=== PATIENT | female | born 1940 | race Caucasian/White ===

== ENCOUNTER → 2017-05-12 | Outpatient (CLI) | payer MEDICARE ==
--- NOTE | 2017-05-12 15:47 | MR ---
EXAMINATION TYPE: MR brain and iac wo/w con DATE OF EXAM: 05/12/2017 COMPARISON: CT brain dated 11/02/2013 HISTORY: Hearing loss and tinnitus on the left. Imbalance. TECHNIQUE: Multiplanar, multisequence images of the brain and brainstem is performed without and with IV contras t, utilizing 9 mL intravenous Gadavist . Brain and IAC protocols were performed. FINDINGS: Diffusion weighted images demonstrate no evidence of a recent infarct or other diffusion ab normality. There is no extra-axial fluid collection. Numerous nonenhancing T2/FLAIR hyperintense foc i are scattered throughout the subcortical and periventricular white matter. These most commonly rela te to sequela prior microangiopathy The ventricular system and cisternal spaces are normal in size an d appearance. The brain volume is age appropriate. Midline structures demonstrate normal morphology. The craniocervical junction appears within normal limits. Post contrast images demonstrate no abnormal enhancement. The dural venous sinuses appear pa tent. The visualized sinuses are clear and the globes are intact. No cerebellar pontine angle mass or abnormal enhancement of the 7th or 8th cranial nerves are seen. Posterior disc osteophyte complex at C3-C4 creates mild spinal canal stenosis. The right vertebral ar shaila is noted to be diminutive with a dominant left vertebral artery. Major intracranial flow voids a re maintained. IMPRESSION: 1. No evidence of abnormal enhancement, intracranial mass, or restricted diffusion to indicate acute infarct. 2. No abnormal enhancement of the 7th or 8th cranial nerves and no evidence for acoustic schwannoma. 3. No cerebellopontine angle mass. 4. Moderate burden nonspecific white matter change, likely on the basis of chronic microangiopathy. 5. Mild spinal canal stenosis at C3-C4 from a posterior disc osteophyte complex.
== END | disposition home or self-care (01) ==
LOC: RADMRIMAIN 09:52
PROVIDERS: ATTEND Otolaryngology
DX: H93.12 Tinnitus, left ear (principal); H93.3X2 Disorders of left acoustic nerve; R40.0 Somnolence; I67.89 Other cerebrovascular disease; R29.6 Repeated falls
CPT/HCPCS: 82565; 70553; 36415; A9581

== ENCOUNTER 2017-09-24 23:41 | Inpatient (IN) | payer MEDICARE ==
[2017-09-25] MEDS ORDERED: cloNIDine 0.1 MG/24HR PATCH 1 PATCH PATCH TRANSDERM SCH (02:45)
[2017-09-25] MEDS ORDERED: METOPROLOL TARTRATE 50 MG TAB PO SCH ×2 (02:45→09:00)
[2017-09-25] MEDS ORDERED: LORazepam 0.5 MG TAB PO PRN (06:18)
[2017-09-25] MEDS: amLODIPine 5 MG TAB PO SCH ×2 (07:26→21:03)
[2017-09-25] MEDS ORDERED: NON-FORMULARY DRUG (Omega-3 Fatty Acids/Fish Oil [Fish Oil 1,000 Mg Softgel] 1 CAP) PO SCH (10:00)
[2017-09-25] MEDS: DIPYRIDAMOLE-ASPIRIN 200-25 MG 1 EACH CPMP.12HR PO SCH ×2 (11:44→21:02)
[2017-09-25] MEDS: GABAPENTIN 100 MG CAP PO SCH ×3 (11:44→21:02)
[2017-09-25] MEDS: LISINOPRIL 10 MG TAB PO SCH ×2 (11:45→21:02)
[2017-09-25] MEDS: ENOXAPARIN 40 MG/0.4 ML SYRINGE SQ SCH (11:46)
[2017-09-25] MEDS: LORazepam 0.5 MG TAB PO SCH ×3 (11:47→22:44)
[2017-09-25] MEDS: TAMSULOSIN 0.4 MG CAP.ER.24H PO SCH (11:47)
[2017-09-25] MEDS: PRIMIDONE 50 MG TAB PO SCH ×3 (11:47→21:02)
[2017-09-25] MEDS ORDERED: ONDANSETRON 4 MG/2 ML VIAL IVP PRN (15:18)
[2017-09-25] MEDS ORDERED: NALOXONE 0.4 MG/ML 1 ML VIAL IV PRN (15:18)
[2017-09-25] MEDS ORDERED: MELATONIN 3 MG TABLET PO PRN (15:18)
[2017-09-25] MEDS ORDERED: traMADol 50 MG TAB PO PRN (15:18)
[2017-09-25] MEDS ORDERED: CALCIUM CARBONATE 500 MG CHEWABLE PO PRN (15:18)
--- NOTE | 2017-09-25 15:46 | P.HPIM ---
History of Present Illness H&P Date: 09/25/17 Chief Complaint: weakness History of presenting complaint: This is a pleasant 76-year-old patient of Dr. macias. 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 Patient had multiple TIAs it. Patient yesterday was getting ready to be picked up by quaker friends that started feeling some weakness in the legs decided to go inside the house that had weakness in her arms and she thought her speech is also getting affected subsequently called 911 and patient was taken to [facility]. Patient was then admitted to the medical floor . Patient's blood pressure was recorded rather high they're over 220s. There wasn't available and bell person neurologist. I had the nurse contacted the robotic neurological team, who didn' t want to do any other intervention except for blood pressure control and close monitoring. Because neurologist was not available, I got the patient transferred over to here at [facility]. Patient's blood pressure was still running high and medications were ordered for blood pressure control. I saw this patient earlier today and patient's arm and leg weakness had all resolved. Patient felt his speech is come back to normal. No change in vision. No change in swallowing. Patient did feel tired and she had not slept most of the night. GEN.: Tired EYES: None HEENT: Definite the left ear NECK: None RESPIRATORY: None CARDIOVASCULAR: None GASTROINTESTINAL: None GENITOURINARY: None MUSCULOSKELETAL: Chronic joint pains LYMPHATICS: None HEMATOLOGICAL: None PSYCHIATRY: None NEUROLOGICAL: Does have poor balance because of Mnire's disease Past medical history: Fibromyalgia, hyperlipidemia, osteoarthritis, Mnire's disease primarily left ear, peptic ulcer disease, multiple TIAs. Social history: Lives alone. In an apartment. Does use a walker. Family history: Reviewed, noncontributory presentation VITAL SIGNS: Afebrile, 62, 14, 211/93, 99% 2 L GENERAL: BMI 40.2, well built, sitting up on a chair, comfortable. EYES: Pupils equal. Conjunctiva normal. HEENT: External appearance of nose and ears normal, oral cavity grossly normal decreased hearing in the left ear. NECK: JVD not raised; masses not palpable. HEART: First and second heart sounds are normal; no edema. LUNGS: Respiratory rate normal; clear to auscultation. ABDOMEN: Soft, nontender, liver spleen not palpable, no masses palpable. LYMPHATICS: No lymph nodes palpable in the axilla and neck. PSYCH: Alert and oriented x3; mood and affect normal. NEUROLOGICAL: Cranial nerves grossly intact; no facial asymmetry, power and sensation grossly intact. Investigations: Patient is reported to have a negative computed tomography scan at [facility]. Assessment: -This is a patient with multiple TIAs in the past, presenting with weakness in both the arms and legs some infection of the speech which is completely resolved. 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 Dr. Coelho from neurology was consulted. Home medications were resumed. Blood pressure medications were adjusted. Added Norvasc and beta tierney. Patient is already on on Aggrenox. Check lipid profile. Consult dietitian. Repeat computed tomography scan of the brain. Do a 2-D echo and carotid Doppler Past Medical History Past Medical History: CVA/TIA, Fibromyalgia, GERD/Reflux, Hyperlipidemia, Memory Impairment, Osteoarthritis (OA), Skin Disorder Additional Past Medical History / Comment(s): SEE DR UNGER'S H&P, MENIERE' S LEFT EAR, PEPTIC ULCERS, tia x 14- last 12/2013. History of Any Multi-Drug Resistant Organisms: None Reported Past Surgical History: Back Surgery, Cholecystectomy, Joint Replacement, Orthopedic Surgery, Tonsillectomy Additional Past Surgical History / Comment(s): LOOP RECORDER 2010, ORIF LEFT FOOT, rt foot surgery, JT REPL WINNIE KNEES & WINNIE SHOULDERS, WINNIE CATARACT, gianni and screws in back Past Anesthesia/Blood Transfusion Reactions: No Reported Reaction Past Psychological History: Anxiety, Depression Smoking Status: Never smoker Past Alcohol Use History: None Reported Past Drug Use History: None Reported - Past Family History Father Family Medical History: Cancer Mother Family Medical History: Cancer Medications and Allergies Home Medications Medication Instructions Recorded Confirmed Type Gabapentin [Neurontin] 100 mg PO TID 12/12/13 09/25/17 History LORazepam [Ativan] 0.5 mg PO TID 12/12/13 09/25/17 History Primidone [Mysoline] 50 mg PO Q6H 12/12/13 09/25/17 History QUEtiapine [SEROquel] 50 mg PO HS 12/12/13 09/25/17 History Tamsulosin HCl [Flomax] 0.4 mg PO DAILY 12/12/13 09/25/17 History Cholecalciferol [Vitamin D3] 1,000 unit PO BID 02/21/14 09/25/17 History Alendronate Sodium [Fosamax] 35 mg PO MO 09/25/17 09/25/17 History Ascorbic Acid [Vitamin C] 500 mg PO DAILY 09/25/17 09/25/17 History Aspirin/Dipyridamole [Aggrenox 1 tab PO BID 09/25/17 09/25/17 History 25MG -200MG] Cyanocobalamin (Vitamin B-12) 1,000 mcg PO BID 09/25/17 09/25/17 History [Vitamin B-12] Glucosam/Isidro-Msm1/C/Sivakumar/Bosw 1 tab PO BID 09/25/17 09/25/17 History [Glucosamine-Chondroitin Tablet] Lisinopril [Zestril] 10 mg PO BID 09/25/17 09/25/17 History Meclizine [Antivert] 12.5 mg PO BID 09/25/17 09/25/17 History [place]-3 Fatty Acids/Fish Oil [Fish 1 cap PO BID 09/25/17 09/25/17 History Oil 1,000 mg Softgel] PARoxetine HCL [Paxil Cr] 25 mg PO DAILY 09/25/17 09/25/17 History rOPINIRole HCL [Requip] 1 mg PO HS 09/25/17 09/25/17 History Allergies Allergy/AdvReac Type Severity Reaction Status Date / Time nickel [Nickel] Allergy Rash/Hives Verified 09/25/17 07:51 codeine AdvReac headache Verified 09/25/17 07:51
--- NOTE | 2017-09-25 16:39 | CT ---
EXAMINATION TYPE: CT brain wo con DATE OF EXAM: 09/25/2017 COMPARISON: Prior CT brain 11/02/2013, MR brain 05/12/2017 HISTORY: Bilateral arm weakness that has subsided at time of test. CT DLP: 1026.6 mGycm Automated exposure control for dose reduction was used. Helical acquisition through the brain FINDINGS: Cerebral vascular calcifications are present. There is no hemorrhage or hydrocephalus. Periventricula r white matter shows patchy low attenuation. Calvarium is intact. Paranasal sinuses and mastoid air c ells as visualized are stable. IMPRESSION: NO ACUTE ABNORMALITIES EVIDENT. CONSIDER BRAIN MRI FOR BETTER EVALUATION.
--- NOTE | 2017-09-25 16:42 | US ---
EXAMINATION TYPE: US carotid duplex BILAT DATE OF EXAM: 09/25/2017 COMPARISON: None CLINICAL HISTORY: poss stroke. history of multiple TIA's per patient, HTN EXAM MEASUREMENTS: RIGHT: Peak Systolic Velocity (PSV) cm/sec ----- Right CCA: 75.4 ----- Right ICA: 83.4 ----- Right ECA: 121.8 ICA/CCA ratio: 1.1 RIGHT: End Diastole cm/sec ----- Right CCA: 9.5 ----- Right ICA: 13.1 ----- Right ECA: 0.0 LEFT: Peak Systolic Velocity (PSV) cm/sec ----- Left CCA: 65.1 ----- Left ICA: 91.7 ----- Left ECA: 74.6 ICA/CCA ratio: 1.4 LEFT: End Diastole cm/sec ----- Left CCA: 10.4 ----- Left ICA: 16.9 ----- Left ECA: 0.0 VERTEBRALS (direction of flow): Right Vertebral: Antegrade Left Vertebral: Antegrade Rhythm: Normal Plaque seen in left bulb. No elevated velocities or significant stenosis. Wall thickening. Tortuou s and diving ECA's and ICA's. IMPRESSION: 1. Atheromatous plaquing without significant flow-limiting stenosis. Criteria for Assigning % of Stenosis / Diameter reduction (Estimation based on the indirect measurements of the internal carotid artery velocities (ICA PSV). 1. Normal (no stenosis)=ICA PSV < 125 cm/s: ratio < 2.0: ICA EDV<40 cm/s. 2. Less than 50% stenosis=ICA PSV < 125 cm/s: ratio < 2.0: ICA EDV<40 cm/s. 3. 50 to 69% stenosis=ICA PSV of 125 to 230 cm/s: ration 2.0 ? 4.0: ICA EDV 40-100 cm/s. 4. Greater than 70% stenosis to near occlusion= ICA PSV > 230 cm/s: ratio > 4.0: ICA EDV > 100 cm/s. 5. Near occlusion= ICA PSV velocities may be low or undetectable: variable ratio and ICA EDV. 6. Total occlusion=unable to detect flow.
[2017-09-25 17:42] LABS: HCT 40.8 % (34.0-46.0); HGB 12.9 gm/dL (11.4-16.0); MCH 29.3 pg (25.0-35.0); MCHC 31.7 g/dL (31.0-37.0); MCV 92.4 fL (80.0-100.0); Platelet Count 225 k/uL (150-450); RBC 4.42 m/uL (3.80-5.40); RDW 13.5 % (11.5-15.5); WBC 7.2 k/uL (3.8-10.6)
[2017-09-25 17:53] LABS: ALT 33 U/L (9-52); AST 41 U/L (14-36); Albumin 3.8 g/dL (3.5-5.0); Alkaline Phosphatase 66 U/L (38-126); Anion Gap 8 mmol/L; Blood Urea Nitrogen 19 mg/dL (7-17); Calcium 9.2 mg/dL (8.4-10.2); Carbon Dioxide 28 mmol/L (22-30); Chloride 103 mmol/L (98-107); Glucose 114 mg/dL (74-99); Potassium 4.3 mmol/L (3.5-5.1); Sodium 139 mmol/L (137-145); Total Bilirubin 0.4 mg/dL (0.2-1.3); Total Protein 6.3 g/dL (6.3-8.2)
[2017-09-25] MEDS ORDERED: PARoxetine 20 MG TAB PO SCH (18:15)
--- NOTE | 2017-09-25 20:12 | P.CNNES ---
History of Present Illness Consult date: 09/25/17 History of Present Illness: The patient is a 76-year-old right-handed white female who was in her usual state of health on Monday afternoon around 5 PM she is waiting to go to [employer] and suddenly her legs went numb and her arms went numb and her speech was a slight slur. EMS was called and she was taken to [facility]. Her symptoms resolved by the time she got to the hospital but her blood pressure was extremely high. She was transferred from there to inpatient at [facility]. She states that she continues to feel generally weak but no more numbness and she is not had any speech disturbance. She states her blood pressures never been so elevated in the past. Since Monday her systolic blood pressures have been running in the 200 range. When she was at [facility] her blood pressure was recorded over 220. The robotic neurologic team was contacted and no intervention was suggested. They did want blood pressure controlled and close monitoring. Patient patient is feeling much better today. A CAT scan of the brain today which did not show any acute abnormality. She's had a carotid ultrasound which did not show any stenosis. States she had an echocardiogram 3 weeks ago at [facility]. His been on Aggrenox. She has a history of TIAs. Review of Systems Constitutional: Denies chills, Denies fever Ears, nose, mouth and throat: Reports as per HPI Cardiovascular: Denies chest pain, Denies shortness of breath Respiratory: Denies cough Gastrointestinal: Reports as per HPI Genitourinary: Denies dysuria, Denies hematuria Musculoskeletal: Denies myalgias Integumentary: Denies pruritus, Denies rash Neurological: Denies numbness, Denies weakness Psychiatric: Denies anxiety, Denies depression Past Medical History Past Medical History: CVA/TIA, Fibromyalgia, GERD/Reflux, Hyperlipidemia, Memory Impairment, Osteoarthritis (OA), Skin Disorder Additional Past Medical History / Comment(s): SEE DR UNGER'S H&P, MENIERE' S LEFT EAR, PEPTIC ULCERS, tia x 14- last 12/2013. History of Any Multi-Drug Resistant Organisms: None Reported Past Surgical History: Back Surgery, Cholecystectomy, Joint Replacement, Orthopedic Surgery, Tonsillectomy Additional Past Surgical History / Comment(s): LOOP RECORDER 2010, ORIF LEFT FOOT, rt foot surgery, JT REPL WINNIE KNEES & WINNIE SHOULDERS, WINNIE CATARACT, gianni and screws in back Past Anesthesia/Blood Transfusion Reactions: No Reported Reaction Past Psychological History: Anxiety, Depression Smoking Status: Never smoker Past Alcohol Use History: None Reported Past Drug Use History: None Reported - Past Family History Father Family Medical History: Cancer Mother Family Medical History: Cancer Medications and Allergies Home Medications Medication Instructions Recorded Confirmed Type Gabapentin [Neurontin] 100 mg PO TID 12/12/13 09/25/17 History LORazepam [Ativan] 0.5 mg PO TID 12/12/13 09/25/17 History Primidone [Mysoline] 50 mg PO Q6H 12/12/13 09/25/17 History QUEtiapine [SEROquel] 50 mg PO HS 12/12/13 09/25/17 History Tamsulosin HCl [Flomax] 0.4 mg PO DAILY 12/12/13 09/25/17 History Cholecalciferol [Vitamin D3] 1,000 unit PO BID 02/21/14 09/25/17 History Alendronate Sodium [Fosamax] 35 mg PO MO 09/25/17 09/25/17 History Ascorbic Acid [Vitamin C] 500 mg PO DAILY 09/25/17 09/25/17 History Aspirin/Dipyridamole [Aggrenox 1 tab PO BID 09/25/17 09/25/17 History 25MG -200MG] Cyanocobalamin (Vitamin B-12) 1,000 mcg PO BID 09/25/17 09/25/17 History [Vitamin B-12] Glucosam/Isidro-Msm1/C/Sivakumar/Bosw 1 tab PO BID 09/25/17 09/25/17 History [Glucosamine-Chondroitin Tablet] Lisinopril [Zestril] 10 mg PO BID 09/25/17 09/25/17 History Meclizine [Antivert] 12.5 mg PO BID 09/25/17 09/25/17 History [place]-3 Fatty Acids/Fish Oil [Fish 1 cap PO BID 09/25/17 09/25/17 History Oil 1,000 mg Softgel] PARoxetine HCL [Paxil Cr] 25 mg PO DAILY 09/25/17 09/25/17 History rOPINIRole HCL [Requip] 1 mg PO HS 09/25/17 09/25/17 History Allergies Allergy/AdvReac Type Severity Reaction Status Date / Time nickel [Nickel] Allergy Rash/Hives Verified 09/25/17 07:51 codeine AdvReac headache Verified 09/25/17 07:51 Physical Examination - Vital Signs Vital Signs: Vital Signs Temp Pulse Resp BP BP Pulse Ox 09/25/17 16:00 97.4 F L 44 L 14 143/62 100 09/25/17 12:00 49 L 18 136/65 96 09/25/17 09:17 49 L 191/91 09/25/17 08:00 77 18 221/116 97 09/25/17 07:45 84 261/135 09/25/17 07:15 69 230/107 09/25/17 04:17 59 L 225/100 09/25/17 04:16 58 L 190/84 09/25/17 04:00 59 L 14 09/25/17 03:33 58 L 237/100 97 09/25/17 03:00 62 14 211/93 99 Intake and Output 09/25/17 09/25/17 09/25/17 06:59 14:59 22:59 Intake Total 480 240 Balance 480 240 Intake: Oral 480 240 Other: # Voids 3 3 # Bowel Movements 2 Weight 93.4 kg - Constitutional General appearance: average body habitus - EENT EENT: PERRL - Respiratory Respiratory: lungs clear - Cardiovascular Cardiovascular: regular rate, normal S1, normal S2 - Integumentary Integumentary: normal - Neurologic Cranial nerve examination: PERRL, face symmetric Sensorimotor examination: intact Detailed motor examination: grossly full strength in all extremities Reflexes: 2+: tricep - Psychiatric Psychiatric: mood/affect appropriate Results - Laboratory Findings CBC and BMP: 09/25/17 17:01 09/25/17 17:01 Abnormal Lab Findings: Abnormal Labs 09/25/17 17:01 BUN 19 H Glucose 114 H AST 41 H Assessment and Plan (1) Hypertensive emergency Current Visit: Yes Status: Acute SNOMED Code(s): 549756343523306 (2) History of recurrent TIAs Current Visit: Yes Status: Acute SNOMED Code(s): 327959783 Plan: Patient is a 76-year-old woman with history of sudden onset numbness of the arms and legs and extremely elevated blood pressure. She was transferred from [facility] to [facility] yesterday. Neurology was consulted this morning for possible TIA. The patient has had no further speech disturbance since going to the emergency room at [facility]. She complains of general weakness but no focal weakness or numbness. She normally does walk with a walker. She is on Aggrenox for stroke prevention. Her main issue now is the uncontrolled blood pressure. She's had a CAT scan of the brain which was unremarkable and a carotid ultrasound which did not show any stenosis. She was told that her echocardiogram was abnormal 3 weeks ago at [facility]. Recommend continue management of hypertensive urgency.
[2017-09-25] MEDS: QUEtiapine 50 MG TAB PO SCH (21:02)
[2017-09-25] MEDS: METOPROLOL TARTRATE 25 MG TAB PO SCH (21:03)
[2017-09-26] MEDS: PRIMIDONE 50 MG TAB PO SCH ×4 (04:12→22:33)
[2017-09-26 04:15] LABS: Cholesterol 210 mg/dL (<200); HDL Cholesterol 70 mg/dL (40-60); LDL Cholesterol,Calculated 130 mg/dL (0-99); Triglycerides 48 mg/dL (<150)
[2017-09-26] MEDS: METOPROLOL TARTRATE 25 MG TAB PO SCH (08:47)
[2017-09-26] MEDS: DIPYRIDAMOLE-ASPIRIN 200-25 MG 1 EACH CPMP.12HR PO SCH ×2 (08:53→20:11)
[2017-09-26] MEDS: PARoxetine 20 MG TAB PO SCH (08:53)
[2017-09-26] MEDS: amLODIPine 5 MG TAB PO SCH ×2 (08:53→20:11)
[2017-09-26] MEDS: TAMSULOSIN 0.4 MG CAP.ER.24H PO SCH (08:53)
[2017-09-26] MEDS: GABAPENTIN 100 MG CAP PO SCH ×3 (08:53→22:33)
[2017-09-26] MEDS: LORazepam 0.5 MG TAB PO SCH ×3 (08:53→22:34)
[2017-09-26] MEDS: ENOXAPARIN 40 MG/0.4 ML SYRINGE SQ SCH (08:54)
[2017-09-26] MEDS: ACETAMINOPHEN TAB 325 MG TAB PO PRN (11:04)
--- NOTE | 2017-09-26 11:13 | ECHOF ---
Referral Reason:poss stroke MEASUREMENTS -------- HEIGHT: 152.4 cm WEIGHT: 93.0 kg BP: 191/91 RVIDd: 2.6 cm (< 3.3) IVSd: 1.2 cm (0.6 - 1.1) LVIDd: 4.6 cm (3.9 - 5.3) LVPWd: 1.0 cm (0.6 - 1.1) IVSs: 1.5 cm LVIDs: 2.8 cm LVPWs: 1.4 cm LA Diam: 3.2 cm (2.7 - 3.8) LAESV Index (A-L): 24.43 ml/m Ao Diam: 3.6 cm (2.0 - 3.7) AV Cusp: 2.4 cm (1.5 - 2.6) EPSS: 0.8 cm MV E Martin: 0.86 m/s MV DecT: 304 ms MV A Martin: 0.92 m/s MV E/A Ratio: 0.94 AR PHT: 1431 ms RAP: 5.00 mmHg RVSP: 22.50 mmHg MV EF SLOPE: 59.65 mm/s (70 - 150) MV EXCURSION: 1.14 cm (> 18.000) FINDINGS -------- Sinus rhythm. This was a technically good study. The left ventricular size is normal. There is borderline concentric left ventricular hypertrophy. Overall left ventricular systolic function is normal with, an EF between 55 - 60 %. The right ventricle is normal in size. Normal LA size by volume 22+/-6 ml/m2. The right atrium is normal in size. There is mild aortic valve sclerosis. There is mild aortic regurgitation. The mitral valve leaflets are mildly thickened. Mild mitral annular calcification present. There is trace to mild mitral regurgitation. Mild tricuspid regurgitation present. Right ventricular systolic pressure is normal at < 35 mmHg. Trace/mild (physiologic) pulmonic regurgitation. The aortic root size is normal. Normal inferior vena cava with normal inspiratory collapse consistent with estimated right atrial pre ssure of 5 mmHg. There is no pericardial effusion. CONCLUSIONS -------- 1. Sinus rhythm. 2. This was a technically good study. 3. The left ventricular size is normal. 4. There is borderline concentric left ventricular hypertrophy. 5. Overall left ventricular systolic function is normal with, an EF between 55 - 60 %. 6. The right ventricle is normal in size. 7. Normal LA size by volume 22+/-6 ml/m2. 8. The right atrium is normal in size. 9. There is mild aortic valve sclerosis. 10. There is mild aortic regurgitation. 11. The mitral valve leaflets are mildly thickened. 12. Mild mitral annular calcification present. 13. There is trace to mild mitral regurgitation. 14. Mild tricuspid regurgitation present. 15. Right ventricular systolic pressure is normal at < 35 mmHg. 16. Trace/mild (physiologic) pulmonic regurgitation. 17. The aortic root size is normal. 18. Normal inferior vena cava with normal inspiratory collapse consistent with estimated right atrial pressure of 5 mmHg. 19. There is no pericardial effusion. OSCILLOGRAPH TECHNICIAN: LAUREN Slade
[2017-09-26 11:39] VITALS: BMI 40.3
[2017-09-26] MEDS: LISINOPRIL 10 MG TAB PO SCH ×2 (16:39→20:11)
--- NOTE | 2017-09-26 17:35 | P.PN ---
Progress Note - Text Progress Note Date: 09/26/17 presenting complaint: Weakness interval history: Patient presented bilateral arm and leg weakness felt to be hypertensive encephalopathy which since has resolved. Blood pressure is getting better controlled patient is tolerating a diet. no focal weakness. Because the heart rate was running low on blood pressure well-controlled beta blockers being discontinued Review of systems: Was done for constitutional, cardiovascular, GI, pulmonary. relevant finding as above Current medications reviewed that included: Norvasc 5 mg by mouth twice a day, Zestril 10 mg by mouth twice a day, Lopressor 25 by mouth twice a day that has been discontinued VITAL SIGNS: 96, 45, 10, 132/61, 97% room air GENERAL: sitting up on the bedsider, comfortable. EYES: Pupils equal. Conjunctiva normal. HEENT: External appearance of nose and ears normal, oral cavity grossly normal decreased hearing in the left ear. NECK: JVD not raised; masses not palpable. HEART: First and second heart sounds are normal; no edema. LUNGS: Respiratory rate normal; clear to auscultation. ABDOMEN: Soft, nontender, liver spleen not palpable, no masses palpable. PSYCH: Alert and oriented x3; mood and affect normal. NEUROLOGICAL: Cranial nerves grossly intact; no facial asymmetry, power and sensation grossly intact. Investigations: computed tomography scan brain negative, 2-D echocardiogram unremarkable, carotid Doppler no critical stenosis Assessment: -This is a patient with multiple TIAs in the past, presenting with weakness in both the arms and legs some infection of the speech which is completely resolved. 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 Beta blockers been discontinued. We will keep a close on the blood pressure. She remained stable to be discharged tomorrow
[2017-09-26] MEDS: QUEtiapine 50 MG TAB PO SCH (20:11)
[2017-09-26 21:11] LABS: Glucose,Whole Blood 105 mg/dL (75-99)
[2017-09-27 04:44] VITALS: PULSE 67; RESP 20
[2017-09-27] MEDS: PRIMIDONE 50 MG TAB PO SCH ×3 (06:20→16:08)
[2017-09-27] MEDS: PARoxetine 20 MG TAB PO SCH (08:27)
[2017-09-27] MEDS: amLODIPine 5 MG TAB PO SCH (08:27)
[2017-09-27] MEDS: ENOXAPARIN 40 MG/0.4 ML SYRINGE SQ SCH (08:27)
[2017-09-27] MEDS: DIPYRIDAMOLE-ASPIRIN 200-25 MG 1 EACH CPMP.12HR PO SCH (08:27)
[2017-09-27] MEDS: GABAPENTIN 100 MG CAP PO SCH ×2 (08:27→16:08)
[2017-09-27] MEDS: LISINOPRIL 10 MG TAB PO SCH (08:27)
[2017-09-27] MEDS: LORazepam 0.5 MG TAB PO SCH ×2 (08:27→16:08)
[2017-09-27] MEDS: TAMSULOSIN 0.4 MG CAP.ER.24H PO SCH (08:27)
[2017-09-27] MEDS: ACETAMINOPHEN TAB 325 MG TAB PO PRN (11:26)
[2017-09-27 12:13] VITALS: BP 159/66; TEMP 97.8
[2017-09-27] MEDS ORDERED: LISINOPRIL 10 MG TAB PO STA (13:04)
[2017-09-27] MEDS ORDERED: ATORVASTATIN 80 MG TAB PO SCH (13:30)
--- NOTE | 2017-09-27 22:17 | DS ---
DISCHARGE SUMMARY DATE OF ADMISSION: September 25, 2017. DATE OF DISCHARGE: September 27, 2017. FINAL DIAGNOSES: 1. Hypertensive encephalopathy present on admission. 2. Morbid obesity BMI 40.2. 3. Hyperlipidemia. 4. Primary osteoarthritis. 5. Chronic Meniere's disease in the left ear with near deafness. 6. Peptic ulcer disease. 7. Essential hypertension with urgency, present on admission. 8. Bradycardia from beta tierney, discontinued. HOSPITAL COURSE: This patient was transferred from [facility] feeling weak all over, was found to have blood pressure over 220 systolic. The patient is felt to have hypertensive encephalopathy. The patient's CT scan of the brain, carotid Doppler, 2D echo were all unremarkable. Blood pressure at the time of discharge was better controlled at 159/66. Slight for that medication was done today. EXAM: Lungs are clear. Cardiovascular 1st and 2nd sounds normal. No focal weakness. CONSULTATIONS: Dr. Joey Guerrero of Neurology. DISCHARGE MEDICATIONS: 1. Neurontin 100 mg p.o. t.i.d. 2. Ativan 0.5 p.o. t.i.d. 3. Mysoline 50 mg q.6. 4. Seroquel 50 mg q.h.s. 5. Flomax 0.4 mg p.o. daily. 6. Vitamin D3 1000 units p.o. b.i.d. 7. Fosamax 35 mg p.o. Mondays. 8. Vitamin C 500 mg p.o. daily. 9. Aggrenox 1 tab p.o. b.i.d. 10.Vitamin B12 1000 mcg p.o. b.i.d. 11.Glucosamine chondroitin 1 tab p.o. b.i.d. 12.Fish oil 1000 mg p.o. b.i.d. 13.Paxil CR 25 mg p.o. daily. 14.Requip 1 mg q.h.s. 15.Zestoretic 12/12.5 one tablet p.o. daily. 16.Melatonin 3 mg p.o. q.h.s. p.r.n. 17.Norvasc 5 mg p.o. b.i.d. 18.Zestoretic 20/12.5 one tablet twice a day. Follow up with Dr. Roberts in 1 week, Dr. Yazmin Guerrero in 10 days. The patient has got [facility]. Copy to Dr. Roberts. [email or web address] / IJN: [id number] /
== END 2017-09-27 16:35 | disposition home or self-care (01) | DRG 305 ==
LOC: 6SEL 09-25 02:31
PROVIDERS: ADMIT Hospitalist; ATTEND Hospitalist
DX: I16.0 Hypertensive urgency (principal); I67.4 Hypertensive encephalopathy; R00.1 Bradycardia, unspecified; Z68.41 Body mass index [BMI] 40.0-44.9, adult; E66.01 Morbid (severe) obesity due to excess calories; M19.91 Primary osteoarthritis, unspecified site; E78.5 Hyperlipidemia, unspecified; H81.02 Meniere's disease, left ear; H91.90 Unspecified hearing loss, unspecified ear; K21.9 Gastro-esophageal reflux disease without esophagitis; M79.7 Fibromyalgia; Z96.653 Presence of artificial knee joint, bilateral; Z96.612 Presence of left artificial shoulder joint; Z96.611 Presence of right artificial shoulder joint; F32.9 Major depressive disorder, single episode, unspecified; F41.9 Anxiety disorder, unspecified; Z79.899 Other long term (current) drug therapy; Z79.83 Long term (current) use of bisphosphonates; Z79.82 Long term (current) use of aspirin; Z98.41 Cataract extraction status, right eye; Z86.73 Personal history of transient ischemic attack (TIA), and cerebral infarction without residual deficits; Z98.42 Cataract extraction status, left eye; Z90.49 Acquired absence of other specified parts of digestive tract; Z87.11 Personal history of peptic ulcer disease; Z90.89 Acquired absence of other organs; Z88.6 Allergy status to analgesic agent; Z91.048 Other nonmedicinal substance allergy status
CPT/HCPCS: 70450; 80053; 80061; 85027; 93306; 93880

== ENCOUNTER 2019-03-11 16:51 | Inpatient (IN) | payer MEDICARE ==
--- NOTE | 2019-03-11 17:43 | ED ---
General Adult HPI - General Chief complaint: Neuro Symptoms/Deficit Stated complaint: Stroke Symptoms Time Seen by Provider: 03/11/19 17:02 Source: EMS Mode of arrival: EMS Limitations: no limitations - History of Present Illness Initial comments: Dictation was produced using [employer] dictation software. please excuse any grammatical, word or spelling errors. Chief Complaint: 78-year-old female transferred from [facility] for transient ischemic attack. History of Present Illness: Delores is an 82-year-old female she is past medical history history of stroke and transient ischemic attack. She has multiple other comorbidities including the some edema hypertension liver disease. She allegedly has history of stroke with chronic left-sided weakness. She was seen and evaluated at [facility]. She was brought to their facility by paramedics for symptoms of expressive aphasia. Patient also stated at that time that she was generally weak. She denies any localizing focal neurologic deficit. States her symptoms lasted for approximately 20 minutes then resolved. Patient states she just recently had an EEG. Her neurologist is Dr. Hernandez. She underwent stroke workup at [facility] with no obvious abnormalities. She had normal labs. Chest x-ray and a normal computed tomography scan of the brain. Patient evaluated at bedside. She states that her symptoms are resolved. Sensation feels mildly lightheaded. According to documentation patient was found to have left upper and left lower extremity weakness that resolved while in the emergency department. The ROS documented in this emergency department record has been reviewed and confirmed by me. Those systems with pertinent positive or negative responses have been documented in the HPI. All other systems are other negative and/or noncontributory. PHYSICAL EXAM: General Impression: Alert and oriented x3, not in acute distress HEENT: Normocephalic atraumatic, extra-ocular movements intact, pupils equal and reactive to light bilaterally, mucous membranes moist. Cardiovascular: Heart regular rate and rhythm, S1&S2 audible, no murmurs, rubs or gallops Chest: Lungs clear to auscultation bilaterally, no rhonchi, no wheeze, no rales Abdomen: Bowel sounds present, abdomen soft, non-tender, non-distended, no organomegaly Musculoskeletal: Pulses present and equal in all extremities, no peripheral edema Motor: no focal deficits noted Neurological: CN II-XII grossly intact, no focal motor or sensory deficits noted Skin: Intact with no visualized rashes Psych: Normal affect and mood ED course: 82-year-old female presents via transfer from [facility] for concerns of transient ischemic attack. Patient evaluated at bedside and has no focal neurologic deficits. Vital signs upon arrival are within acceptable limits. Chest documentation was reviewed. No further concerns to warrant further imaging or blood evaluation. Patient be transferred to the floor. Discussed patient case with Dr. Parada who is willing to accept patients care. Altered in consultation. She received aspirin at previous hospital. Patient's well-appearing at this time. She has no current strokelike symptoms. She is eating well and using all extremities without any issues. She is alert and oriented 4 and having full conversations. - Related Data Home Medications Medication Instructions Recorded Confirmed Gabapentin [Neurontin] 100 mg PO TID PRN 12/12/13 03/11/19 LORazepam [Ativan] 0.25 mg PO TID 12/12/13 03/11/19 QUEtiapine [SEROquel] 50 mg PO HS 12/12/13 03/11/19 Tamsulosin HCl [Flomax] 0.4 mg PO DAILY 12/12/13 03/11/19 Alendronate Sodium [Fosamax] 35 mg PO MO 09/25/17 03/11/19 Ascorbic Acid [Vitamin C] 500 mg PO DAILY 09/25/17 03/11/19 Cyanocobalamin (Vitamin B-12) 1,000 mcg PO BID 09/25/17 03/11/19 [Vitamin B-12] PARoxetine HCL [Paxil Cr] 25 mg PO DAILY 09/25/17 03/11/19 rOPINIRole HCL [Requip] 1 mg PO HS 09/25/17 03/11/19 Aspirin EC [Ecotrin Low Dose] 81 mg PO DAILY 03/11/19 03/11/19 Ibuprofen [Motrin] 800 mg PO TID PRN 03/11/19 03/11/19 Latanoprost [Xalatan 0.005%] 1 drop BOTH EYES HS 03/11/19 03/11/19 Lisinopril-Hctz 20-12.5 mg 1 tab PO DAILY 03/11/19 03/11/19 [Zestoretic 20-12.5] Meclizine [Antivert] 12.5 mg PO TID PRN 03/11/19 03/11/19 Turmeric Root Extract [Turmeric] 500 mg PO DAILY 03/11/19 03/11/19 clonazePAM [KlonoPIN] 0.5 mg PO DAILY 03/11/19 03/11/19 Allergies Allergy/AdvReac Type Severity Reaction Status Date / Time nickel [Nickel] Allergy Rash/Hives Verified 03/11/19 17:25 codeine AdvReac headache Verified 03/11/19 17:25 Review of Systems ROS Statement: Those systems with pertinent positive or pertinent negative responses have been documented in the HPI. ROS Other: All systems not noted in ROS Statement are negative. Past Medical History Past Medical History: CVA/TIA, Fibromyalgia, GERD/Reflux, Hyperlipidemia, Memory Impairment, Osteoarthritis (OA), Skin Disorder Additional Past Medical History / Comment(s): SEE DR UNGER'S H&P, MENIERE'S LEFT EAR, PEPTIC ULCERS, tia x 14- last 12/2013. History of Any Multi-Drug Resistant Organisms: None Reported Past Surgical History: Back Surgery, Cholecystectomy, Joint Replacement, Orthopedic Surgery, Tonsillectomy Additional Past Surgical History / Comment(s): LOOP RECORDER 2010, ORIF LEFT FOOT, rt foot surgery, JT REPL WINNIE KNEES & WINNIE SHOULDERS, WINNIE CATARACT, gianni and screws in back Past Anesthesia/Blood Transfusion Reactions: No Reported Reaction Past Psychological History: Anxiety, Depression Smoking Status: Never smoker Past Alcohol Use History: None Reported Past Drug Use History: None Reported - Past Family History Father Family Medical History: Cancer Mother Family Medical History: Cancer General Exam Limitations: no limitations Course Vital Signs 03/11/19 03/11/19 16:55 18:06 Temperature 98.0 F Pulse Rate 76 78 Respiratory 16 16 Rate Blood Pressure 196/94 169/93 O2 Sat by Pulse 99 98 Oximetry Disposition Clinical Impression: TIA (transient ischemic attack) Disposition: ADMITTED IP TO THIS HOSP Condition: Fair Referrals: Elfego Roberts MD [Primary Care Provider] - 1-2 days Decision Time: 18:52
[2019-03-11] MEDS: SODIUM CHLORIDE 0.9% 1,000 ML IV SCH (18:57)
[2019-03-11 21:40] VITALS: BMI 39.0
[2019-03-11] MEDS: LATANOPROST 0.005% OPHTH DROPS 2.5 ML BTL BOTH EYES SCH (21:41)
[2019-03-11] MEDS: ATORVASTATIN 40 MG TAB PO SCH (21:43)
[2019-03-11] MEDS: QUEtiapine 50 MG TAB PO SCH (21:43)
[2019-03-11] MEDS ORDERED: LORazepam 0.5 MG TAB PO SCH (22:00)
--- NOTE | 2019-03-11 23:47 | P.HPIM ---
History of Present Illness H&P Date: 03/11/19 Chief Complaint: slurred speech and left sided weakness 78 year old female with history of breast cancer s/p radiation therapy, and history of multiple TIA and stroke patient presented today due to slurred speech and left sided weakness , that started suddenly, patient was taken to [facility], where she was evaluated at that time symptoms already started to improve, CT of the brain showed no acute process and blood work was unremarkable. she then was transferred to our facility for neurology evaluation, at this time, she reports complete resolution of her symptoms . she denies any associated headache, but does report chronic dizziness and lightheadedness that has been going on for 1 year, she has regular follow up with neurology as OP. she currently reports returning back to her baseline, denies any chest pain or trouble breathing, but she does report exertional dyspnea that is chronic in nature, due to history of emphysema. she does use nebulizer inhalers at home. she currently denies being on any blood thinner. she denies any abd pain, nausea or vomiting, denies any GI bleedin g. denies any head injury Review of Systems Pertinent positives as noted in HPI. All other systems were reviewed and are ne gative Past Medical History Past Medical History: CVA/TIA, Fibromyalgia, GERD/Reflux, Hyperlipidemia, Memory Impairment, Osteoarthritis (OA), Skin Disorder Additional Past Medical History / Comment(s): MENIERE'S LEFT EAR, PEPTIC ULCERS, tia x 14- last 12/2013. History of Any Multi-Drug Resistant Organisms: None Reported Past Surgical History: Back Surgery, Cholecystectomy, Joint Replacement, Orthopedic Surgery, Tonsillectomy Additional Past Surgical History / Comment(s): LOOP RECORDER 2010, ORIF LEFT FOOT, rt foot surgery, JT REPL WINNIE KNEES & WINNIE SHOULDERS, WINNIE CATARACT, gianni and screws in back Past Anesthesia/Blood Transfusion Reactions: No Reported Reaction Past Psychological History: Anxiety, Depression Smoking Status: Never smoker Past Alcohol Use History: None Reported Past Drug Use History: None Reported - Past Family History Father Family Medical History: Cancer Mother Family Medical History: Cancer Medications and Allergies Home Medications Medication Instructions Recorded Confirmed Type Gabapentin [Neurontin] 100 mg PO TID PRN 12/12/13 03/11/19 History LORazepam [Ativan] 0.25 mg PO TID 12/12/13 03/11/19 History QUEtiapine [SEROquel] 50 mg PO HS 12/12/13 03/11/19 History Tamsulosin HCl [Flomax] 0.4 mg PO DAILY 12/12/13 03/11/19 History Alendronate Sodium [Fosamax] 35 mg PO MO 09/25/17 03/11/19 History Ascorbic Acid [Vitamin C] 500 mg PO DAILY 09/25/17 03/11/19 History Cyanocobalamin (Vitamin B-12) 1,000 mcg PO BID 09/25/17 03/11/19 History [Vitamin B-12] PARoxetine HCL [Paxil Cr] 25 mg PO DAILY 09/25/17 03/11/19 History rOPINIRole HCL [Requip] 1 mg PO HS 09/25/17 03/11/19 History Aspirin EC [Ecotrin Low Dose] 81 mg PO DAILY 03/11/19 03/11/19 History Ibuprofen [Motrin] 800 mg PO TID PRN 03/11/19 03/11/19 History Latanoprost [Xalatan 0.005%] 1 drop BOTH EYES HS 03/11/19 03/11/19 History Lisinopril-Hctz 20-12.5 mg 1 tab PO DAILY 03/11/19 03/11/19 History [Zestoretic 20-12.5] Meclizine [Antivert] 12.5 mg PO TID PRN 03/11/19 03/11/19 History Turmeric Root Extract [Turmeric] 500 mg PO DAILY 03/11/19 03/11/19 History clonazePAM [KlonoPIN] 0.5 mg PO DAILY 03/11/19 03/11/19 History Allergies Allergy/AdvReac Type Severity Reaction Status Date / Time nickel [Nickel] Allergy Rash/Hives Verified 03/11/19 17:25 codeine AdvReac headache Verified 03/11/19 17:25 Physical Exam Vitals: Vital Signs Temp Pulse Resp BP Pulse Ox 03/11/19 20:32 72 18 189/94 99 03/11/19 18:06 78 16 169/93 98 03/11/19 16:55 98.0 F 76 16 196/94 99 Intake and Output 03/11/19 03/11/19 03/11/19 06:59 14:59 22:59 Other: Weight 90.718 kg Constitutional: No acute distress, conversant, pleasant Eyes: Anicteric sclerae, moist conjunctiva, no lid-lag Pupils equal round reactive to light ENMT: NC/AT Oropharynx clear, no erythema, or exudates Neck: Supple, FROM, no masses, or JVD No carotid bruits No thyromegaly Lungs: Clear to auscultation, good breath sounds bilaterally no wheezing rhonchi or rales Clear to percussion Normal respiratory effort, no accessory muscle use Cardiovascular: Heart regular in rate and rhythm, No murmurs, gallops, or rubs No peripheral edema Abdominal: Soft Nontender, no guarding, rebound or rigidity Abdomen moving with respiration Normoactive bowel sounds No hepatomegaly, No splenomegaly No palpable mass No abdominal wall hernia noted Skin: Normal temperature, tone, texture, turgor No induration No subcutaneous nodules No rash, lesions No ulcers Extremities: Bilateral hammertoes deformities congenital Decreased range of motion of left arm due to history of surgery No digital cyanosis Pedal pulses intact and symmetrical Radial pulses intact and symmetrical No calf tenderness Psychiatric: Alert and oriented to person, place and time Appropriate affect fair judgment Neuro Muscles Strength 4/5 in all 4 extremities Sensation to light touch grossly present throughout Cranial nerves II-XII grossly intact No focal sensory deficits Lymphatics: no palpable cervical or supraclavicular , or inguinal lymph nodes Assessment and Plan Assessment: 78-year-old female with history of stroke and multiple TIAs history of breast cancer status post radiotherapy. Admitted as inpatient with anticipated length of stay more than 48 hours for TIA to be evaluated by neurology. Patient was transferred from [facility] after doing the initial workup for neurology evaluation. Plan: TIA Patient had initial workup done at [facility] and then was transferred to our facility for neurology evaluation Computed tomography scan of the brain showed no acute process at [facility] Check echocardiogram Check carotid ultrasound Check TSH Check lipid profile check B12 Neurology consult Neuro assessment every hour Aspirin, statin PT/OT Full precautions Permits of hypertension Chronic conditions Emphysema History of breast cancer status post radiotherapy Hypertension Chronic GERD Memory impairment History of multiple strokes and TIAs Continue home meds DVT prophylaxis mechanical due to TIA CODE STATUS: Full code Discussed with: Patient, ER, RN Anticipated discharge: 48-[address]: Pending clinical course A total of 60 minutes was spent on the care of this complex patient more than 50% of the time was spent in counseling and care coordination.
[2019-03-12 06:35] LABS: Albumin 3.6 g/dL (3.5-5.0); Total Bilirubin 0.7 mg/dL (0.2-1.3); Total Protein 6.3 g/dL (6.3-8.2)
[2019-03-12 07:35] LABS: Basophils # (A) 0.1 k/uL (0-0.2); Basophils % (A) 1 %; Eosinophils # (A) 0.3 k/uL (0-0.7); Eosinophils % (A) 6 %; HCT 43.2 % (34.0-46.0); Lymphocytes # (A) 1.5 k/uL (1.0-4.8); Lymphocytes % (A) 30 %; MCH 30.4 pg (25.0-35.0); MCHC 32.5 g/dL (31.0-37.0); MCV 93.6 fL (80.0-100.0); Monocytes # (A) 0.4 k/uL (0-1.0); Monocytes % (A) 8 %; Neutrophils # (A) 2.8 k/uL (1.3-7.7); Neutrophils % (A) 54 %; Platelet Count 191 k/uL (150-450); RBC 4.62 m/uL (3.80-5.40); RDW 15.4 % (11.5-15.5); WBC 5.2 k/uL (3.8-10.6)
[2019-03-12] MEDS: PARoxetine 20 MG TAB PO SCH (09:41)
[2019-03-12] MEDS: LORazepam 0.5 MG TAB PO SCH (09:41)
[2019-03-12] MEDS: TAMSULOSIN 0.4 MG CAP.ER.24H PO SCH (09:41)
[2019-03-12] MEDS: clonazePAM 0.5 MG TAB PO SCH (09:41)
[2019-03-12] MEDS: ASPIRIN 325 MG TAB PO SCH (09:46)
--- NOTE | 2019-03-12 10:04 | US ---
EXAMINATION TYPE: US carotid duplex BILAT DATE OF EXAM: 03/12/2019 COMPARISON: CLINICAL HISTORY: tia. Patient states having a hx of multiple TIA's. EXAM MEASUREMENTS: RIGHT: Peak Systolic Velocity (PSV) cm/sec ----- Right CCA: 48.5 ----- Right ICA: 47.4 ----- Right ECA: 94.3 ICA/CCA ratio: 1.0 RIGHT: End Diastole cm/sec ----- Right CCA: 8.4 ----- Right ICA: 11.1 ----- Right ECA: 0.0 LEFT: Peak Systolic Velocity (PSV) cm/sec ----- Left CCA: 48.8 ----- Left ICA: 124.0 ----- Left ECA: 44.4 ICA/CCA ratio: 2.5 LEFT: End Diastole cm/sec ----- Left CCA: 8.6 ----- Left ICA: 29.4 ----- Left ECA: 0.0 VERTEBRALS (direction of flow): Right Vertebral: Antegrade Left Vertebral: Antegrade Rhythm: Normal Bilateral wall thickening. Plaque seen in left bulb. Left significant stenosis. No elevated veloci ties. Tortuous vessels seen IMPRESSION: 1. 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 2. No hemodynamically significant stenosis seen within the right internal carotid artery. Criteria for Assigning % of Stenosis / Diameter reduction (Estimation based on the indirect measurements of the internal carotid artery velocities (ICA PSV). 1. Normal (no stenosis)=ICA PSV < 125 cm/s: ratio < 2.0: ICA EDV<40 cm/s. 2. Less than 50% stenosis=ICA PSV < 125 cm/s: ratio < 2.0: ICA EDV<40 cm/s. 3. 50 to 69% stenosis=ICA PSV of 125 to 230 cm/s: ration 2.0 ? 4.0: ICA EDV 40-100 cm/s. 4. Greater than 70% stenosis to near occlusion= ICA PSV > 230 cm/s: ratio > 4.0: ICA EDV > 100 cm/s. 5. Near occlusion= ICA PSV velocities may be low or undetectable: variable ratio and ICA EDV. 6. Total occlusion=unable to detect flow.
[2019-03-12] MEDS: IPRATROPIUM-ALBUTEROL 3 ML NEB INHALATION PRN (11:49)
--- NOTE | 2019-03-12 12:18 | ECHOF ---
Referral Reason:tia MEASUREMENTS -------- HEIGHT: 152.4 cm WEIGHT: 93.4 kg BP: 157/63 IVSd: 1.2 cm (0.6 - 1.1) LVIDd: 4.4 cm (3.9 - 5.3) LVPWd: 1.5 cm (0.6 - 1.1) IVSs: 1.6 cm LVIDs: 3.4 cm LVPWs: 1.2 cm LA Diam: 3.4 cm (2.7 - 3.8) RVIDd: 2.5 cm (< 3.3) LAESV Index (A-L): 28.41 ml/m Ao Diam: 2.4 cm (2.0 - 3.7) LA Diam: 3.2 cm (2.7 - 3.8) AV Cusp: 2.2 cm (1.5 - 2.6) EPSS: 1.0 cm MV E Martin: 0.56 m/s MV DecT: 185 ms MV A Martin: 0.84 m/s MV E/A Ratio: 0.67 AR PHT: 581 ms RAP: 5.00 mmHg RVSP: 27.53 mmHg MV EF SLOPE: 76.94 mm/s (70 - 150) MV EXCURSION: 11.80 mm (> 18.000) FINDINGS -------- Sinus rhythm. This was a technically adequate study. The left ventricular size is normal. There is mild concentric left ventricular hypertrophy. Overa ll left ventricular systolic function is normal with, an EF between 55 - 60 %. The right ventricle is normal in size. The left atrial size is normal. The right atrial size is normal. There is mild aortic valve sclerosis. There is mild aortic regurgitation. Mild mitral annular calcification present. Mild mitral regurgitation is present. Mild tricuspid regurgitation present. There is no evidence of pulmonary hypertension. The right v entricular systolic pressure, as measured by Doppler, is 27.53mmHg. Trace/mild (physiologic) pulmonic regurgitation. The aortic root size is normal. There is no pericardial effusion. CONCLUSIONS -------- 1. Sinus rhythm. 2. This was a technically adequate study. 3. The left ventricular size is normal. 4. There is mild concentric left ventricular hypertrophy. 5. Overall left ventricular systolic function is normal with, an EF between 55 - 60 %. 6. The right ventricle is normal in size. 7. The left atrial size is normal. 8. The right atrial size is normal. 9. There is mild aortic valve sclerosis. 10. There is mild aortic regurgitation. 11. Mild mitral annular calcification present. 12. Mild mitral regurgitation is present. 13. Mild tricuspid regurgitation present. 14. There is no evidence of pulmonary hypertension. 15. The right ventricular systolic pressure, as measured by Doppler, is 27.53mmHg. 16. Trace/mild (physiologic) pulmonic regurgitation. 17. The aortic root size is normal. 18. There is no pericardial effusion. [employer]ENT: Araceli Lux RDCS
--- NOTE | 2019-03-12 15:43 | P.CNNES ---
History of Present Illness Consult date: 03/12/19 Reason for Consult: TIA/stroke Chief complaint: Slurred speech and left-sided weakness History of Present Illness: REFERRING PHYSICIAN: Dr. Toni Parada HISTORY OF PRESENT ILLNESS: Thank you for allowing me to evaluate Ms. Shelley Soto. Ms. Soto is a 78-year-old R-handed woman with past medical history of TIA x14, fibromyalgia, GERD, hyperlipidemia, memory impairment, off urethritis, breast cancer status post radiation therapy, Mnire's disease, peptic ulcer disease, anxiety, depression, presenting to [facility] for what patient reports as "another TIA." Patient states that she's had the same TIA-like episode at least 15 times including today, where she has difficulty speaking and weakness. Patient was initially sent to [facility], where her symptoms had resolved and CT Head was reported unremarkable. Patient states that these symptoms started happening about 10 years ago, last episode about 2.5 years ago. These episodes last for about 15 minutes usually and resolve spontaneously. Patient states that she has gotten MRI before, she doesn't recall if she was ever told that she actually had a stroke. She lives alone, and she denies any recent sickness, fever, cough, constipation/diarrhea, headache, nausea, vomiting, numbness or tingling. Denies any recent falls. Denies any recent difficulty with sleeping or stressors. PAST MEDICAL HISTORY: TIA x14, fibromyalgia, GERD, hyperlipidemia, memory impairment, off urethritis, breast cancer status post radiation therapy, Mnire's disease, peptic ulcer disease, anxiety, depression PAST SURGICAL HISTORY: Cholecystectomy, tonsillectomy, joint replacement in bilateral knees and shoulders, bilateral cataract surgery, back surgery with rods and screws, right foot surgery, HOME MEDICATIONS: Cervical, gabapentin, tamsulosin, Ativan, ropinirole, vitamin C, vitamin B12, paroxetine, alendronate, meclizine, clonazepam, aspirin 81 daily, lisinopril- hydrochlorothiazide, ibuprofen when necessary ALLERGIES: New goal, codeine SOCIAL HISTORY: Denies smoking/alcohol abuse/drug abuse history. REVIEW OF SYSTEMS: The 14 systems are reviewed and no additional points are identified compared to the review of systems documented history and physical PHYSICAL EXAMINATION: VITAL SIGNS: Temperature 97.9 pulse rate 65 respiratory rate 18 blood pressure 156/73 O2 saturation 97% on room air GEN.: NAD, pleasant and cooperative HEENT: NCAT, sclera without icterus NECK: Supple, no carotid bruit SKIN AND EXTREMITIES: Warm to touch, no edema NEURO: MENTAL STATUS: Patient alert and oriented to self, place, time. Able to name the current president. Speech fluent, able to name and repeat, following all commands readily. No right and left disorientation, extinction to double simultaneous stimulation, finger agnosia, neglect. CRANIAL NERVES II THROUGH XII: II: Pupils are equal and reactive to light symmetrically. No afferent pupillary defect. Visual becerra are intact. III, IV, : No ptosis. Extraocular movements full. No nystagmus. V: Facial sensation intact from V1-3. VII. No clear facial asymmetry. VIII: Hearing intact to finger rub bilaterally. IX, X: Symmetric palate elevation. XII: Shoulder shrug intact. XII: Tongue midline without fasciculation or atrophy. MOTOR: Normal bulk/tone. No pronator drift or tremor. Strength is 5/5 throughout all 4 extremities. SENSORY: Intact to light touch, temperature, pinprick in all 4 extremities. Romberg is negative. REFLEXES: 2+ throughout. Toes are downgoing. No clonus. Keli's is absent COORDINATION: Finger to nose and heel to valentin intact. No dysmetria. Rapid alternating movements with good speed and accuracy. GAIT: Narrow-based and stable. Able to toe/heel/tandem walk DIAGNOSTIC TESTING: LABORATORY: WBC 5.2 hemoglobin 14.0 platelets 191 sodium 142 potassium 5.0 chloride 110 bicarb 25 BUN 21 creatinine 0.93 glucose 109 AST 38 ALT 21 alk phos 55 total cholesterol 167 LDL 107 HDL 48 triglycerides 62 TSH 2.690 IMAGING: Carotid Doppler study 03/12/2019: Stenosis of 50-60% within the left ICA. No hemodynamically significant stenosis seen within the right ICA. CT brain without contrast 09/25/2017: No abnormalities evident. Brain MRI and IAC w/ and w/o contrast 05/12/2017: No acute infarct. No cerebellopontine angle mass. No abnormal enhancement of CN 7 or 8. Moderate burden nonspecific white matter change. Mild spinal canal stenosis at C3 to C4 from a posterior disc osteophyte complex. ASSESSMENT: Ms. Soto is a 78-year-old woman with past medical history of TIA x14, fibromyalgia, GERD, hyperlipidemia, memory impairment, off urethritis, breast cancer status post radiation therapy, Mnire's disease (L ear with hearing loss), peptic ulcer disease, anxiety, depression, presenting to [facility] for what patient reports as "another TIA." Patient with no focal neuro deficits at this time. Patient reports that she had a study done to look at her arteries through her groin, and at that time, she was told that her artery in the neck was too "windy" and could be the cause of her TIAs. Carotid Doppler also showing 50-60% stenosis of L ICA, which is what the patient could be referring to. Patient recently diagnosed with breast cancer, s/p lumpectomy and radiation therapy. Recommend stroke work-up and management RECOMMENDATIONS: 1. MRI brain w/o conrast 2. CTA Head and Neck w/ and w/o contrast 3. TTE obtained; pending final read 4. Cardiac monitoring 5. Labs: TSH, A1C, lipid panel 6. continue with ASA 81mg qday and atorvastatin 40mg qday 7. Neurology will continue to follow. Past Medical History Past Medical History: CVA/TIA, Fibromyalgia, GERD/Reflux, Hyperlipidemia, Memory Impairment, Osteoarthritis (OA), Skin Disorder Additional Past Medical History / Comment(s): MENIERE'S LEFT EAR, PEPTIC ULCERS, tia x 14- last 12/2013. History of Any Multi-Drug Resistant Organisms: None Reported Past Surgical History: Back Surgery, Cholecystectomy, Joint Replacement, Orthopedic Surgery, Tonsillectomy Additional Past Surgical History / Comment(s): LOOP RECORDER 2010, ORIF LEFT FOOT, rt foot surgery, JT REPL WINNIE KNEES & WINNIE SHOULDERS, WINNIE CATARACT, gianni and screws in back Past Anesthesia/Blood Transfusion Reactions: No Reported Reaction Past Psychological History: Anxiety, Depression Smoking Status: Never smoker Past Alcohol Use History: None Reported Past Drug Use History: None Reported - Past Family History Father Family Medical History: Cancer Mother Family Medical History: Cancer Medications and Allergies Home Medications Medication Instructions Recorded Confirmed Type Gabapentin [Neurontin] 100 mg PO TID PRN 12/12/13 03/11/19 History LORazepam [Ativan] 0.25 mg PO TID 12/12/13 03/11/19 History QUEtiapine [SEROquel] 50 mg PO HS 12/12/13 03/11/19 History Tamsulosin HCl [Flomax] 0.4 mg PO DAILY 12/12/13 03/11/19 History Alendronate Sodium [Fosamax] 35 mg PO MO 09/25/17 03/11/19 History Ascorbic Acid [Vitamin C] 500 mg PO DAILY 09/25/17 03/11/19 History Cyanocobalamin (Vitamin B-12) 1,000 mcg PO BID 09/25/17 03/11/19 History [Vitamin B-12] PARoxetine HCL [Paxil Cr] 25 mg PO DAILY 09/25/17 03/11/19 History rOPINIRole HCL [Requip] 1 mg PO HS 09/25/17 03/11/19 History Aspirin EC [Ecotrin Low Dose] 81 mg PO DAILY 03/11/19 03/11/19 History Ibuprofen [Motrin] 800 mg PO TID PRN 03/11/19 03/11/19 History Latanoprost [Xalatan 0.005%] 1 drop BOTH EYES HS 03/11/19 03/11/19 History Lisinopril-Hctz 20-12.5 mg 1 tab PO DAILY 03/11/19 03/11/19 History [Zestoretic 20-12.5] Meclizine [Antivert] 12.5 mg PO TID PRN 03/11/19 03/11/19 History Turmeric Root Extract [Turmeric] 500 mg PO DAILY 03/11/19 03/11/19 History clonazePAM [KlonoPIN] 0.5 mg PO DAILY 03/11/19 03/11/19 History Allergies Allergy/AdvReac Type Severity Reaction Status Date / Time nickel [Nickel] Allergy Rash/Hives Verified 03/11/19 17:25 codeine AdvReac headache Verified 03/11/19 17:25 Physical Examination - Vital Signs Vital Signs: Vital Signs Temp Pulse Pulse Resp BP BP Pulse Ox 03/12/19 04:15 97.9 F 65 18 156/73 97 03/11/19 23:10 73 16 149/82 96 03/11/19 21:24 98.2 F 71 16 173/84 96 03/11/19 20:32 72 18 189/94 99 03/11/19 18:06 78 16 169/93 98 03/11/19 16:55 98.0 F 76 16 196/94 99 Intake and Output 03/11/19 03/12/19 03/12/19 22:59 06:59 14:59 Intake Total 240 Balance 240 Intake: Oral 240 Other: Voiding Method Toilet # Voids 2 Weight 90.718 kg 93.6 kg Results - Laboratory Findings CBC and BMP: 03/12/19 07:00 03/12/19 05:54 Abnormal Lab Findings: Abnormal Labs 03/12/19 05:54 Chloride 110 H BUN 21 H Glucose 109 H AST 38 H LDL Cholesterol, Calc 107 H
--- NOTE | 2019-03-12 16:25 | P.PN ---
Subjective Progress Note Date: 03/12/19 Patient seen and examined and follow-up, reports resolution of her slurred speech and left upper extremity weakness. Patient scheduled to have carotid Dopplers done in neurology consultation today Objective - Vital Signs Vital signs: Vital Signs Temp 98.0 F 03/12/19 08:00 Pulse 75 03/12/19 12:02 Resp 18 03/12/19 12:00 BP 145/77 03/12/19 12:00 Pulse Ox 97 03/12/19 12:00 Intake & Output 03/11/19 03/12/19 03/12/19 18:59 06:59 18:59 Intake Total 600 Balance 600 Weight 90.718 kg 93.6 kg Intake: Oral 600 Other: Voiding Method Toilet # Voids 2 - Exam Constitutional: No acute distress, conversant, pleasant Eyes: Anicteric sclerae, moist conjunctiva, no lid-lag, PERRLA ENMT: NC/AT,Oropharynx clear, no erythema, exudates Neck:Supple, FROM, no masses, or JVD, No carotid bruits; No thyromegaly Lungs: Clear to auscultation, Clear to percussion, Normal respiratory effort, no accessory muscle use Cardiovascular: Heart regular in rate and rhythm, No murmurs, gallops, or rubs no peripheral edema Abdominal: Soft Nontender, nom distended, no guarding, no rebound or rigidity, Normoactive bowel sounds No hepatomegaly, No splenomegaly, No palpable mass No abdominal wall hernia noted Skin: Normal temperature, tone, texture, turgor, No induration No subcutaneous nodules, No rash, lesions, No ulcers Extremities:No digital cyanosis No clubbing, Pedal pulses intact and symmetrical Radial pulses intact and symmetrical Normal gait and station, No calf tenderness Psychiatric: Alert and oriented to person, place and time, Appropriate affect Intact judgement Neuro: Muscles Strength 5/5 in all 4 extremities, Sensation to light touch grossly present throughout, Cranial nerves II-XII grossly intact. No focal sensory deficits - Labs CBC & Chem 7: 03/12/19 07:00 03/12/19 05:54 Labs: Abnormal Lab Results - Last 24 Hours (Table) 03/12/19 Range/Units 05:54 Chloride 110 H (98-107) mmol/L BUN 21 H (7-17) mg/dL Glucose 109 H (74-99) mg/dL AST 38 H (14-36) U/L LDL Cholesterol, Calc 107 H (0-99) mg/dL Assessment and Plan (1) TIA (transient ischemic attack) Narrative/Plan: * Symptoms of slurred speech and left upper extremity weakness have resolved reports history of several TIAs * Workup pending follow-up carotid Dopplers * echocardiogram showing preserved LVEF 55-60% * Neurology consultation pending * Continue statin therapy and aspirin Current Visit: Yes Status: Acute Code(s): G45.9 - TRANSIENT CEREBRAL ISCHEMIC ATTACK, UNSPECIFIED SNOMED Code(s): 490603023 (2) Hypertensive emergency Narrative/Plan: * Patient's blood pressure much more controlled today * allow for permissive hypertension * Continue to monitor closely Current Visit: No Status: Resolved Code(s): I16.1 - HYPERTENSIVE EMERGENCY SNOMED Code(s): 120682741873829 (3) COPD (chronic obstructive pulmonary disease) Current Visit: Yes Status: Acute Code(s): J44.9 - CHRONIC OBSTRUCTIVE PULMONARY DISEASE, UNSPECIFIED SNOMED Code(s): 94497764 (4) GERD (gastroesophageal reflux disease) Current Visit: Yes Status: Acute Code(s): K21.9 - GASTRO-ESOPHAGEAL REFLUX DISEASE WITHOUT ESOPHAGITIS SNOMED Code(s): 230819975 (5) History of recurrent TIAs Current Visit: No Status: Acute Code(s): Z86.73 - PRSNL HX OF TIA (TIA), AND CEREB INFRC W/O RESID DEFICITS SNOMED Code(s): 013775653 Plan: * Continue workup patient might need an MRI we'll follow-up any further neurology recommendations and follow-up imaging studies
[2019-03-12] MEDS: ATORVASTATIN 40 MG TAB PO SCH (20:22)
[2019-03-12] MEDS: LATANOPROST 0.005% OPHTH DROPS 2.5 ML BTL BOTH EYES SCH (20:22)
[2019-03-12] MEDS: QUEtiapine 50 MG TAB PO SCH (20:22)
[2019-03-12] MEDS: SODIUM CHLORIDE 0.9% 1,000 ML IV SCH (21:10)
--- NOTE | 2019-03-12 23:10 | CT ---
EXAMINATION TYPE: CT angio head neck with contrast and with 3-D reconstruction renderings DATE OF EXAM: 03/12/2019 HISTORY: Weakness COMPARISON: Ultrasound carotid duplex CT DLP: 560.9 mGycm. Automated Exposure Control for Dose Reduction was Utilized. TECHNIQUE: CTA scan of the neck is performed with IV Contrast, patient injected with 65 mL of Isovue 370, axial images are obtained, coronal and sagittal reformatted images are reviewed. Three-D recons tructed images are created on an independent workstation and reviewed. FINDINGS: The right CCA is widely patent. The right ICA is prominently tortuous in its cervical and siphon comp onents. No flow-limiting ANGELICA stenosis. The right ECA and branches are patent. The left CCA is widely patent. The left ICA is prominently tortuous in its cervical and siphon compon ents. No flow-limiting LICA stenosis. The left ECA and branches are patent. The left vertebral artery is dominant in its caliber and is widely patent. The right vertebral artery is diminutive in caliber and terminates in the right PICA. INTRACRANIAL ANTERIOR CIRCULATION: The right M1 segment shows a short segment approximately 40-50% st enosis. The bilateral MCA and JÚNIOR are otherwise unremarkable. INTRACRANIAL POSTERIOR CIRCULATION: Patent and unremarkable. DURAL VENOUS SINUSES AND NECK VENOUS STRUCTURES: Widely patent. OTHER: Coronary calcifications noted; no other incidental chest findings. No incidental neck or intracranial findings IMPRESSION: No significant abnormality, as detailed.
--- NOTE | 2019-03-12 23:15 | MR ---
EXAMINATION TYPE: MR brain wo con DATE OF EXAM: 03/12/2019 COMPARISON: CT angiogram head and neck 03/12/2019, ultrasound carotid duplex 03/12/2019 HISTORY: speech difficulty; L-sided weakness TECHNIQUE: Standard multiplanar, multisequence MRI departmental protocol. Diffusion weighted imaging was performed. FINDINGS: There is no restricted diffusion to suggest acute or subacute infarction. There is no evidence of prior macrovascular infarction. The vascular flow void pattern is unremarkable. No intra-axial mass or mass effect. However, there are scattered bilateral 2 mm to 6 mm nonspecific T 2 hyperintensities in the bilateral gomez radiata and bilateral centrum semiovale. These are entirel y nonspecific, but frequently represent small vessel ischemic change. Extra-axial compartment is unremarkable. Orbits are intact. Calvarium unremarkable, as are the paranasal sinuses and middle ear cavities and m astoid sinus air cells. IMPRESSION: No acute/subacute process.
[2019-03-13 07:22] LABS: Glucose,Whole Blood 102 mg/dL (75-99)
[2019-03-13] MEDS ORDERED: NITROGLYCERIN SL TABS 0.4 MG TAB SUBLINGUAL PRN (07:23)
[2019-03-13 08:41] LABS: Basophils # (A) 0.1 k/uL (0-0.2); Basophils % (A) 1 %; Eosinophils # (A) 0.3 k/uL (0-0.7); Eosinophils % (A) 5 %; HCT 46.4 % (34.0-46.0); Lymphocytes # (A) 1.8 k/uL (1.0-4.8); Lymphocytes % (A) 32 %; MCH 29.9 pg (25.0-35.0); MCHC 32.3 g/dL (31.0-37.0); MCV 92.6 fL (80.0-100.0); Mean Platelet Volume 6.7; Monocytes # (A) 0.4 k/uL (0-1.0); Monocytes % (A) 7 %; Neutrophils % (A) 53 %; Platelet Count 234 k/uL (150-450); RBC 5.01 m/uL (3.80-5.40); RDW 13.3 % (11.5-15.5); WBC 5.7 k/uL (3.8-10.6)
[2019-03-13] MEDS: LORazepam 0.5 MG TAB PO SCH (08:51)
[2019-03-13 08:52] LABS: Albumin 4.1 g/dL (3.5-5.0); Calcium 9.4 mg/dL (8.4-10.2); Potassium 3.9 mmol/L (3.5-5.1); Total Bilirubin 0.8 mg/dL (0.2-1.3); Total Protein 7.1 g/dL (6.3-8.2)
[2019-03-13] MEDS: clonazePAM 0.5 MG TAB PO SCH (09:00)
[2019-03-13] MEDS: PARoxetine 20 MG TAB PO SCH (09:00)
[2019-03-13] MEDS: TAMSULOSIN 0.4 MG CAP.ER.24H PO SCH (09:00)
[2019-03-13] MEDS: ASPIRIN 325 MG TAB PO SCH (09:00)
[2019-03-13] MEDS ORDERED: MECLIZINE 12.5 MG TAB PO PRN (12:35)
[2019-03-13] MEDS ORDERED: GABAPENTIN 100 MG CAP PO PRN (12:35)
--- NOTE | 2019-03-13 13:35 | P.PN ---
Progress Note - Text Progress Note Date: 03/13/19 SUBJECTIVE/INTERVAL EVENTS: No overnight events. The patient feels ready to go home. Denies any headache, nausea, vomiting, vision changes, weakness, numbness, tingling. PHYSICAL EXAMINATION: VITAL SIGNS: Temperature 97.9 pulse rate 74 respiratory 16 blood pressure 156/63 O2 saturation 100% on room air GEN.: NAD, pleasant and cooperative HEENT: NCAT, sclera without icterus NECK: Supple, no carotid bruit SKIN AND EXTREMITIES: Warm to touch, no edema NEURO: MENTAL STATUS: Patient alert and oriented to self, place, time. Able to name the current president. Speech fluent, able to name and repeat, following all commands readily. CRANIAL NERVES II THROUGH XII: II: Pupils are equal and reactive to light symmetrically. No afferent pupillary defect. Visual becerra are intact. III, IV, : No ptosis. Extraocular movements full. No nystagmus. V: Facial sensation intact from V1-3. VII. No clear facial asymmetry. VIII: Hearing intact to finger rub bilaterally. IX, X: Symmetric palate elevation. XII: Shoulder shrug intact. XII: Tongue midline without fasciculation or atrophy. MOTOR: Normal bulk/tone. No pronator drift or tremor. Strength is 5/5 throughout all 4 extremities. SENSORY: Intact to light touch, temperature, pinprick in all 4 extremities. Romberg is negative. REFLEXES: 2+ throughout. Toes are downgoing. No clonus. Keli's is absent COORDINATION: Finger to nose and heel to valentin intact. No dysmetria. Rapid alternating movements with good speed and accuracy. GAIT: Narrow-based and stable. Able to toe/heel/tandem walk DIAGNOSTIC TESTING: LABORATORY: WBC 5.2 hemoglobin 14.0 platelets 191 sodium 142 potassium 5.0 chloride 110 bicarb 25 BUN 21 creatinine 0.93 glucose 109 AST 38 ALT 21 alk phos 55 total cholesterol 167 LDL 107 HDL 48 triglycerides 62 TSH 2.690 IMAGING: MRI brain without contrast 03/13/2019: No acute/subacute process. Bilateral scattered nonspecific T2 hyperintensities in the bilateral gomez radiata and bilateral centrum semiovale. CTA head and neck within without contrast 03/14/2019: Right ICA is patent. Right ICA is tortuous in the cervical component. Left CCA is patent. Left ICA is tortuous in its cervical component. Left vertebral artery is dominant. The right vertebral artery is diminutive in Peter. Right M1 with a short segment approximately 40-50% stenosis. Bilateral MCA and JÚNIOR are otherwise unremarkable. Transthoracic echocardiogram 03/12/2019: Fence rhythm. LV/RV/LA/right knee are all normal in size. Mild concentric left ventricular hypertrophy. Ejection fraction 55-60%. Carotid Doppler study 03/12/2019: Stenosis of 50-60% within the left ICA. No hemodynamically significant stenosis seen within the right ICA. CT brain without contrast 09/25/2017: No abnormalities evident. Brain MRI and IAC w/ and w/o contrast 05/12/2017: No acute infarct. No cerebellopontine angle mass. No abnormal enhancement of CN 7 or 8. Moderate burden nonspecific white matter change. Mild spinal canal stenosis at C3 to C4 from a posterior disc osteophyte complex. ASSESSMENT: Ms. Soto is a 78-year-old woman with past medical history of TIA x14, fibromyalgia, GERD, hyperlipidemia, memory impairment, off urethritis, breast cancer status post radiation therapy, Mnire's disease (L ear with hearing loss), peptic ulcer disease, anxiety, depression, presenting to [facility] for what patient reports as "another TIA." Patient with no focal neuro deficits at this time. Patient reports that she had a study done to look at her arteries through her groin, and at that time, she was told that her artery in the neck was too "windy" and could be the cause of her TIAs. Carotid Doppler also showing 50-60% stenosis of L ICA, which is what the patient could be referring to. Patient recently diagnosed with breast cancer, s/p lumpectomy and radiation therapy. MRI brain without contrast with no acute or subacute process. Again, is difficult to say whether her previous "TIA" episodes were indeed TIA, but this patient would benefit from medical management. RECOMMENDATIONS: 1. Continue with ASA 81mg qday and atorvastatin 40mg qday 2. Neurology will sign off at this time. Please feel free to contact Neurology again if with additional questions or concerns.
[2019-03-13] MEDS: IPRATROPIUM-ALBUTEROL 3 ML NEB INHALATION PRN (14:02)
[2019-03-13] MEDS: GABAPENTIN 100 MG CAP PO SCH ×2 (14:38→19:53)
[2019-03-13] MEDS: LISINOPRIL-HCTZ 20-12.5 MG 1 EACH TAB PO SCH (14:38)
--- NOTE | 2019-03-13 15:00 | P.CRDCN ---
History of Present Illness Consult date: 03/13/19 Chief complaint: Chest pain History of present illness: This is a 78-year-old female patient with a past medical history significant for hypertension, hyperlipidemia, memory impairment, as well as history of recurrent TIA/CVA, was admitted to the hospital this time with another episode of TIA. The patient was in her usual state of health yesterday when she suddenly developed an episode of slurred speech and left-sided weakness. The patient somewhat is poor historian. She stated that she had these episodes multiple times in the past. A computed tomography scan of the brain showed no acute process and the patient subsequently was seen by an urologist. She scheduled to have an MRI of the pain as well as CT of her head and neck. She underwent an echocardiogram which revealed normal LV function with mild valvular abnormalities. We requested to see the patient mainly because of chest discomfort. Earlier this morning, the patient was experiencing discomfort in the mid of the chest, as a sharp discomfort, without any radiation to the arm or neck or shoulders and without any associated symptoms of shortness of breath, dizziness, heart racing, or syncope. The chest discomfort lasted only for few minutes. The patient is not aware of any prior history of coronary artery disease or congestive heart failure or cardiac arrhythmia. In the past, in 2013, she underwent a loop recorder and that was taken out and showed no abnorma lities in terms of arrhythmia. But she is not aware of any coronary artery disease or coronary revascularization. The EKG showed sinus rhythm with diffuse nonspecific ST and T wave abnormalities. The patient does have hypertension and dyslipidemia as risk factors for coronary artery disease. Severe coronary artery disease that currently to be ruled out for the chest discomfort. The patient does not have any cardiac enzymes at this point. I'm going to obtain 3 sets of cardiac enzymes to rule out acute coronary event. If the cardiac enzymes are unremarkable, and the patient continues to be chest pain-free, she might benefit from a stress test probably as an outpatient and not in the set ting of TIA/CVA. Past Medical History Past Medical History: CVA/TIA, Fibromyalgia, GERD/Reflux, Hyperlipidemia, Memory Impairment, Osteoarthritis (OA), Skin Disorder Additional Past Medical History / Comment(s): MENIERE'S LEFT EAR, PEPTIC ULCERS, tia x 14- last 12/2013. History of Any Multi-Drug Resistant Organisms: None Reported Past Surgical History: Back Surgery, Cholecystectomy, Joint Replacement, Orthopedic Surgery, Tonsillectomy Additional Past Surgical History / Comment(s): LOOP RECORDER 2011, ORIF LEFT FOOT, rt foot surgery, JT REPL WINNIE KNEES & WINNIE SHOULDERS, WINNIE CATARACT, gianni and screws in back Past Anesthesia/Blood Transfusion Reactions: No Reported Reaction Past Psychological History: Anxiety, Depression Smoking Status: Never smoker Past Alcohol Use History: None Reported Past Drug Use History: None Reported - Past Family History Father Family Medical History: Cancer Mother Family Medical History: Cancer Medications and Allergies Home Medications Medication Instructions Recorded Confirmed Type Gabapentin [Neurontin] 100 mg PO TID PRN 12/12/13 03/11/19 History QUEtiapine [SEROquel] 50 mg PO HS 12/12/13 03/11/19 History Tamsulosin HCl [Flomax] 0.4 mg PO DAILY 12/12/13 03/11/19 History Alendronate Sodium [Fosamax] 35 mg PO MO 09/25/17 03/13/19 History Ascorbic Acid [Vitamin C] 500 mg PO DAILY 09/25/17 03/11/19 History Cyanocobalamin (Vitamin B-12) 1,000 mcg PO BID 09/25/17 03/11/19 History [Vitamin B-12] PARoxetine HCL [Paxil Cr] 25 mg PO DAILY 09/25/17 03/11/19 History rOPINIRole HCL [Requip] 1 mg PO HS 09/25/17 03/11/19 History Aspirin EC [Ecotrin Low Dose] 81 mg PO DAILY 03/11/19 03/11/19 History Ibuprofen [Motrin] 800 mg PO TID PRN 03/11/19 03/11/19 History Latanoprost [Xalatan 0.005%] 1 drop BOTH EYES HS 03/11/19 03/11/19 History Lisinopril-Hctz 20-12.5 mg 1 tab PO DAILY 03/11/19 03/11/19 History [Zestoretic 20-12.5] Meclizine [Antivert] 12.5 mg PO TID PRN 03/11/19 03/11/19 History Turmeric Root Extract [Turmeric] 500 mg PO DAILY 03/11/19 03/11/19 History clonazePAM [KlonoPIN] 0.5 mg PO DAILY 03/11/19 03/11/19 History busPIRone HCL 15 mg PO BID 03/13/19 03/13/19 History Allergies Allergy/AdvReac Type Severity Reaction Status Date / Time nickel [Nickel] Allergy Rash/Hives Verified 03/11/19 17:25 codeine AdvReac headache Verified 03/11/19 17:25 Physical Exam Vitals: Vital Signs Temp Pulse Pulse Resp BP Pulse Ox 03/13/19 14:12 76 03/13/19 14:02 72 03/13/19 11:35 97.6 F 66 16 158/79 98 03/13/19 08:39 97.9 F 74 16 156/63 100 03/13/19 05:15 97.9 F 62 16 166/86 95 03/12/19 23:42 77 16 149/67 96 03/12/19 19:56 98.2 F 62 16 147/72 100 03/12/19 16:00 72 18 153/76 95 Intake and Output 03/12/19 03/13/19 03/13/19 22:59 06:59 14:59 Intake Total 720 Balance 720 Intake: Oral 720 Other: Voiding Method Toilet Toilet # Voids 2 1 Weight 94.8 kg - Constitutional General appearance: no acute distress - Respiratory Respiratory: bilateral: CTA - Cardiovascular Rhythm: regular Heart sounds: normal: S1, S2 Results 03/13/19 08:04 03/13/19 08:04 Cardiac Enzymes 03/13/19 03/13/19 Range/Units 08:04 08:04 AST 37 H (14-36) U/L Troponin I <0.012 (0.000-0.034) ng/mL CBC 03/13/19 Range/Units 08:04 WBC 5.7 (3.8-10.6) k/uL RBC 5.01 (3.80-5.40) m/uL Hgb 15.0 (11.4-16.0) gm/dL Hct 46.4 H (34.0-46.0) % Plt Count 234 (150-450) k/uL Comprehensive Metabolic Panel 03/13/19 Range/Units 08:04 Sodium 142 (137-145) mmol/L Potassium 3.9 (3.5-5.1) mmol/L Chloride 104 (98-107) mmol/L Carbon Dioxide 28 (22-30) mmol/L BUN 21 H (7-17) mg/dL Creatinine 0.89 (0.52-1.04) mg/dL Glucose 116 H (74-99) mg/dL Calcium 9.4 (8.4-10.2) mg/dL AST 37 H (14-36) U/L ALT 26 (9-52) U/L Alkaline Phosphatase 77 (38-126) U/L Total Protein 7.1 (6.3-8.2) g/dL Albumin 4.1 (3.5-5.0) g/dL Current Medications Generic Name Dose Route Start Last Admin Trade Name Freq PRN Reason Stop Dose Admin Albuterol/Ipratropium 3 ml 03/11/19 23:23 03/13/19 14:02 Duoneb 0.5 Mg-3 Mg/3 Ml Soln INHALATION 3 ml RT-QID PRN Administration Shortness Of Breath Or Wheezing Ascorbic Acid 500 mg 03/14/19 09:00 Vitamin C PO DAILY JOCELIN Aspirin 325 mg 03/12/19 12:00 03/13/19 09:00 Aspirin PO 325 mg DAILY JOCELIN Administration Atorvastatin Calcium 40 mg 03/11/19 21:00 03/12/19 20:22 Lipitor PO 40 mg HS JOCELIN Administration Buspirone HCl 15 mg 03/13/19 21:00 Buspar PO BID JOCELIN Clonazepam 0.5 mg 03/12/19 09:00 03/13/19 09:00 Klonopin PO 0.5 mg DAILY JOCELIN Administration Cyanocobalamin 1,000 mcg 03/13/19 21:00 Vitamin B-12 PO BID JOCELIN Gabapentin 100 mg 03/13/19 16:00 03/13/19 14:38 Neurontin PO 100 mg TID JOCELIN Administration Lisinopril/HCTZ 1 each 03/13/19 12:45 03/13/19 14:38 Zestoretic 20-12.5 PO 1 each DAILY JOCELIN Administration Latanoprost 1 drops 03/11/19 21:00 03/12/19 20:22 Xalatan 0.005% BOTH EYES 1 drops HS JOCELIN Administration Meclizine HCl 12.5 mg 03/13/19 12:35 Antivert PO TID PRN DIZZINESS Nitroglycerin 0.4 mg 03/13/19 07:23 Nitrostat SUBLINGUAL Q5M PRN Chest Pain Paroxetine HCl 20 mg 03/12/19 09:00 03/13/19 09:00 Paxil PO 20 mg DAILY JOCELIN Administration Quetiapine Fumarate 50 mg 03/11/19 21:00 03/12/19 20:22 Seroquel PO 50 mg HS JOCELIN Administration Ropinirole HCl 1 mg 03/12/19 21:00 03/12/19 20:22 Requip PO 1 mg HS JOCELIN Administration Tamsulosin HCl 0.4 mg 03/12/19 09:00 03/13/19 09:00 Flomax PO 0.4 mg DAILY JOCELIN Administration Intake and Output 03/12/19 03/13/19 03/13/19 22:59 06:59 14:59 Intake Total 720 Balance 720 Intake: Oral 720 Other: Voiding Method Toilet Toilet # Voids 2 1 Weight 94.8 kg 03/13/19 08:04 03/13/19 08:04 Assessment and Plan Assessment: Assessment #1 TIA/CVA #2 when episode of atypical chest discomfort #3 hypertension #4 dyslipidemia #5 mammary impairment The plan #1 rule out acute coronary event. We'll obtain serial cardiac enzymes. The EKG was reviewed #2 the echocardiogram revealed normal LV function with mild valvular abnormalities #3 the patient might benefit from transesophageal echocardiogram to rule out any cardiac source of embolization. We'll address that with her neurologist #4 follow-up with the patient. Thank you for allowing us participate in her care and we will continue following up with the patient
--- NOTE | 2019-03-13 16:09 | CT ---
EXAMINATION TYPE: CT chest angio for PE DATE OF EXAM: 03/13/2019 COMPARISON: NONE HISTORY: Difficulty breathing, elevated d-dimer. CT DLP: 426.3 mGycm. Automated Exposure Control for Dose Reduction was Utilized. CONTRAST: CTA scan of the thorax is performed with IV Contrast, patient injected with 70 mL of Isovue 370, pulm onary embolism protocol. MIP Images are created on CT scanner and reviewed. FINDINGS: LUNGS: There is right hemidiaphragm elevation. Strand-like bibasilar subsegmental atelectasis is seen . No suspicious pulmonary masses identified. There is no pleural effusion or pneumothorax seen. Th e tracheobronchial tree is patent. MEDIASTINUM: There is satisfactory enhancement of the main pulmonary artery and its segmental however there is suboptimal evaluation of the lower lobe subsegmental branches. Multiple tiny filling defect s are seen with suspected very small subsegmental bilateral lower lobe pulmonary emboli. No secondary evidence of right heart strain with no abnormal right ventricular to left ventricular ratio. No enla rgement of the main pulmonary artery (2.4 cm) and no reflux into the inferior vena cava. There are mild coronary artery calcifications. There are no greater than 1 cm hilar or mediastinal l ymph nodes. The chambers of the heart are mildly enlarged without pericardial effusion. OTHER: Postsurgical changes seen of the gastroesophageal junction with recurrent hiatal hernia. Surgi fabian changes seen of the thoracolumbar junction. Multilevel degenerative change is mild to moderate of the thoracic spine and severe the last lumbar spine with multilevel malalignment in the visualized l umbar spine. This discrete spray artifact and partially limits evaluation of the upper abdomen. Angio graphic phase of contrast also partially limits evaluation of the upper abdomen. Cholecystectomy clip s are noted. Splenule is seen. IMPRESSION: 1. Although there is no central pulmonary embolism multiple tiny filling defects are seen in the subs egmental pulmonary arteries to the bilateral lower lungs. There is suboptimal contrast bolus in the l ower lobes and therefore these are equivocal for pulmonary emboli. Very small incompletely occlusive emboli are suspected. Correlate with d-dimer level and symptoms. Repeat short-term examination could be performed for further clarification. 2. Right hemidiaphragm elevation of unknown chronicity. 3. Minimal bibasilar subsegmental dependent atelectasis. 4. Extensive degenerative changes are partially visualized on the lumbar spine with postsurgical pacheco ge of the thoracolumbar junction. 5. Postsurgical changes of the gastroesophageal junction with recurrent hiatal hernia.
--- NOTE | 2019-03-13 17:06 | P.PN ---
Subjective Progress Note Date: 03/13/19 The patient is seen and examined in follow-up today, apparently her blood pressures have been elevated systolically 140s to 160s. Apparently woke up this morning feeling short of breath and complaining of chest pain, patient was order nitroglycerin however pain resolved prior to receiving it with initial troponin at 0.012, and EKG showing sinus bradycardia with nonspecific T-wave abnormalities. D-dimer was elevated at 1.38 Objective - Vital Signs Vital signs: Vital Signs Temp 97.6 F 03/13/19 11:35 Pulse 76 03/13/19 14:12 Resp 16 03/13/19 11:35 BP 158/79 03/13/19 11:35 Pulse Ox 98 03/13/19 11:35 Intake & Output 03/12/19 03/13/19 03/13/19 18:59 06:59 18:59 Intake Total 600 720 Balance 600 720 Weight 94.8 kg Intake: Oral 600 720 Other: Voiding Method Toilet Toilet # Voids 2 1 - Exam Constitutional: No acute distress, conversant, pleasant Eyes: Anicteric sclerae, moist conjunctiva, no lid-lag, PERRLA ENMT: NC/AT,Oropharynx clear, no erythema, exudates Neck:Supple, FROM, no masses, or JVD, No carotid bruits; No thyromegaly Lungs: Clear to auscultation, Clear to percussion, Normal respiratory effort, no accessory muscle use Cardiovascular: Heart regular in rate and rhythm, No murmurs, gallops, or rubs no peripheral edema Abdominal: Soft Nontender, nom distended, no guarding, no rebound or rigidity, Normoactive bowel sounds No hepatomegaly, No splenomegaly, No palpable mass No abdominal wall hernia noted Skin: Normal temperature, tone, texture, turgor, No induration No subcutaneous nodules, No rash, lesions, No ulcers Extremities:No digital cyanosis No clubbing, Pedal pulses intact and symmetrical Radial pulses intact and symmetrical Normal gait and station, No calf tenderness Psychiatric: Alert and oriented to person, place and time, Appropriate affect Intact judgement Neuro: Muscles Strength 5/5 in all 4 extremities, Sensation to light touch grossly present throughout, Cranial nerves II-XII grossly intact. No focal sensory deficits - Labs CBC & Chem 7: 03/13/19 08:04 03/13/19 08:04 Labs: Abnormal Lab Results - Last 24 Hours (Table) 03/13/19 03/13/19 03/13/19 Range/Units 07:20 08:04 08:04 Hct 46.4 H (34.0-46.0) % D-Dimer 1.38 H (<0.60) mg/L FEU BUN (7-17) mg/dL Glucose (74-99) mg/dL POC Glucose (mg/dL) 102 H (75-99) mg/dL AST (14-36) U/L 03/13/19 Range/Units 08:04 Hct (34.0-46.0) % D-Dimer (<0.60) mg/L FEU BUN 21 H (7-17) mg/dL Glucose 116 H (74-99) mg/dL POC Glucose (mg/dL) (75-99) mg/dL AST 37 H (14-36) U/L Assessment and Plan (1) TIA (transient ischemic attack) Narrative/Plan: * Symptoms of slurred speech and left upper extremity weakness have resolved r eports history of several TIAs * CTA of the neck shows no significant abnormality * Carotid Doppler indicating stenosis 50-60% of that L ICA with no significant stenosis on the right * echocardiogram showing preserved LVEF 55-60% * Appreciate neurology recommendations * Continue statin therapy and aspirin Current Visit: Yes Status: Acute Code(s): G45.9 - TRANSIENT CEREBRAL ISCHEMIC ATTACK, UNSPECIFIED SNOMED Code(s): 297676863 (2) Hypertensive emergency Narrative/Plan: * Patient's blood pressure much more elevated today will reinitiate Home regimen with the Lisinopril/HCTZ * allow for permissive hypertension * Continue to monitor closely Current Visit: No Status: Resolved Code(s): I16.1 - HYPERTENSIVE EMERGENCY SNOMED Code(s): 226437207515397 (3) COPD (chronic obstructive pulmonary disease) Narrative/Plan: * Stable disease without any acute COPD exacerbation Current Visit: Yes Status: Acute Code(s): J44.9 - CHRONIC OBSTRUCTIVE PULMONARY DISEASE, UNSPECIFIED SNOMED Code(s): 02290020 (4) History of recurrent TIAs Narrative/Plan: * MRI indicating no acute or subacute process Current Visit: No Status: Acute Code(s): Z86.73 - PRSNL HX OF TIA (TIA), AND CEREB INFRC W/O RESID DEFICITS SNOMED Code(s): 011982282 (5) Elevated d-dimer Narrative/Plan: * We'll order CT of the chest to rule out PE Current Visit: Yes Status: Acute Code(s): R79.89 - OTHER SPECIFIED ABNORMAL FINDINGS OF BLOOD CHEMISTRY SNOMED Code(s): 970325997 (6) Chest pain Narrative/Plan: * EKG negative for suggestion of acute ischemia did show sinus mechanism and nonspecific T-wave abnormalities * Troponins are negative 1, d-dimer also elevated we'll order a CTA of the chest to rule out PE * Continue antiplatelet therapy * Echocardiogram showing preserved LV EF of 55-60% * We'll consult cardiology for further recommendations Current Visit: Yes Status: Acute Code(s): R07.9 - CHEST PAIN, UNSPECIFIED SNOMED Code(s): 70906306 (7) GERD (gastroesophageal reflux disease) Current Visit: Yes Status: Acute Code(s): K21.9 - GASTRO-ESOPHAGEAL REFLUX DISEASE WITHOUT ESOPHAGITIS SNOMED Code(s): 903438164 Plan: Disposition * Follow-up recommendations by cardiology and neurology * Anticipated discharge tomorrow follow-up CTA results
[2019-03-13] MEDS: busPIRone HCl 5 MG TAB PO SCH (17:51)
[2019-03-13] MEDS ORDERED: ENOXAPARIN 100 MG/ML SYRINGE SQ ONE (18:00)
[2019-03-13] MEDS: ATORVASTATIN 40 MG TAB PO SCH (19:52)
[2019-03-13] MEDS: CYANOCOBALAMIN 500 MCG TAB PO SCH (19:53)
[2019-03-13] MEDS: LATANOPROST 0.005% OPHTH DROPS 2.5 ML BTL BOTH EYES SCH (19:53)
[2019-03-13] MEDS: QUEtiapine 50 MG TAB PO SCH (19:53)
[2019-03-13] MEDS ORDERED: APIXABAN 5 MG TAB PO SCH (21:00)
[2019-03-14] MEDS: APIXABAN 5 MG TAB PO SCH ×2 (06:16→17:31)
[2019-03-14] MEDS: busPIRone HCl 5 MG TAB PO SCH ×2 (08:35→20:20)
[2019-03-14] MEDS: GABAPENTIN 100 MG CAP PO SCH ×3 (08:35→20:20)
[2019-03-14] MEDS: clonazePAM 0.5 MG TAB PO SCH (08:35)
[2019-03-14] MEDS: ASPIRIN 325 MG TAB PO SCH (08:35)
[2019-03-14] MEDS: TAMSULOSIN 0.4 MG CAP.ER.24H PO SCH (08:35)
[2019-03-14] MEDS: PARoxetine 20 MG TAB PO SCH (08:35)
[2019-03-14] MEDS: CYANOCOBALAMIN 500 MCG TAB PO SCH ×2 (08:36→20:21)
[2019-03-14] MEDS: LISINOPRIL-HCTZ 20-12.5 MG 1 EACH TAB PO SCH (08:37)
[2019-03-14] MEDS: ASCORBIC ACID 500 MG TAB PO SCH (08:37)
--- NOTE | 2019-03-14 12:20 | P.PN ---
Subjective Progress Note Date: 03/14/19 Principal diagnosis: TIA This is a 78-year-old female patient with a past medical history significant for hypertension, hyperlipidemia, memory impairment, as well as history of recurrent TIA/CVA, was admitted to the hospital this time with another episode of TIA. The patient was in her usual state of health yesterday when she suddenly developed an episode of slurred speech and left-sided weakness. The patient somewhat is poor historian. She stated that she had these episodes multiple times in the past. A computed tomography scan of the brain showed no acute process and the patient subsequently was seen by an urologist. She scheduled to have an MRI of the pain as well as CT of her head and neck. She underwent an echocardiogram which revealed normal LV function with mild valvular abnormalities. We requested to see the patient mainly because of chest discomfort. Earlier this morning, the patient was experiencing discomfort in the mid of the chest, as a sharp discomfort, without any radiation to the arm or neck or shoulders and without any associated symptoms of shortness of breath, dizziness, heart racing, or syncope. The chest discomfort lasted only for few minutes. The patient is not aware of any prior history of coronary artery disease or congestive heart failure or cardiac arrhythmia. In the past, in 2013, she underwent a loop recorder and that was taken out and showed no abnormalities in terms of arrhythmia. But she is not aware of any coronary artery disease or coronary revascularization. The EKG showed sinus rhythm with diffuse nonspecific ST and T wave abnormalities. The patient does have hypertension and dyslipidemia as risk factors for coronary artery disease. Severe coronary artery disease that currently to be ruled out for the chest discomfort. The patient does not have any cardiac enzymes at this point. I'm going to obtain 3 sets of cardiac enzymes to rule out acute coronary event. If the cardiac enzymes are unremarkable, and the patient continues to be chest pain-free, she might benefit from a stress test probably as an outpatient and not in the setting of TIA/CVA. On follow-up with the patient today, March 142018, she describes shortness of breath with exertion which seems to be worse for the last several weeks. I am concerned about severe underlying coronary artery disease and I am going to obtain a stress test to rule out severe CAD. Objective - Vital Signs Vital signs: Vital Signs Temp 98.1 F 03/14/19 08:00 Pulse 66 03/14/19 08:00 Resp 14 08/15/19 08:00 BP 139/64 03/14/19 08:00 Pulse Ox 98 03/14/19 08:00 Intake & Output 03/13/19 03/14/19 03/14/19 18:59 06:59 18:59 Intake Total 720 1470 250 Balance 720 1470 250 Weight 94.3 kg Intake: IV 30 10 Invasive Line 1 30 10 Oral 720 1440 240 Other: Voiding Method Toilet Toilet # Voids 1 2 - Constitutional General appearance: Present: no acute distress - Respiratory Respiratory: bilateral: CTA - Cardiovascular Rhythm: regular Heart sounds: normal: S1, S2 - Labs CBC & Chem 7: 03/13/19 08:04 03/13/19 08:04 Assessment and Plan Assessment: Assessment #1 TIA/CVA #2 when episode of atypical chest discomfort #3 hypertension #4 dyslipidemia #5 mammary impairment The plan #1 acute coronary syndrome was ruled out #2 the echocardiogram revealed normal LV function with mild valvular abnormalities #3 we'll obtain a stress test #4 follow-up with the patient Thank you for allowing us participate in her care and we will continue following up with the patient
--- NOTE | 2019-03-14 12:39 | P.PN ---
Subjective Progress Note Date: 03/14/19 Principal diagnosis: Patient is complaining from shortness of breath, she states that any movement makes it worse. She also has some chest discomfort that has been going on for "a while". She denied having cough or phlegm production. No fevers or chills. She states the shortness of breath has been ongoing for the past week. Never had this in the past. Objective - Vital Signs Vital signs: Vital Signs Temp 98.1 F 03/14/19 08:00 Pulse 66 03/14/19 08:00 Resp 14 03/14/19 08:00 BP 139/64 03/14/19 08:00 Pulse Ox 98 03/14/19 08:00 Intake & Output 03/13/19 03/14/19 03/14/19 18:59 06:59 18:59 Intake Total 720 1470 250 Balance 720 1470 250 Weight 94.3 kg Intake: IV 30 10 Invasive Line 1 30 10 Oral 720 1440 240 Other: Voiding Method Toilet Toilet # Voids 1 2 - Exam Constitutional: No acute distress, conversant, pleasant Eyes: Anicteric sclerae, moist conjunctiva, no lid-lag, PERRLA ENMT: NC/AT,Oropharynx clear, no erythema, exudates Neck:Supple, FROM, no masses, or JVD, No carotid bruits; No thyromegaly Lungs: Clear to auscultation, Clear to percussion, Normal respiratory effort, no accessory muscle use Cardiovascular: Heart regular in rate and rhythm, No murmurs, gallops, or rubs no peripheral edema Abdominal: Soft Nontender, nom distended, no guarding, no rebound or rigidity, Normoactive bowel sounds No hepatomegaly, No splenomegaly, No palpable mass No abdominal wall hernia noted Skin: Normal temperature, tone, texture, turgor, No induration No subcutaneous nodules, No rash, lesions, No ulcers Extremities:No digital cyanosis No clubbing, Pedal pulses intact and symmetrical Radial pulses intact and symmetrical Normal gait and station, No calf tenderness Psychiatric: Alert and oriented to person, place and time, Appropriate affect Intact judgement Neuro: Muscles Strength 5/5 in all 4 extremities, Sensation to light touch grossly present throughout, Cranial nerves II-XII grossly intact. No focal sensory deficits - Labs CBC & Chem 7: 03/13/19 08:04 03/13/19 08:04 Assessment and Plan Plan: (1) TIA (transient ischemic attack) * Symptoms of slurred speech and left upper extremity weakness have resolved reports history of several TIAs * CTA of the neck, MRI brain showing no significant abnormality * echocardiogram showing preserved LVEF 55-60% * D/W neuro doubt TIA * Continue statin therapy and aspirin (2) Chest pain and sob: D/W cardio Trops trended--negative Needs stress test per cardio CTA chest results reviewed, questionable PEs peripherally, started on apixiban. Radiologist recommending following up with chest CT in the future to confirm as the CTA done was of a poor quality. (3) Acute COPD (chronic obstructive pulmonary disease) exacerbation Start steroids, continue nebs (4) GERD, HTN * All stable, resume meds
--- NOTE | 2019-03-14 14:06 | US ---
EXAMINATION TYPE: US venous doppler duplex LE DATE OF EXAM: 03/14/2019 1:18 PM COMPARISON: NONE CLINICAL HISTORY: TIA. swelling SIDE PERFORMED: Bilateral TECHNIQUE: The lower extremity deep venous system is examined utilizing real time linear array sonog darrion with graded compression, doppler sonography and color-flow sonography. VESSELS IMAGED: External Iliac Vein (EIV) Common Femoral Vein Deep Femoral Vein Greater Saphenous Vein * Femoral Vein Popliteal Vein Small Saphenous Vein * Proximal Calf Veins-not visualized (* superficial vessels) Patient morbidly obese with large legs, technically difficult study. Right Leg: Negative for DVT Left Leg: Negative for DVT Grayscale, color doppler, spectral doppler imaging performed of the deep veins of the lower extremiti es. There is normal flow, compressibility, vascular waveforms. IMPRESSION: No sonographic evidence of deep venous thrombosis within either of the visualized bilate ral lower extremities.
[2019-03-14] MEDS: methylPREDNISolone SOD SUCCI 40 MG/ML 1 ML VIAL IV SCH ×2 (14:09→20:21)
--- NOTE | 2019-03-14 15:49 | P.CNPUL ---
History of Present Illness Consult date: 03/14/19 Chief complaint: Pulmonary embolism History of present illness: This is a 78-year-old female patient with seems to have been involved in a episode of TIA. 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 In all these instances she has had complete recovery. During this current episode, she apparently lost speech and developed a left-sided weakness and by the time she arrived to the hospital she has been fully recovered. Computed tomography scan of the head and neck was within normal limits. The brain MRI showed no acute or subacute process at was within normal limits. The CT angiogram of the brain showed a short segment of the intracranial anterior circulation at the level of the right M1 segment showing 40-50% stenosis. The bilateral MCA and ASA were essentially unremarkable. In addition the CCA and the ICAs bilaterally negative. The patient further was given a CT angiogram based on a elevated d-dimer and a CT angiogram showed right hemidiaphragmatic elevation of unknown chronicity. Some bibasilar subsegmental atelectatic changes in addition to extensive degenerative changes involving the lumbar spine and postsurgical changes in the level of the thoracolumbar junction . In addition, there was a very small incomplete occlusive embolus suspected in the lower lobes. As such this was causing a positive study with tiny filling defects in the subsegmental pulmonary artery branches in the lower lung becerra bilaterally. The patient is currently on room air oxygen. She denies having any chest pain pleurisy or hemoptysis. She has already been placed on anticoagulation with Eliquis and pulmonary, station was requested. She has no previous history of any DVT or pulmonary embolism. She has history of COPD. She has history of hypertension and acid reflux. As mentioned she has also history of recurrent TIAs without any documented CVA and the CAT scan of the bra in and MRI of the brain were all negative.. Note that her cardiac rhythm is also sinus. Review of Systems Constitutional: Denies chills, Denies fever Eyes: bilateral blurred vision, bilateral decreased vision, denies bulging eye Ears: deny: decreased hearing, ear discharge, earache, tinnitus Ears, nose, mouth and throat: Denies headache, Denies sore throat Breasts: absent: as per HPI, change in shape, gynecomastia, masses, nipple discharge, pain, skin changes, swelling Cardiovascular: Denies chest pain, Denies shortness of breath Respiratory: Reports dyspnea Gastrointestinal: Denies abdominal pain, Denies diarrhea, Denies nausea, Denies vomiting Genitourinary: Denies dysuria, Denies hematuria Menstruation: Reports as per HPI Musculoskeletal: Reports as per HPI Musculoskeletal: absent: ankle pain, ankle stiffness, ankle swelling Integumentary: Denies pruritus, Denies rash Neurological: Reports change in speech, Reports loss of vision, Reports weakness Psychiatric: Denies anxiety, Denies depression Endocrine: Reports as per HPI Hematologic/Lymphatic: Reports as per HPI Allergic/Immunologic: Reports as per HPI Past Medical History Past Medical History: CVA/TIA, Fibromyalgia, GERD/Reflux, Hyperlipidemia, Memory Impairment, Osteoarthritis (OA), Skin Disorder Additional Past Medical History / Comment(s): MENIERE'S LEFT EAR, PEPTIC ULCERS, tia x 14- last 12/2013. History of Any Multi-Drug Resistant Organisms: None Reported Past Surgical History: Back Surgery, Cholecystectomy, Joint Replacement, Ortho pedic Surgery, Tonsillectomy Additional Past Surgical History / Comment(s): LOOP RECORDER 2010, ORIF LEFT FOOT, rt foot surgery, JT REPL WINNIE KNEES & WINNIE SHOULDERS, WINNIE CATARACT, gianni and screws in back Past Anesthesia/Blood Transfusion Reactions: No Reported Reaction Past Psychological History: Anxiety, Depression Smoking Status: Never smoker Past Alcohol Use History: None Reported Past Drug Use History: None Reported - Past Family History Father Family Medical History: Cancer Mother Family Medical History: Cancer Medications and Allergies Home Medications Medication Instructions Recorded Confirmed Type Gabapentin [Neurontin] 100 mg PO TID PRN 12/12/13 03/11/19 History QUEtiapine [SEROquel] 50 mg PO HS 12/12/13 03/11/19 History Tamsulosin HCl [Flomax] 0.4 mg PO DAILY 12/12/13 03/11/19 History Alendronate Sodium [Fosamax] 35 mg PO MO 09/25/17 03/13/19 History Ascorbic Acid [Vitamin C] 500 mg PO DAILY 09/25/17 03/11/19 History Cyanocobalamin (Vitamin B-12) 1,000 mcg PO BID 09/25/17 03/11/19 History [Vitamin B-12] PARoxetine HCL [Paxil Cr] 25 mg PO DAILY 09/25/17 03/11/19 History rOPINIRole HCL [Requip] 1 mg PO HS 09/25/17 03/11/19 History Aspirin EC [Ecotrin Low Dose] 81 mg PO DAILY 03/11/19 03/11/19 History Ibuprofen [Motrin] 800 mg PO TID PRN 03/11/19 03/11/19 History Latanoprost [Xalatan 0.005%] 1 drop BOTH EYES HS 03/11/19 03/11/19 History Lisinopril-Hctz 20-12.5 mg 1 tab PO DAILY 03/11/19 03/11/19 History [Zestoretic 20-12.5] Meclizine [Antivert] 12.5 mg PO TID PRN 03/11/19 03/11/19 History Turmeric Root Extract [Turmeric] 500 mg PO DAILY 03/11/19 03/11/19 History clonazePAM [KlonoPIN] 0.5 mg PO DAILY 03/11/19 03/11/19 History busPIRone HCL 15 mg PO BID 03/13/19 03/13/19 History Allergies Allergy/AdvReac Type Severity Reaction Status Date / Time nickel [Nickel] Allergy Rash/Hives Verified 03/11/19 17:25 codeine AdvReac headache Verified 03/11/19 17:25 Physical Exam Vitals: Vital Signs Temp Pulse Resp BP Pulse Ox 03/14/19 12:00 97.5 F L 63 19 148/74 98 03/14/19 08:00 98.1 F 66 14 139/64 98 03/14/19 04:00 97.1 F L 68 15 126/56 98 03/14/19 00:00 97.5 F L 67 18 143/85 97 03/13/19 20:00 98.1 F 64 15 131/70 98 03/13/19 17:32 98.2 F 68 18 161/67 97 Intake and Output 03/14/19 03/14/19 03/14/19 06:59 14:59 22:59 Intake Total 980 740 Balance 980 740 Intake: IV 20 20 Invasive Line 1 20 20 Oral 960 720 Other: Voiding Method Toilet # Voids 2 Weight 94.3 kg The patient appeared well nourished and normally developed. Vital signs as documented. Head exam is unremarkable. No scleral icterus or corneal arcus noted. Neck is without jugular venous distension, thyromegaly, or carotid bruits. Carotid upstrokes are brisk bilaterally. Lungs are clear to auscultation and percussion. There is diminished breath on the right lung base compared to left. Cardiac exam reveals the PMI to be normally sized and situated. Rhythm is regular. First and second heart sounds normal. No murmurs, rubs or gallops. Abdominal exam reveals normal bowel sounds, no masses, no organomegaly and no aortic enlargement. Extremities are nonedematous and both femoral and pedal pulses are normal.Examination of the skin revealed no evidence of significant rashes, suspicious appearing nevi or other concerning lesions. Neurologically the patient is awake and alert and there is no focal neurological deficit at this point in time Results - Laboratory Findings CBC and BMP: 03/13/19 08:04 03/13/19 08:04 PT/INR, D-dimer D-Dimer 1.38 mg/L FEU (<0.60) H 03/13/19 08:04 Abnormal lab findings: Abnormal Labs 03/12/19 03/13/19 03/13/19 05:54 07:20 08:04 Hct 46.4 H D-Dimer Chloride 110 H BUN 21 H Glucose 109 H POC Glucose (mg/dL) 102 H AST 38 H LDL Cholesterol, Calc 107 H 03/13/19 03/13/19 08:04 08:04 Hct D-Dimer 1.38 H Chloride BUN 21 H Glucose 116 H POC Glucose (mg/dL) AST 37 H LDL Cholesterol, Calc Assessment and Plan Plan: 1 questionable subsegmental pulmonary emboli involving the lower lobes causing incomplete occlusion of the pulmonary arteries based on a CT angiogram of the chest. D-dimer is mildly elevated. Doppler of the lower extremities are in progress. In the setting of multiple TIAs, and if this is true, paradoxic embolism needs to be considered. 2 questionable recurrent TIAs, rule out paradoxic embolism. The patient has no focal neurological deficits. CT angiogram of the brain was negative. MRI of the brain was negative. The patient is currently on anticoagulation. JUVE should follow 3 chronic anxiety/depression/insomnia. 4 hyperlipidemia 5 osteoarthritis 6 Mnire's disease 7 peptic ulcer disease 8 fibromyalgia Plan I'm not absolutely convinced that this is a embolic phenomena. The patient needs a neurology evaluation regarding this recurrent event of TIA. I'm not sure these were true events. Recommend hypercoagulable workup on outpatient basis. Recommend 6 months of anticoagulation with Eliquis on outpatient basis.I am going to recommend a Doppler of lower extremities to rule out DVT. JUVE may also be needed to complete the workup regarding this recurrent alleged TIAs
[2019-03-14] MEDS: QUEtiapine 50 MG TAB PO SCH (20:20)
[2019-03-14] MEDS: ATORVASTATIN 40 MG TAB PO SCH (20:20)
[2019-03-14 20:42] LABS: Glucose,Whole Blood 167 mg/dL (75-99)
[2019-03-14] MEDS: LATANOPROST 0.005% OPHTH DROPS 2.5 ML BTL BOTH EYES SCH (20:51)
[2019-03-15] MEDS: APIXABAN 5 MG TAB PO SCH ×2 (05:53→17:10)
[2019-03-15 06:19] LABS: Glucose,Whole Blood 149 mg/dL (75-99)
[2019-03-15] MEDS: INSULIN ASPART (NovoLOG) 100 UNIT/ML VIAL SQ SCH ×4 (06:29→20:57)
[2019-03-15] MEDS: TAMSULOSIN 0.4 MG CAP.ER.24H PO SCH (08:32)
[2019-03-15] MEDS: GABAPENTIN 100 MG CAP PO SCH ×3 (08:32→20:30)
[2019-03-15] MEDS: methylPREDNISolone SOD SUCCI 40 MG/ML 1 ML VIAL IV SCH ×2 (08:32→20:30)
[2019-03-15] MEDS: busPIRone HCl 5 MG TAB PO SCH ×2 (08:32→20:30)
[2019-03-15] MEDS: LISINOPRIL-HCTZ 20-12.5 MG 1 EACH TAB PO SCH (08:32)
[2019-03-15] MEDS: CYANOCOBALAMIN 500 MCG TAB PO SCH ×2 (08:32→20:30)
[2019-03-15] MEDS: ASCORBIC ACID 500 MG TAB PO SCH (08:32)
[2019-03-15] MEDS: ASPIRIN 325 MG TAB PO SCH (08:32)
[2019-03-15] MEDS: PARoxetine 20 MG TAB PO SCH (08:32)
[2019-03-15] MEDS: clonazePAM 0.5 MG TAB PO SCH (08:32)
--- NOTE | 2019-03-15 10:43 | P.PN ---
Subjective Progress Note Date: 03/15/19 Principal diagnosis: TIA This is a 78-year-old female patient with a past medical history significant for hypertension, hyperlipidemia, memory impairment, as well as history of recurrent TIA/CVA, was admitted to the hospital this time with another episode of TIA. The patient was in her usual state of health yesterday when she suddenly developed an episode of slurred speech and left-sided weakness. The patient somewhat is poor historian. She stated that she had these episodes multiple times in the past. A computed tomography scan of the brain showed no acute process and the patient subsequently was seen by an urologist. She scheduled to have an MRI of the pain as well as CT of her head and neck. She underwent an echocardiogram which revealed normal LV function with mild valvular abnormalities. We requested to see the patient mainly because of chest discomfort. Earlier this morning, the patient was experiencing discomfort in the mid of the chest, as a sharp discomfort, without any radiation to the arm or neck or shoulders and without any associated symptoms of shortness of breath, dizziness, heart racing, or syncope. The chest discomfort lasted only for few minutes. The patient is not aware of any prior history of coronary artery disease or congestive heart failure or cardiac arrhythmia. In the past, in 2013, she underwent a loop recorder and that was taken out and showed no abnormalities in terms of arrhythmia. But she is not aware of any coronary artery disease or coronary revascularization. The EKG showed sinus rhythm with diffuse nonspecific ST and T wave abnormalities. The patient does have hypertension and dyslipidemia as risk factors for coronary artery disease. Severe coronary artery disease that currently to be ruled out for the chest discomfort. The patient does not have any cardiac enzymes at this point. I'm going to obtain 3 sets of cardiac enzymes to rule out acute coronary event. If the cardiac enzymes are unremarkable, and the patient continues to be chest pain-free, she might benefit from a stress test probably as an outpatient and not in the setting of TIA/CVA. On follow-up with the patient today, March 152018, she continues to have shortness of breath. She was diagnosed with possible PE. Also there is a concern about paradoxical embolization. JUVE was recommended. Objective - Vital Signs Vital signs: Vital Signs Temp 97.8 F 03/15/19 08:00 Pulse 77 03/15/19 08:00 Resp 20 03/15/19 08:00 BP 175/83 03/15/19 08:00 Pulse Ox 97 03/15/19 08:00 Intake & Output 03/14/19 03/15/19 03/15/19 18:59 06:59 18:59 Intake Total 1230 990 250 Balance 1230 990 250 Weight 94.1 kg Intake: IV 30 30 10 Invasive Line 1 30 30 10 Oral 1200 960 240 Other: Voiding Method Toilet # Voids 3 - Respiratory Respiratory: bilateral: CTA - Cardiovascular Rhythm: regular Heart sounds: normal: S1, S2 - Labs CBC & Chem 7: 03/13/19 08:04 03/13/19 08:04 Labs: Abnormal Lab Results - Last 24 Hours (Table) 03/14/19 03/15/19 Range/Units 20:41 06:18 POC Glucose (mg/dL) 167 H 149 H (75-99) mg/dL Assessment and Plan Assessment: Assessment #1 TIA/CVA #2 possible PE #3 hypertension #4 dyslipidemia #5 mammary impairment The plan #1 JUVE this afternoon #2 continue the current medical regimen #3 follow-up with the patient
[2019-03-15 12:05] LABS: Glucose,Whole Blood 146 mg/dL (75-99)
[2019-03-15] MEDS ORDERED: IV FLUID CONTINUATION 550 ML IV ONE (13:25)
[2019-03-15] MEDS: BENZOCAINE SPRAY 1 CAN MUCOUS MEM ONE ×2 (13:26→13:48)
[2019-03-15] MEDS ORDERED: MIDAZOLAM PF (FBP) 2 MG/2 ML VIAL IVP ONE (13:48)
[2019-03-15] MEDS ORDERED: fentaNYL (PF) 50 MCG/ML 2 ML AMP IV ONE (13:48)
[2019-03-15] MEDS: MIDAZOLAM PF (FBP) 2 MG/2 ML VIAL IVP ONE ×2 (13:50→13:52)
--- NOTE | 2019-03-15 15:00 | P.PN ---
Subjective Progress Note Date: 03/15/19 Principal diagnosis: Transient ischemic attack This is a 78-year-old female patient with seems to have been involved in a episode of TIA. 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 In all these instances she has had complete recovery. During this current episode, she apparently lost speech and developed a left-sided weakness and by the time she arrived to the hospital she has been fully recovered. Computed tomography scan of the head and neck was within normal limits. The brain MRI showed no acute or subacute process at was within normal limits. The CT angiogram of the brain showed a short segment of the intracranial anterior circulation at the level of the right M1 segment showing 40-50% stenosis. The bilateral MCA and ASA were essentially unremarkable. In addition the CCA and the ICAs bilaterally negative. The patient further was given a CT angiogram based on a elevated d-dimer and a CT angiogram showed right hemidiaphragmatic elevation of unknown chronicity. Some bibasilar subsegmental atelectatic changes in addition to extensive degenerative changes involving the lumbar spine and postsurgical changes in the level of the thoracolumbar junction. In addition, there was a very small incomplete occlusive embolus suspected in the lower lobes. As such this was causing a positive study with tiny filling defects in the subsegmental pulmonary artery branches in the lower lung becerra bilaterally. The patient is currently on room air oxygen. She denies having any chest pain pleurisy or hemoptysis. She has already been placed on anticoagulation with Eliquis and pulmonary, station was requested. She has no previous history of any DVT or pulmonary embolism. She has history of COPD. She has history of hypertension and acid reflux. As mentioned she has also history of recurrent TIAs without any documented CVA and the CAT scan of the brain and MRI of the brain were all negative.. Note that her cardiac rhythm is also sinus. Patient is seen today on the 2018 in follow-up on the selective care unit. She remains awake and alert in no acute distress. No new neurologic deficits cu rrently. Venous Doppler of the lower extremities were negative for DVT. She's been somewhat hypertensive. Maintaining O2 saturations in the high 90s on 3 L. She did undergo transesophageal echocardiogram today. Results are pending. Objective - Vital Signs Vital signs: Vital Signs Temp 97.8 F 03/15/19 08:00 Pulse 77 03/15/19 13:58 Resp 19 03/15/19 12:00 BP 209/98 03/15/19 13:58 Pulse Ox 93 L 03/15/19 13:58 Intake & Output 03/14/19 03/15/19 03/15/19 18:59 06:59 18:59 Intake Total 1230 990 345 Balance 1230 990 345 Weight 94.1 kg Intake: IV 30 30 105 Invasive Line 1 30 30 20 Oral 1200 960 240 Other: Voiding Method Toilet # Voids 3 2 - Exam GENERAL EXAM: Alert, active, comfortable in no apparent distress. HEAD: Normocephalic. EYES: Normal reaction of pupils, equal size. NOSE: Clear with pink turbinates. THROAT: No erythema or exudates. NECK: No masses, no JVD. CHEST: No chest wall deformity. LUNGS: Equal air entry with no crackles, wheeze, rhonchi or dullness. CVS: S1 and S2 normal with no audible murmur, regular rhythm. ABDOMEN: No hepatosplenomegaly, normal bowel sounds, no guarding or rigidity. SPINE: No scoliosis or deformity SKIN: No rashes CENTRAL NERVOUS SYSTEM: No focal deficits, tone is normal in all 4 extremities. EXTREMITIES: There is no peripheral edema. No clubbing, no cyanosis. Peripheral pulses are intact. - Labs CBC & Chem 7: 03/13/19 08:04 03/13/19 08:04 Labs: Abnormal Lab Results - Last 24 Hours (Table) 03/14/19 03/15/19 03/15/19 Range/Units 20:41 06:18 11:45 POC Glucose (mg/dL) 167 H 149 H 146 H (75-99) mg/dL Assessment and Plan Assessment: Impression: 1 questionable subsegmental pulmonary emboli involving the lower lobes causing incomplete occlusion of the pulmonary arteries based on a CT angiogram of the chest. D-dimer is mildly elevated. Doppler of the lower extremities are negative for DVT. In the setting of multiple TIAs, and if this is true, paradoxic embolism needs to be considered. JUVE pending. 2 questionable recurrent TIAs, rule out paradoxic embolism. The patient has no focal neurological deficits. CT angiogram of the brain was negative. MRI of the brain was negative. The patient is currently on anticoagulation. JUVE pending 3 chronic anxiety/depression/insomnia. 4 hyperlipidemia 5 osteoarthritis 6 Mnire's disease 7 peptic ulcer disease 8 fibromyalgia Plan: The patient was seen and evaluated by Dr. Joel. No convincing evidence of embolic phenomenon. Dopplers of lower extremities negative. 98% O2 saturation on room air. JUVE results pending. We will see the patient on an as-needed basis. I, the cosigning physician, performed a history & physical examination of the patient. Lungs sounds are clear. Maintaining good O2 saturations in the 90s on room air. I discussed the assessment and plan of care with my nurse practitioner, Lesli Martinez. I attest to the above note as dictated by her.
--- NOTE | 2019-03-15 16:44 | P.PN ---
Subjective Progress Note Date: 03/15/19 Principal diagnosis: TIA SOB resolved. Patient was walking through the [place] without issues. No cp. Objective - Vital Signs Vital signs: Vital Signs Temp 98.0 F 03/15/19 16:00 Pulse 73 03/15/19 16:00 Resp 19 03/15/19 16:00 BP 131/68 03/15/19 16:00 Pulse Ox 99 03/15/19 16:00 Intake & Output 03/14/19 03/15/19 03/15/19 18:59 06:59 18:59 Intake Total 1230 990 345 Balance 1230 990 345 Weight 94.1 kg Intake: IV 30 30 105 Invasive Line 1 30 30 20 Oral 1200 960 240 Other: Voiding Method Toilet # Voids 3 2 - Exam Constitutional: No acute distress, conversant, pleasant Eyes: Anicteric sclerae, moist conjunctiva, no lid-lag, PERRLA ENMT: NC/AT,Oropharynx clear, no erythema, exudates Neck:Supple, FROM, no masses, or JVD, No carotid bruits; No thyromegaly Lungs: Clear to auscultation, Clear to percussion, Normal respiratory effort, no accessory muscle use Cardiovascular: Heart regular in rate and rhythm, No murmurs, gallops, or rubs no peripheral edema Abdominal: Soft Nontender, nom distended, no guarding, no rebound or rigidity, Normoactive bowel sounds No hepatomegaly, No splenomegaly, No palpable mass No abdominal wall hernia noted Skin: Normal temperature, tone, texture, turgor, No induration No subcutaneous nodules, No rash, lesions, No ulcers Extremities:No digital cyanosis No clubbing, Pedal pulses intact and symmetrical Radial pulses intact and symmetrical Normal gait and station, No calf tenderness Psychiatric: Alert and oriented to person, place and time, Appropriate affect I ntact judgement Neuro: Muscles Strength 5/5 in all 4 extremities, Sensation to light touch grossly present throughout, Cranial nerves II-XII grossly intact. No focal sensory deficits - Labs CBC & Chem 7: 03/13/19 08:04 03/13/19 08:04 Labs: Abnormal Lab Results - Last 24 Hours (Table) 03/14/19 03/15/19 03/15/19 Range/Units 20:41 06:18 11:45 POC Glucose (mg/dL) 167 H 149 H 146 H (75-99) mg/dL Assessment and Plan Plan: (1) TIA (transient ischemic attack) * Symptoms of slurred speech and left upper extremity weakness have resolved * CTA of the neck, MRI brain showing no significant abnormality * echocardiogram showing preserved LVEF 55-60% * Going for JUVE today. R/O paradoxical emboli * Continue statin therapy and aspirin (2) Chest pain and sob: D/W cardio Trops trended--negative CTA chest results reviewed, questionable PEs peripherally, started on apixiban. Leg dopplers negative. Radiologist recommending following up with chest CT in the future to confirm as the CTA done was of a poor quality. (3) Acute COPD (chronic obstructive pulmonary disease) exacerbation Start steroids, continue nebs (4) GERD, HTN * All stable, resume meds
[2019-03-15 16:52] LABS: Glucose,Whole Blood 153 mg/dL (75-99)
[2019-03-15] MEDS: ATORVASTATIN 40 MG TAB PO SCH (20:30)
[2019-03-15] MEDS: QUEtiapine 50 MG TAB PO SCH (20:30)
[2019-03-15] MEDS: LATANOPROST 0.005% OPHTH DROPS 2.5 ML BTL BOTH EYES SCH (20:31)
[2019-03-15 20:43] LABS: Glucose,Whole Blood 125 mg/dL (75-99)
[2019-03-16] MEDS: APIXABAN 5 MG TAB PO SCH (06:21)
[2019-03-16 06:36] LABS: Glucose,Whole Blood 138 mg/dL (75-99)
[2019-03-16] MEDS: INSULIN ASPART (NovoLOG) 100 UNIT/ML VIAL SQ SCH ×2 (06:37→11:58)
[2019-03-16] MEDS: ASCORBIC ACID 500 MG TAB PO SCH (08:41)
[2019-03-16] MEDS: clonazePAM 0.5 MG TAB PO SCH (08:41)
[2019-03-16] MEDS: TAMSULOSIN 0.4 MG CAP.ER.24H PO SCH (08:41)
[2019-03-16] MEDS: busPIRone HCl 5 MG TAB PO SCH (08:42)
[2019-03-16] MEDS: ASPIRIN 325 MG TAB PO SCH (08:42)
[2019-03-16] MEDS: GABAPENTIN 100 MG CAP PO SCH (08:42)
[2019-03-16] MEDS: methylPREDNISolone SOD SUCCI 40 MG/ML 1 ML VIAL IV SCH (08:42)
[2019-03-16] MEDS: PARoxetine 20 MG TAB PO SCH (08:42)
[2019-03-16] MEDS: LISINOPRIL-HCTZ 20-12.5 MG 1 EACH TAB PO SCH (08:42)
[2019-03-16] MEDS: CYANOCOBALAMIN 500 MCG TAB PO SCH (08:42)
[2019-03-16 09:42] VITALS: BP 151/70; PULSE 74; RESP 18; TEMP 98.7
--- NOTE | 2019-03-16 11:03 | P.DS ---
Providers Date of admission: 03/13/19 15:12 Expected date of discharge: 03/16/19 Attending physician: Toni Parada MD Consults: 03/11/19 18:50 Consult Physician Routine Consulting Provider: Jamaica Johnson Consult Reason/Comments: evaluate for tia Do you want consulting provider notified?: Yes 03/13/19 08:35 Consult Physician Routine Consulting Provider: Monster Giang Consult Reason/Comments: chest pressure Do you want consulting provider notified?: Yes 03/13/19 17:01 Consult Physician Routine Consulting Provider: Faustino Joel Consult Reason/Comments: possible PE Do you want consulting provider notified?: Yes Primary care physician: Elfego [facility] Course: 78 year old female with history of breast cancer s/p radiation therapy, and history of multiple TIA and stroke presented to the hospital due to slurred speech and left sided weakness , that started suddenly. CT of the brain showed no acute process and blood work was unremarkable. At the time of arrival patient reported complete resolution of her symptoms. She denied any associated headache, but does report chronic dizziness and lightheadedness that has been going on for 1 year. No chest pain or trouble breathing, but she does report exertional dyspnea that is chronic in nature, due to history of emphysema. she does use nebulizer inhalers at home. No abd pain, nausea or vomiting. Patient was admitted to observation, she was placed on telemetry, seen by neurology who recommended MRI brain w/o conrast which showed no acute stroke, CTA Head and Neck w/ and w/o contrast which came back negative for any major blockages. Lipid panel was significant for minimally elevated LDL at 107, she was subsequently started on statin. During the hospitalization she started complaining from increasing shortness of breath, nursing reported some wheezing. Because of that she was started on steroids and DuoNeb. She has CT angiogram of the chest that shows questionable peripheral PEs, subsequently she was started on eliquis. She was seen by pulmonary service who recommended doing Doppler ultrasound of the legs and that came back negative for DVTs. Dr. Joel recommended continuing anticoagulation therapy for 6 months. Due to the pulmonary emboli and history of TIA paradoxical pulmonary emboli was suspected and due to the patient had transesophageal echocardiogram which came back okay with no septal defects. Heart function was reportedly normal according to the design eng. Today patient will be discharged home, she will have a walking O2 evaluation b efore discharge. Upon discharge she was prescribed a steroid taper, albuterol. She will also start taking statin as well as eliquis. Patient has history of restless leg syndrome and that felt better when she was placed on oxygen last night. I encouraged the patient to discuss with her primary care physician the need for sleep study referral. She was instructed to follow-up with her primary care physician. Time for d/c 35 min Patient Condition at Discharge: Fair Plan - Discharge Summary Discharge Rx Participant: No New Discharge Prescriptions: New Apixaban [Eliquis] 5 mg PO BID@0600,1800 30 Days #60 tab Atorvastatin [Lipitor] 40 mg PO HS 60 Days #60 tab methylPREDNISolone Dose Pack [Medrol Dose Pack] 4 mg PO DIRECTED #21 package Albuterol Sulfate [Proair Hfa] 1 - 2 puff INHALATION Q6HR PRN #1 inhaler PRN Reason: Shortness Of Breath Continue QUEtiapine [SEROquel] 50 mg PO HS Gabapentin [Neurontin] 100 mg PO TID PRN PRN Reason: Pain Tamsulosin HCl [Flomax] 0.4 mg PO DAILY rOPINIRole HCL [Requip] 1 mg PO HS Ascorbic Acid [Vitamin C] 500 mg PO DAILY Cyanocobalamin (Vitamin B-12) [Vitamin B-12] 1,000 mcg PO BID PARoxetine HCL [Paxil Cr] 25 mg PO DAILY Alendronate Sodium [Fosamax] 35 mg PO MO Meclizine [Antivert] 12.5 mg PO TID PRN PRN Reason: DIZZINESS Latanoprost [Xalatan 0.005%] 1 drop BOTH EYES HS clonazePAM [KlonoPIN] 0.5 mg PO DAILY Turmeric Root Extract [Turmeric] 500 mg PO DAILY Aspirin EC [Ecotrin Low Dose] 81 mg PO DAILY Lisinopril-Hctz 20-12.5 mg [Zestoretic 20-12.5] 1 tab PO DAILY Ibuprofen [Motrin] 800 mg PO TID PRN PRN Reason: Pain busPIRone HCL 15 mg PO BID Discharge Medication List Gabapentin [Neurontin] 100 mg PO TID PRN 12/12/13 [History] QUEtiapine [SEROquel] 50 mg PO HS 12/12/13 [History] Tamsulosin HCl [Flomax] 0.4 mg PO DAILY 12/12/13 [History] Alendronate Sodium [Fosamax] 35 mg PO MO 09/25/17 [History] Ascorbic Acid [Vitamin C] 500 mg PO DAILY 09/25/17 [History] Cyanocobalamin (Vitamin B-12) [Vitamin B-12] 1,000 mcg PO BID 09/25/17 [History] PARoxetine HCL [Paxil Cr] 25 mg PO DAILY 09/25/17 [History] rOPINIRole HCL [Requip] 1 mg PO HS 09/25/17 [History] Aspirin EC [Ecotrin Low Dose] 81 mg PO DAILY 03/11/19 [History] Ibuprofen [Motrin] 800 mg PO TID PRN 03/11/19 [History] Latanoprost [Xalatan 0.005%] 1 drop BOTH EYES HS 03/11/19 [History] Lisinopril-Hctz 20-12.5 mg [Zestoretic 20-12.5] 1 tab PO DAILY 03/11/19 [H istory] Meclizine [Antivert] 12.5 mg PO TID PRN 03/11/19 [History] Turmeric Root Extract [Turmeric] 500 mg PO DAILY 03/11/19 [History] clonazePAM [KlonoPIN] 0.5 mg PO DAILY 03/11/19 [History] busPIRone HCL 15 mg PO BID 03/13/19 [History] Apixaban [Eliquis] 5 mg PO BID@0600,1800 30 Days #60 tab 03/15/19 [Rx] Albuterol Sulfate [Proair Hfa] 1 - 2 puff INHALATION Q6HR PRN #1 inhaler 03/16/19 [Rx] Atorvastatin [Lipitor] 40 mg PO HS 60 Days #60 tab 03/16/19 [Rx] methylPREDNISolone Dose Pack [Medrol Dose Pack] 4 mg PO DIRECTED #21 package 03/16/19 [Rx] Follow up Appointment(s)/Referral(s): Ash Costa MD [STAFF PHYSICIAN] - 2 Weeks (Spoke to administrative assistant receptionist. Office will call with appointment time) Elfego Roberts MD [Primary Care Provider] - 1-2 days Patient Instructions/Handouts: Transient Ischemic Attack (DC), Chest Pain (DC) Activity/Diet/Wound Care/Special Instructions: Eliquis is covered by insurance - copay $8.50 - filled at [facility]
[2019-03-16 11:57] LABS: Glucose,Whole Blood 111 mg/dL (75-99)
--- NOTE | 2019-03-16 12:18 | P.PN ---
Subjective Progress Note Date: 03/16/19 This is a 78-year-old female patient with seems to have been involved in a episode of TIA. 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 In all these instances she has had complete recovery. During this current episode, she apparently lost speech and developed a left-sided weakness and by the time she arrived to the hospital she has been fully recovered. Computed tomography scan of the head and neck was within normal limits. The brain MRI showed no acute or subacute process at was within normal limits. The CT angiogram of the brain showed a short segment of the intracranial anterior circulation at the level of the right M1 segment showing 4 0-50% stenosis. The bilateral MCA and ASA were essentially unremarkable. In addition the CCA and the ICAs bilaterally negative. The patient further was given a CT angiogram based on a elevated d-dimer and a CT angiogram showed right hemidiaphragmatic elevation of unknown chronicity. Some bibasilar subsegmental atelectatic changes in addition to extensive degenerative changes involving the lumbar spine and postsurgical changes in the level of the thoracolumbar junction. In addition, there was a very small incomplete occlusive embolus suspected in the lower lobes. As such this was causing a positive study with tiny filling defects in the subsegmental pulmonary artery branches in the lower lung becerra bilaterally. The patient is currently on room air oxygen. She denies having any chest pain pleurisy or hemoptysis. She has already been placed on anticoagulation with Eliquis and pulmonary, station was requested. She has no previous history of any DVT or pulmonary embolism. She has history of COPD. She has history of hypertension and acid reflux. As mentioned she has also history of recurrent TIAs without any documented CVA and the CAT scan of the brain and MRI of the brain were all negative.. Note that her cardiac rhythm is also sinus. Patient is seen today on the 2018 in follow-up on the selective care unit. She remains awake and alert in no acute distress. No new neurologic deficits currently. Venous Doppler of the lower extremities were negative for DVT. She's been somewhat hypertensive. Maintaining O2 saturations in the high 90s on 3 L. She did undergo transesophageal echocardiogram today. Results are pending. On 03/16/2019, patient is doing well. No specific complaints. Emanating in the hallway. was done and there is no evidence of any significant abnormalities such as intracardiac shunt and a Doppler of the lower extremities was also negative. For now the patient will be sent home on anticoagulation. She'll be followed up on outpatient basis. No chest pain. All of her neurologic deficits have recovered. Objective - Vital Signs Vital signs: Vital Signs Temp 98.7 F 03/16/19 08:00 Pulse 74 03/16/19 08:00 Resp 18 03/16/19 08:00 BP 151/70 03/16/19 08:00 Pulse Ox 100 03/16/19 08:00 Intake & Output 03/15/19 03/16/19 03/16/19 18:59 06:59 18:59 Intake Total 715 290 480 Balance 715 290 480 Weight 93.5 kg Intake: IV 115 10 Invasive Line 1 30 10 Oral 600 280 480 Other: Voiding Method Toilet # Voids 2 1 - Exam GENERAL EXAM: Alert, active, comfortable in no apparent distress. HEAD: Normocephalic. EYES: Normal reaction of pupils, equal size. NOSE: Clear with pink turbinates. THROAT: No erythema or exudates. NECK: No masses, no JVD. CHEST: No chest wall deformity. LUNGS: Equal air entry with no crackles, wheeze, rhonchi or dullness. CVS: S1 and S2 normal with no audible murmur, regular rhythm. ABDOMEN: No hepatosplenomegaly, normal bowel sounds, no guarding or rigidity. SPINE: No scoliosis or deformity SKIN: No rashes CENTRAL NERVOUS SYSTEM: No focal deficits, tone is normal in all 4 extremities. EXTREMITIES: There is no peripheral edema. No clubbing, no cyanosis. Peripheral pulses are intact. - Labs CBC & Chem 7: 03/13/19 08:04 03/13/19 08:04 Labs: Abnormal Lab Results - Last 24 Hours (Table) 03/15/19 03/15/19 03/16/19 Range/Units 16:48 20:41 06:35 POC Glucose (mg/dL) 153 H 125 H 138 H (75-99) mg/dL 03/16/19 Range/Units 11:54 POC Glucose (mg/dL) 111 H (75-99) mg/dL Assessment and Plan Plan: 1 questionable subsegmental pulmonary emboli involving the lower lobes causing incomplete occlusion of the pulmonary arteries based on a CT angiogram of the chest. D-dimer is mildly elevated. Doppler of the lower extremities are in progress. In the setting of multiple TIAs, and if this is true, paradoxic embolism needs to be considered. Nevertheless, the Doppler of the lower extremity is negative and the JUVE was also negative for any intracardiac shunts. [address] angiogram of the brain was negative. MRI of the brain was negative. The patient is currently on anticoagulation. JUVE was negative and a Doppler of the lower extremities was also negative. 3 chronic anxiety/depression/insomnia. 4 hyperlipidemia 5 osteoarthritis 6 Mnire's disease 7 peptic ulcer disease 8 fibromyalgia Plan I'm not absolutely convinced that this is a embolic phenomena. The patient needs a neurology evaluation regarding this recurrent event of TIA. I'm not sure these were true events. Recommend hypercoagulable workup on outpatient basis. Recommend 6 months of anticoagulation with Eliquis on outpatient basis.JUVE was negative. Doppler of lower extremity was negative. Discharge the patient home and on Eliquis and Medrol Dosepak.
--- NOTE | 2019-03-16 16:25 | P.PN ---
Subjective This is Yuly Hernández PA-C dictating a progress note on this patient The patient was interviewed and examined by me as well as by Dr. Mckeon Case discussed with Dr. Mckeon and he agrees with the plan of care IMPRESSION / ASSESSMENT: Recurrent TIA/CVA Possible PE, CT showed multiple tiny filling defects Atypical chest discomfort, troponins negative 3 Hypertension Dyslipidemia PLAN: Consider hypercoagulable workup Patient is stable for discharge from a cardiac standpoint with outpatient follow-up for CAD workup Continue aspirin and statins HPI/interval history She is a 78-year-old female with a past medical history of hypertension, dyslipidemia, recurrent TIAs/CVAs who presented with slurred speech and left- sided weakness was diagnosed with a TIA. She was also complaining of mild chest discomfort so cardiology was consult to. Her EKG showed sinus rhythm with nonspecific ST and T-wave abnormalities. Her echo showed preserved EF 55-60%. Her d-dimer was elevated. Chest CT showed no central PE but multiple tiny filling defects concerning for possible PE. She underwent JUVE which was negative for septal defects. Patient seen and examined resting comfortably in bed. States she is fatigued and still little bit short of breath. Denies chest pain. EXAMINATION Temperature 98.7F, pulse 74, respirations 18, blood pressure 151/70, oxygen saturation 100% on 2 L nasal cannula Patient seen and examined resting comfortably in bed, appears in no Acute distress Lungs clear to auscultation bilaterally Heart is regular, normal S1-S2, no murmurs appreciated No lower extremity edema noted REVIEW OF LABS, ECG Troponin negative 3 WBC 5.7, hemoglobin 15.0, potassium 3.9, BUN 21, creatinine 0.89 Lipid panel revealed total cholesterol 167, triglycerides 62, LDL 107, HDL 48 Transthoracic echocardiogram showed EF 55-60%, no significant valvular abnormalities Objective - Vital Signs Vital signs: Vital Signs Temp 98.7 F 03/16/19 08:00 Pulse 74 03/16/19 08:00 Resp 18 03/16/19 08:00 BP 151/70 03/16/19 08:00 Pulse Ox 100 03/16/19 08:00 Intake & Output 03/15/19 03/16/19 03/16/19 18:59 06:59 18:59 Intake Total 715 290 840 Balance 715 290 840 Weight 93.5 kg Intake: IV 115 10 Invasive Line 1 30 10 Oral 600 280 840 Other: Voiding Method Toilet # Voids 2 1 - Labs CBC & Chem 7: 03/13/19 08:04 03/13/19 08:04 Labs: Abnormal Lab Results - Last 24 Hours (Table) 03/15/19 03/15/19 03/16/19 Range/Units 16:48 20:41 06:35 POC Glucose (mg/dL) 153 H 125 H 138 H (75-99) mg/dL 03/16/19 Range/Units 11:54 POC Glucose (mg/dL) 111 H (75-99) mg/dL
--- NOTE | 2019-03-18 13:45 | ECHOT ---
TRANSESOPHAGEAL ECHOCARDIOGRAM INDICATION: Rule out cardiac source of embolization. PROCEDURE PERFORMED: Transesophageal echocardiogram. COMPLICATION: None. LEVEL OF SEDATION: Moderate with sedation length of 10 minutes. PROCEDURE DESCRIPTION: After obtaining an informed consent, explaining the procedure, benefits, risks, complications and alternatives, the patient was brought to the transesophageal echocardiogram suite. A pulse oximetry and heart rate monitors were attached to the patient prior to the procedure. The patient's throat was sprayed using lidocaine locally. Following that, the patient was turned into left lateral position. A bite guard was placed and the patient was then sedated with the above doses of Versed and fentanyl in divided doses. Following that, the transesophageal echocardiogram probe was advanced through the bite guard into the mid esophagus where 2-D echocardiogram images as well as color Doppler images of various cardiac structures were obtained. We evaluated the interatrial septum using 2-D echocardiogram, color Doppler, and contrast study. The procedure was completed. There were no complications. FINDINGS: The left ventricular dimension and systolic function appeared to be within normal limits. The ejection fraction appeared to be in the range of 50% to 55%. The right ventricle appeared to be of normal size and function. The left atrium appeared to be within normal limits for dimension. The aortic valve is trileaflet valve without stenosis with moderate insufficiency. The mitral valve seems to be normal with moderate MR. Normal tricuspid valve and pulmonic valve. The interatrial septum appeared to be intact without any evidence of shunt. CONCLUSION: 1. No evidence of cardiac source of embolization. 2. Intact interatrial septum without any evidence of shunt. 3. Normal left atrial appendage without any thrombus. 4. Normal left ventricular dimension and systolic function. 5. Normal cardiac chamber sizes. 6. Moderate mitral insufficiency. 7. Moderate aortic regurgitation. 8. No evidence of pericardial effusion. MMODL / IJN: [id number] /
== END 2019-03-16 13:16 | disposition home or self-care (01) | DRG 176 ==
LOC: EC 16:51 → 3SCARD 18:49 → OBSVTOIN 03-13 15:12
PROVIDERS: ADMIT Family Medicine; ATTEND Family Medicine
PROC: B246ZZ4 Ultrasonography of Right and Left Heart, Transesophageal (ICD-10-PCS; principal; 2019-03-15 13:25)
DX: I26.99 Other pulmonary embolism without acute cor pulmonale (principal); I16.1 Hypertensive emergency; G45.9 Transient cerebral ischemic attack, unspecified; I65.22 Occlusion and stenosis of left carotid artery; J43.9 Emphysema, unspecified; I10 Essential (primary) hypertension; E78.5 Hyperlipidemia, unspecified; M79.7 Fibromyalgia; G31.84 Mild cognitive impairment of uncertain or unknown etiology; K21.9 Gastro-esophageal reflux disease without esophagitis; F32.9 Major depressive disorder, single episode, unspecified; G25.81 Restless legs syndrome; H91.92 Unspecified hearing loss, left ear; K76.9 Liver disease, unspecified; M47.816 Spondylosis without myelopathy or radiculopathy, lumbar region; G47.00 Insomnia, unspecified; F41.9 Anxiety disorder, unspecified; M19.90 Unspecified osteoarthritis, unspecified site; Z79.83 Long term (current) use of bisphosphonates; Z79.82 Long term (current) use of aspirin; Z79.899 Other long term (current) drug therapy; Z87.11 Personal history of peptic ulcer disease; Z86.73 Personal history of transient ischemic attack (TIA), and cerebral infarction without residual deficits; Z86.69 Personal history of other diseases of the nervous system and sense organs; Z90.49 Acquired absence of other specified parts of digestive tract; Z96.653 Presence of artificial knee joint, bilateral; Z98.890 Other specified postprocedural states; Z85.3 Personal history of malignant neoplasm of breast; Z92.3 Personal history of irradiation; Z98.42 Cataract extraction status, left eye; Z98.41 Cataract extraction status, right eye; Z88.5 Allergy status to narcotic agent; Z91.048 Other nonmedicinal substance allergy status; Z80.9 Family history of malignant neoplasm, unspecified
CPT/HCPCS: 70496; 70498; 70551; 71275; 80053; 80061; 84443; 84484; 85025; 85379; 93306; 93312; 93320; 93325; 93880; 93970; 94640; 99284

== ENCOUNTER 2019-05-31 11:02 | Emergency (ER) | payer MEDICARE ==
[2019-05-31 11:10] VITALS: TEMP 98.3
[2019-05-31] MEDS ORDERED: SODIUM CHLORIDE 0.9% 500 ML 500 ML IV STA (11:44)
[2019-05-31 12:03] LABS: Basophils # (A) 0.1 k/uL (0-0.2); Basophils % (A) 1 %; Eosinophils # (A) 0.2 k/uL (0-0.7); Eosinophils % (A) 4 %; HCT 39.4 % (34.0-46.0); HGB 13.3 gm/dL (11.4-16.0); Lymphocytes # (A) 1.5 k/uL (1.0-4.8); Lymphocytes % (A) 31 %; MCH 30.2 pg (25.0-35.0); MCHC 33.8 g/dL (31.0-37.0); MCV 89.3 fL (80.0-100.0); Mean Platelet Volume 6.4; Monocytes # (A) 0.3 k/uL (0-1.0); Monocytes % (A) 7 %; Neutrophils # (A) 2.8 k/uL (1.3-7.7); Neutrophils % (A) 55 %; Platelet Count 214 k/uL (150-450); RBC 4.41 m/uL (3.80-5.40)
[2019-05-31 12:10] LABS: Prothrombin Time 10.5 sec (9.0-12.0)
[2019-05-31 12:17] LABS: Albumin 3.6 g/dL (3.5-5.0); Calcium 9.7 mg/dL (8.4-10.2); Potassium 4.3 mmol/L (3.5-5.1); Total Bilirubin 0.5 mg/dL (0.2-1.3); Total Protein 6.2 g/dL (6.3-8.2)
--- NOTE | 2019-05-31 12:17 | CT ---
EXAMINATION TYPE: CT brain wo con DATE OF EXAM: 05/31/2019 COMPARISON: 09/25/2017 and 03/12/2019 HISTORY: Left sided weakness CT DLP: 1036.4 mGycm Automated exposure control for dose reduction was used. TECHNIQUE: CT scan of the head is performed without contrast. FINDINGS: Focal hyperdensity is seen in the distal aspect of the horizontal M1 segment of the right m iddle cerebral artery on axial image 19. There is no acute intracranial hemorrhage or midline shift i dentified. There is diffuse ventricular and sulcal prominence consistent with diffuse age-related cer ebral atrophy. There is low-attenuation in the periventricular white matter consistent with chronic small vessel ischemic change. The globes are intact and the visualized sinuses are clear. Atherosc lerosis of the intracranial vasculature. Thinning of the right mastoid bone is unchanged from the meenakshi or 2018. Incidentally noted hyperostosis frontalis internus. IMPRESSION: 1. Slightly hyperdense distal right horizontal M1 segment of the right middle cerebral artery that ma y represent thrombosis. CTA or MRA could further assess this finding. 2. No acute intracranial hemorrhage or midline shift. 3. Diffuse age-related cerebral atrophy and chronic small vessel ischemic change noted.
--- NOTE | 2019-05-31 12:19 | XR ---
EXAMINATION TYPE: XR chest 2V DATE OF EXAM: 05/31/2019 COMPARISON: 02/14/2014 HISTORY: Weakness TECHNIQUE: Frontal and lateral views of the chest are obtained. FINDINGS: Chronic right hemidiaphragm elevation is noted. Cardiac loop recorder has been removed in the interim. There is no focal air space opacity, pleural effusion, or pneumothorax seen. The cardia c silhouette size is within normal limits. The osseous structures are intact. Postsurgical changes seen of the thoracolumbar junction. Postsurgical changes of the shoulders are also seen. Hiatal herni a is redemonstrated. Surgical clips are seen near the gastroesophageal junction. IMPRESSION: Chronic findings with no acute cardiopulmonary process.
--- NOTE | 2019-05-31 12:22 | ED ---
Weakness HPI - General Chief complaint: Weakness Stated complaint: L Side Weakness Time Seen by Provider: 05/31/19 11:26 Source: patient, EMS Mode of arrival: EMS Limitations: no limitations - History of Present Illness Initial comments: Patient is a 78-year-old female presenting to the emergency Department with complaints of weakness 2 days. Patient states she has a history of TIAs. 2 days ago patient stated she had a hard time walking secondary to muscle weakness. Patient states then for the last 2 days she has slept more than usual and presents today for left-sided arm and hand weakness. Patient states with her previous TIAs she has had trouble with speech however that has not happened this time. Patient denies any recent fever, chills, chest pain, shortness of breath. Patient is describing some left breast pain for the last week. Patient has history of left breast cancer with radiation with lumpectomy. Patient has no other complaints at this time. Upon arrival to ER, vital signs are stable. - Related Data Home Medications Medication Instructions Recorded Confirmed Gabapentin [Neurontin] 100 mg PO TID PRN 12/12/13 03/11/19 QUEtiapine [SEROquel] 50 mg PO HS 12/12/13 03/11/19 Tamsulosin HCl [Flomax] 0.4 mg PO DAILY 12/12/13 03/11/19 Alendronate Sodium [Fosamax] 35 mg PO MO 09/25/17 03/13/19 Ascorbic Acid [Vitamin C] 500 mg PO DAILY 09/25/17 03/11/19 Cyanocobalamin (Vitamin B-12) 1,000 mcg PO BID 09/25/17 03/11/19 [Vitamin B-12] PARoxetine HCL [Paxil Cr] 25 mg PO DAILY 09/25/17 03/11/19 rOPINIRole HCL [Requip] 1 mg PO HS 09/25/17 03/11/19 Aspirin EC [Ecotrin Low Dose] 81 mg PO DAILY 03/11/19 03/11/19 Ibuprofen [Motrin] 800 mg PO TID PRN 03/11/19 03/11/19 Latanoprost [Xalatan 0.005%] 1 drop BOTH EYES HS 03/11/19 03/11/19 Lisinopril-Hctz 20-12.5 mg 1 tab PO DAILY 03/11/19 03/11/19 [Zestoretic 20-12.5] Meclizine [Antivert] 12.5 mg PO TID PRN 03/11/19 03/11/19 Turmeric Root Extract [Turmeric] 500 mg PO DAILY 03/11/19 03/11/19 clonazePAM [KlonoPIN] 0.5 mg PO DAILY 03/11/19 03/11/19 busPIRone HCL 15 mg PO BID 03/13/19 03/13/19 Previous Rx's Medication Instructions Recorded Apixaban [Eliquis] 5 mg PO BID@0600,1800 30 Days #60 03/15/19 tab Albuterol Sulfate [Proair Hfa] 1 - 2 puff INHALATION Q6HR PRN #1 03/16/19 inhaler Atorvastatin [Lipitor] 40 mg PO HS 60 Days #60 tab 03/16/19 methylPREDNISolone Dose Pack 4 mg PO DIRECTED #21 package 03/16/19 [Medrol Dose Pack] Allergies Allergy/AdvReac Type Severity Reaction Status Date / Time nickel [Nickel] Allergy Rash/Hives Verified 05/31/19 11:10 codeine AdvReac headache Verified 05/31/19 11:10 Review of Systems ROS Statement: Those systems with pertinent positive or pertinent negative responses have been documented in the HPI. ROS Other: All systems not noted in ROS Statement are negative. Past Medical History Past Medical History: CVA/TIA, Fibromyalgia, GERD/Reflux, Hyperlipidemia, Memory Impairment, Osteoarthritis (OA), Skin Disorder Additional Past Medical History / Comment(s): MENIERE'S LEFT EAR, PEPTIC ULCERS, tia x 14- last 12/2013. History of Any Multi-Drug Resistant Organisms: None Reported Past Surgical History: Back Surgery, Cholecystectomy, Joint Replacement, Orthopedic Surgery, Tonsillectomy Additional Past Surgical History / Comment(s): LOOP RECORDER 2010, ORIF LEFT FOOT, rt foot surgery, JT REPL WINNIE KNEES & WINNIE SHOULDERS, WINNIE CATARACT, gianni and screws in back Past Anesthesia/Blood Transfusion Reactions: No Reported Reaction Past Psychological History: Anxiety, Depression Smoking Status: Never smoker Past Alcohol Use History: None Reported Past Drug Use History: None Reported - Past Family History Father Family Medical History: Cancer Mother Family Medical History: Cancer General Exam - General Exam Comments Initial Comments: GENERAL: Well-appearing, well-nourished and in no acute distress. HEAD: Atraumatic, normocephalic. EYES: Pupils equal round and reactive to light, extraocular movements intact, sclera anicteric, conjunctiva are normal. ENT: Nares patent, oropharynx clear without exudates. Moist mucous membranes. NECK: Normal range of motion, supple without lymphadenopathy or JVD. LUNGS: Breath sounds clear to auscultation bilaterally and equal. No wheezes rales or rhonchi. HEART: Regular rate and rhythm without murmurs, rubs or gallops. ABDOMEN: Soft, nontender, normoactive bowel sounds. No guarding, no rebound. No masses appreciated. : Deferred EXTREMITIES: Normal range of motion, no pitting or edema. No clubbing or cyanosis. PSYCH: Normal mood, normal affect. SKIN: Warm, Dry, normal turgor, no rashes or lesions noted. Limitations: no limitations Neurological exam: Present: alert, oriented X3, CN II-XII intact Expanded Patient oriented to: Present: person, place, time Speech: Present: fluid speech Cranial nerves: EOM's Intact: Normal, Tongue Deviation: Normal, Facial Sens ation: Normal Cerebellar function: Finger to Nose: Normal, Heel to Thomas: Normal, Romberg: Normal Upper motor neuron: Pronator Drift: Normal Sensory exam: Upper Extremity Light Touch: Normal, Lower Extremity Light Touch: Normal Motor strength exam: RUE: 5, LUE: 5 (Mild decreased left doors prefitter strength compared to right, possibly chronic in nature.), RLE: 5, LLE: 5 Eye Response: (4) open spontaneously Motor Response: (6) obeys commands Verbal Response: (5) oriented Beto Total: 15 Course Vital Signs 05/31/19 05/31/19 05/31/19 11:08 12:19 14:42 Temperature 98.3 F 98.3 F Pulse Rate 64 60 62 Respiratory 20 20 20 Rate Blood Pressure 169/88 158/75 145/76 O2 Sat by Pulse 96 98 97 Oximetry 05/31/19 15:30 Temperature Pulse Rate 65 Respiratory 18 Rate Blood Pressure 157/63 O2 Sat by Pulse 97 Oximetry EKG Findings - EKG Comments: EKG Findings:: Ventricular rate 61, WI interval 164, QTC 414. Normal sinus rhythm. Nonspecific ST and T-wave abnormalities. No acute changes from previous EKG. Medical Decision Making - Medical Decision Making Patient is a 78-year-old female presenting with left-sided weakness 2 days. Patient has history of TIAs. Vital signs are normal upon arrival. On exam, patient has no focal neurological deficits. Patient has slightly decreased left doors prefitter strength compared to right that could be possibly chronic in nature. No other acute findings. Lab work is unremarkable, troponin is normal. UA is normal. Chest x-ray shows chronic findings with no acute process. CT of the brain shows a slightly hyperdense segment in the right middle cerebral artery that may represent a thrombosis. No other acute findings. Head CTA was obtained and shows a normal huslia of Ortiz. No suspicious arterial abnormality. Case was discussed with Dr. Lino. I spoke with on-call neurology, Dr. Johnson. Dr. Johnson has seen the patient on a previous visit in February of this year. Those consult notes were reviewed as well as today's exam and findings. Dr. Johnson is okay with patient being discharged home as patient does have a follow-up with Dr. Hernandez on June 10. Strict return parameters were discussed with the patient and she verbalized understanding. Patient's vital signs remained stable and exam is unchanged from previous. No focal neurological deficits. Patient will have follow-up with Dr. Hernandez as discussed. Patient is in agreement with this plan of care. Patient is stable for discharge at this time. - Lab Data Result diagrams: 05/31/19 11:50 05/31/19 11:50 Lab Results 05/31/19 05/31/19 05/31/19 Range/Units 11:50 11:50 11:50 WBC 5.0 (3.8-10.6) k/uL RBC 4.41 (3.80-5.40) m/uL Hgb 13.3 (11.4-16.0) gm/dL Hct 39.4 (34.0-46.0) % MCV 89.3 (80.0-100.0) fL MCH 30.2 (25.0-35.0) pg MCHC 33.8 (31.0-37.0) g/dL RDW 13.0 (11.5-15.5) % Plt Count 214 (150-450) k/uL Neutrophils % 55 % Lymphocytes % 31 % Monocytes % 7 % Eosinophils % 4 % Basophils % 1 % Neutrophils # 2.8 (1.3-7.7) k/uL Lymphocytes # 1.5 (1.0-4.8) k/uL Monocytes # 0.3 (0-1.0) k/uL Eosinophils # 0.2 (0-0.7) k/uL Basophils # 0.1 (0-0.2) k/uL PT 10.5 (9.0-12.0) sec INR 1.0 (<1.2) APTT 24.0 (22.0-30.0) sec Sodium 137 (137-145) mmol/L Potassium 4.3 (3.5-5.1) mmol/L Chloride 105 (98-107) mmol/L Carbon Dioxide 24 (22-30) mmol/L Anion Gap 8 mmol/L BUN 19 H (7-17) mg/dL Creatinine 0.90 (0.52-1.04) mg/dL Est GFR (CKD-EPI)AfAm 71 (>60 ml/min/1.73 sqM) Est GFR (CKD-EPI)NonAf 61 (>60 ml/min/1.73 sqM) Glucose 120 H (74-99) mg/dL Calcium 9.7 (8.4-10.2) mg/dL Total Bilirubin 0.5 (0.2-1.3) mg/dL AST 38 H (14-36) U/L ALT 31 (9-52) U/L Alkaline Phosphatase 78 (38-126) U/L Troponin I (0.000-0.034) ng/mL Total Protein 6.2 L (6.3-8.2) g/dL Albumin 3.6 (3.5-5.0) g/dL Urine Color Urine Appearance (Clear) Urine pH (5.0-8.0) Ur Specific [place]oy[place] (1.001-1.035) Urine Protein (Negative) Urine Glucose (UA) (Negative) Urine Ketones (Negative) Urine Blood (Negative) Urine Nitrite (Negative) Urine Bilirubin (Negative) Urine Urobilinogen (<2.0) mg/dL Ur Leukocyte Esterase (Negative) Urine RBC (0-5) /hpf Urine WBC (0-5) /hpf Ur Squamous Epith Cells (0-4) /hpf 05/31/19 05/31/19 Range/Units 11:50 13:15 WBC (3.8-10.6) k/uL RBC (3.80-5.40) m/uL Hgb (11.4-16.0) gm/dL Hct (34.0-46.0) % MCV (80.0-100.0) fL MCH (25.0-35.0) pg MCHC (31.0-37.0) g/dL RDW (11.5-15.5) % Plt Count (150-450) k/uL Neutrophils % % Lymphocytes % % Monocytes % % Eosinophils % % Basophils % % Neutrophils # (1.3-7.7) k/uL Lymphocytes # (1.0-4.8) k/uL Monocytes # (0-1.0) k/uL Eosinophils # (0-0.7) k/uL Basophils # (0-0.2) k/uL PT (9.0-12.0) sec INR (<1.2) APTT (22.0-30.0) sec Sodium (137-145) mmol/L Potassium (3.5-5.1) mmol/L Chloride (98-107) mmol/L Carbon Dioxide (22-30) mmol/L Anion Gap mmol/L BUN (7-17) mg/dL Creatinine (0.52-1.04) mg/dL Est GFR (CKD-EPI)AfAm (>60 ml/min/1.73 sqM) Est GFR (CKD-EPI)NonAf (>60 ml/min/1.73 sqM) Glucose (74-99) mg/dL Calcium (8.4-10.2) mg/dL Total Bilirubin (0.2-1.3) mg/dL AST (14-36) U/L ALT (9-52) U/L Alkaline Phosphatase (38-126) U/L Troponin I <0.012 (0.000-0.034) ng/mL Total Protein (6.3-8.2) g/dL Albumin (3.5-5.0) g/dL Urine Color Yellow Urine Appearance Clear (Clear) Urine pH 7.5 (5.0-8.0) Ur Specific [place] 1.014 (1.001-1.035) Urine Protein Negative (Negative) Urine Glucose (UA) Negative (Negative) Urine Ketones Negative (Negative) Urine Blood Negative (Negative) Urine Nitrite Negative (Negative) Urine Bilirubin Negative (Negative) Urine Urobilinogen <2.0 (<2.0) mg/dL Ur Leukocyte Esterase Small H (Negative) Urine RBC 3 (0-5) /hpf Urine WBC 3 (0-5) /hpf Ur Squamous Epith Cells 2 (0-4) /hpf Disposition Clinical Impression: History of recurrent TIAs, Weakness Disposition: HOME SELF-CARE Condition: Stable Instructions (If sedation given, give patient instructions): Weakness (ED) Additional Instructions: Please return to the Emergency Department if symptoms worsen or any other concerns. Follow-up with Dr. Hernandez as discussed. Is patient prescribed a controlled substance at d/c from ED?: No Referrals: Elfego Roberts MD [Primary Care Provider] - 1-2 days Romie Hernandez DO [STAFF PHYSICIAN] - 1-2 days
[2019-05-31 13:45] LABS: Appearance,Urine Clear (Clear); Bilirubin,Urine Negative (Negative); Blood,Urine Negative (Negative); Color,Urine Yellow; Glucose,Urine (UA) Negative (Negative); Ketones,Urine Negative (Negative); Leukocyte Esterase,Urine Small (Negative); Nitrite,Urine Negative (Negative); PH, Urine 7.5 (5.0-8.0); Protein,Urine Negative (Negative); RBC,Urine 3 /hpf (0-5); Specific Gravity,Urine 1.014 (1.001-1.035); Squamous Epithelial Cell,Urine 2 /hpf (0-4); Urobilinogen,Urine <2.0 mg/dL (<2.0); WBC,Urine 3 /hpf (0-5)
--- NOTE | 2019-05-31 14:33 | CT ---
EXAMINATION TYPE: CT angio head DATE OF EXAM: 05/31/2019 HISTORY: Left sided weakness COMPARISON: CT brain same date CT DLP: 673.4 mGycm. Automated Exposure Control for Dose Reduction was Utilized. TECHNIQUE: CTA scan of the igiugig of Ortiz is performed with IV Contrast, patient injected with 100 mL of Isovue 370, axial images are obtained, coronal and sagittal reformatted images are reviewed. T hree-D reconstructed images are created on an independent workstation and reviewed. Source images ar e reviewed. FINDINGS: Cervical of Ortiz: Right vertebral artery likely terminates in the posterior-inferior cerebellar art luciana. Left vertebral artery and basilar artery appear normal. Internal carotid arteries bifurcate norm ally into A1 and M1 segments. The 2 segments appear normal. Anterior communicating artery is patent. No posterior communicating arteries are identified. Posterior cerebral arteries appear normal. No elda ling defect within the right middle cerebral artery branches is evident. Other: Three-D reconstructed images are reviewed on the computer performed separately by the ramos yancey on a separate computer and presented for interpretation. No suspicious aneurysm is evident. No r ight middle cerebral artery filling defect is evident IMPRESSION: 1. Normal igiugig of Ortiz. No suspicious arterial abnormality
[2019-05-31 15:31] VITALS: BP 157/63; PULSE 65; RESP 18
== END 2019-05-31 15:31 | disposition home or self-care (01) ==
LOC: EC 11:02
DX: R53.1 Weakness (principal); E78.5 Hyperlipidemia, unspecified; K21.9 Gastro-esophageal reflux disease without esophagitis; M79.7 Fibromyalgia; F41.9 Anxiety disorder, unspecified; F32.9 Major depressive disorder, single episode, unspecified; Z79.899 Other long term (current) drug therapy; Z79.82 Long term (current) use of aspirin; Z88.5 Allergy status to narcotic agent; Z88.8 Allergy status to other drugs, medicaments and biological substances; Z86.73 Personal history of transient ischemic attack (TIA), and cerebral infarction without residual deficits; Z85.3 Personal history of malignant neoplasm of breast; Z92.3 Personal history of irradiation
CPT/HCPCS: 36415; 93005; 80053; 84484; 85025; 85610; 85730; 81001; 71046; 70496; 70450; 99285; 96360; Q9967

== ENCOUNTER 2019-06-27 13:42 | Observation (INO) | payer MEDICARE ==
[2019-06-27 14:02] LABS: Glucose,Whole Blood 124 mg/dL (75-99)
[2019-06-27 14:14] LABS: Basophils % (A) 0 %; Eosinophils # (A) 0.2 k/uL (0-0.7); Eosinophils % (A) 2 %; HCT 42.8 % (34.0-46.0); HGB 14.5 gm/dL (11.4-16.0); Lymphocytes # (A) 1.9 k/uL (1.0-4.8); Lymphocytes % (A) 24 %; MCH 30.6 pg (25.0-35.0); Mean Platelet Volume 6.6; Monocytes # (A) 0.4 k/uL (0-1.0); Monocytes % (A) 5 %; Neutrophils # (A) 5.2 k/uL (1.3-7.7); Neutrophils % (A) 67 %; Platelet Count 230 k/uL (150-450); RBC 4.76 m/uL (3.80-5.40); WBC 7.7 k/uL (3.8-10.6)
[2019-06-27 14:20] LABS: Albumin 4.3 g/dL (3.5-5.0); Potassium 4.1 mmol/L (3.5-5.1); Prothrombin Time 10.4 sec (9.0-12.0); Total Bilirubin 0.9 mg/dL (0.2-1.3)
--- NOTE | 2019-06-27 14:21 | ED ---
Neuro HPI - General Chief Complaint: Neuro Symptoms/Deficit Stated Complaint: SOB Time Seen by Provider: 06/27/19 14:08 Source: patient, family, RN/MD, RN notes reviewed, old records reviewed Limitations: no limitations - History of Present Illness Is the patient presenting with stroke symptoms?: Yes Initial Comments: This is a 78-year-old female history of TIAs Mnire's disease left ear who states he had the onset last evening of left-sided facial pain. She also had the onset at approximately 1325 this afternoon of some expressive aphasia left facial droop left upper and lower extremity weakness. She does states she still has somewhat of a headache. He states is a get better last night and then recurred this morning. No recent fevers chills nausea vomiting sweats no trauma she denies any blurry vision at this time. She currently is not on any blood thinners she states. No other modifying factors at this time - Related Data Home Medications: Home Medications Medication Instructions Recorded Confirmed Gabapentin [Neurontin] 100 mg PO TID PRN 12/12/13 03/11/19 QUEtiapine [SEROquel] 50 mg PO HS 12/12/13 03/11/19 Tamsulosin HCl [Flomax] 0.4 mg PO DAILY 12/12/13 03/11/19 Alendronate Sodium [Fosamax] 35 mg PO MO 09/25/17 03/13/19 Ascorbic Acid [Vitamin C] 500 mg PO DAILY 09/25/17 03/11/19 Cyanocobalamin (Vitamin B-12) 1,000 mcg PO BID 09/25/17 03/11/19 [Vitamin B-12] PARoxetine HCL [Paxil Cr] 25 mg PO DAILY 09/25/17 03/11/19 rOPINIRole HCL [Requip] 1 mg PO HS 09/25/17 03/11/19 Aspirin EC [Ecotrin Low Dose] 81 mg PO DAILY 03/11/19 03/11/19 Ibuprofen [Motrin] 800 mg PO TID PRN 03/11/19 03/11/19 Latanoprost [Xalatan 0.005%] 1 drop BOTH EYES HS 03/11/19 03/11/19 Lisinopril-Hctz 20-12.5 mg 1 tab PO DAILY 03/11/19 03/11/19 [Zestoretic 20-12.5] Meclizine [Antivert] 12.5 mg PO TID PRN 03/11/19 03/11/19 Turmeric Root Extract [Turmeric] 500 mg PO DAILY 03/11/19 03/11/19 clonazePAM [KlonoPIN] 0.5 mg PO DAILY 03/11/19 03/11/19 busPIRone HCL 15 mg PO BID 03/13/19 03/13/19 Previous Rx's Medication Instructions Recorded Apixaban [Eliquis] 5 mg PO BID@0600,1800 30 Days #60 03/15/19 tab Albuterol Sulfate [Proair Hfa] 1 - 2 puff INHALATION Q6HR PRN #1 03/16/19 inhaler Atorvastatin [Lipitor] 40 mg PO HS 60 Days #60 tab 03/16/19 methylPREDNISolone Dose Pack 4 mg PO DIRECTED #21 package 03/16/19 [Medrol Dose Pack] Allergies/Adverse Reactions: Allergies Allergy/AdvReac Type Severity Reaction Status Date / Time nickel [Nickel] Allergy Rash/Hives Verified 06/27/19 13:53 codeine AdvReac headache Verified 06/27/19 13:53 Review of Systems ROS Statement: Those systems with pertinent positive or pertinent negative responses have been documented in the HPI. ROS Other: All systems not noted in ROS Statement are negative. General Exam - General Exam Comments Initial Comments: This a well-developed well-nourished awake alert oriented 3 female she does demonstrate Limitations: no limitations General appearance: alert, in no apparent distress, anxious Head exam: Present: atraumatic, normocephalic, normal inspection Eye exam: Present: normal appearance, PERRL, EOMI. Absent: scleral icterus, conjunctival injection, periorbital swelling ENT exam: Present: other (Left facial asymmetry with flattening of the left nasolabial fold. Additionally patient does complain some tenderness to pal pation over the left side of her face and left lateral neck musculature. No spinous process tenderness) Neck exam: Present: normal inspection, full ROM, other (No stridor JVD or bruits). Absent: tenderness, meningismus, lymphadenopathy Respiratory exam: Present: normal lung sounds bilaterally. Absent: respiratory distress, wheezes, rales, rhonchi, stridor Cardiovascular Exam: Present: regular rate, normal rhythm, normal heart sounds. Absent: systolic murmur, diastolic murmur, rubs, gallop, clicks GI/Abdominal exam: Present: soft, normal bowel sounds. Absent: distended, tenderness, guarding, rebound, rigid, bruit, pulsatile mass Rectal exam: Present: deferred Extremities exam: Present: normal inspection, normal capillary refill. Absent: full ROM Back exam: Present: normal inspection Neurological exam: Present: alert, oriented X3, motor sensory deficit. Absent: CN II-XII intact Psychiatric exam: Present: normal affect, normal mood Skin exam: Present: warm, dry, intact, normal color. Absent: rash Stroke MDM - Lab Data Result diagrams: 06/27/19 13:58 06/27/19 13:58 Lab Results 06/27/19 06/27/19 06/27/19 Range/Units 13:58 13:58 13:58 WBC 7.7 (3.8-10.6) k/uL RBC 4.76 (3.80-5.40) m/uL Hgb 14.5 (11.4-16.0) gm/dL Hct 42.8 (34.0-46.0) % MCV 90.0 (80.0-100.0) fL MCH 30.6 (25.0-35.0) pg MCHC 34.0 (31.0-37.0) g/dL RDW 13.0 (11.5-15.5) % Plt Count 230 (150-450) k/uL Neutrophils % 67 % Lymphocytes % 24 % Monocytes % 5 % Eosinophils % 2 % Basophils % 0 % Neutrophils # 5.2 (1.3-7.7) k/uL Lymphocytes # 1.9 (1.0-4.8) k/uL Monocytes # 0.4 (0-1.0) k/uL Eosinophils # 0.2 (0-0.7) k/uL Basophils # 0.0 (0-0.2) k/uL PT 10.4 (9.0-12.0) sec INR 1.0 (<1.2) APTT 24.0 (22.0-30.0) sec Sodium 138 (137-145) mmol/L Potassium 4.1 (3.5-5.1) mmol/L Chloride 105 (98-107) mmol/L Carbon Dioxide 20 L (22-30) mmol/L Anion Gap 13 mmol/L BUN 22 H (7-17) mg/dL Creatinine 1.13 H (0.52-1.04) mg/dL Est GFR (CKD-EPI)AfAm 54 (>60 ml/min/1.73 sqM) Est GFR (CKD-EPI)NonAf 46 (>60 ml/min/1.73 sqM) Glucose 120 H (74-99) mg/dL POC Glucose (mg/dL) (75-99) mg/dL POC Glu Prosthetic Dentist ID Calcium 10.0 (8.4-10.2) mg/dL Total Bilirubin 0.9 (0.2-1.3) mg/dL AST 38 H (14-36) U/L ALT 30 (9-52) U/L Alkaline Phosphatase 102 (38-126) U/L Troponin I (0.000-0.034) ng/mL Total Protein 7.0 (6.3-8.2) g/dL Albumin 4.3 (3.5-5.0) g/dL 06/27/19 06/27/19 Range/Units 13:58 14:00 WBC (3.8-10.6) k/uL RBC (3.80-5.40) m/uL Hgb (11.4-16.0) gm/dL Hct (34.0-46.0) % MCV (80.0-100.0) fL MCH (25.0-35.0) pg MCHC (31.0-37.0) g/dL RDW (11.5-15.5) % Plt Count (150-450) k/uL Neutrophils % % Lymphocytes % % Monocytes % % Eosinophils % % Basophils % % Neutrophils # (1.3-7.7) k/uL Lymphocytes # (1.0-4.8) k/uL Monocytes # (0-1.0) k/uL Eosinophils # (0-0.7) k/uL Basophils # (0-0.2) k/uL PT (9.0-12.0) sec INR (<1.2) APTT (22.0-30.0) sec Sodium (137-145) mmol/L Potassium (3.5-5.1) mmol/L Chloride (98-107) mmol/L Carbon Dioxide (22-30) mmol/L Anion Gap mmol/L BUN (7-17) mg/dL Creatinine (0.52-1.04) mg/dL Est GFR (CKD-EPI)AfAm (>60 ml/min/1.73 sqM) Est GFR (CKD-EPI)NonAf (>60 ml/min/1.73 sqM) Glucose (74-99) mg/dL POC Glucose (mg/dL) 124 H (75-99) mg/dL POC Glu Prosthetic Dentist Laura Alexis Calcium (8.4-10.2) mg/dL Total Bilirubin (0.2-1.3) mg/dL AST (14-36) U/L ALT (9-52) U/L Alkaline Phosphatase (38-126) U/L Troponin I <0.012 (0.000-0.034) ng/mL Total Protein (6.3-8.2) g/dL Albumin (3.5-5.0) g/dL - EKG Data -: EKG Interpreted by Me EKG shows normal: sinus rhythm (Normal sinus rhythm with sinus arrhythmia the rate was 65 OR interval 162 QRS 94 QT/QTC 392/[address]-T wave changes) Past Medical History Past Medical History: CVA/TIA, Fibromyalgia, GERD/Reflux, Hyperlipidemia, Memory Impairment, Osteoarthritis (OA), Skin Disorder Additional Past Medical History / Comment(s): MENIERE'S LEFT EAR, PEPTIC ULCERS, tia x 14- last 12/2013. History of Any Multi-Drug Resistant Organisms: None Reported Past Surgical History: Back Surgery, Cholecystectomy, Joint Replacement, Orthopedic Surgery, Tonsillectomy Additional Past Surgical History / Comment(s): LOOP RECORDER 2010, ORIF LEFT FOOT, rt foot surgery, JT REPL WINNIE KNEES & WINNIE SHOULDERS, WINNIE CATARACT, gianni and screws in back Past Anesthesia/Blood Transfusion Reactions: No Reported Reaction Past Psychological History: Anxiety, Depression Smoking Status: Never smoker Past Alcohol Use History: None Reported Past Drug Use History: None Reported - Past Family History Father Family Medical History: Cancer Mother Family Medical History: Cancer Course Vital Signs 06/27/19 06/27/19 06/27/19 13:53 14:02 14:15 Temperature 97.8 F Pulse Rate 88 68 69 Respiratory 18 18 20 Rate Blood Pressure 143/87 141/93 153/96 O2 Sat by Pulse 99 98 99 Oximetry 06/27/19 06/27/19 14:30 15:00 Temperature 97.9 F 98.0 F Pulse Rate 67 70 Respiratory 20 20 Rate Blood Pressure 143/70 153/87 O2 Sat by Pulse 99 99 Oximetry - Reevaluation(s) Reevaluation #1: 06/27/19 15:15 Reevaluation patient reveals improvement in her speech and movement. Reevaluation #2: 06/27/19 15:15 CT with and without was reviewed and did discuss case with Dr. Sandy. No intervention is indicated at this time. Patient will be admitted for inpatient evaluation and neurology evaluation. Critical Care Time Critical Care Time: Yes Critical Care Time: 39 minutes of critical care time which includes initial history physical labs x- rays multiple reevaluation the patient response to initial IV therapy and for neurological changes. Discussed with patient family regarding findings discussion with Dr. Sandy discussed with Dr. Rangel admitting orders and documentation of the above Disposition Clinical Impression: Transient cerebral ischemia Disposition: ADMITTED IP TO THIS HOSP Condition: Fair Referrals: Elfego Roberts MD [Primary Care Provider] - 1-2 days
--- NOTE | 2019-06-27 14:35 | CT ---
EXAMINATION TYPE: CT brain wo con for TPA DATE OF EXAM: 06/27/2019 HISTORY: Neuro deficit, acute, stroke suspected CT DLP: unavailable mGycm. Automated Exposure Control for Dose Reduction was Utilized. TECHNIQUE: CT scan of the head is performed without contrast. COMPARISON: CT head 27 days ago. FINDINGS: There is no acute intracranial hemorrhage or midline shift identified. There is diffuse v entricular and sulcal prominence consistent with diffuse age-related cerebral atrophy. There is low- attenuation in the periventricular white matter consistent with chronic small vessel ischemic change. The globes are intact and the visualized sinuses are clear. IMPRESSION: No acute intracranial hemorrhage or midline shift. There is mild diffuse age-related ce rebral atrophy and to moderate chronic small vessel ischemic change redemonstrated. No significant c hange from prior.
--- NOTE | 2019-06-27 15:11 | CT ---
EXAMINATION TYPE: CT angio head neck DATE OF EXAM: 06/27/2019 HISTORY: Neuro deficit, acute, stroke suspected COMPARISON: CTA [place] [address] DLP: 556.7 mGycm. Automated Exposure Control for Dose Reduction was Utilized. TECHNIQUE: CTA scan of the head and neck are performed with IV Contrast, patient injected with 60 mL of Isovue 370, axial images are obtained, coronal and sagittal reformatted images are reviewed. Thre e-D reconstructed images are created on an independent workstation and reviewed. FINDINGS: Carotid/Vascular Structures: There is three-vessel origin from aortic arch. Right common carotid dayo ry shows normal origin from right brachiocephalic artery with tortuous course proximal segment. Minim al plaque at right carotid bulb. No significant stenosis in right common or internal carotid artery. Tortuous course proximal to mid segment right internal carotid artery is present. Patent right sample body builder al carotid artery without significant plaque or stenosis. There is more moderate peripheral calcified plaque left carotid bulb extending into the internal knight tid artery without significant stenosis. Remainder of common and internal carotid artery show no sign ificant plaque or stenosis. Tortuous course proximal left common carotid and proximal left internal c arotid artery are present. Patent external carotid artery without significant plaque or stenosis. There is dominant left vertebral artery. Distal right vertebral artery is occluded or stenotic. There is no significant focal stenosis or aneurysmal change in the posterior circulation. Hypoplastic bila teral posterior to indicating arteries are seen. There is patent small caliber anterior communicating artery. There is no significant focal stenosis or aneurysmal change in the anterior circulation. No significant change from prior. Other: No additional significant abnormality. Bilateral shoulder arthroplasty noted on plumbing installer image. IMPRESSION: 1. No significant stenosis in common or internal carotid arteries bilaterally. 2. No significant stenosis or aneurysmal change at the level of upper [place]. No significant pacheco ge from recent CTA head study.
--- NOTE | 2019-06-27 15:18 | XR ---
EXAMINATION TYPE: XR chest 2V DATE OF EXAM: 06/27/2019 COMPARISON: Chest x-ray May 31, 2019. HISTORY: Left-sided facial droop and numbness. Altered mental status and weakness. TECHNIQUE: Frontal and lateral views of the chest are obtained. FINDINGS: There is persistent elevated and eventrated anterior aspect right hemidiaphragm. There is n o focal air space opacity, pleural effusion, or pneumothorax seen. The cardiac silhouette size remai ns enlarged. Metallic hardware bilateral shoulder level is redemonstrated. Surgical change upper lumb ar spine again seen. Surgical clips gastroesophageal junction are noted with suspected persistent mod erate size hiatal hernia. IMPRESSION: Chronic changes and cardiomegaly without new acute pulmonary process.
--- NOTE | 2019-06-27 15:23 | ED ---
Medical Decision Making - Medical Decision Making Medical decision-making. Patient did present with complaints of left facial droop and aphasia as well as left upper lower extremity weakness. Her initial NIH score was 5. This has improved markedly. Patient is not a TPA candidate nor interventional candidate at this time. - Lab Data Result diagrams: 06/27/19 13:58 06/27/19 13:58 Lab Results 06/27/19 06/27/19 06/27/19 Range/Units 13:58 13:58 13:58 WBC 7.7 (3.8-10.6) k/uL RBC 4.76 (3.80-5.40) m/uL Hgb 14.5 (11.4-16.0) gm/dL Hct 42.8 (34.0-46.0) % MCV 90.0 (80.0-100.0) fL MCH 30.6 (25.0-35.0) pg MCHC 34.0 (31.0-37.0) g/dL RDW 13.0 (11.5-15.5) % Plt Count 230 (150-450) k/uL Neutrophils % 67 % Lymphocytes % 24 % Monocytes % 5 % Eosinophils % 2 % Basophils % 0 % Neutrophils # 5.2 (1.3-7.7) k/uL Lymphocytes # 1.9 (1.0-4.8) k/uL Monocytes # 0.4 (0-1.0) k/uL Eosinophils # 0.2 (0-0.7) k/uL Basophils # 0.0 (0-0.2) k/uL PT 10.4 (9.0-12.0) sec INR 1.0 (<1.2) APTT 24.0 (22.0-30.0) sec Sodium 138 (137-145) mmol/L Potassium 4.1 (3.5-5.1) mmol/L Chloride 105 (98-107) mmol/L Carbon Dioxide 20 L (22-30) mmol/L Anion Gap 13 mmol/L BUN 22 H (7-17) mg/dL Creatinine 1.13 H (0.52-1.04) mg/dL Est GFR (CKD-EPI)AfAm 54 (>60 ml/min/1.73 sqM) Est GFR (CKD-EPI)NonAf 46 (>60 ml/min/1.73 sqM) Glucose 120 H (74-99) mg/dL POC Glucose (mg/dL) (75-99) mg/dL POC Glu Hurricane Tracker ID Calcium 10.0 (8.4-10.2) mg/dL Total Bilirubin 0.9 (0.2-1.3) mg/dL AST 38 H (14-36) U/L ALT 30 (9-52) U/L Alkaline Phosphatase 102 (38-126) U/L Troponin I (0.000-0.034) ng/mL Total Protein 7.0 (6.3-8.2) g/dL Albumin 4.3 (3.5-5.0) g/dL 06/27/19 06/27/19 Range/Units 13:58 14:00 WBC (3.8-10.6) k/uL RBC (3.80-5.40) m/uL Hgb (11.4-16.0) gm/dL Hct (34.0-46.0) % MCV (80.0-100.0) fL MCH (25.0-35.0) pg MCHC (31.0-37.0) g/dL RDW (11.5-15.5) % Plt Count (150-450) k/uL Neutrophils % % Lymphocytes % % Monocytes % % Eosinophils % % Basophils % % Neutrophils # (1.3-7.7) k/uL Lymphocytes # (1.0-4.8) k/uL Monocytes # (0-1.0) k/uL Eosinophils # (0-0.7) k/uL Basophils # (0-0.2) k/uL PT (9.0-12.0) sec INR (<1.2) APTT (22.0-30.0) sec Sodium (137-145) mmol/L Potassium (3.5-5.1) mmol/L Chloride (98-107) mmol/L Carbon Dioxide (22-30) mmol/L Anion Gap mmol/L BUN (7-17) mg/dL Creatinine (0.52-1.04) mg/dL Est GFR (CKD-EPI)AfAm (>60 ml/min/1.73 sqM) Est GFR (CKD-EPI)NonAf (>60 ml/min/1.73 sqM) Glucose (74-99) mg/dL POC Glucose (mg/dL) 124 H (75-99) mg/dL POC Glu Hurricane Tracker ID Laura Vazquez Calcium (8.4-10.2) mg/dL Total Bilirubin (0.2-1.3) mg/dL AST (14-36) U/L ALT (9-52) U/L Alkaline Phosphatase (38-126) U/L Troponin I <0.012 (0.000-0.034) ng/mL Total Protein (6.3-8.2) g/dL Albumin (3.5-5.0) g/dL Disposition Clinical Impression: Transient cerebral ischemia Disposition: ADMITTED IP TO THIS HOSP Condition: Fair Referrals: Elfego Roberts MD [Primary Care Provider] - 1-2 days
[2019-06-27] MEDS: LATANOPROST 0.005% OPHTH DROPS 2.5 ML BTL BOTH EYES SCH (21:41)
[2019-06-27] MEDS: ATORVASTATIN 20 MG TAB PO SCH (21:41)
[2019-06-27] MEDS: MECLIZINE 12.5 MG TAB PO SCH (21:41)
[2019-06-27] MEDS: GABAPENTIN 100 MG CAP PO SCH (21:41)
[2019-06-27] MEDS: QUEtiapine 50 MG TAB PO SCH (21:41)
[2019-06-27] MEDS: busPIRone HCl 10 MG TAB PO SCH (21:41)
[2019-06-27] MEDS: SODIUM CHLORIDE 0.9% 1,000 ML IV SCH (21:42)
[2019-06-28 04:48] LABS: Cholesterol 143 mg/dL (<200); HDL Cholesterol 58 mg/dL (40-60); LDL Cholesterol,Calculated 68 mg/dL (0-99); Triglycerides 86 mg/dL (<150)
[2019-06-28] MEDS: SODIUM CHLORIDE 0.9% 1,000 ML IV SCH ×2 (05:07→11:22)
[2019-06-28] MEDS: LISINOPRIL-HCTZ 20-12.5 MG 1 EACH TAB PO SCH (09:29)
[2019-06-28] MEDS: ASPIRIN 325 MG TAB PO SCH (09:29)
[2019-06-28] MEDS: PRIMIDONE 50 MG TAB PO SCH (09:29)
[2019-06-28] MEDS: CHOLECALCIFEROL 1,000 UNIT TAB PO SCH (09:29)
[2019-06-28] MEDS: busPIRone HCl 10 MG TAB PO SCH ×2 (09:29→22:00)
[2019-06-28] MEDS: TAMSULOSIN 0.4 MG CAP.ER.24H PO SCH (09:29)
[2019-06-28] MEDS: PARoxetine 20 MG TAB PO SCH (09:29)
[2019-06-28] MEDS: MECLIZINE 12.5 MG TAB PO SCH ×3 (09:30→22:01)
[2019-06-28] MEDS ORDERED: ALPRAZolam 0.5 MG TAB PO STA (14:14)
--- NOTE | 2019-06-28 14:23 | P.CNNES ---
History of Present Illness Consult date: 06/28/19 Reason for Consult: TIA Chief complaint: L-sided facial pain and L-sided weakness History of Present Illness: HISTORY OF PRESENT ILLNESS: Thank you for allowing me to evaluate Ms. Shelley Soto. Ms. Soto is a 78-year-old woman with past medical history of TIA x14, fibromyalgia, GERD, hyperlipidemia, memory impairment, osteoarthritis, Mnire's left ear, anxiety, depression, presenting to [facility] for left-sided facial pain. Patient states that symptoms started the day before presentation, but when she woke up the day after, patient's symptoms were slightly worse. she had some expressive aphasia along with left facial droop, left upper and lower extremity weakness. Patient's daughter is at bedside. Patient states that she started having L-sided facial pain not headache 2 nights ago, but didn't think much of it. She continued to have this pain and last night during dinner, she noticed weakness of her LUE and LLE, which are symptoms she has had previously with her multiple TIAs. Patient states that she doesn't have the facial pain anymore, but it does bother her, and she still feels that her LUE and LLE are weak. Denies any recent sickness, fever, nausea, vomiting, hx of migraine, photophobia, phonophobia, double/blurry vision. PAST MEDICAL HISTORY: TIA x14, fibromyalgia, GERD, hyperlipidemia, memory impairment, osteoarthritis, Mnire's left ear, anxiety, depression PAST SURGICAL HISTORY: Cholecystectomy, tonsillectomy, loop recorder placement in 2010, ORIF left foot, rectal surgery, bilateral knee and shoulder joint replacement, bilateral cataracts, back surgery HOME MEDICATIONS: Gabapentin, Seroquel, tamsulosin, alendronate, vitamin C, vitamin B12, paroxetine, Requip, aspirin, lisinopril-HCTZ, meclizine, turmeric, clonazepam, buspirone ALLERGIES: Laura, codeine SOCIAL HISTORY: Never smoker FAMILY HISTORY: Mother and father had cancer REVIEW OF SYSTEMS: The 14 systems are reviewed and no additional points are identified compared to the review of systems documented history and physical PHYSICAL EXAMINATION: VITAL SIGNS: T 98.6 HR 68 RR 14 BP 132/77 O2 sat 95% on RA GEN.: NAD, pleasant and cooperative HEENT: NCAT, sclera without icterus NECK: Supple SKIN AND EXTREMITIES: Warm to touch, no edema. Severe hammertoes bilaterally NEURO: MENTAL STATUS: Patient alert and oriented to self, place, time. Able to name the current president. Speech fluent, able to name and repeat, following all commands readily. No right and left disorientation, neglect. CRANIAL NERVES II THROUGH XII: II: Pupils are equal and reactive to light symmetrically. Visual becerra are intact. III, IV, : No ptosis. Extraocular movements full. No nystagmus. V: L side of face feels "off." Patient states it splits exactly in the middle of her face. Endorses difference in vibration in L forehead vs. R forehead. VII. No clear facial asymmetry. VIII: Decreased hearing in L ear (with hx of Meniere's disease) IX, X: Symmetric palate elevation. XI: Shoulder shrug intact. XII: Tongue midline without fasciculation or atrophy. MOTOR: Normal bulk/tone. No pronator drift or tremor. Strength is 4+/5 throughout all 4 extremities except L hand rug sample beveler SENSORY: Increased sensitivity in L face, arm and leg. Decreased sensation to vibration in L knee, ankle and toes. Proprioception of b/l hands intact. Unable to check proprioception in her LE due to hammertoes REFLEXES: 2+ throughout. Toes are downgoing. No clonus. 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 No dysmetria. GAIT: Needs walker, with which patient's gait is stable. At one point, she stopped and quickly took a seat at her bed because she felt she was going to [facility]. DIAGNOSTIC TESTING: LABORATORY: WBC 7.7 Hgb 14.5 Plt 230 Na 138 K 4.1 Cl 105 CO2 20 BUN 22 Cr 1.13 Glucose 124 AST 38. ALT 30 AlkPhos 102 trop <0.012 Total cholesterol 143 LDL 68 HDL 58 TG 86 IMAGING: MRI brain w/o contrast 03/12/19: No acute/subactue process CT Head w/o contrast 06/27/19: No acute intracranial hemorrhage or midline shift. There is mild diffuse age- related cerebral atrophy and moderate chronic small vessel ischemic change redemonstrated. No signifcant change from prior. CTA Head and Neck w/ and w/o contrast 06/27/19 No significant stenosis and common or internal carotid arteries bilaterally. No significant stenosis or aneurysm change at the levels bolus. No significant change from recent CTA head study Transthoracic echocardiogram 03/12/2019: Sinus rhythm. LV/RV/LA/right knee are all normal in size. Mild concentric left ventricular hypertrophy. Ejection fraction 55-60%. Carotid Doppler study 03/12/2019: Stenosis of 50-60% within the left ICA. No hemodynamically significant stenosis seen within the right ICA. ASSESSMENT: Ms. Soto is a 78-year-old woman with past medical history of TIA x14, fibromyalgia, GERD, hyperlipidemia, memory impairment, breast cancer status post radiation therapy, Mnire's disease (L ear with hearing loss), peptic ulcer disease, anxiety, depression, presenting to [facility] for what patient reports as "another TIA." Patient with no focal neuro deficits at this time. Patient reports that she had a study done to look at her arteries through her groin, and at that time, she was told that her artery in the neck was too "windy" and could be the cause of her TIAs. During her previous admission in 02/2019, Carotid Doppler also showing 50-60% stenosis of L ICA. Patient recently diagnosed with breast cancer, s/p lumpectomy and radiation therapy. MRI brain without contrast with no acute or subacute process. Again, is difficult to say whether her previous "TIA" episodes were indeed TIA, but this patient would benefit from medical management. Also, pt with focal weinberg's sign in R hand along with decreased vibration sense in her L foot and neck discomfort. Unusual for a cervical spinal cord lesion to cause one sided UE and opposite sided LE symptom, but patient reporting neck discomfort. Patient also with hammertoes with sensation deficits, possible CMT diagnosis. RECOMMENDATIONS: 1. MRI c-spine w/o contrast 2. Continue with ASA 81mg qday and atorvastatin 40mg qday 3. Labs: Vitamin B1, B6, B12, A1C 4. Patient will need follow-up with outpatient neurologist within 2-3 weeks of discharge. Recommend getting EMG/NCS of her lower extremities 5. After MRI c-spine, if no significant finding, patient is stable for discharge from neurological perspective 6. Neurology is not available over the weekend in-house. However, feel free to Perfect[employer] message me over the weekend if you have any questions or concerns Past Medical History Past Medical History: CVA/TIA, Fibromyalgia, GERD/Reflux, Hyperlipidemia, Memory Impairment, Osteoarthritis (OA), Skin Disorder Additional Past Medical History / Comment(s): MENIERE'S LEFT EAR, PEPTIC ULCERS, tia x 14- last 05/2019. History of Any Multi-Drug Resistant Organisms: None Reported Past Surgical History: Back Surgery, Cholecystectomy, Joint Replacement, Orthopedic Surgery Additional Past Surgical History / Comment(s): LOOP RECORDER 2010, ORIF LEFT FOOT, rt foot surgery, JT REPL WINNIE KNEES & WINNIE SHOULDERS, WINNIE CATARACT, gianni and screws in back Past Anesthesia/Blood Transfusion Reactions: No Reported Reaction Past Psychological History: Anxiety, Depression Smoking Status: Never smoker Past Alcohol Use History: None Reported Past Drug Use History: None Reported - Past Family History Father Family Medical History: Cancer Mother Family Medical History: Cancer Medications and Allergies Home Medications Medication Instructions Recorded Confirmed Type Gabapentin [Neurontin] 200 mg PO HS@2100 12/12/13 06/27/19 History QUEtiapine [SEROquel] 50 mg PO HS@2200 12/12/13 06/27/19 History Tamsulosin HCl [Flomax] 0.4 mg PO DAILY 12/12/13 06/27/19 History Alendronate Sodium [Fosamax] 35 mg PO MO 09/25/17 06/27/19 History PARoxetine HCL [Paxil Cr] 25 mg PO DAILY 09/25/17 06/27/19 History rOPINIRole HCL [Requip] 1 mg PO TID 09/25/17 06/27/19 History Latanoprost [Xalatan 0.005%] 1 drop BOTH EYES HS@2200 03/11/19 06/27/19 History Lisinopril-Hctz 20-12.5 mg 1 tab PO DAILY 03/11/19 06/27/19 History [Zestoretic 20-12.5] Meclizine [Antivert] 12.5 mg PO TID 03/11/19 06/27/19 History Turmeric Root Extract [Turmeric] 500 mg PO DAILY 03/11/19 06/27/19 History busPIRone HCL 15 mg PO BID@0900,2200 03/13/19 06/27/19 History Atorvastatin [Lipitor] 20 mg PO HS@0 06/27/19 06/27/19 History Cholecalciferol [Vitamin D3 (25 1,000 unit PO DAILY 06/27/19 06/27/19 History Mcg = 1000 Iu)] Multivitamins, Thera [Multivitamin 1 tab PO DAILY 06/27/19 06/27/19 History (formulary)] Primidone [Mysoline] 50 mg PO DAILY 06/27/19 06/27/19 History Vitamin B Complex 1 cap PO DAILY 06/27/19 06/27/19 History Allergies Allergy/AdvReac Type Severity Reaction Status Date / Time nickel [Nickel] Allergy Rash/Hives Verified 06/27/19 15:49 codeine AdvReac headache Verified 06/27/19 15:49 Physical Examination - Vital Signs Vital Signs: Vital Signs Temp Pulse Pulse Resp BP BP Pulse Ox 06/28/19 09:29 98.6 F 68 14 132/77 95 06/28/19 08:00 68 14 06/28/19 04:00 98.6 F 74 15 96/51 96 06/28/19 00:00 97.5 F L 66 15 130/72 97 06/27/19 20:00 98.5 F 58 L 16 163/72 98 06/27/19 18:19 78 18 133/79 96 06/27/19 17:53 97 06/27/19 17:22 68 18 131/76 98 06/27/19 15:59 98.5 F 68 16 140/68 98 06/27/19 15:00 98.0 F 70 20 153/87 99 06/27/19 14:30 97.9 F 67 20 143/70 99 06/27/19 14:15 69 20 153/96 99 06/27/19 14:02 68 18 141/93 98 06/27/19 13:53 97.8 F 88 18 143/87 99 Intake and Output 06/27/19 06/28/19 06/28/19 22:59 06:59 14:59 Intake Total 490 980 250 Balance 490 980 250 Intake: IV 10 Invasive Line 1 10 Intake, IV Titration 10 20 Amount Sodium Chloride 0.9% 1, 10 20 000 ml @ 100 mls/hr IV . Q10H [facility] Rx#:[id number] Oral 480 960 240 Other: Voiding Method Toilet Toilet Toilet # Voids 1 Weight 92.986 kg 94.4 kg Results - Laboratory Findings CBC and BMP: 06/27/19 13:58 06/27/19 13:58 Abnormal Lab Findings: Abnormal Labs 06/27/19 06/27/19 13:58 14:00 Carbon Dioxide 20 L BUN 22 H Creatinine 1.13 H Glucose 120 H POC Glucose (mg/dL) 124 H AST 38 H
--- NOTE | 2019-06-28 15:46 | MR ---
EXAMINATION TYPE: MR cervical spine wo con DATE OF EXAM: 06/28/2019 COMPARISON: Prior cervical MRI 12/12/2006 HISTORY: Neck pain TECHNIQUE: Multiplanar, multisequence images of the cervical spine were acquired. C2-C3: No evidence for degenerative disc disease. No disc bulge/herniation or protrusion. No Canal stenosis. Foramina are patent bilaterally. C3-C4: There is uncovertebral joint hypertrophy causing bilateral foraminal encroachment, mild anteri or mass effect on the thecal sac and the paracentral locations which is progressed in the interval. N o significant spinal stenosis. There is mild posterior broad-based disc bulge causing minimal anterio r mass effect on the thecal sac. C4-C5: Significant left-sided foraminal encroachment is present due to uncovertebral joint hypertroph y. No significant central stenosis or evident disc herniation. C5-C6: Bilateral foraminal encroachment is present due to uncovertebral joint hypertrophy and facet a rthropathy. Posterior extension endplate disc complex results in anterior mass effect on the thecal s ac. No significant central stenosis. C6-C7: Posterior extension of endplate disc complex causes mild anterior mass effect on the thecal sa c. Uncovertebral joint hypertrophy and facet arthropathy changes are present causing bilateral forami nal encroachment. C7-T1: No evidence for degenerative disc disease. No disc bulge/herniation or protrusion. No Canal stenosis. Foramina are patent bilaterally. There are facet arthropathy changes. Cervical segments are intact. There is normal alignment. Cervical spinal cord is of normal signal. Craniovertebral junction relationships are within normal limits. There is ankylosis of the posterior aspect of C4-5 that is developed in the interval, anterolisthesis grade 1 C3-4, C4-5, retrolisthesis grade 1 C5-6 is noted as on prior. Cervical vertebral bodies show preserved height. There is loss of disc height and signal at intervertebral levels especially C3-4, C4-5, C5-6 and C6-7. Anterior aspec t of C7 shows increased signal shows high signal on T2, intermediate signal on T1 similar to prior ex am. Some inflammatory change noted in the inferior portion of the left maxillary sinus. There is a pa rtially empty sella. Motion is present on the exam. IMPRESSION: Degenerative disc disease, multilevel foraminal encroachment. Mild sinus disease.
--- NOTE | 2019-06-28 19:35 | P.HPIM ---
History of Present Illness H&P Date: 06/28/19 Chief Complaint: Left-sided weakness History of presenting complaint: This is a pleasant 78-year-old patient of Dr. macias. 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 Patient had multiple TIAs it. Patient was admitted to the hospital in February 2019 with left-sided weakness. That occasion MRI of the brain was unremarkable, 2-D echo showed EF of 55-60% no other abnormality, CT angiogram neck was again unremarkable, carotid Doppler showed a 50-69% left internal carotid stenosis, questionable PE, with negative Doppler of lower extremity, and a decision was made to treat with anticoagulation for 6 months. Patient was seen by neurology. Patient now presents with the very sharp knifelike pain in the left part of the 4 head (of the face neck last 4-3 minutes on Monday that is 2 days ago. Sy mptoms didn't resolve. Yesterday she was at a friend's place and suddenly she noticed that she felt off balance, speech per affected left arm and leg became weak. Patient was admitted for the same. Patient had a computed tomography scan of the brain and CT angiogram of the brain, that showed no specific findings. No acute findings. Earlier today patient still has some numbness of the left side of the face and some weakness on the left side. At the baseline patient does use a walker. No change in vision, no change in swallowing. Review of systems: GEN.: Tired EYES: None HEENT: Decreased hearing the left ear NECK: None RESPIRATORY: None CARDIOVASCULAR: None GASTROINTESTINAL: None GENITOURINARY: None MUSCULOSKELETAL: Chronic joint pains LYMPHATICS: None HEMATOLOGICAL: None PSYCHIATRY: None NEUROLOGICAL: As above Past medical history: Fibromyalgia, hyperlipidemia, osteoarthritis, Mnire's disease primarily left ear, peptic ulcer disease, multiple TIAs., Possible PE, GERD, left internal carotid artery 50-69% stenosis, restless 6 syndrome Social history: Lives alone. In an apartment. Does use a walker. Family history: Reviewed, noncontributory presentation VITAL SIGNS: 97.8, 88, 18, 143/87, 99% room air GENERAL: BMI 40.6, sitting out of bed, comfortable EYES: Pupils equal. Conjunctiva normal. HEENT: External appearance of nose and ears normal, oral cavity grossly normal decreased hearing in the left ear. NECK: JVD not raised; masses not palpable. HEART: First and second heart sounds are normal; no edema. LUNGS: Respiratory rate normal; clear to auscultation. ABDOMEN: Soft, nontender, liver spleen not palpable, no masses palpable. LYMPHATICS: No lymph nodes palpable in the axilla and neck. PSYCH: Alert and oriented x3; mood and affect normal. NEUROLOGICAL: Patient has decreased sensation in the left side of the face, power on the left arm and left leg is 4 /5. Sensation grossly preserved. Investigations: In February 2019 which have a MRI of the brain, 2-D echocardiogram, CT angiogram the neck-unremarkable Computed tomography scan of the brain, CT angiogram to brain-nothing acute Assessment: -This is a patient with multiple TIAs in the past, presents with an episode of severe pain in the left part of the face head positive for to 3 minutes, with complete resolution. The following day patient developed a bit of dizziness became off balance with weakness on the left side and some numbness of the left part of the face. Still persisting. Possibility of stroke in the right middle cerebral artery area or involvement of the cervical spine.. 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 PTOT was consulted. Neurologist Dr. Johnson was consulted. Cervical spine MRI was ordered. Lovenox for DVT prophylaxis. Home medications reviewed. Care was discussed with the patient. Questions were answered. Past Medical History Past Medical History: CVA/TIA, Fibromyalgia, GERD/Reflux, Hyperlipidemia, Memory Impairment, Osteoarthritis (OA), Skin Disorder Additional Past Medical History / Comment(s): MENIERE'S LEFT EAR, PEPTIC ULCERS, tia x 14- last 05/2019. History of Any Multi-Drug Resistant Organisms: None Reported Past Surgical History: Back Surgery, Cholecystectomy, Joint Replacement, Orthopedic Surgery Additional Past Surgical History / Comment(s): LOOP RECORDER 2010, ORIF LEFT FOOT, rt foot surgery, JT REPL WINNIE KNEES & WINNIE SHOULDERS, WINNIE CATARACT, gianni and screws in back Past Anesthesia/Blood Transfusion Reactions: No Reported Reaction Past Psychological History: Anxiety, Depression Smoking Status: Never smoker Past Alcohol Use History: None Reported Past Drug Use History: None Reported - Past Family History Father Family Medical History: Cancer Mother Family Medical History: Cancer Medications and Allergies Home Medications Medication Instructions Recorded Confirmed Type Gabapentin [Neurontin] 200 mg PO HS@2100 12/12/13 06/27/19 History QUEtiapine [SEROquel] 50 mg PO HS@2200 12/12/13 06/27/19 History Tamsulosin HCl [Flomax] 0.4 mg PO DAILY 12/12/13 06/27/19 History Alendronate Sodium [Fosamax] 35 mg PO MO 09/25/17 06/27/19 History PARoxetine HCL [Paxil Cr] 25 mg PO DAILY 09/25/17 06/27/19 History rOPINIRole HCL [Requip] 1 mg PO TID 09/25/17 06/27/19 History Latanoprost [Xalatan 0.005%] 1 drop BOTH EYES HS@2200 03/11/19 06/27/19 History Lisinopril-Hctz 20-12.5 mg 1 tab PO DAILY 03/11/19 06/27/19 History [Zestoretic 20-12.5] Meclizine [Antivert] 12.5 mg PO TID 03/11/19 06/27/19 History Turmeric Root Extract [Turmeric] 500 mg PO DAILY 03/11/19 06/27/19 History busPIRone HCL 15 mg PO BID@0900,2200 03/13/19 06/27/19 History Atorvastatin [Lipitor] 20 mg PO HS@2200 06/27/19 06/27/19 History Cholecalciferol [Vitamin D3 (25 1,000 unit PO DAILY 06/27/19 06/27/19 History Mcg = 1000 Iu)] Multivitamins, Thera [Multivitamin 1 tab PO DAILY 06/27/19 06/27/19 History (formulary)] Primidone [Mysoline] 50 mg PO DAILY 06/27/19 06/27/19 History Vitamin B Complex 1 cap PO DAILY 06/27/19 06/27/19 History Allergies Allergy/AdvReac Type Severity Reaction Status Date / Time nickel [Nickel] Allergy Rash/Hives Verified 06/27/19 15:49 codeine AdvReac headache Verified 06/27/19 15:49 Physical Exam Vitals: Vital Signs Temp Pulse Pulse Resp BP BP Pulse Ox 06/28/19 09:29 98.6 F 68 14 132/77 95 06/28/19 08:00 68 14 06/28/19 04:00 98.6 F 74 15 96/51 96 06/28/19 00:00 97.5 F L 66 15 130/72 97 06/27/19 20:00 98.5 F 58 L 16 163/72 98 06/27/19 18:19 78 18 133/79 96 06/27/19 17:53 97 06/27/19 17:22 68 18 131/76 98 06/27/19 15:59 98.5 F 68 16 140/68 98 06/27/19 15:00 98.0 F 70 20 153/87 99 06/27/19 14:30 97.9 F 67 20 143/70 99 06/27/19 14:15 69 20 153/96 99 06/27/19 14:02 68 18 141/93 98 06/27/19 13:53 97.8 F 88 18 143/87 99 Intake and Output 06/27/19 06/28/19 06/28/19 22:59 06:59 14:59 Intake Total 490 980 250 Balance 490 980 250 Intake: IV 10 Invasive Line 1 10 Intake, IV Titration 10 20 Amount Sodium Chloride 0.9% 1, 10 20 000 ml @ 100 mls/hr IV . Q10H [facility] Rx#:[id number] Oral 480 960 240 Other: Voiding Method Toilet Toilet Toilet # Voids 1 Weight 92.986 kg 94.4 kg Results CBC & Chem 7: 06/27/19 13:58 06/27/19 13:58 Labs: Abnormal Lab Results - Last 24 Hours (Table) 06/27/19 06/27/19 Range/Units 13:58 14:00 Carbon Dioxide 20 L (22-30) mmol/L BUN 22 H (7-17) mg/dL Creatinine 1.13 H (0.52-1.04) mg/dL Glucose 120 H (74-99) mg/dL POC Glucose (mg/dL) 124 H (75-99) mg/dL AST 38 H (14-36) U/L Thrombosis Risk Factor Assmnt - Choose All That Apply Any of the Below Risk Factors Present?: Yes Each Factor Represents 1 point: Obesity (BMI >25) Other Risk Factors: Yes Each Risk Factor Represents 3 Points: Age 75 years or older Thrombosis Risk Factor Assessment Total Risk Factor Score: 4 Thrombosis Risk Factor Assessment Level: Moderate Risk
[2019-06-28] MEDS: LATANOPROST 0.005% OPHTH DROPS 2.5 ML BTL BOTH EYES SCH (22:00)
[2019-06-28] MEDS: QUEtiapine 50 MG TAB PO SCH (22:01)
[2019-06-28] MEDS: ENOXAPARIN 40 MG/0.4 ML SYRINGE SQ SCH (22:01)
[2019-06-28] MEDS: ATORVASTATIN 20 MG TAB PO SCH (22:01)
[2019-06-28] MEDS: GABAPENTIN 100 MG CAP PO SCH (22:01)
[2019-06-29 00:04] LABS: Hemoglobin A1C 5.5 % (4.0-6.0)
[2019-06-29] MEDS: ASPIRIN 325 MG TAB PO SCH (09:27)
[2019-06-29] MEDS: ENOXAPARIN 40 MG/0.4 ML SYRINGE SQ SCH (09:27)
[2019-06-29] MEDS: busPIRone HCl 10 MG TAB PO SCH (09:27)
[2019-06-29] MEDS: PRIMIDONE 50 MG TAB PO SCH (09:28)
[2019-06-29] MEDS: MECLIZINE 12.5 MG TAB PO SCH ×2 (09:28→14:19)
[2019-06-29] MEDS: TAMSULOSIN 0.4 MG CAP.ER.24H PO SCH (09:28)
[2019-06-29] MEDS: LISINOPRIL-HCTZ 20-12.5 MG 1 EACH TAB PO SCH (09:28)
[2019-06-29] MEDS: PARoxetine 20 MG TAB PO SCH (09:28)
[2019-06-29] MEDS: CHOLECALCIFEROL 1,000 UNIT TAB PO SCH (09:28)
[2019-06-29 13:49] VITALS: RESP 18
[2019-06-29 13:50] VITALS: BP 136/62; PULSE 80; TEMP 97.7
--- NOTE | 2019-06-29 21:45 | P.DS ---
Providers Date of admission: 06/27/19 15:23 Expected date of discharge: 06/29/19 Attending physician: Real Rangel Consults: 06/27/19 15:24 Consult Physician Routine Consulting Provider: [place] Johnson Consult Reason/Comments: TIA Do you want consulting provider notified?: Yes Primary care physician: Elfego Roberts Hospital Course: Chief Complaint: Left-sided weakness Hospital course: This is a pleasant 78-year-old patient of Dr. roberts. 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 Patient had multiple TIAs it. Patient was admitted to the hospital in February 2019 with left-sided weakness. That occasion MRI of the brain was unremarkable, 2-D echo showed EF of 55-60% no other abnormality, CT angiogram neck was again unremarkable, carotid Doppler showed a 50-69% left internal carotid stenosis, questionable PE, with negative Doppler of lower extremity, and a decision was made to treat with anticoagulation for 6 months. Patient was seen by neurology. Patient now presents with the very sharp knifelike pain in the left part of the 4 head (of the face neck last 4-3 minutes on Monday that is 2 days ago. Symptoms didn't resolve. Yesterday she was at a friend's place and suddenly she noticed that she felt off balance, speech per affected left arm and leg became weak. Patient was admitted for the same. Patient had a computed tomography scan of the brain and CT angiogram of the brain, that showed no specific findings. No acute findings. At the baseline patient does use a walker. No change in vision, no change in swallowing. cervical spine MRI came back to be negative. Patient's symptoms had resolved. Could've been a TIA. Consultation: Dr. Johnson from neurology VITAL SIGNS: 97.7, 80, 18, 136/62, 99% room air GENERAL: sitting up, comfortable EYES: Pupils equal. Conjunctiva normal. HEENT: External appearance of nose and ears normal, oral cavity grossly normal decreased hearing in the left ear. NECK: JVD not raised; masses not palpable. HEART: First and second heart sounds are normal; no edema. LUNGS: Respiratory rate normal; clear to auscultation. ABDOMEN: Soft, nontender, liver spleen not palpable, no masses palpable. LYMPHATICS: No lymph nodes palpable in the axilla and neck. PSYCH: Alert and oriented x3; mood and affect normal. NEUROLOGICAL: back to her baselined. Investigations: In February 2019 which have a MRI of the brain, 2-D echocardiogram, CT angiogram the neck-unremarkable Computed tomography scan of the brain, CT angiogram to brain-nothing acute cervical spine MRI-acute Assessment: -possible TIA. 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 -Peptic ulcer disease -Essential hypertension -Pulmonary embolism in February of this year suggested anticoagulation for 6 months disposition: Home Patient Condition at Discharge: Stable Plan - Discharge Summary Discharge Rx Participant: No New Discharge Prescriptions: New Aspirin 81 mg PO DAILY #30 chewable Continue QUEtiapine [SEROquel] 50 mg PO HS@2200 Gabapentin [Neurontin] 200 mg PO HS@2100 Tamsulosin HCl [Flomax] 0.4 mg PO DAILY rOPINIRole HCL [Requip] 1 mg PO TID PARoxetine HCL [Paxil Cr] 25 mg PO DAILY Alendronate Sodium [Fosamax] 35 mg PO MO Meclizine [Antivert] 12.5 mg PO TID Latanoprost [Xalatan 0.005%] 1 drop BOTH EYES HS@2200 Lisinopril-Hctz 20-12.5 mg [Zestoretic 20-12.5] 1 tab PO DAILY busPIRone HCL 15 mg PO BID@0900,2200 Multivitamins, Thera [Multivitamin (formulary)] 1 tab PO DAILY Cholecalciferol [Vitamin D3 (25 Mcg = 1000 Iu)] 1,000 unit PO DAILY Vitamin B Complex 1 cap PO DAILY Primidone [Mysoline] 50 mg PO DAILY Atorvastatin [Lipitor] 20 mg PO HS@2200 No Action Turmeric Root Extract [Turmeric] 500 mg PO DAILY Discharge Medication List Gabapentin [Neurontin] 200 mg PO HS@2100 12/12/13 [History] QUEtiapine [SEROquel] 50 mg PO HS@2200 12/12/13 [History] Tamsulosin HCl [Flomax] 0.4 mg PO DAILY 12/12/13 [History] Alendronate Sodium [Fosamax] 35 mg PO MO 09/25/17 [History] PARoxetine HCL [Paxil Cr] 25 mg PO DAILY 09/25/17 [History] rOPINIRole HCL [Requip] 1 mg PO TID 09/25/17 [History] Latanoprost [Xalatan 0.005%] 1 drop BOTH EYES HS@2200 03/11/19 [History] Lisinopril-Hctz 20-12.5 mg [Zestoretic 20-12.5] 1 tab PO DAILY 03/11/19 [History] Meclizine [Antivert] 12.5 mg PO TID 03/11/19 [History] Turmeric Root Extract [Turmeric] 500 mg PO DAILY 03/11/19 [History] busPIRone HCL 15 mg PO BID@0900,2200 03/13/19 [History] Atorvastatin [Lipitor] 20 mg PO HS@2200 06/27/19 [History] Cholecalciferol [Vitamin D3 (25 Mcg = 1000 Iu)] 1,000 unit PO DAILY 06/27/19 [History] Multivitamins, Thera [Multivitamin (formulary)] 1 tab PO DAILY 06/27/19 [History] Primidone [Mysoline] 50 mg PO DAILY 06/27/19 [History] Vitamin B Complex 1 cap PO DAILY 06/27/19 [History] Aspirin 81 mg PO DAILY #30 chewable 06/29/19 [Rx] Follow up Appointment(s)/Referral(s): [facility], [NON-STAFF] - (Call to set up home appointment for tomorrow) Elfego Roberts MD [Primary Care Provider] - 1 Week (please call to make appointment ) Romie Hernandez DO [STAFF PHYSICIAN] - 1 Week (Please call Monday morning to make follow up appointment) Patient Instructions/Handouts: Transient Ischemic Attack (DC) Discharge Disposition: HOME SELF-CARE
[2019-07-01] MEDS ORDERED: ALENDRONATE SODIUM 35 MG PO SCH (09:00)
== END 2019-06-29 14:25 | disposition home or self-care (01) ==
LOC: EC 13:42 → 3SCARD 15:23
PROVIDERS: ADMIT Hospitalist; ATTEND Hospitalist
DX: R53.1 Weakness (principal); R51 Headache; R47.01 Aphasia; R29.810 Facial weakness; E66.01 Morbid (severe) obesity due to excess calories; E78.5 Hyperlipidemia, unspecified; M19.90 Unspecified osteoarthritis, unspecified site; H81.02 Meniere's disease, left ear; H91.92 Unspecified hearing loss, left ear; K27.9 Peptic ulcer, site unspecified, unspecified as acute or chronic, without hemorrhage or perforation; I10 Essential (primary) hypertension; Z86.711 Personal history of pulmonary embolism; M79.7 Fibromyalgia; K21.9 Gastro-esophageal reflux disease without esophagitis; R41.3 Other amnesia; F41.9 Anxiety disorder, unspecified; F32.9 Major depressive disorder, single episode, unspecified; G25.81 Restless legs syndrome; M20.42 Other hammer toe(s) (acquired), left foot; M20.41 Other hammer toe(s) (acquired), right foot; Z68.41 Body mass index [BMI] 40.0-44.9, adult; Z86.73 Personal history of transient ischemic attack (TIA), and cerebral infarction without residual deficits; Z79.899 Other long term (current) drug therapy; Z79.82 Long term (current) use of aspirin; Z79.1 Long term (current) use of non-steroidal anti-inflammatories (NSAID); Z91.09 Other allergy status, other than to drugs and biological substances; Z88.5 Allergy status to narcotic agent; Z87.2 Personal history of diseases of the skin and subcutaneous tissue; Z98.890 Other specified postprocedural states; Z90.49 Acquired absence of other specified parts of digestive tract; Z96.653 Presence of artificial knee joint, bilateral; Z96.612 Presence of left artificial shoulder joint; Z96.611 Presence of right artificial shoulder joint; Z90.89 Acquired absence of other organs; Z87.81 Personal history of (healed) traumatic fracture; Z98.42 Cataract extraction status, left eye; Z98.41 Cataract extraction status, right eye; Z80.9 Family history of malignant neoplasm, unspecified
CPT/HCPCS: 36415; 93005; 97162; 97166; 92610; 92523; 84207; 84425; 80061; 80053; 82607; 84446; 84484; 85025; 85610; 85730; 83036; 71046; 70496; 70450; 70498; 72141; G0378 ×3; J1650 ×2; Q9967

== ENCOUNTER 2019-10-10 19:16 | Observation (INO) | payer MEDICARE ==
[2019-10-10 19:22] LABS: Glucose,Whole Blood 105 mg/dL (75-99)
--- NOTE | 2019-10-10 19:32 | ED ---
Neuro HPI - General Chief Complaint: Neuro Symptoms/Deficit Stated Complaint: TIA Time Seen by Provider: 10/10/19 19:20 Source: patient, EMS Mode of arrival: EMS Limitations: language barrier, physical limitation - History of Present Illness Is the patient presenting with stroke symptoms?: Yes Initial Comments: The patient is a 78-year-old female with past medical history of Mnire's, left ear deafness and multiple TIAs who presents to the emergency room with reported headache and strokelike symptoms. Patient states that she last felt well at 8:00 this morning. She reports that she feels as if she is unbalanced and can't stand up straight to ambulate. Also reports to a severe headache. Reports that her speech is delayed. The patient does have a history of multiple TIAs. No residual deficits. States her symptoms are similar to when she had her last TIA. She is currently on Elquis for DVT. Has been taking her medications as directed. No missed doses. She denies any head trauma. No weakness in her upper or lower extremity. Denies chest pain or shortness of breath. No fevers or chills. Does report to a cyst that was removed from her left axilla. It was done by Dr. carballo 10 days ago. She followed up with her primary care doctor yesterday placed her on antibiotics as he was concerned it's infected. There are no alleviating, precipitating or modifying factors - Related Data Home Medications: Home Medications Medication Instructions Recorded Confirmed Gabapentin [Neurontin] 200 mg PO HS 12/12/13 10/11/19 QUEtiapine [SEROquel] 50 mg PO HS 12/12/13 10/11/19 Tamsulosin HCl [Flomax] 0.4 mg PO DAILY 12/12/13 10/11/19 PARoxetine HCL [Paxil Cr] 25 mg PO DAILY 09/25/17 10/11/19 rOPINIRole HCL [Requip] 1 mg PO TID 09/25/17 10/11/19 Latanoprost [Xalatan 0.005%] 1 drop BOTH EYES HS 03/11/19 10/11/19 Lisinopril-Hctz 20-12.5 mg 1 tab PO DAILY 03/11/19 10/11/19 [Zestoretic 20-12.5] Meclizine [Antivert] 12.5 mg PO TID 03/11/19 10/11/19 Turmeric Root Extract [Turmeric] 500 mg PO BID 03/11/19 10/11/19 busPIRone HCL 15 mg PO BID@1000,1800 03/13/19 10/11/19 Cholecalciferol [Vitamin D3 (25 1,000 unit PO DAILY 06/27/19 10/11/19 Mcg = 1000 Iu)] Multivitamins, Thera [Multivitamin 1 tab PO DAILY 06/27/19 10/11/19 (formulary)] Albuterol Sulfate [Proair Hfa] 1 - 2 puff INHALATION RT-QID PRN 10/11/19 10/11/19 Apixaban [Eliquis] 5 mg PO BID@0600,1800 10/11/19 10/11/19 Aspirin EC [Ecotrin Low Dose] 81 mg PO DAILY 10/11/19 10/11/19 Sulfamethox-Tmp 800-160Mg [Bactrim 1 tab PO BID 10/11/19 10/11/19 DS 800-160 mg] Previous Rx's Medication Instructions Recorded Atorvastatin Calcium [Lipitor] 40 mg PO HS #30 tablet 10/11/19 Allergies/Adverse Reactions: Allergies Allergy/AdvReac Type Severity Reaction Status Date / Time nickel [Nickel] Allergy Rash/Hives Verified 10/11/19 08:30 codeine AdvReac headache Verified 10/11/19 08:30 Review of Systems ROS Statement: Those systems with pertinent positive or pertinent negative responses have been documented in the HPI. ROS Other: All systems not noted in ROS Statement are negative. General Exam Limitations: language barrier, physical limitation General appearance: alert, in no apparent distress Head exam: Present: atraumatic, normocephalic, normal inspection Eye exam: Present: normal appearance, PERRL, EOMI. Absent: scleral icterus, conjunctival injection, periorbital swelling ENT exam: Present: normal exam, mucous membranes moist Neck exam: Present: normal inspection. Absent: tenderness, meningismus, lymphadenopathy Respiratory exam: Present: normal lung sounds bilaterally. Absent: respiratory distress, wheezes, rales, rhonchi, stridor Cardiovascular Exam: Present: regular rate, normal rhythm, normal heart sounds. Absent: systolic murmur, diastolic murmur, rubs, gallop, clicks GI/Abdominal exam: Present: soft, normal bowel sounds. Absent: distended, tenderness, guarding, rebound, rigid Extremities exam: Present: normal inspection, full ROM, normal capillary refill. Absent: tenderness, pedal edema, joint swelling, calf tenderness Back exam: Present: normal inspection Neurological exam: Present: alert, oriented X3, CN II-XII intact, other (mild dysarthria) Psychiatric exam: Present: normal affect, normal mood Skin exam: Present: warm, dry, intact, normal color. Absent: rash Stroke MDM - Lab Data Result diagrams: 10/11/19 06:45 10/11/19 06:45 Lab Results 10/10/19 10/10/19 10/10/19 Range/Units 19:20 19:20 19:20 WBC 6.4 (3.8-10.6) k/uL RBC 4.60 (3.80-5.40) m/uL Hgb 13.7 (11.4-16.0) gm/dL Hct 40.3 (34.0-46.0) % MCV 87.6 (80.0-100.0) fL MCH 29.8 (25.0-35.0) pg MCHC 34.0 (31.0-37.0) g/dL RDW 13.0 (11.5-15.5) % Plt Count 233 (150-450) k/uL Neutrophils % 54 % Lymphocytes % 34 % Monocytes % 7 % Eosinophils % 4 % Basophils % 0 % Neutrophils # 3.4 (1.3-7.7) k/uL Lymphocytes # 2.2 (1.0-4.8) k/uL Monocytes # 0.5 (0-1.0) k/uL Eosinophils # 0.2 (0-0.7) k/uL Basophils # 0.0 (0-0.2) k/uL PT 10.1 (9.0-12.0) sec INR 1.0 (<1.2) APTT 23.7 (22.0-30.0) sec Sodium 138 (137-145) mmol/L Potassium 4.4 (3.5-5.1) mmol/L Chloride 106 (98-107) mmol/L Carbon Dioxide 25 (22-30) mmol/L Anion Gap 7 mmol/L BUN 23 H (7-17) mg/dL Creatinine 1.01 (0.52-1.04) mg/dL Est GFR (CKD-EPI)AfAm 61 (>60 ml/min/1.73 sqM) Est GFR (CKD-EPI)NonAf 53 (>60 ml/min/1.73 sqM) Glucose 84 (74-99) mg/dL POC Glucose (mg/dL) (75-99) mg/dL POC Glu Washing Machine Loader ID Calcium 9.4 (8.4-10.2) mg/dL Total Bilirubin 0.3 (0.2-1.3) mg/dL AST 39 H (14-36) U/L ALT 19 (4-34) U/L Alkaline Phosphatase 112 (38-126) U/L Troponin I (0.000-0.034) ng/mL C-Reactive Protein <5.0 (<10.0) mg/L Total Protein 6.8 (6.3-8.2) g/dL Albumin 4.0 (3.5-5.0) g/dL Urine Color Urine Appearance (Clear) Urine pH (5.0-8.0) Ur Specific Counselor (1.001-1.035) Urine Protein (Negative) Urine Glucose (UA) (Negative) Urine Ketones (Negative) Urine Blood (Negative) Urine Nitrite (Negative) Urine Bilirubin (Negative) Urine Urobilinogen (<2.0) mg/dL Ur Leukocyte Esterase (Negative) 10/10/19 10/10/19 10/10/19 Range/Units 19:20 19:22 21:42 WBC (3.8-10.6) k/uL RBC (3.80-5.40) m/uL Hgb (11.4-16.0) gm/dL Hct (34.0-46.0) % MCV (80.0-100.0) fL MCH (25.0-35.0) pg MCHC (31.0-37.0) g/dL RDW (11.5-15.5) % Plt Count (150-450) k/uL Neutrophils % % Lymphocytes % % Monocytes % % Eosinophils % % Basophils % % Neutrophils # (1.3-7.7) k/uL Lymphocytes # (1.0-4.8) k/uL Monocytes # (0-1.0) k/uL Eosinophils # (0-0.7) k/uL Basophils # (0-0.2) k/uL PT (9.0-12.0) sec INR (<1.2) APTT (22.0-30.0) sec Sodium (137-145) mmol/L Potassium (3.5-5.1) mmol/L Chloride (98-107) mmol/L Carbon Dioxide (22-30) mmol/L Anion Gap mmol/L BUN (7-17) mg/dL Creatinine (0.52-1.04) mg/dL Est GFR (CKD-EPI)AfAm (>60 ml/min/1.73 sqM) Est GFR (CKD-EPI)NonAf (>60 ml/min/1.73 sqM) Glucose (74-99) mg/dL POC Glucose (mg/dL) 105 H (75-99) mg/dL POC Glu Washing Machine Loader Emil Ring Calcium (8.4-10.2) mg/dL Total Bilirubin (0.2-1.3) mg/dL AST (14-36) U/L ALT (4-34) U/L Alkaline Phosphatase (38-126) U/L Troponin I <0.012 (0.000-0.034) ng/mL C-Reactive Protein (<10.0) mg/L Total Protein (6.3-8.2) g/dL Albumin (3.5-5.0) g/dL Urine Color Light Yellow Urine Appearance Clear (Clear) Urine pH 6.5 (5.0-8.0) Ur Specific Counselor 1.025 (1.001-1.035) Urine Protein Negative (Negative) Urine Glucose (UA) Negative (Negative) Urine Ketones Negative (Negative) Urine Blood Negative (Negative) Urine Nitrite Negative (Negative) Urine Bilirubin Negative (Negative) Urine Urobilinogen <2.0 (<2.0) mg/dL Ur Leukocyte Esterase Negative (Negative) - Medical Decision Making Upon arrival the patient was promptly placed into trauma bay 4. Thorough history and physical exam was performed. NIH stroke scale was obtained on the patient and the patient of score of 1 because of her dysarthria. She is on Ahlquist. Symptom onset was at 8 AM. As the patient is outside of the treatment window the patient is not a TPA candidate. I did activate a code stroke. The patient was sent over for a CT of her brain as well as a CT angiography of her head and neck. Laboratory studies were conducted. CBC and corrugations studies are normal. CMP demonstrates a glucose of 105. Troponin is negative. Urinalysis is clear. CT of the patient's brain demonstrates no acute process CT angiography demonstrates no occlusion. Chest x-ray demons trates no definite radiographic process I did discuss the case with Dr. Herring at 7:45 PM and once again at 805. He does not see a large vessel occlusion. The patient is not a TPA candidate she is outside the treatment window. He did recommend treatment with aspirin and statins. The patient was given 355 mg of aspirin 40 mg of atorvastatin. I did discuss the diagnosis and treatment plan. The patient did agree to hospitalization. I called and discussed the case with Dr. Rangel who accepted admission for the patient. I will place neurology on consult. Repeat NIH stroke scale continues to be 0. Patient is currently awaiting a bed on the floor EKG demonstrates a normal sinus rhythm with a ventricular rate of 66. FL interval 160. QRS 80. QTC of 431. No acute ST segment elevations or depressions concerning for ischemic changes 10/10/19 19:32 Past Medical History Past Medical History: CVA/TIA, Fibromyalgia, GERD/Reflux, Hyperlipidemia, Memory Impairment, Osteoarthritis (OA), Skin Disorder Additional Past Medical History / Comment(s): MENIERE'S LEFT EAR, PEPTIC ULCERS, tia x 14- last 05/2019. History of Any Multi-Drug Resistant Organisms: None Reported Past Surgical History: Back Surgery, Cholecystectomy, Joint Replacement, Orthopedic Surgery Additional Past Surgical History / Comment(s): LOOP RECORDER 2010, ORIF LEFT FOOT, rt foot surgery, JT REPL WINNIE KNEES & WINNIE SHOULDERS, WINNIE CATARACT, gianni and screws in back Past Anesthesia/Blood Transfusion Reactions: No Reported Reaction Past Psychological History: Anxiety, Depression Smoking Status: Never smoker Past Alcohol Use History: None Reported Past Drug Use History: None Reported - Past Family History Father Family Medical History: Cancer Mother Family Medical History: Cancer Course Vital Signs 10/10/19 10/10/19 10/10/19 19:17 19:21 19:30 Temperature 98.5 F Pulse Rate 69 67 67 Pulse Rate [ Software Engineering Analyst ] Respiratory 18 18 18 Rate Blood Pressure 178/71 181/91 Blood Pressure [Right Arm] O2 Sat by Pulse 97 97 98 Oximetry 10/10/19 10/10/19 10/10/19 19:45 20:02 23:00 Temperature 98.5 F Pulse Rate 68 65 73 Pulse Rate [ Software Engineering Analyst ] Respiratory 18 18 18 Rate Blood Pressure 179/77 182/86 143/66 Blood Pressure [Right Arm] O2 Sat by Pulse 97 97 97 Oximetry 10/11/19 10/11/19 10/11/19 03:00 06:00 08:00 Temperature 98.3 F 98.3 F 97.9 F Pulse Rate 63 80 Pulse Rate [ 61 Software Engineering Analyst ] Respiratory 16 16 18 Rate Blood Pressure 124/51 143/84 Blood Pressure 136/66 [Right Arm] O2 Sat by Pulse 96 98 96 Oximetry 10/11/19 10/11/19 10/11/19 11:13 15:51 17:21 Temperature 98.2 F 98.5 F Pulse Rate Pulse Rate [ 64 87 80 Software Engineering Analyst ] Respiratory 18 18 18 Rate Blood Pressure Blood Pressure 156/83 167/89 164/73 [Right Arm] O2 Sat by Pulse 97 99 98 Oximetry Critical Care Time Critical Care Time: Yes Critical Care Time: 33 minutes Disposition Clinical Impression: Dysarthria, Ataxia, History of recurrent TIAs Disposition: ADMITTED IP TO THIS [facility] Condition: Stable Is patient prescribed a controlled substance at d/c from ED?: No Decision to Admit Reason: Admit from EC Decision Date: 10/10/19 Decision Time: 21:43
[2019-10-10 19:57] LABS: Partial Thromboplastin Time 23.7 sec (22.0-30.0); Prothrombin Time 10.1 sec (9.0-12.0)
[2019-10-10 20:03] LABS: Basophils % (A) 0 %; Eosinophils # (A) 0.2 k/uL (0-0.7); Eosinophils % (A) 4 %; HCT 40.3 % (34.0-46.0); HGB 13.7 gm/dL (11.4-16.0); Lymphocytes # (A) 2.2 k/uL (1.0-4.8); Lymphocytes % (A) 34 %; MCH 29.8 pg (25.0-35.0); MCV 87.6 fL (80.0-100.0); Mean Platelet Volume 7.4; Monocytes # (A) 0.5 k/uL (0-1.0); Monocytes % (A) 7 %; Neutrophils # (A) 3.4 k/uL (1.3-7.7); Neutrophils % (A) 54 %; Platelet Count 233 k/uL (150-450); WBC 6.4 k/uL (3.8-10.6)
[2019-10-10] MEDS ORDERED: ASPIRIN 325 MG TAB PO STA (20:06)
[2019-10-10] MEDS ORDERED: ATORVASTATIN 40 MG TAB PO STA (20:07)
[2019-10-10 20:09] LABS: ALT 19 U/L (4-34); AST 39 U/L (14-36); African American GFR (CKD) 61 (>60 ml/min/1.73 sqM); Alkaline Phosphatase 112 U/L (38-126); Anion Gap 7 mmol/L; Blood Urea Nitrogen 23 mg/dL (7-17); Calcium 9.4 mg/dL (8.4-10.2); Carbon Dioxide 25 mmol/L (22-30); Chloride 106 mmol/L (98-107); Glucose 84 mg/dL (74-99); Non-African American GFR(CKD) 53 (>60 ml/min/1.73 sqM); Potassium 4.4 mmol/L (3.5-5.1); Sodium 138 mmol/L (137-145); Total Bilirubin 0.3 mg/dL (0.2-1.3); Total Protein 6.8 g/dL (6.3-8.2)
--- NOTE | 2019-10-10 20:09 | CT ---
EXAMINATION: CT brain wo con DATE AND TIME: 10/10/2019 7:47 PM CLINICAL INDICATION: PHH; Neuro deficit, acute, stroke suspected TECHNIQUE: Standard departmental protocol DLP 1101.8 mGy-cm COMPARISON: CT 06/27/2019 FINDINGS: The calvarium is intact. There is no intracranial hemorrhage. There is no intracranial mass or mass effect. No definite new intra-axial or extra-axial attenuation defect. The paranasal sinuses, middle ear cavities, and mastoid sinus air cells are clear. The orbits are unremarkable. IMPRESSION: NO ACUTE PROCESS.
[2019-10-10 20:13] LABS: C Reactive Protein <5.0 mg/L (<10.0)
--- NOTE | 2019-10-10 20:45 | CT ---
EXAMINATION TYPE: CT angio head neck DATE OF EXAM: 10/10/2019 HISTORY: dysphagia COMPARISON: 06/27/2019 CT DLP: 585.5 mGycm. Automated Exposure Control for Dose Reduction was Utilized. TECHNIQUE: CTA scan of the neck is performed with IV Contrast, patient injected with 65 mL of Isovue 370, axial images are obtained, coronal and sagittal reformatted images are reviewed. Three-D recons tructed images are created on an independent workstation and reviewed. NECK CTA FINDINGS: CAROTID ARTERIAL SYSTEMS: The right CCA and ICA and ECA are tortuous but are without hemodynamically significant stenosis or fi lling defect or dissection. The left CCA and ICA and ECA are tortuous but are without hemodynamically significant stenosis or elda ling defect or dissection. VERTEBRAL ARTERIAL SYSTEMS: The right and left vertebral arteries are widely patent throughout their cervical course. Other: No incidental findings. HEAD CTA FINDINGS: The anterior and posterior arterial circulation are negative for hemodynamically significant stenosis or filling defect or aneurysm. Other: The contrast enhancement pattern is normal. No incidental findings. IMPRESSION: No significant abnormality is seen.
--- NOTE | 2019-10-10 21:22 | XR ---
EXAMINATION: XR chest 2V DATE AND TIME: 10/10/2019 8:34 PM CLINICAL INDICATION: PHH; altered mental status TECHNIQUE: Departmental protocol COMPARISON: 06/27/2019 FINDINGS: The lungs are clear and well-expanded is seen. Right hemidiaphragm elevated, same as the prior study. The pleural spaces are negative. The cardiac silhouette is mildly enlarged, and remainder of the mediastinal silhouette is unremarkabl e. The skeletal structures and soft tissues are negative for acute findings. IMPRESSION: No definite acute radiographic process.
[2019-10-10] MEDS ORDERED: NALOXONE 0.4 MG/ML 1 ML VIAL IV PRN (21:43)
[2019-10-10 21:57] LABS: Appearance,Urine Clear (Clear); Bilirubin,Urine Negative (Negative); Blood,Urine Negative (Negative); Color,Urine Light Yellow; Glucose,Urine (UA) Negative (Negative); Ketones,Urine Negative (Negative); Leukocyte Esterase,Urine Negative (Negative); Nitrite,Urine Negative (Negative); PH, Urine 6.5 (5.0-8.0); Protein,Urine Negative (Negative); Specific Gravity,Urine 1.025 (1.001-1.035); Urobilinogen,Urine <2.0 mg/dL (<2.0)
[2019-10-10] MEDS ORDERED: LATANOPROST 0.005% OPHTH DROPS 2.5 ML BTL BOTH EYES SCH (22:00)
[2019-10-10] MEDS ORDERED: QUEtiapine 25 MG TAB PO SCH (22:00)
[2019-10-11] MEDS: ATORVASTATIN 20 MG TAB PO SCH ×2 (01:17→07:18)
[2019-10-11] MEDS: busPIRone HCl 5 MG TAB PO SCH ×2 (01:18→08:48)
[2019-10-11 06:57] LABS: Basophils % (A) 1 %; Eosinophils # (A) 0.2 k/uL (0-0.7); Eosinophils % (A) 5 %; HCT 38.6 % (34.0-46.0); HGB 12.7 gm/dL (11.4-16.0); Lymphocytes # (A) 1.4 k/uL (1.0-4.8); Lymphocytes % (A) 30 %; MCH 29.6 pg (25.0-35.0); MCV 89.7 fL (80.0-100.0); Mean Platelet Volume 7.7; Monocytes # (A) 0.4 k/uL (0-1.0); Monocytes % (A) 8 %; Neutrophils # (A) 2.6 k/uL (1.3-7.7); Neutrophils % (A) 54 %; Platelet Count 211 k/uL (150-450); RBC 4.31 m/uL (3.80-5.40); RDW 13.3 % (11.5-15.5); WBC 4.8 k/uL (3.8-10.6)
[2019-10-11 07:08] LABS: Calcium 8.9 mg/dL (8.4-10.2)
[2019-10-11 08:35] VITALS: RESP 18
[2019-10-11] MEDS ORDERED: ASPIRIN 81 MG PO SCH ×2 (09:00→10:30)
[2019-10-11] MEDS ORDERED: LISINOPRIL-HCTZ 20-12.5 MG 1 EACH TAB PO SCH (09:00)
[2019-10-11] MEDS ORDERED: PARoxetine 20 MG TAB PO SCH (10:30)
[2019-10-11] MEDS ORDERED: TAMSULOSIN 0.4 MG CAP.ER.24H PO SCH (10:30)
[2019-10-11] MEDS ORDERED: SULFAMETHOX-TMP 800-160MG 1 EACH TAB PO SCH (10:30)
[2019-10-11] MEDS: APIXABAN 5 MG TAB PO SCH ×2 (11:29→16:59)
--- NOTE | 2019-10-11 16:40 | P.HPIM ---
History of Present Illness H&P Date: 10/11/19 Chief Complaint: Dizziness Chief Complaint: Left-sided weakness History of presenting complaint: This is a pleasant 78-year-old patient of Dr. macias. 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 Patient had multiple TIAs it. Patient was admitted to the hospital in February 2019 with left-sided weakness. That occasion MRI of the brain was unremarkable, 2-D echo showed EF of 55-60% no other abnormality, CT angiogram neck was again unremarkable, carotid Doppler showed a 50-69% left internal carotid stenosis, questionable PE, with negative Doppler of lower extremity, and a decision was made to treat with anticoagulation for 6 months. Patient was seen by neurology. Patient again was here in May 2019. Neuro symptoms.-Computed tomography scan of the brain, CT angiogram brain was negative. Also the cervical spine MRI that came back to be negative. Patient does follow with neurologist Dr. Hernandez. Now presents with being dizzy and off balance. No change in vision had some headache. Speech became slurred. Left-sided became weak. Symptoms and therefore about an hour and the after another half hour completely resolved. Patient went back to her baseline. 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 In an apartment. Does use a walker. Family history: Reviewed, noncontributory presentation VITAL SIGNS: 98.5, 67, 18, blood pressure 117/71, 97%-room air GENERAL: BMI 41, laying in bed, comfortable EYES: Pupils equal. Conjunctiva normal. HEENT: External appearance of nose and ears normal, oral cavity grossly normal decreased hearing in the left ear. NECK: JVD not raised; masses not palpable. HEART: First and second heart sounds are normal; no edema. LUNGS: Respiratory rate normal; clear to auscultation. ABDOMEN: Soft, nontender, liver spleen not palpable, no masses palpable. LYMPHATICS: No lymph nodes palpable in the axilla and neck. PSYCH: Alert and oriented x3; mood and affect normal. NEUROLOGICAL: Cranial nerves grossly intact. Power and sensation grossly intact.. Investigations: Admitted consequent 4 hemoglobin 13.7 potassium 4.4 creatinine 1.01 EKG tracing personally reviewed by me-normal sinus rhythm Chest x-ray film personally reviewed by me-some elevation of right diaphragm Computed tomography scan of the brain, and CT angiogram of the head and neck both negative Previous testing In February 2019 which have a MRI of the brain, 2-D echocardiogram, CT angiogram the neck-unremarkable In May 2019-Computed tomography scan of the brain, CT angiogram to brain- nothing acute. MRI cervical spine-negative Assessment: -This is a patient with multiple TIAs in the past, some headache slurred speech and left-sided weakness that completely resolved within 2 hours. Patient's computed tomography scan of the brain and CT angiogram head and neck both negative. 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 Neurology was consulted. Patient is testing scan being negative. We'll discuss with neurology. Patient oriented eliquis and aspirin. And Lipitor. Past Medical History Past Medical History: Cancer, CVA/TIA, Fibromyalgia, GERD/Reflux, Hyperlipidemia, Hypertension, Memory Impairment, Osteoarthritis (OA), Skin Disorder Additional Past Medical History / Comment(s): MENIERE'S LEFT EAR, PEPTIC ULCERS, tia x 14- last 05/2019 History of Any Multi-Drug Resistant Organisms: None Reported Past Surgical History: Back Surgery, Cholecystectomy, Joint Replacement, Orthopedic Surgery Additional Past Surgical History / Comment(s): LOOP RECORDER 2010, ORIF LEFT FOOT, rt foot surgery, JT REPL WINNIE KNEES & WINNIE SHOULDERS, WINNIE CATARACT, gianni and screws in back, lumpectomy LEFT breast 2018. Past Anesthesia/Blood Transfusion Reactions: No Reported Reaction Past Psychological History: Anxiety, Depression Smoking Status: Never smoker Past Alcohol Use History: None Reported Past Drug Use History: None Reported - Past Family History Father Family Medical History: Cancer Mother Family Medical History: Cancer Medications and Allergies Home Medications Medication Instructions Recorded Confirmed Type Gabapentin [Neurontin] 200 mg PO HS 12/12/13 10/11/19 History QUEtiapine [SEROquel] 50 mg PO HS 12/12/13 10/11/19 History Tamsulosin HCl [Flomax] 0.4 mg PO DAILY 12/12/13 10/11/19 History PARoxetine HCL [Paxil Cr] 25 mg PO DAILY 09/25/17 10/11/19 History rOPINIRole HCL [Requip] 1 mg PO TID 09/25/17 10/11/19 History Latanoprost [Xalatan 0.005%] 1 drop BOTH EYES HS 03/11/19 10/11/19 History Lisinopril-Hctz 20-12.5 mg 1 tab PO DAILY 03/11/19 10/11/19 History [Zestoretic 20-12.5] Meclizine [Antivert] 12.5 mg PO TID 03/11/19 10/11/19 History Turmeric Root Extract [Turmeric] 500 mg PO BID 03/11/19 10/11/19 History busPIRone HCL 15 mg PO BID@1000,1800 03/13/19 10/11/19 History Atorvastatin [Lipitor] 20 mg PO HS@2200 06/27/19 10/11/19 History Cholecalciferol [Vitamin D3 (25 1,000 unit PO DAILY 06/27/19 10/11/19 History Mcg = 1000 Iu)] Multivitamins, Thera [Multivitamin 1 tab PO DAILY 06/27/19 10/11/19 History (formulary)] Albuterol Sulfate [Proair Hfa] 1 - 2 puff INHALATION RT-QID PRN 10/11/19 10/11/19 History Apixaban [Eliquis] 5 mg PO BID@0600,1800 10/11/19 10/11/19 History Aspirin EC [Ecotrin Low Dose] 81 mg PO DAILY 10/11/19 10/11/19 History Sulfamethox-Tmp 800-160Mg [Bactrim 1 tab PO BID 10/11/19 10/11/19 History DS 800-160 mg] Allergies Allergy/AdvReac Type Severity Reaction Status Date / Time nickel [Nickel] Allergy Rash/Hives Verified 10/11/19 08:30 codeine AdvReac headache Verified 10/11/19 08:30 Physical Exam Vitals: Vital Signs Temp Pulse Pulse Resp BP BP Pulse Ox 10/11/19 08:00 97.9 F 61 18 136/66 96 10/11/19 06:00 98.3 F 80 16 143/84 98 10/11/19 03:00 98.3 F 63 16 124/51 96 10/10/19 23:00 73 18 143/66 97 10/10/19 20:02 65 18 182/86 97 10/10/19 19:45 98.5 F 68 18 179/77 97 10/10/19 19:30 67 18 181/91 98 10/10/19 19:21 98.5 F 67 18 178/71 97 10/10/19 19:17 69 18 97 Intake and Output 10/10/19 10/11/19 10/11/19 22:59 06:59 14:59 Intake Total 600 Balance 600 Intake: Oral 600 Other: # Voids 1 # Bowel Movements 1 Weight 95.254 kg 95.254 kg Results CBC & Chem 7: 10/11/19 06:45 10/11/19 06:45 Labs: Abnormal Lab Results - Last 24 Hours (Table) 10/10/19 10/10/19 10/11/19 Range/Units 19:20 19:22 06:45 Chloride 109 H (98-107) mmol/L BUN 23 H 23 H (7-17) mg/dL Creatinine 1.12 H (0.52-1.04) mg/dL Glucose 102 H (74-99) mg/dL POC Glucose (mg/dL) 105 H (75-99) mg/dL AST 39 H (14-36) U/L Thrombosis Risk Factor Assmnt - Choose All That Apply Any of the Below Risk Factors Present?: Yes Each Factor Represents 1 point: Obesity (BMI >25) Other Risk Factors: Yes Each Risk Factor Represents 3 Points: Age 75 years or older Other congenital or acquired thrombophilia - If yes, enter type in comment: No Thrombosis Risk Factor Assessment Total Risk Factor Score: 4 Thrombosis Risk Factor Assessment Level: Moderate Risk
--- NOTE | 2019-10-11 16:45 | P.DS ---
Providers Date of admission: 10/10/19 21:44 Expected date of discharge: 10/11/19 Attending physician: Real Rangel Consults: 10/10/19 21:45 Consult Physician Urgent Consulting Provider: Jennifer White Consult Reason/Comments: acute dysarthria, hx tia Do you want consulting provider notified?: Yes Primary care physician: Elfego Roberts [facility] Course: Chief Complaint: Left-sided weakness History of presenting complaint: This is a pleasant 78-year-old patient of Dr. roberts. 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 Patient had multiple TIAs it. Patient was admitted to the hospital in February 2019 with left-sided weakness. That occasion MRI of the brain was unremarkable, 2-D echo showed EF of 55-60% no other abnormality, CT angiogram neck was again unremarkable, carotid Doppler showed a 50-69% left internal carotid stenosis, questionable PE, with negative Doppler of lower extremity, and a decision was made to treat with anticoagulation for 6 months. Patient was seen by neurology. Patient again was here in May 2019. Neuro symptoms.-Computed tomography scan of the brain, CT angiogram brain was negative. Also the cervical spine MRI that came back to be negative. Patient does follow with neurologist Dr. Hernandez. Now presents with being dizzy and off balance. No change in vision had some headache. Speech became slurred. Left-sided became weak. Symptoms and therefore about an hour and the after another half hour completely resolved. Patient went back to her baseline. Dose of Lipitor was increased. Patient is already on aspirin and eliquis. We'll follow with Consultation: Dr. Stephon Espana from neurology VITAL SIGNS: 98.2, 64, 18, blood pressure 156/83, 97% on room air GENERAL: BMI 41, laying in bed, comfortable EYES: Pupils equal. Conjunctiva normal. HEENT: External appearance of nose and ears normal, oral cavity grossly normal decreased hearing in the left ear. NECK: JVD not raised; masses not palpable. HEART: First and second heart sounds are normal; no edema. LUNGS: Respiratory rate normal; clear to auscultation. ABDOMEN: Soft, nontender, liver spleen not palpable, no masses palpable. LYMPHATICS: No lymph nodes palpable in the axilla and neck. PSYCH: Alert and oriented x3; mood and affect normal. NEUROLOGICAL: Cranial nerves grossly intact. Power and sensation grossly intact.. Investigations: White count 4.8 hemoglobin 13.7 potassium 4.4 creatinine 1.01 EKG tracing personally reviewed by me-normal sinus rhythm Chest x-ray film personally reviewed by me-some elevation of right diaphragm Computed tomography scan of the brain, and CT angiogram of the head and neck both negative Previous testing In February 2019 which have a MRI of the brain, 2-D echocardiogram, CT angiogram the neck-unremarkable In May 2019-Computed tomography scan of the brain, CT angiogram to brain- nothing acute. MRI cervical spine-negative Assessment: -This is a patient with multiple TIAs in the past, some headache slurred speech and left-sided weakness that completely resolved within 2 hours. Patient's computed tomography scan of the brain and CT angiogram head and neck both negative. 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 -Peptic ulcer disease -Essential hypertension -Pulmonary embolism in February 2019 suggested anticoagulation for 6 months Disposition: Home Patient Condition at Discharge: Stable Plan - Discharge Summary Discharge Rx Participant: Yes New Discharge Prescriptions: New Atorvastatin Calcium [Lipitor] 40 mg PO HS #30 tablet Continue QUEtiapine [SEROquel] 50 mg PO HS Gabapentin [Neurontin] 200 mg PO HS Tamsulosin HCl [Flomax] 0.4 mg PO DAILY rOPINIRole HCL [Requip] 1 mg PO TID PARoxetine HCL [Paxil Cr] 25 mg PO DAILY Meclizine [Antivert] 12.5 mg PO TID Latanoprost [Xalatan 0.005%] 1 drop BOTH EYES HS Turmeric Root Extract [Turmeric] 500 mg PO BID Lisinopril-Hctz 20-12.5 mg [Zestoretic 20-12.5] 1 tab PO DAILY busPIRone HCL 15 mg PO BID@1000,1800 Multivitamins, Thera [Multivitamin (formulary)] 1 tab PO DAILY Cholecalciferol [Vitamin D3 (25 Mcg = 1000 Iu)] 1,000 unit PO DAILY Albuterol Sulfate [Proair Hfa] 1 - 2 puff INHALATION RT-QID PRN PRN Reason: Shortness Of Breath Aspirin EC [Ecotrin Low Dose] 81 mg PO DAILY Apixaban [Eliquis] 5 mg PO BID@0600,1800 Sulfamethox-Tmp 800-160Mg [Bactrim DS 800-160 mg] 1 tab PO BID Discontinued Atorvastatin [Lipitor] 20 mg PO HS@2200 Discharge Medication List Gabapentin [Neurontin] 200 mg PO HS 12/12/13 [History] QUEtiapine [SEROquel] 50 mg PO HS 12/12/13 [History] Tamsulosin HCl [Flomax] 0.4 mg PO DAILY 12/12/13 [History] PARoxetine HCL [Paxil Cr] 25 mg PO DAILY 09/25/17 [History] rOPINIRole HCL [Requip] 1 mg PO TID 09/25/17 [History] Latanoprost [Xalatan 0.005%] 1 drop BOTH EYES HS 03/11/19 [History] Lisinopril-Hctz 20-12.5 mg [Zestoretic 20-12.5] 1 tab PO DAILY 03/11/19 [History] Meclizine [Antivert] 12.5 mg PO TID 03/11/19 [History] Turmeric Root Extract [Turmeric] 500 mg PO BID 03/11/19 [History] busPIRone HCL 15 mg PO BID@1000,1800 03/13/19 [History] Cholecalciferol [Vitamin D3 (25 Mcg = 1000 Iu)] 1,000 unit PO DAILY 06/27/19 [History] Multivitamins, Thera [Multivitamin (formulary)] 1 tab PO DAILY 06/27/19 [History] Albuterol Sulfate [Proair Hfa] 1 - 2 puff INHALATION RT-QID PRN 10/11/19 [History] Apixaban [Eliquis] 5 mg PO BID@0600,1800 10/11/19 [History] Aspirin EC [Ecotrin Low Dose] 81 mg PO DAILY 10/11/19 [History] Atorvastatin Calcium [Lipitor] 40 mg PO HS #30 tablet 10/11/19 [Rx] Sulfamethox-Tmp 800-160Mg [Bactrim DS 800-160 mg] 1 tab PO BID 10/11/19 [History] Follow up Appointment(s)/Referral(s): Elfego Roberts MD [Primary Care Provider] - 1-2 days Romie Hernandez DO [STAFF PHYSICIAN] - 1 Week
[2019-10-11 17:22] VITALS: BP 164/73; PULSE 80; TEMP 98.5
--- NOTE | 2019-10-11 17:38 | P.CNNES ---
History of Present Illness Consult date: 10/11/19 Requesting physician: Helene Rodriguez Reason for Consult: Acute dysarthria History of Present Illness: Patient is a 78-year-old female, who states that she has history of multiple TIAs in the past, came to the hospital because of "another TIA". Patient states that she had an episode of no balance, slurred speech and headache, that lasted for half an hour. She felt it was a TIA. Patient also had a cyst removed from left axilla, which had become infected and was draining. Therefore she came to the ER as well. Patient underwent CTA of head and neck, which revealed no acute process. The left and right vertebral arteries are widely patent. Both CCA and ICA are tortuous, but no significant stenosis or dissection. CT of the head was normal. On my review, there is presence of cerumen involving the left external auditory canal. EKG shows normal sinus rhythm and chest x-ray is normal. 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 Cervical vertebral bodies show preserved height. Patient had an MRI of brain on 03/12/2019 for similar symptoms, which was negative for any acute stroke. Patient's hemoglobin A1c 5.5 on 06/28/2019. Cholesterol 143, LDL 68, HDL 58 and triglycerides 86. Vitamin B12 is normal 780, B6 is 24 and B1 84 all normal. TSH normal. Patient follows up with Dr. Hernandez, for her multiple TIAs, who started her on Eliquis 5 mg twice a day, about a month ago. Patient states that she is compliant with medication, does not miss any dose. She also has history of Mnire's disease, and is deaf from the left ear. She takes meclizine for it. On review of records, patient has been seen by neurologist at least 3 different times for similar "TIA like symptoms". Review of Systems As above in detail. Patient has left shoulder pain from recent cyst removal. Denies headache problems with the vision process or thought dysphagia. Denies shortness of breath wheezing or cough. Past Medical History Past Medical History: Cancer, CVA/TIA, Fibromyalgia, GERD/Reflux, Hyperlipidemia, Hypertension, Memory Impairment, Osteoarthritis (OA), Skin Disorder Additional Past Medical History / Comment(s): MENIERE'S LEFT EAR, PEPTIC ULCERS, tia x 14- last 05/2019 History of Any Multi-Drug Resistant Organisms: None Reported Past Surgical History: Back Surgery, Cholecystectomy, Joint Replacement, Orthopedic Surgery Additional Past Surgical History / Comment(s): LOOP RECORDER 2010, ORIF LEFT FOOT, rt foot surgery, JT REPL WINNIE KNEES & WINNIE SHOULDERS, WINNIE CATARACT, gianni and screws in back, lumpectomy LEFT breast 2018. Past Anesthesia/Blood Transfusion Reactions: No Reported Reaction Past Psychological History: Anxiety, Depression Smoking Status: Never smoker Past Alcohol Use History: None Reported Past Drug Use History: None Reported - Past Family History Father Family Medical History: Cancer Mother Family Medical History: Cancer Medications and Allergies Home Medications Medication Instructions Recorded Confirmed Type Gabapentin [Neurontin] 200 mg PO HS 12/12/13 10/11/19 History QUEtiapine [SEROquel] 50 mg PO HS 12/12/13 10/11/19 History Tamsulosin HCl [Flomax] 0.4 mg PO DAILY 12/12/13 10/11/19 History PARoxetine HCL [Paxil Cr] 25 mg PO DAILY 09/25/17 10/11/19 History rOPINIRole HCL [Requip] 1 mg PO TID 09/25/17 10/11/19 History Latanoprost [Xalatan 0.005%] 1 drop BOTH EYES HS 03/11/19 10/11/19 History Lisinopril-Hctz 20-12.5 mg 1 tab PO DAILY 03/11/19 10/11/19 History [Zestoretic 20-12.5] Meclizine [Antivert] 12.5 mg PO TID 03/11/19 10/11/19 History Turmeric Root Extract [Turmeric] 500 mg PO BID 03/11/19 10/11/19 History busPIRone HCL 15 mg PO BID@1000,1800 03/13/19 10/11/19 History Cholecalciferol [Vitamin D3 (25 1,000 unit PO DAILY 06/27/19 10/11/19 History Mcg = 1000 Iu)] Multivitamins, Thera [Multivitamin 1 tab PO DAILY 06/27/19 10/11/19 History (formulary)] Albuterol Sulfate [Proair Hfa] 1 - 2 puff INHALATION RT-QID PRN 10/11/19 10/11/19 History Apixaban [Eliquis] 5 mg PO BID@0600,1800 10/11/19 10/11/19 History Aspirin EC [Ecotrin Low Dose] 81 mg PO DAILY 10/11/19 10/11/19 History Atorvastatin Calcium [Lipitor] 40 mg PO HS #30 tablet 10/11/19 Rx Sulfamethox-Tmp 800-160Mg [Bactrim 1 tab PO BID 10/11/19 10/11/19 History DS 800-160 mg] Allergies Allergy/AdvReac Type Severity Reaction Status Date / Time nickel [Nickel] Allergy Rash/Hives Verified 10/11/19 08:30 codeine AdvReac headache Verified 10/11/19 08:30 Physical Examination - Vital Signs Vital Signs: Vital Signs Temp Pulse Pulse Resp BP BP Pulse Ox 10/11/19 15:51 87 18 167/89 99 10/11/19 11:13 98.2 F 64 18 156/83 97 10/11/19 08:00 97.9 F 61 18 136/66 96 10/11/19 06:00 98.3 F 80 16 143/84 98 10/11/19 03:00 98.3 F 63 16 124/51 96 10/10/19 23:00 73 18 143/66 97 10/10/19 20:02 65 18 182/86 97 10/10/19 19:45 98.5 F 68 18 179/77 97 10/10/19 19:30 67 18 181/91 98 10/10/19 19:21 98.5 F 67 18 178/71 97 10/10/19 19:17 69 18 97 Intake and Output 10/11/19 10/11/19 10/11/19 06:59 14:59 22:59 Intake Total 600 Balance 600 Intake: Oral 600 Other: # Voids 1 # Bowel Movements 1 Weight 95.254 kg Patient's mental status, speech and language functions are normal. Cranial nerves are normal. Pupils are round and reacting, visual becerra are full, face is symmetric, tongue protrudes the midline. Palatal elevation sensation normal. Patient is deaf in the left ear. Patient also has large amount of wax impacted in the left ear. On muscle strength testing there is no drift. The strength appears normal in the arms and legs. Left deltoid not checked because of pain. Reflexes are symmetric and plantars downgoing. No ataxia for finger- to-nose. Tone and bulk of muscles normal. Gait deferred. No bruit or murmur S1 and S2 audible. Results - Laboratory Findings CBC and BMP: 10/11/19 06:45 10/11/19 06:45 Abnormal Lab Findings: Abnormal Labs 10/10/19 10/10/19 10/11/19 19:20 19:22 06:45 Chloride 109 H BUN 23 H 23 H Creatinine 1.12 H Glucose 102 H POC Glucose (mg/dL) 105 H AST 39 H Assessment and Plan Assessment: * 78-year-old female with history of multiple "TIAs" in the past, came with "another TIA". Her examination is nonfocal. Uncertain if her symptoms were present actual TIA. CTA of head and neck showed no large vessel occlusion or stenosis. Plan: * Patient's examination is nonfocal. Her symptoms have resolved. No other neurological workup indicated. * Patient suggested to follow up with her neurologist Dr. Hernandez, in one to 2 weeks. * Patient be continued on Eliquis 5 mg twice a day for stroke prevention. * Neurologically clear for discharge.
[2019-10-11] MEDS ORDERED: GABAPENTIN 100 MG CAP PO SCH (21:00)
== END 2019-10-11 17:48 | disposition home or self-care (01) ==
LOC: EC 19:16 → 3SCARD 21:44
PROVIDERS: ADMIT Hospitalist; ATTEND Hospitalist
DX: R51 Headache (principal); R47.81 Slurred speech; R53.1 Weakness; R47.1 Dysarthria and anarthria; R27.0 Ataxia, unspecified; H81.02 Meniere's disease, left ear; Z86.73 Personal history of transient ischemic attack (TIA), and cerebral infarction without residual deficits; E66.01 Morbid (severe) obesity due to excess calories; Z68.41 Body mass index [BMI] 40.0-44.9, adult; H91.92 Unspecified hearing loss, left ear; I10 Essential (primary) hypertension; M79.7 Fibromyalgia; R29.701 NIHSS score 1; E78.5 Hyperlipidemia, unspecified; K21.9 Gastro-esophageal reflux disease without esophagitis; M19.90 Unspecified osteoarthritis, unspecified site; G25.81 Restless legs syndrome; F41.9 Anxiety disorder, unspecified; F32.9 Major depressive disorder, single episode, unspecified; I65.22 Occlusion and stenosis of left carotid artery; Z98.42 Cataract extraction status, left eye; Z98.41 Cataract extraction status, right eye; Z87.11 Personal history of peptic ulcer disease; Z80.9 Family history of malignant neoplasm, unspecified; Z96.653 Presence of artificial knee joint, bilateral; Z96.612 Presence of left artificial shoulder joint; Z96.611 Presence of right artificial shoulder joint; Z90.49 Acquired absence of other specified parts of digestive tract; Z88.5 Allergy status to narcotic agent; Z79.01 Long term (current) use of anticoagulants; Z79.82 Long term (current) use of aspirin; Z79.899 Other long term (current) drug therapy
CPT/HCPCS: 99285; 36415; 93005; 80053; 80048; 84484; 85025 ×2; 85610; 85730; 86140; 81003; 71046; 70496; 70450; 70498; G0378 ×2; Q9967

== ENCOUNTER 2019-10-20 19:40 | Observation (INO) | payer MEDICARE ==
[2019-10-20 19:53] LABS: Glucose,Whole Blood 122 mg/dL (75-99)
[2019-10-20] MEDS ORDERED: SODIUM CHLORIDE 0.9% 500 ML 500 ML IV STA (19:59)
--- NOTE | 2019-10-20 20:10 | ED ---
General Adult HPI - General Chief complaint: Fall Stated complaint: Fall, syncope Time Seen by Provider: 10/20/19 19:52 Source: patient, EMS Mode of arrival: EMS Limitations: no limitations - History of Present Illness Initial comments: Patient presents the ED by ambulance for evaluation status post syncopal episode. Patient states that she has felt generally weak and "not well" for the past 2 days or so. Patient states that she was getting some fish of of her fridge while in her kitchen this evening when she had a syncopal episode. Patient denies having any preceding symptoms. Patient states that she hit her life alert button when she regained consciousness on the floor of her kitchen. Patient states that she thinks that she landed on her 'bottom" and hit her head, as she has been having pain to her "tailbone" and a headache since falling. Patient was placed in a c-collar by EMS. Patient is also complaining of having mild left ankle pain. Patient denies fever or chills, cough or cold symptoms, dysuria or urinary symptoms, focal numbness/weakness/neuro deficit, visual changes, speech difficulty, neck pain, upper back pain, upper extremity pain, hip pain, chest pain, dyspnea, palpitations, abdominal pain, nausea/vomiting/diarrhea, bloody or melanotic stool, or any other symptoms or complaints. Patient denies any recent change in her medications. - Related Data Home Medications Medication Instructions Recorded Confirmed Gabapentin [Neurontin] 200 mg PO HS 12/12/13 10/11/19 QUEtiapine [SEROquel] 50 mg PO HS 12/12/13 10/11/19 Tamsulosin HCl [Flomax] 0.4 mg PO DAILY 12/12/13 10/11/19 PARoxetine HCL [Paxil Cr] 25 mg PO DAILY 09/25/17 10/11/19 rOPINIRole HCL [Requip] 1 mg PO TID 09/25/17 10/11/19 Latanoprost [Xalatan 0.005%] 1 drop BOTH EYES HS 03/11/19 10/11/19 Lisinopril-Hctz 20-12.5 mg 1 tab PO DAILY 03/11/19 10/11/19 [Zestoretic 20-12.5] Meclizine [Antivert] 12.5 mg PO TID 03/11/19 10/11/19 Turmeric Root Extract [Turmeric] 500 mg PO BID 03/11/19 10/11/19 busPIRone HCL 15 mg PO BID@1000,1800 03/13/19 10/11/19 Cholecalciferol [Vitamin D3 (25 1,000 unit PO DAILY 06/27/19 10/11/19 Mcg = 1000 Iu)] Multivitamins, Thera [Multivitamin 1 tab PO DAILY 06/27/19 10/11/19 (formulary)] Albuterol Sulfate [Proair Hfa] 1 - 2 puff INHALATION RT-QID PRN 10/11/19 10/11/19 Apixaban [Eliquis] 5 mg PO BID@0600,1800 10/11/19 10/11/19 Aspirin EC [Ecotrin Low Dose] 81 mg PO DAILY 10/11/19 10/11/19 Sulfamethox-Tmp 800-160Mg [Bactrim 1 tab PO BID 10/11/19 10/11/19 DS 800-160 mg] Previous Rx's Medication Instructions Recorded Atorvastatin Calcium [Lipitor] 40 mg PO HS #30 tablet 10/11/19 Allergies Allergy/AdvReac Type Severity Reaction Status Date / Time nickel [Nickel] Allergy Rash/Hives Verified 10/11/19 08:30 codeine AdvReac headache Verified 10/11/19 08:30 Review of Systems ROS Statement: Those systems with pertinent positive or pertinent negative responses have been documented in the HPI. ROS Other: All systems not noted in ROS Statement are negative. Past Medical History Past Medical History: CVA/TIA, Fibromyalgia, GERD/Reflux, Hyperlipidemia, Memory Impairment, Osteoarthritis (OA), Skin Disorder, Syncope Additional Past Medical History / Comment(s): MENIERE'S LEFT EAR, PEPTIC ULCERS, tia x 14- last 05/2019. History of Any Multi-Drug Resistant Organisms: None Reported Past Surgical History: Back Surgery, Cholecystectomy, Joint Replacement, Orthopedic Surgery Additional Past Surgical History / Comment(s): LOOP RECORDER 2010, ORIF LEFT FOOT, rt foot surgery, JT REPL WINNIE KNEES & WINNIE SHOULDERS, WINNIE CATARACT, gianni and screws in back Past Anesthesia/Blood Transfusion Reactions: No Reported Reaction Past Psychological History: Anxiety, Depression Smoking Status: Never smoker Past Alcohol Use History: None Reported Past Drug Use History: None Reported - Past Family History Father Family Medical History: Cancer Mother Family Medical History: Cancer General Exam Limitations: no limitations General appearance: alert, in no apparent distress Head exam: Present: atraumatic, normocephalic Eye exam: Present: normal appearance, PERRL, EOMI ENT exam: Present: mucous membranes moist, TM's normal bilaterally Neck exam: Present: other (C-collar is in place; no step-off deformity is appreciated). Absent: tenderness Respiratory exam: Present: normal lung sounds bilaterally. Absent: respiratory distress, wheezes, rales, rhonchi, chest wall tenderness Cardiovascular Exam: Present: regular rate, normal rhythm, normal heart sounds, other (Normal radial pulses bilaterally) GI/Abdominal exam: Present: soft. Absent: distended, tenderness, guarding Extremities exam: Present: normal inspection, other (Mild diffuse left ankle tenderness; patient has full range of motion at left ankle; pelvis is stable and nontender; patient has full range of motion at bilateral hips). Absent: pedal edema, joint swelling, calf tenderness Back exam: Present: normal inspection. Absent: tenderness Neurological exam: Present: alert, oriented X3, CN II-XII intact. Absent: motor sensory deficit Psychiatric exam: Present: normal affect, normal mood Skin exam: Present: warm, dry, intact, normal color Course Vital Signs 10/20/19 19:48 Temperature 98.2 F Pulse Rate 69 Respiratory 18 Rate Blood Pressure 121/54 O2 Sat by Pulse 99 Oximetry - Reevaluation(s) Reevaluation #1: 10/20/19 22:31 Case, H&P, test results and ED management were discussed with Dr. Rangel (hospitalist). He accepts hospital admission. He has no further recommendations at this time. 10/20/19 22:44 Patient denies development of any new pain or symptoms while in the ED. Patient is aware of her test results, and she agrees with hospital admission at this time. She remains alert and breathing comfortably. EKG Findings - EKG Comments: EKG Findings:: Normal sinus rhythm, ventricular rate of 64 bpm, no ectopy, normal MD and QRS intervals, normal QT interval, leftward axis, no ST or T-wave abnormality Medical Decision Making - Medical Decision Making Given the patient's syncope, renal insufficiency and hyperkalemia, will admit the patient to the hospital for further evaluation and management. Dr. Rangel has accepted hospital admission. Patient has been hydrated with IV fluids in the ED, and she has been treated with medications to help lower her potassium level. Patient has no significant traumatic injury. Patient agrees with this plan. - Lab Data Result diagrams: 10/20/19 19:54 10/20/19 19:54 Lab Results 10/20/19 10/20/19 10/20/19 Range/Units 19:52 19:54 19:54 WBC 6.0 (3.8-10.6) k/uL RBC 4.70 (3.80-5.40) m/uL Hgb 13.9 (11.4-16.0) gm/dL Hct 41.8 (34.0-46.0) % MCV 89.0 (80.0-100.0) fL MCH 29.5 (25.0-35.0) pg MCHC 33.1 (31.0-37.0) g/dL RDW 13.2 (11.5-15.5) % Plt Count 224 (150-450) k/uL Neutrophils % 54 % Lymphocytes % 36 % Monocytes % 5 % Eosinophils % 2 % Basophils % 1 % Neutrophils # 3.3 (1.3-7.7) k/uL Lymphocytes # 2.2 (1.0-4.8) k/uL Monocytes # 0.3 (0-1.0) k/uL Eosinophils # 0.1 (0-0.7) k/uL Basophils # 0.0 (0-0.2) k/uL PT 10.4 (9.0-12.0) sec INR 1.0 (<1.2) APTT 25.7 (22.0-30.0) sec Sodium (137-145) mmol/L Potassium (3.5-5.1) mmol/L Chloride (98-107) mmol/L Carbon Dioxide (22-30) mmol/L Anion Gap mmol/L BUN (7-17) mg/dL Creatinine (0.52-1.04) mg/dL Est GFR (CKD-EPI)AfAm (>60 ml/min/1.73 sqM) Est GFR (CKD-EPI)NonAf (>60 ml/min/1.73 sqM) Glucose (74-99) mg/dL POC Glucose (mg/dL) 122 H (75-99) mg/dL POC Glu Proofreader ID Deja Peña Plasma Lactic Acid Kenrick (0.7-2.0) mmol/L Calcium (8.4-10.2) mg/dL Magnesium (1.6-2.3) mg/dL Total Bilirubin (0.2-1.3) mg/dL AST (14-36) U/L ALT (4-34) U/L Alkaline Phosphatase (38-126) U/L Creatine Kinase (30-135) U/L Troponin I (0.000-0.034) ng/mL Total Protein (6.3-8.2) g/dL Albumin (3.5-5.0) g/dL 10/20/19 10/20/19 10/20/19 Range/Units 19:54 19:54 19:54 WBC (3.8-10.6) k/uL RBC (3.80-5.40) m/uL Hgb (11.4-16.0) gm/dL Hct (34.0-46.0) % MCV (80.0-100.0) fL MCH (25.0-35.0) pg MCHC (31.0-37.0) g/dL RDW (11.5-15.5) % Plt Count (150-450) k/uL Neutrophils % % Lymphocytes % % Monocytes % % Eosinophils % % Basophils % % Neutrophils # (1.3-7.7) k/uL Lymphocytes # (1.0-4.8) k/uL Monocytes # (0-1.0) k/uL Eosinophils # (0-0.7) k/uL Basophils # (0-0.2) k/uL PT (9.0-12.0) sec INR (<1.2) APTT (22.0-30.0) sec Sodium 130 L (137-145) mmol/L Potassium 5.8 H (3.5-5.1) mmol/L Chloride 98 (98-107) mmol/L Carbon Dioxide 23 (22-30) mmol/L Anion Gap 9 mmol/L BUN 55 H (7-17) mg/dL Creatinine 1.74 H (0.52-1.04) mg/dL Est GFR (CKD-EPI)AfAm 32 (>60 ml/min/1.73 sqM) Est GFR (CKD-EPI)NonAf 27 (>60 ml/min/1.73 sqM) Glucose 118 H (74-99) mg/dL POC Glucose (mg/dL) (75-99) mg/dL POC Glu Proofreader ID Plasma Lactic Acid Kenrick 1.6 (0.7-2.0) mmol/L Calcium 9.3 (8.4-10.2) mg/dL Magnesium 2.2 (1.6-2.3) mg/dL Total Bilirubin 0.5 (0.2-1.3) mg/dL AST 44 H (14-36) U/L ALT 24 (4-34) U/L Alkaline Phosphatase 85 (38-126) U/L Creatine Kinase (30-135) U/L Troponin I <0.012 (0.000-0.034) ng/mL Total Protein 7.0 (6.3-8.2) g/dL Albumin 4.2 (3.5-5.0) g/dL 10/20/19 Range/Units 19:54 WBC (3.8-10.6) k/uL RBC (3.80-5.40) m/uL Hgb (11.4-16.0) gm/dL Hct (34.0-46.0) % MCV (80.0-100.0) fL MCH (25.0-35.0) pg MCHC (31.0-37.0) g/dL RDW (11.5-15.5) % Plt Count (150-450) k/uL Neutrophils % % Lymphocytes % % Monocytes % % Eosinophils % % Basophils % % Neutrophils # (1.3-7.7) k/uL Lymphocytes # (1.0-4.8) k/uL Monocytes # (0-1.0) k/uL Eosinophils # (0-0.7) k/uL Basophils # (0-0.2) k/uL PT (9.0-12.0) sec INR (<1.2) APTT (22.0-30.0) sec Sodium (137-145) mmol/L Potassium (3.5-5.1) mmol/L Chloride (98-107) mmol/L Carbon Dioxide (22-30) mmol/L Anion Gap mmol/L BUN (7-17) mg/dL Creatinine (0.52-1.04) mg/dL Est GFR (CKD-EPI)AfAm (>60 ml/min/1.73 sqM) Est GFR (CKD-EPI)NonAf (>60 ml/min/1.73 sqM) Glucose (74-99) mg/dL POC Glucose (mg/dL) (75-99) mg/dL POC Glu Proofreader ID Plasma Lactic Acid Kenrick (0.7-2.0) mmol/L Calcium (8.4-10.2) mg/dL Magnesium (1.6-2.3) mg/dL Total Bilirubin (0.2-1.3) mg/dL AST (14-36) U/L ALT (4-34) U/L Alkaline Phosphatase (38-126) U/L Creatine Kinase 205 H (30-135) U/L Troponin I (0.000-0.034) ng/mL Total Protein (6.3-8.2) g/dL Albumin (3.5-5.0) g/dL - Radiology Data Radiology results: report reviewed (Noncontrast CT head and cervical spine are negative), image reviewed (Chest, sacrum/coccyx and left ankle x-rays are all negative) Disposition Clinical Impression: Syncope, Fall, Renal insufficiency, Hyperkalemia Disposition: ADMITTED IP TO THIS [facility] Condition: Stable Is patient prescribed a controlled substance at d/c from ED?: No Time of Disposition: 22:32
[2019-10-20 20:33] LABS: Basophils % (A) 1 %; Eosinophils # (A) 0.1 k/uL (0-0.7); Eosinophils % (A) 2 %; HCT 41.8 % (34.0-46.0); HGB 13.9 gm/dL (11.4-16.0); Lymphocytes # (A) 2.2 k/uL (1.0-4.8); Lymphocytes % (A) 36 %; MCH 29.5 pg (25.0-35.0); MCHC 33.1 g/dL (31.0-37.0); Mean Platelet Volume 7.1; Monocytes # (A) 0.3 k/uL (0-1.0); Monocytes % (A) 5 %; Neutrophils # (A) 3.3 k/uL (1.3-7.7); Neutrophils % (A) 54 %; Platelet Count 224 k/uL (150-450); RDW 13.2 % (11.5-15.5)
[2019-10-20 20:43] LABS: Albumin 4.2 g/dL (3.5-5.0); Calcium 9.3 mg/dL (8.4-10.2); Magnesium 2.2 mg/dL (1.6-2.3); Total Bilirubin 0.5 mg/dL (0.2-1.3)
[2019-10-20 20:50] LABS: Potassium 5.8 mmol/L (3.5-5.1)
[2019-10-20 21:00] LABS: Partial Thromboplastin Time 25.7 sec (22.0-30.0); Prothrombin Time 10.4 sec (9.0-12.0)
--- NOTE | 2019-10-20 21:05 | CT ---
EXAMINATION TYPE: CT brain rob wo con DATE OF EXAM: 10/20/2019 COMPARISON: 10/10/2019 CT scan of the brain HISTORY: Fall, syncope. CT DLP: 1557.8 mGycm Automated exposure control for dose reduction was used. Exam performed with no contrast. There is mild cerebral atrophy. There is no mass effect nor midline shift. There is no sign of intrac ranial hemorrhage. The calvarium is intact. Cervical vertebra have normal alignment. There is degenerative disc space From C3 to C7 with mild spurring of the endplates. There is mild cervical hypertrophic facet arthropa thy. Posterior elements are intact. There is no evidence for fracture. Skull base is intact. IMPRESSION: Cerebral atrophy. No acute intracranial abnormality. No change. Multilevel spondylotic changes in the cervical spine. No fracture seen.
[2019-10-20] MEDS ORDERED: HYDROmorphone 0.5 MG/0.5 ML SYRINGE IVP STA (21:07)
[2019-10-20] MEDS ORDERED: SODIUM CHLORIDE 0.9% 500 ML 500 ML IV ONE (21:15)
--- NOTE | 2019-10-20 22:11 | XR ---
EXAMINATION TYPE: XR chest 2V DATE OF EXAM: 10/20/2019 COMPARISON: 10/10/2019 HISTORY: Syncope TECHNIQUE: FINDINGS: There is no heart failure nor confluent pneumonic infiltrate. There is hiatal hernia. There is bilateral shoulder prosthesis. There are chest leads. There are no hilar masses. IMPRESSION: No active cardiopulmonary disease. No change.
--- NOTE | 2019-10-20 22:12 | XR ---
EXAMINATION TYPE: XR sacrum coccyx DATE OF EXAM: 10/20/2019 COMPARISON: NONE HISTORY: Pain. Fall. TECHNIQUE: 3 views FINDINGS: Segments have normal alignment. Sacroiliac joints appear intact. I see no fracture. There i s posterior fusion surgery in the lower lumbar spine at levels L4 and L5 and S1. IMPRESSION: No fracture seen.
--- NOTE | 2019-10-20 22:13 | XR ---
EXAMINATION TYPE: XR ankle complete LT DATE OF EXAM: 10/20/2019 COMPARISON: NONE HISTORY: Ankle pain TECHNIQUE: 3 views FINDINGS: Ankle mortise is anatomic. I see no fracture nor dislocation. Joint spaces are normal. Ther e is previous fusion surgery at the first tarsometatarsal joint. IMPRESSION: No acute abnormality of the left ankle. No fracture seen.
[2019-10-20] MEDS ORDERED: SODIUM BICARB 8.4% 50 ML SYR (1 MEQ/ML) IV STA (22:26)
[2019-10-20] MEDS ORDERED: INSULIN REGULAR 100 UNIT/ML VIAL IV ONE (22:26)
[2019-10-20] MEDS ORDERED: DEXTROSE 50% SYRINGE 50 ML IVP STA (22:27)
[2019-10-20] MEDS ORDERED: HYDROmorphone 0.5 MG/0.5 ML SYRINGE IVP PRN (22:32)
[2019-10-20] MEDS ORDERED: NALOXONE 0.4 MG/ML 1 ML VIAL IV PRN (22:32)
[2019-10-21 00:53] LABS: Appearance,Urine Cloudy (Clear); Bilirubin,Urine Negative (Negative); Blood,Urine Negative (Negative); Color,Urine Yellow; Glucose,Urine (UA) Negative (Negative); Hyaline Casts,Urine 3 /lpf (0-2); Ketones,Urine Negative (Negative); Leukocyte Esterase,Urine Negative (Negative); Nitrite,Urine Negative (Negative); PH, Urine 5.5 (5.0-8.0); Protein,Urine Negative (Negative); Specific Gravity,Urine 1.018 (1.001-1.035); Squamous Epithelial Cell,Urine 3 /hpf (0-4); Uric Acid Crystals,Urine Occasional /hpf; Urobilinogen,Urine <2.0 mg/dL (<2.0); WBC,Urine 1 /hpf (0-5)
[2019-10-21] MEDS: SODIUM CHLORIDE 0.9% 1,000 ML IV SCH ×3 (00:58→23:34)
[2019-10-21] MEDS ORDERED: APIXABAN 5 MG TAB PO SCH ×2 (06:00→09:00)
[2019-10-21 08:58] LABS: Basophils % (A) 0 %; Eosinophils # (A) 0.1 k/uL (0-0.7); Eosinophils % (A) 2 %; HCT 38.8 % (34.0-46.0); HGB 12.7 gm/dL (11.4-16.0); Lymphocytes # (A) 1.2 k/uL (1.0-4.8); Lymphocytes % (A) 18 %; MCH 29.5 pg (25.0-35.0); MCHC 32.7 g/dL (31.0-37.0); Mean Platelet Volume 7.1; Monocytes # (A) 0.3 k/uL (0-1.0); Monocytes % (A) 4 %; Neutrophils # (A) 4.9 k/uL (1.3-7.7); Neutrophils % (A) 75 %; Platelet Count 247 k/uL (150-450); RBC 4.32 m/uL (3.80-5.40); RDW 13.3 % (11.5-15.5); WBC 6.6 k/uL (3.8-10.6)
[2019-10-21] MEDS ORDERED: LISINOPRIL-HCTZ 20-12.5 MG 1 EACH TAB PO SCH (09:00)
[2019-10-21 09:05] LABS: Albumin 3.7 g/dL (3.5-5.0); Calcium 8.9 mg/dL (8.4-10.2); Potassium 5.8 mmol/L (3.5-5.1); Total Bilirubin 0.3 mg/dL (0.2-1.3); Total Protein 6.4 g/dL (6.3-8.2)
[2019-10-21] MEDS ORDERED: ALBUTEROL NEBULIZED 2.5 MG/3 ML INHALATION PRN (09:30)
[2019-10-21] MEDS ORDERED: SODIUM POLYSTYRENE SULFONATE 15 GM/60 ML BOTTLE PO STA (10:10)
[2019-10-21] MEDS: busPIRone HCl 5 MG TAB PO SCH ×2 (10:22→17:08)
[2019-10-21] MEDS: TAMSULOSIN 0.4 MG CAP.ER.24H PO SCH (10:23)
[2019-10-21] MEDS: ACETAMINOPHEN TAB 325 MG TAB PO PRN (10:23)
[2019-10-21] MEDS: GABAPENTIN 100 MG CAP PO SCH ×3 (10:23→20:57)
[2019-10-21] MEDS: ASPIRIN 81 MG PO SCH (10:23)
[2019-10-21] MEDS: PARoxetine 20 MG TAB PO SCH (10:23)
[2019-10-21] MEDS: MECLIZINE 12.5 MG TAB PO SCH ×2 (17:09→20:57)
[2019-10-21] MEDS: APIXABAN 2.5 MG TABLET PO SCH (20:56)
[2019-10-21] MEDS ORDERED: QUEtiapine 50 MG TAB PO SCH (21:00)
[2019-10-21] MEDS ORDERED: ATORVASTATIN 40 MG TAB PO SCH (21:00)
[2019-10-21] MEDS ORDERED: GABAPENTIN 100 MG CAP PO SCH (21:00)
[2019-10-21] MEDS ORDERED: LATANOPROST 0.005% OPHTH DROPS 2.5 ML BTL BOTH EYES SCH (21:00)
--- NOTE | 2019-10-21 21:30 | P.HPIM ---
History of Present Illness H&P Date: 10/21/19 Chief Complaint: Near-syncope Chief Complaint: Left-sided weakness History of presenting complaint: This is a pleasant 78-year-old patient of Dr. macias. 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 Patient had multiple TIAs it. Patient was admitted to the hospital in February 2019 with left-sided weakness. That occasion MRI of the brain was unremarkable, 2-D echo showed EF of 55-60% no other abnormality, CT angiogram neck was again unremarkable, carotid Doppler showed a 50-69% left internal carotid stenosis, questionable PE, with negative Doppler of lower extremity, and a decision was made to treat with anticoagulation for 6 months. Patient was seen by neurology. Patient again was here in May 2019. Neuro symptoms.-Computed tomography scan of the brain, CT angiogram brain was negative. Also the cervical spine MRI that came back to be negative. Patient does follow with neurologist Dr. Hernandez. Patient presented this time when she had gone to the fridge to take out food and then should fallen backwards. She has been feeling recently dizzy tired decreased appetite. Patient is found to be in acute renal failure with the bun of 55 creatinine 1.74. Blood work was normal on October 09. Review of systems: GEN.: Tired, decreased appetite EYES: None HEENT: Decreased hearing the left ear NECK: None RESPIRATORY: None CARDIOVASCULAR: None GASTROINTESTINAL: None GENITOURINARY: None MUSCULOSKELETAL: Chronic joint pains LYMPHATICS: None HEMATOLOGICAL: None PSYCHIATRY: None NEUROLOGICAL: As above, nonfocal Past medical history: Fibromyalgia, hyperlipidemia, osteoarthritis, Mnire's disease primarily left ear, peptic ulcer disease, multiple TIAs., Possible PE, GERD, left internal carotid artery 50-69% stenosis, restless leg syndrome Social history: Lives alone. In an apartment. Does use a walker. Family history: Reviewed, noncontributory presentation VITAL SIGNS: 98.2, 69, 18, 121/54, 99% on 2 L GENERAL: BMI 41, laying in bed, awake EYES: Pupils equal. Conjunctiva normal. HEENT: External appearance of nose and ears normal, oral cavity grossly normal decreased hearing in the left ear. NECK: JVD not raised; masses not palpable. HEART: First and second heart sounds are normal; no edema. LUNGS: Respiratory rate normal; clear to auscultation. ABDOMEN: Soft, nontender, liver spleen not palpable, no masses palpable. LYMPHATICS: No lymph nodes palpable in the axilla and neck. PSYCH: Alert and oriented x3; mood and affect normal. NEUROLOGICAL: Cranial nerves grossly intact. Power and sensation grossly intact.. INVESTIGATIONS, reviewed in the clinical context: White count 6 hemoglobin 13.9 platelets 224 potassium 5.8 bun 55 creatinine 1.74 EKG tracing personally reviewed by me- Chest x-ray films personally reviewed by me-elevated right diaphragm some cardiomegaly Sacrum and coccyx x-ray, had cervical spine computed tomography scan ankle [id number] for any fracture Previous testing Bun 23 creatinine 1.01 on October 09 Assessment: -Acute kidney injury, prerenal from decreased oral intake and patient be on Ze storetic -Hypokalemia from acute kidney injury and being on EDWIN inhibitor -Syncope from above -History of multiple TIAs -Morbid obesity BMI 40. 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 Zestoretic was discontinued. Repeat labs in the morning. Care was discussed with the patient. Questions were answered. Patient feeling better with IV fluids.. Past Medical History Past Medical History: CVA/TIA, Fibromyalgia, GERD/Reflux, Hyperlipidemia, Memory Impairment, Osteoarthritis (OA), Skin Disorder, Syncope Additional Past Medical History / Comment(s): MENIERE'S LEFT EAR, PEPTIC ULCERS, tia x 14- last 05/2019. History of Any Multi-Drug Resistant Organisms: None Reported Past Surgical History: Back Surgery, Cholecystectomy, Joint Replacement, Orthopedic Surgery Additional Past Surgical History / Comment(s): LOOP RECORDER 2010, ORIF LEFT FOOT, rt foot surgery, JT REPL WINNIE KNEES & WINNIE SHOULDERS, WINNIE CATARACT, gianni and screws in back Past Anesthesia/Blood Transfusion Reactions: No Reported Reaction Past Psychological History: Anxiety, Depression Smoking Status: Never smoker Past Alcohol Use History: None Reported Past Drug Use History: None Reported - Past Family History Father Family Medical History: Cancer Mother Family Medical History: Cancer Medications and Allergies Home Medications Medication Instructions Recorded Confirmed Type Gabapentin [Neurontin] 100 mg PO TID 12/12/13 10/21/19 History QUEtiapine [SEROquel] 50 mg PO HS 12/12/13 10/21/19 History Tamsulosin HCl [Flomax] 0.4 mg PO DAILY 12/12/13 10/21/19 History PARoxetine HCL [Paxil Cr] 25 mg PO DAILY 09/25/17 10/21/19 History rOPINIRole HCL [Requip] 1 mg PO TID 09/25/17 10/21/19 History Latanoprost [Xalatan 0.005%] 1 drop BOTH EYES HS 03/11/19 10/21/19 History Lisinopril-Hctz 20-12.5 mg 2 tab PO DAILY 03/11/19 10/21/19 History [Zestoretic 20-12.5] Meclizine [Antivert] 12.5 mg PO TID 03/11/19 10/21/19 History Turmeric Root Extract [Turmeric] 500 mg PO BID 03/11/19 10/21/19 History busPIRone HCL 15 mg PO BID@1000,1800 03/13/19 10/21/19 History Cholecalciferol [Vitamin D3 (25 1,000 unit PO DAILY 06/27/19 10/21/19 History Mcg = 1000 Iu)] Multivitamins, Thera [Multivitamin 1 tab PO DAILY 06/27/19 10/21/19 History (formulary)] Albuterol Sulfate [Proair Hfa] 1 - 2 puff INHALATION RT-QID PRN 10/11/19 10/21/19 History Apixaban [Eliquis] 5 mg PO BID@0600,1800 10/11/19 10/21/19 History Aspirin EC [Ecotrin Low Dose] 81 mg PO DAILY 10/11/19 10/21/19 History Atorvastatin Calcium [Lipitor] 40 mg PO HS #30 tablet 10/11/19 10/21/19 Rx Allergies Allergy/AdvReac Type Severity Reaction Status Date / Time nickel [Nickel] Allergy Rash/Hives Verified 10/21/19 08:30 codeine AdvReac headache Verified 10/21/19 08:30 Physical Exam Vitals: Vital Signs Temp Pulse Pulse Pulse Pulse Resp BP 10/21/19 08:35 98.4 F 88 73 18 10/21/19 08:00 18 10/21/19 03:03 62 16 10/21/19 00:00 98.1 F 81 16 10/20/19 23:20 59 L 14 116/45 10/20/19 23:10 58 L 14 116/45 10/20/19 23:00 64 15 118/61 10/20/19 22:50 58 L 16 118/61 10/20/19 22:40 61 12 121/54 10/20/19 22:30 60 14 121/54 10/20/19 22:20 59 L 14 121/54 10/20/19 22:10 58 L 12 121/54 10/20/19 22:00 56 L 14 121/54 10/20/19 21:50 121/54 10/20/19 21:40 55 L 14 121/54 10/20/19 21:30 56 L 14 121/54 10/20/19 21:20 57 L 15 121/54 10/20/19 21:10 56 L 19 121/54 10/20/19 21:00 55 L 19 121/54 10/20/19 20:50 59 L 21 121/54 10/20/19 20:40 121/54 10/20/19 20:30 59 L 19 121/54 10/20/19 20:20 61 12 121/54 10/20/19 20:10 59 L 16 121/54 10/20/19 20:00 58 L 19 121/54 10/20/19 19:50 121/54 10/20/19 19:48 98.2 F 69 18 121/54 10/20/19 19:43 BP BP BP Pulse Ox 10/21/19 08:35 157/66 125/58 99 10/21/19 08:00 10/21/19 03:03 126/60 96 10/21/19 00:00 130/58 97 10/20/19 23:20 100 10/20/19 23:10 99 10/20/19 23:00 97 10/20/19 22:50 100 10/20/19 22:40 100 10/20/19 22:30 100 10/20/19 22:20 100 10/20/19 22:10 100 10/20/19 22:00 100 10/20/19 21:50 10/20/19 21:40 100 03/22/20 21:30 100 10/20/19 21:20 100 10/20/19 21:10 99 10/20/19 21:00 100 10/20/19 20:50 100 10/20/19 20:40 10/20/19 20:30 100 10/20/19 20:20 100 10/20/19 20:10 100 10/20/19 20:00 100 10/20/19 19:50 10/20/19 19:48 99 10/20/19 19:43 99 Intake and Output 10/20/19 10/21/19 10/21/19 22:59 06:59 14:59 Intake Total 180 Output Total 800 Balance -800 180 Intake: Oral 180 Output: Urine 800 Other: Voiding Method Bedside Commode Bedside Commode # Voids 1 # Bowel Movements 1 Weight 98.94 kg 95.3 kg Results CBC & Chem 7: 10/21/19 08:12 10/21/19 15:41 Labs: Abnormal Lab Results - Last 24 Hours (Table) 10/20/19 10/20/19 10/20/19 Range/Units 19:52 19:54 19:54 Sodium 130 L (137-145) mmol/L Potassium 5.8 H (3.5-5.1) mmol/L BUN 55 H (7-17) mg/dL Creatinine 1.74 H (0.52-1.04) mg/dL Glucose 118 H (74-99) mg/dL POC Glucose (mg/dL) 122 H (75-99) mg/dL AST 44 H (14-36) U/L Creatine Kinase 205 H (30-135) U/L Urine Appearance (Clear) Uric Acid Crystals (None) /hpf Hyaline Casts (0-2) /lpf 10/21/19 10/21/19 Range/Units 00:20 08:12 Sodium 133 L (137-145) mmol/L Potassium 5.8 H (3.5-5.1) mmol/L BUN 45 H (7-17) mg/dL Creatinine 1.50 H (0.52-1.04) mg/dL Glucose 137 H (74-99) mg/dL POC Glucose (mg/dL) (75-99) mg/dL AST 37 H (14-36) U/L Creatine Kinase (30-135) U/L Urine Appearance Cloudy H (Clear) Uric Acid Crystals Occasional H (None) /hpf Hyaline Casts 3 H (0-2) /lpf Thrombosis Risk Factor Assmnt - Choose All That Apply Any of the Below Risk Factors Present?: Yes Each Factor Represents 1 point: Obesity (BMI >25), Swollen legs (current) Other Risk Factors: Yes Each Risk Factor Represents 3 Points: Age 75 years or older Other congenital or acquired thrombophilia - If yes, enter type in comment: No Thrombosis Risk Factor Assessment Total Risk Factor Score: 5 Thrombosis Risk Factor Assessment Level: High Risk
[2019-10-22] MEDS: SODIUM CHLORIDE 0.9% 1,000 ML IV SCH (02:26)
[2019-10-22 06:03] LABS: Calcium 8.7 mg/dL (8.4-10.2); Potassium 4.3 mmol/L (3.5-5.1)
[2019-10-22] MEDS ORDERED: MULTIVITAMINS, THERA 1 EACH TAB PO SCH (09:00)
[2019-10-22] MEDS ORDERED: CHOLECALCIFEROL 1,000 UNIT TAB PO SCH (09:00)
[2019-10-22] MEDS: busPIRone HCl 5 MG TAB PO SCH (10:02)
[2019-10-22] MEDS: GABAPENTIN 100 MG CAP PO SCH (10:02)
[2019-10-22] MEDS: PARoxetine 20 MG TAB PO SCH (10:03)
[2019-10-22] MEDS: ASPIRIN 81 MG PO SCH (10:03)
[2019-10-22] MEDS: TAMSULOSIN 0.4 MG CAP.ER.24H PO SCH (10:03)
[2019-10-22] MEDS: APIXABAN 2.5 MG TABLET PO SCH (10:03)
[2019-10-22] MEDS: MECLIZINE 12.5 MG TAB PO SCH (10:09)
[2019-10-22] MEDS: ACETAMINOPHEN TAB 325 MG TAB PO PRN (11:46)
[2019-10-22 12:59] VITALS: RESP 20
[2019-10-22 13:01] VITALS: BP 129/62; PULSE 61; TEMP 98.4
--- NOTE | 2019-10-22 20:12 | P.DS ---
Providers Date of admission: 10/20/19 22:32 Expected date of discharge: 10/22/19 Attending physician: Real Rangel Primary care physician: Elfego Roberts [facility] Course: Chief Complaint: Passed out History of presenting complaint: This is a pleasant 78-year-old patient of Dr. roberts. 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 Patient had multiple TIAs it. Patient was admitted to the hospital in February 2019 with left-sided weakness. That occasion MRI of the brain was unremarkable, 2-D echo showed EF of 55-60% no other abnormality, CT angiogram neck was again unremarkable, carotid Doppler showed a 50-69% left internal carotid stenosis, questionable PE, with negative Doppler of lower extremity, and a decision was made to treat with anticoagulation for 6 months. Patient was seen by neurology. Patient again was here in May 2019. Neuro symptoms.-Computed tomography scan of the brain, CT angiogram brain was negative. Also the cervical spine MRI that came back to be negative. Patient does follow with neurologist Dr. Hernandez. Patient presented this time when she had gone to the fridge to take out food and then should fallen backwards. She has been feeling recently dizzy tired decreased appetite. Patient is found to be in acute renal failure with the bun of 55 creatinine 1.74. Blood work was normal on October 09. Admitted with syncope from acute kidney injury. Given IV fluids. BUN/creatinine on admission was 45/1.50. Upon discharge down to 34/1.03. EDWIN inhibitor was discontinued. Today-patient feeling back to baseline. Care was discussed with the patient. Some tenderness at the back where she had fallen. No fracture. VITAL SIGNS: 98.4, 61, 20, 129/62, 97% on room air GENERAL: Sitting up, comfortable EYES: Pupils equal. Conjunctiva normal. HEENT: External appearance of nose and ears normal, oral cavity grossly normal decreased hearing in the left ear. NECK: JVD not raised; masses not palpable. HEART: First and second heart sounds are normal; no edema. LUNGS: Respiratory rate normal; clear to auscultation. ABDOMEN: Soft, nontender, liver spleen not palpable, no masses palpable. PSYCH: Alert and oriented x3; mood and affect normal. INVESTIGATIONS, reviewed in the clinical context: Potassium 4.3 creatinine 1.03 Previous testing White count 6 hemoglobin 13.9 platelets 224 potassium 5.8 bun 55 creatinine 1.74 EKG tracing personally reviewed by me- Chest x-ray films personally reviewed by me-elevated right diaphragm some cardiomegaly Sacrum and coccyx x-ray, had cervical spine computed tomography scan ankle [id number] for any fracture Previous testing Bun 23 creatinine 1.01 on October 09 Assessment: -Acute kidney injury, prerenal from decreased oral intake and patient be on Zestoretic, POA -Hyperkalemia from acute kidney injury and being on EDWIN inhibitor, POA -Syncope from above -History of multiple TIAs -Morbid obesity BMI 40. 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 -Peptic ulcer disease -Essential hypertension -Pulmonary embolism in February 2019 on eliquis Disposition: Home Patient Condition at Discharge: Stable Plan - Discharge Summary Discharge Rx Participant: No New Discharge Prescriptions: Continue QUEtiapine [SEROquel] 50 mg PO HS Gabapentin [Neurontin] 100 mg PO TID Tamsulosin HCl [Flomax] 0.4 mg PO DAILY rOPINIRole HCL [Requip] 1 mg PO TID PARoxetine HCL [Paxil Cr] 25 mg PO DAILY Meclizine [Antivert] 12.5 mg PO TID Latanoprost [Xalatan 0.005%] 1 drop BOTH EYES HS busPIRone HCL 15 mg PO BID@1000,1800 Multivitamins, Thera [Multivitamin (formulary)] 1 tab PO DAILY Cholecalciferol [Vitamin D3 (25 Mcg = 1000 Iu)] 1,000 unit PO DAILY Albuterol Sulfate [Proair Hfa] 1 - 2 puff INHALATION RT-QID PRN PRN Reason: Shortness Of Breath Aspirin EC [Ecotrin Low Dose] 81 mg PO DAILY Apixaban [Eliquis] 5 mg PO BID@0600,1800 Atorvastatin Calcium [Lipitor] 40 mg PO HS #30 tablet Discontinued Lisinopril-Hctz 20-12.5 mg [Zestoretic 20-12.5] 2 tab PO DAILY No Action Turmeric Root Extract [Turmeric] 500 mg PO BID Discharge Medication List Gabapentin [Neurontin] 100 mg PO TID 12/12/13 [History] QUEtiapine [SEROquel] 50 mg PO HS 12/12/13 [History] Tamsulosin HCl [Flomax] 0.4 mg PO DAILY 12/12/13 [History] PARoxetine HCL [Paxil Cr] 25 mg PO DAILY 09/25/17 [History] rOPINIRole HCL [Requip] 1 mg PO TID 09/25/17 [History] Latanoprost [Xalatan 0.005%] 1 drop BOTH EYES HS 03/11/19 [History] Meclizine [Antivert] 12.5 mg PO TID 03/11/19 [History] Turmeric Root Extract [Turmeric] 500 mg PO BID 03/11/19 [History] busPIRone HCL 15 mg PO BID@1000,1800 03/13/19 [History] Cholecalciferol [Vitamin D3 (25 Mcg = 1000 Iu)] 1,000 unit PO DAILY 06/27/19 [History] Multivitamins, Thera [Multivitamin (formulary)] 1 tab PO DAILY 06/27/19 [History] Albuterol Sulfate [Proair Hfa] 1 - 2 puff INHALATION RT-QID PRN 10/11/19 [History] Apixaban [Eliquis] 5 mg PO BID@0600,1800 10/11/19 [History] Aspirin EC [Ecotrin Low Dose] 81 mg PO DAILY 10/11/19 [History] Atorvastatin Calcium [Lipitor] 40 mg PO HS #30 tablet 10/11/19 [Rx] Follow up Appointment(s)/Referral(s): Elfego Roberts MD [Primary Care Provider] - 10/24/19 10:45 am Patient Instructions/Handouts: Syncope (DC), Fall Prevention for Older Adults (DC) Discharge Disposition: HOME SELF-CARE
== END 2019-10-22 14:20 | disposition home or self-care (01) ==
LOC: EC 19:40 → 3SCARD 22:32
PROVIDERS: ADMIT Hospitalist; ATTEND Hospitalist
DX: N17.9 Acute kidney failure, unspecified (principal); E87.5 Hyperkalemia; M79.7 Fibromyalgia; K21.9 Gastro-esophageal reflux disease without esophagitis; E78.5 Hyperlipidemia, unspecified; R41.3 Other amnesia; F41.9 Anxiety disorder, unspecified; F32.9 Major depressive disorder, single episode, unspecified; G25.81 Restless legs syndrome; H81.03 Meniere's disease, bilateral; E87.6 Hypokalemia; M19.91 Primary osteoarthritis, unspecified site; I10 Essential (primary) hypertension; M25.572 Pain in left ankle and joints of left foot; R51 Headache; M54.9 Dorsalgia, unspecified; I65.22 Occlusion and stenosis of left carotid artery; E66.01 Morbid (severe) obesity due to excess calories; Z68.41 Body mass index [BMI] 40.0-44.9, adult; Z79.899 Other long term (current) drug therapy; Z79.01 Long term (current) use of anticoagulants; Z79.82 Long term (current) use of aspirin; Z79.2 Long term (current) use of antibiotics; Z88.5 Allergy status to narcotic agent; Z91.048 Other nonmedicinal substance allergy status; Z90.49 Acquired absence of other specified parts of digestive tract; W19.XXXA Unspecified fall, initial encounter; Y93.G9 Activity, other involving cooking and grilling; Y92.000 Kitchen of unspecified non-institutional (private) residence as the place of occurrence of the external cause; Z86.73 Personal history of transient ischemic attack (TIA), and cerebral infarction without residual deficits; Z87.11 Personal history of peptic ulcer disease; Z86.711 Personal history of pulmonary embolism; Z80.9 Family history of malignant neoplasm, unspecified
CPT/HCPCS: 96361 ×3; 96374; 99285; 36415; 93005; 80053 ×2; 80048; 82550; 83605; 83735; 84132; 84484 ×2; 85025 ×2; 85610; 85730; 81001; 72220; 73610; 71046; 72125; 70450; G0378 ×3; J1170

== ENCOUNTER 2020-06-23 22:42 | Inpatient (IN) | payer MEDICARE ==
--- NOTE | 2020-06-23 23:43 | ED ---
General Adult HPI - General Stated complaint: NIKA Time Seen by Provider: 06/23/20 23:01 Source: patient, EMS, RN notes reviewed, old records reviewed - History of Present Illness Initial comments: 79-year-old female presents for evaluation of generalized weakness, fatigue, and dyspnea. Patient states she felt like she was coming down with the flu, her symptoms began approximately 3 days prior. She's had no cough. No vomiting. No measured fever. She states she just had some increased dyspnea. Denies central chest pain. Denies unilateral leg swelling. She is uncertain if she's been exposed to anyone with coronavirus. No abdominal pain, no diarrhea. - Related Data Home Medications Medication Instructions Recorded Confirmed Gabapentin [Neurontin] 100 mg PO TID 12/12/13 10/21/19 QUEtiapine [SEROquel] 50 mg PO HS 12/12/13 10/21/19 Tamsulosin HCl [Flomax] 0.4 mg PO DAILY 12/12/13 10/21/19 PARoxetine HCL [Paxil Cr] 25 mg PO DAILY 09/25/17 10/21/19 rOPINIRole HCL [Requip] 1 mg PO TID 09/25/17 10/21/19 Latanoprost [Xalatan 0.005%] 1 drop BOTH EYES HS 03/11/19 10/21/19 Meclizine [Antivert] 12.5 mg PO TID 03/11/19 10/21/19 Turmeric Root Extract [Turmeric] 500 mg PO BID 03/11/19 10/21/19 busPIRone HCL 15 mg PO BID@1000,1800 03/13/19 10/21/19 Cholecalciferol [Vitamin D3 (25 1,000 unit PO DAILY 06/27/19 10/21/19 Mcg = 1000 Iu)] Multivitamins, Thera [Multivitamin 1 tab PO DAILY 06/27/19 10/21/19 (formulary)] Albuterol Sulfate [Proair Hfa] 1 - 2 puff INHALATION RT-QID PRN 10/11/19 10/21/19 Apixaban [Eliquis] 5 mg PO BID@0600,1800 10/11/19 10/21/19 Aspirin EC [Ecotrin Low Dose] 81 mg PO DAILY 03/13/20 03/23/20 Previous Rx's Medication Instructions Recorded Atorvastatin Calcium [Lipitor] 40 mg PO HS #30 tablet 10/11/19 Allergies Allergy/AdvReac Type Severity Reaction Status Date / Time nickel [Nickel] Allergy Rash/Hives Verified 06/23/20 23:46 codeine AdvReac headache Verified 06/23/20 23:46 Review of Systems ROS Statement: Those systems with pertinent positive or pertinent negative responses have been documented in the HPI. ROS Other: All systems not noted in ROS Statement are negative. Past Medical History Past Medical History: CVA/TIA, Fibromyalgia, GERD/Reflux, Hyperlipidemia, Memory Impairment, Osteoarthritis (OA), Skin Disorder, Syncope Additional Past Medical History / Comment(s): MENIERE'S LEFT EAR, PEPTIC ULCE RS, tia x 14- last 05/2019. History of Any Multi-Drug Resistant Organisms: None Reported Past Surgical History: Back Surgery, Cholecystectomy, Joint Replacement, Orthopedic Surgery Additional Past Surgical History / Comment(s): LOOP RECORDER 2010, ORIF LEFT FOOT, rt foot surgery, JT REPL WINNIE KNEES & WINNIE SHOULDERS, WINNIE CATARACT, gianni and screws in back Past Anesthesia/Blood Transfusion Reactions: No Reported Reaction Past Psychological History: Anxiety, Depression Past Alcohol Use History: None Reported Past Drug Use History: None Reported - Past Family History Father Family Medical History: Cancer Mother Family Medical History: Cancer General Exam General appearance: alert, in no apparent distress Head exam: Present: atraumatic, normocephalic Eye exam: Present: normal appearance ENT exam: Present: normal exam Neck exam: Present: normal inspection. Absent: tenderness, meningismus Respiratory exam: Present: rhonchi, decreased breath sounds. Absent: respiratory distress Cardiovascular Exam: Present: regular rate, normal rhythm GI/Abdominal exam: Present: soft. Absent: distended, tenderness, guarding Extremities exam: Present: normal inspection, normal capillary refill. Absent: pedal edema Neurological exam: Present: alert, oriented X3 Psychiatric exam: Present: normal affect, normal mood Skin exam: Present: warm, dry, intact. Absent: cyanosis, diaphoretic Course Vital Signs 06/23/20 06/23/20 06/23/20 22:50 23:10 23:45 Temperature 98.3 F 98.5 F Pulse Rate 63 58 L 58 L Respiratory 16 16 16 Rate Blood Pressure 232/110 223/104 205/101 O2 Sat by Pulse 96 100 Oximetry 06/24/20 06/24/20 06/24/20 00:16 01:34 02:25 Temperature Pulse Rate 58 L 53 L 77 Respiratory 16 30 H Rate Blood Pressure 174/87 163/99 198/97 O2 Sat by Pulse 100 100 Oximetry EKG Findings - EKG Comments: EKG Findings:: EKG: Sinus bradycardia, left atrial enlargement, incomplete right bundle, rate of 56, IL interval 156, QRS duration 94, QTC 414, T-wave inversion in lead V3 Medical Decision Making - Medical Decision Making 79-year-old female with lightheadedness, dyspnea, and fever. Patient's presentation is concerning for coronavirus. Workup was initiated, she has a normal CBC, she has an elevated d-dimer, elevated LDH, normal CRP. Patient has hypoxia and exertional dyspnea. Chest x-rays negative for focal pneumonia. CT angiography is negative for pulmonary embolism or acute findings. Because of the patient's requirement for supplemental oxygen she has been admitted with concern for coronavirus. Case is discussed with Dr. Lynn will accept. - Lab Data Result diagrams: 06/23/20 23:53 06/23/20 23:53 Lab Results 06/23/20 06/23/20 06/23/20 Range/Units 23:53 23:53 23:53 WBC 6.2 (3.8-10.6) k/uL RBC 4.79 (3.80-5.40) m/uL Hgb 14.6 (11.4-16.0) gm/dL Hct 43.2 (34.0-46.0) % MCV 90.1 (80.0-100.0) fL MCH 30.6 (25.0-35.0) pg MCHC 33.9 (31.0-37.0) g/dL RDW 13.6 (11.5-15.5) % Plt Count 240 (150-450) k/uL MPV 7.1 Neutrophils % 51 % Lymphocytes % 36 % Monocytes % 7 % Eosinophils % 3 % Basophils % 1 % Neutrophils # 3.1 (1.3-7.7) k/uL Lymphocytes # 2.2 (1.0-4.8) k/uL Monocytes # 0.5 (0-1.0) k/uL Eosinophils # 0.2 (0-0.7) k/uL Basophils # 0.1 (0-0.2) k/uL PT 10.5 (9.0-12.0) sec INR 1.0 (<1.2) APTT 27.9 (22.0-30.0) sec D-Dimer 0.67 H (<0.60) mg/L FEU Sodium 136 L (137-145) mmol/L Potassium 4.4 (3.5-5.1) mmol/L Chloride 104 (98-107) mmol/L Carbon Dioxide 27 (22-30) mmol/L Anion Gap 5 mmol/L BUN 25 H (7-17) mg/dL Creatinine 1.01 (0.52-1.04) mg/dL Est GFR (CKD-EPI)AfAm 61 (>60 ml/min/1.73 sqM) Est GFR (CKD-EPI)NonAf 53 (>60 ml/min/1.73 sqM) Glucose 96 (74-99) mg/dL Plasma Lactic Acid Kenrick (0.7-2.0) mmol/L Calcium 9.7 (8.4-10.2) mg/dL Magnesium 2.0 (1.6-2.3) mg/dL Total Bilirubin 0.5 (0.2-1.3) mg/dL AST 38 H (14-36) U/L ALT 20 (4-34) U/L Alkaline Phosphatase 123 (38-126) U/L Lactate Dehydrogenase 635 H (313-618) U/L Troponin I (0.000-0.034) ng/mL C-Reactive Protein <5.0 (<10.0) mg/L NT-Pro-B Natriuret Pep pg/mL Total Protein 6.9 (6.3-8.2) g/dL Albumin 4.0 (3.5-5.0) g/dL Coronavirus (PCR) (Not Detectd) Influenza Type A RNA (Not Detectd) Influenza Type B (PCR) (Not Detectd) 06/23/20 06/23/20 06/23/20 Range/Units 23:53 23:53 23:53 WBC (3.8-10.6) k/uL RBC (3.80-5.40) m/uL Hgb (11.4-16.0) gm/dL Hct (34.0-46.0) % MCV (80.0-100.0) fL MCH (25.0-35.0) pg MCHC (31.0-37.0) g/dL RDW (11.5-15.5) % Plt Count (150-450) k/uL MPV Neutrophils % % Lymphocytes % % Monocytes % % Eosinophils % % Basophils % % Neutrophils # (1.3-7.7) k/uL Lymphocytes # (1.0-4.8) k/uL Monocytes # (0-1.0) k/uL Eosinophils # (0-0.7) k/uL Basophils # (0-0.2) k/uL PT (9.0-12.0) sec INR (<1.2) APTT (22.0-30.0) sec D-Dimer (<0.60) mg/L FEU Sodium (137-145) mmol/L Potassium (3.5-5.1) mmol/L Chloride (98-107) mmol/L Carbon Dioxide (22-30) mmol/L Anion Gap mmol/L BUN (7-17) mg/dL Creatinine (0.52-1.04) mg/dL Est GFR (CKD-EPI)AfAm (>60 ml/min/1.73 sqM) Est GFR (CKD-EPI)NonAf (>60 ml/min/1.73 sqM) Glucose (74-99) mg/dL Plasma Lactic Acid Kenrick 0.8 (0.7-2.0) mmol/L Calcium (8.4-10.2) mg/dL Magnesium (1.6-2.3) mg/dL Total Bilirubin (0.2-1.3) mg/dL AST (14-36) U/L ALT (4-34) U/L Alkaline Phosphatase (38-126) U/L Lactate Dehydrogenase (313-618) U/L Troponin I (0.000-0.034) ng/mL C-Reactive Protein (<10.0) mg/L NT-Pro-B Natriuret Pep 139 pg/mL Total Protein (6.3-8.2) g/dL Albumin (3.5-5.0) g/dL Coronavirus (PCR) (Not Detectd) Influenza Type A RNA Not Detected (Not Detectd) Influenza Type B (PCR) Not Detected (Not Detectd) 06/23/20 06/23/20 Range/Units 23:53 23:53 WBC (3.8-10.6) k/uL RBC (3.80-5.40) m/uL Hgb (11.4-16.0) gm/dL Hct (34.0-46.0) % MCV (80.0-100.0) fL MCH (25.0-35.0) pg MCHC (31.0-37.0) g/dL RDW (11.5-15.5) % Plt Count (150-450) k/uL MPV Neutrophils % % Lymphocytes % % Monocytes % % Eosinophils % % Basophils % % Neutrophils # (1.3-7.7) k/uL Lymphocytes # (1.0-4.8) k/uL Monocytes # (0-1.0) k/uL Eosinophils # (0-0.7) k/uL Basophils # (0-0.2) k/uL PT (9.0-12.0) sec INR (<1.2) APTT (22.0-30.0) sec D-Dimer (<0.60) mg/L FEU Sodium (137-145) mmol/L Potassium (3.5-5.1) mmol/L Chloride (98-107) mmol/L Carbon Dioxide (22-30) mmol/L Anion Gap mmol/L BUN (7-17) mg/dL Creatinine (0.52-1.04) mg/dL Est GFR (CKD-EPI)AfAm (>60 ml/min/1.73 sqM) Est GFR (CKD-EPI)NonAf (>60 ml/min/1.73 sqM) Glucose (74-99) mg/dL Plasma Lactic Acid Kenrick (0.7-2.0) mmol/L Calcium (8.4-10.2) mg/dL Magnesium (1.6-2.3) mg/dL Total Bilirubin (0.2-1.3) mg/dL AST (14-36) U/L ALT (4-34) U/L Alkaline Phosphatase (38-126) U/L Lactate Dehydrogenase (313-618) U/L Troponin I <0.012 (0.000-0.034) ng/mL C-Reactive Protein (<10.0) mg/L NT-Pro-B Natriuret Pep pg/mL Total Protein (6.3-8.2) g/dL Albumin (3.5-5.0) g/dL Coronavirus (PCR) Not Detected (Not Detectd) Influenza Type A RNA (Not Detectd) Influenza Type B (PCR) (Not Detectd) Disposition Clinical Impression: COPD (chronic obstructive pulmonary disease), Hypoxia Disposition: ADMITTED IP TO THIS [facility] Condition: Stable Is patient prescribed a controlled substance at d/c from ED?: No Referrals: Elfego Roberts MD [Primary Care Provider] - 1-2 days Decision to Admit Reason: Admit from EC Decision Date: 06/24/20 Decision Time: 02:56
--- NOTE | 2020-06-24 00:12 | XR ---
EXAMINATION TYPE: XR chest 1V portable DATE OF EXAM: 06/24/2020 COMPARISON: 10/10/2019 HISTORY: Headache TECHNIQUE: Single view FINDINGS: There is no heart failure nor confluent pneumonic infiltrate. There is small linear density right lung base related to overlying tubing artifact. There are chest leads. There is bilateral shou lder prosthesis. Heart size is normal. IMPRESSION: No active cardiopulmonary disease. No change.
[2020-06-24 00:13] LABS: Basophils # (A) 0.1 k/uL (0-0.2); Basophils % (A) 1 %; Eosinophils # (A) 0.2 k/uL (0-0.7); Eosinophils % (A) 3 %; HCT 43.2 % (34.0-46.0); HGB 14.6 gm/dL (11.4-16.0); Lymphocytes # (A) 2.2 k/uL (1.0-4.8); Lymphocytes % (A) 36 %; MCH 30.6 pg (25.0-35.0); MCHC 33.9 g/dL (31.0-37.0); MCV 90.1 fL (80.0-100.0); Mean Platelet Volume 7.1; Monocytes # (A) 0.5 k/uL (0-1.0); Monocytes % (A) 7 %; Neutrophils # (A) 3.1 k/uL (1.3-7.7); Neutrophils % (A) 51 %; Platelet Count 240 k/uL (150-450); RBC 4.79 m/uL (3.80-5.40); RDW 13.6 % (11.5-15.5); WBC 6.2 k/uL (3.8-10.6)
[2020-06-24 00:32] LABS: Partial Thromboplastin Time 27.9 sec (22.0-30.0); Prothrombin Time 10.5 sec (9.0-12.0)
[2020-06-24 00:45] LABS: ALT 20 U/L (4-34); AST 38 U/L (14-36); African American GFR (CKD) 61 (>60 ml/min/1.73 sqM); Alkaline Phosphatase 123 U/L (38-126); Anion Gap 5 mmol/L; Blood Urea Nitrogen 25 mg/dL (7-17); C Reactive Protein <5.0 mg/L (<10.0); Calcium 9.7 mg/dL (8.4-10.2); Carbon Dioxide 27 mmol/L (22-30); Chloride 104 mmol/L (98-107); Glucose 96 mg/dL (74-99); LDH 635 U/L (313-618); Non-African American GFR(CKD) 53 (>60 ml/min/1.73 sqM); Potassium 4.4 mmol/L (3.5-5.1); Sodium 136 mmol/L (137-145); Total Bilirubin 0.5 mg/dL (0.2-1.3); Total Protein 6.9 g/dL (6.3-8.2)
[2020-06-24 01:16] LABS: D-Dimer 0.67 mg/L FEU (<0.60)
[2020-06-24] MEDS ORDERED: SODIUM CHLORIDE 0.9% 500 ML 500 ML IV ONE (02:24)
--- NOTE | 2020-06-24 02:37 | CT ---
EXAM: CT Angiography Chest With Intravenous Contrast CLINICAL HISTORY: cough, dypsnea, elevated d-dimer. poss CoVid. ITS.REASON CT Reason: PE? TECHNIQUE: Axial computed tomographic angiography images of the chest with intravenous contrast. CTDI is 24.07 mGy and DLP is 532.40 mGy-cm. This CT exam was performed using one or more of the following dose reduction techniques: automated exposure control, adjustment of the mA and/or kV according to patient size, and/or use of iterative reconstruction technique. MIP reconstructed images were created and reviewed. COMPARISON: No relevant prior studies available. FINDINGS: Limitations: Evaluation limited by artifact from shoulder prostheses and spinal hardware. Pulmonary arteries: No evidence of PE. Aorta: No aortic aneurysm or dissection. Atherosclerotic disease. Lungs: Mild patchy atelectasis or infiltrate. Pleural space: No significant effusion. No pneumothorax. Heart: No significant pericardial effusion. Mediastinum: Small-moderate hiatal hernia. Bones/joints: See above. Soft tissues: Unremarkable as visualized. Lymph nodes: Unremarkable. Other findings: Postsurgical changes at the epigastrium. IMPRESSION: 1. No evidence of PE. 2. Additional findings, as above.
[2020-06-24] MEDS ORDERED: dexAMETHasone 2 MG TAB PO STA (02:46)
[2020-06-24] MEDS ORDERED: NALOXONE 0.4 MG/ML 1 ML VIAL IV PRN (02:52)
[2020-06-24] MEDS: SODIUM CHLORIDE 0.9% 1,000 ML IV SCH ×2 (04:41→15:09)
--- NOTE | 2020-06-24 05:06 | P.HPIM ---
History of Present Illness H&P Date: 06/24/20 Patient is an 79-year-old female with a PMH of hypertension, hyperlipidemia, and history of CVA who presented to the emergency room with complaints of exertional dyspnea and feeling overall ill. The patient reports that over the past 3-4 days, she has felt as though she had no energy to carry on her daily ADLs. She denied additional complaints. Denied chest pain, nausea, vomiting or diaphoresis. Denied abdominal pain, diarrhea, recent travel, or sick contacts. Denied lower extremity swelling or lower extremity pain. Denied orthopnea or PND. In the emergency room a chest CT revealed no evidence of pulmonary embolism with a chest x-ray that was unremarkable. EKG reveals sinus bradycardia at 56 bpm with an incomplete right bundle zia block along with T-wave inversions in leads V2 and V3, and T-wave flattening in leads V4 and V5. Laboratory evaluation revealed a sodium 136, d-dimer 0.67, BUN 25, creatinine 1.01, gomez virus and influenza negative, with LVH 635, and AST 38. Review of Systems Pertinent positives and negatives as discussed in HPI, a complete review of systems was performed and all other systems are negative. Past Medical History Past Medical History: CVA/TIA, Fibromyalgia, GERD/Reflux, Hyperlipidemia, Memory Impairment, Osteoarthritis (OA), Skin Disorder, Syncope Additional Past Medical History / Comment(s): MENIERE'S LEFT EAR, PEPTIC ULCERS, tia x 14- last 05/2019. History of Any Multi-Drug Resistant Organisms: None Reported Past Surgical History: Back Surgery, Cholecystectomy, Joint Replacement, Orthopedic Surgery Additional Past Surgical History / Comment(s): LOOP RECORDER 2010, ORIF LEFT FOOT, rt foot surgery, JT REPL WINNIE KNEES & WINNIE SHOULDERS, WINNIE CATARACT, gianni and screws in back Past Anesthesia/Blood Transfusion Reactions: No Reported Reaction Past Psychological History: Anxiety, Depression Smoking Status: Never smoker Past Alcohol Use History: None Reported Past Drug Use History: None Reported - Past Family History Father Family Medical History: Cancer Mother Family Medical History: Cancer Medications and Allergies Home Medications Medication Instructions Recorded Confirmed Type Gabapentin [Neurontin] 100 mg PO TID 12/12/13 10/21/19 History QUEtiapine [SEROquel] 50 mg PO HS 12/12/13 10/21/19 History Tamsulosin HCl [Flomax] 0.4 mg PO DAILY 12/12/13 10/21/19 History PARoxetine HCL [Paxil Cr] 25 mg PO DAILY 09/25/17 10/21/19 History rOPINIRole HCL [Requip] 1 mg PO TID 09/25/17 10/21/19 History Latanoprost [Xalatan 0.005%] 1 drop BOTH EYES HS 03/11/19 10/21/19 History Meclizine [Antivert] 12.5 mg PO TID 03/11/19 10/21/19 History Turmeric Root Extract [Turmeric] 500 mg PO BID 03/11/19 10/21/19 History busPIRone HCL 15 mg PO BID@1000,1800 03/13/19 10/21/19 History Cholecalciferol [Vitamin D3 (25 1,000 unit PO DAILY 06/27/19 10/21/19 History Mcg = 1000 Iu)] Multivitamins, Thera [Multivitamin 1 tab PO DAILY 06/27/19 10/21/19 History (formulary)] Albuterol Sulfate [Proair Hfa] 1 - 2 puff INHALATION RT-QID PRN 10/11/19 10/21/19 History Apixaban [Eliquis] 5 mg PO BID@0600,1800 10/11/19 10/21/19 History Aspirin EC [Ecotrin Low Dose] 81 mg PO DAILY 10/11/19 10/21/19 History Atorvastatin Calcium [Lipitor] 40 mg PO HS #30 tablet 10/11/19 10/21/19 Rx Allergies Allergy/AdvReac Type Severity Reaction Status Date / Time nickel [Nickel] Allergy Rash/Hives Verified 06/23/20 23:46 codeine AdvReac headache Verified 06/23/20 23:46 Physical Exam Vitals: Vital Signs Temp Pulse Pulse Resp BP BP Pulse Ox 06/24/20 04:22 98 F 50 L 17 186/75 100 06/24/20 03:50 98.4 F 51 L 16 164/87 100 06/24/20 03:32 51 L 16 164/91 100 06/24/20 02:40 178/79 06/24/20 02:25 77 30 H 198/97 100 06/24/20 01:34 53 L 163/99 06/24/20 00:16 58 L 16 174/87 100 06/23/20 23:45 98.5 F 58 L 16 205/101 100 06/23/20 23:10 58 L 16 223/104 06/23/20 22:50 98.3 F 63 16 232/110 96 Intake and Output 06/23/20 06/23/20 06/24/20 14:59 22:59 06:59 Other: Weight 90.718 kg 90.718 kg General: non toxic, no distress, appears at stated age, normal weight Derm: no unusual rashes/lesions no unusual ecchymoses, warm, dry Head: atraumatic, normocephalic, symmetric Eyes: EOMI, no lid lag, anicteric sclera, pupils equal round reactive to light ENT: Nose and ears atraumatic, no thrush, no pharyngeal erythema Neck: No thyromegaly, no cervical lymphadenopathy, trachea midline, supple Mouth: no lip lesion, mucus membranes moist Cardiovascular: S1S2 reg, no murmur, positive posterior tibial pulse bilateral, no edema, capillary refill less than 2 seconds Lungs: CTA bilateral, no rhonchi, no rales , no accessory muscle use Abdominal: soft, nontender to palpation, no guarding, no appreciable organomegaly, normal bowel sounds Ext: no gross muscle atrophy, muscle strength 5 out of 5 in all 4 extremities grossly, no contractures, Neuro: CN II-XI grossly intact, light touch intact all 4 extremities, finger to nose within normal limits, Psych: Alert, oriented, appropriate affect Results CBC & Chem 7: 06/23/20 23:53 06/23/20 23:53 Labs: Abnormal Lab Results - Last 24 Hours (Table) 06/23/20 06/23/20 Range/Units 23:53 23:53 D-Dimer 0.67 H (<0.60) mg/L FEU Sodium 136 L (137-145) mmol/L BUN 25 H (7-17) mg/dL AST 38 H (14-36) U/L Lactate Dehydrogenase 635 H (313-618) U/L Thrombosis Risk Factor Assmnt - Choose All That Apply Any of the Below Risk Factors Present?: Yes Each Factor Represents 1 point: Abnormal pulmonary function (COPD), Obesity (BMI >25) Each Risk Factor Represents 3 Points: Age 75 years or older Other congenital or acquired thrombophilia - If yes, enter type in comment: No Thrombosis Risk Factor Assessment Total Risk Factor Score: 5 Thrombosis Risk Factor Assessment Level: High Risk Assessment and Plan Plan: Shortness of breath, suspected Covid-19 -Start Vitamin C, Zinc, Vit D, and melatonin -Pulmonary consult -Monitor labs daily -Isolation precautions -Check procalcitonin levels -Supplemental oxygen Chronic conditions: HLD -C/w home meds DVT prophylaxis -Lovenox The patient is admitted with an anticipated less than 2 midnight stay for evaluation of suspected Covid CODE STATUS: Full Code Discussed with: Patient Anticipated discharge date: 2-[address]: Home A total of 40 minutes was spent on the care of this complex patient more than 50% of the time was spent in counseling and care coordination.
[2020-06-24] MEDS ORDERED: hydrALAZINE HCL 25 MG TAB PO STA (05:43)
[2020-06-24] MEDS: ALBUTEROL HFA INHALER INHALATION SCH ×4 (08:04→20:05)
[2020-06-24] MEDS: ASCORBIC ACID 500 MG TAB PO SCH (08:28)
[2020-06-24] MEDS: dexAMETHasone 2 MG TAB PO SCH (08:28)
[2020-06-24] MEDS: ZINC SULFATE 220 MG CAP PO SCH (08:28)
[2020-06-24] MEDS: CHOLECALCIFEROL 1,000 UNIT TAB PO SCH (08:28)
[2020-06-24] MEDS ORDERED: ENOXAPARIN 40 MG/0.4 ML SYRINGE SQ SCH (09:00)
[2020-06-24 09:51] LABS: Ferritin 39.3 ng/mL (10.0-291.0)
[2020-06-24] MEDS ORDERED: ALPRAZolam 0.25 MG TAB PO PRN (10:38)
[2020-06-24 12:19] LABS: ABG Base Excess -0.1 mmol/L; ABG HCO3 23 mmol/L (21-25); ABG Oxygen Saturation 97.1 % (94-97); ABG PCO2 30 mmHg (35-45); ABG PO2 88 mmHg (83-108); ABG TCO2 24 mmol/L (19-24); Allen Test Performed? Yes
[2020-06-24] MEDS: ACETAMINOPHEN TAB 325 MG TAB PO PRN ×2 (13:37→21:26)
[2020-06-24] MEDS ORDERED: NON FORMULARY DRUG (Alendronate Sodium [Fosamax] 35 MG Tablet) PO SCH (13:45)
--- NOTE | 2020-06-24 13:49 | P.PN ---
Progress Note - Text Progress Note Date: 06/24/20 No new complaints today. Patient seen and examined on rounds, I agree with the plan as documented in the H&P with no changes. Symptoms do appear consistent with COVID, pulmonary consult is pending. I would recommend repeating a COVID test on a different assay and send it to the state lab.
--- NOTE | 2020-06-24 13:53 | P.CNPUL ---
History of Present Illness Consult date: 06/24/20 Reason for consult: dyspnea Chief complaint: Shortness of breath, weakness, dizziness, History of present illness: This is an 79-year-old female with history of multiple medical problems including fibromyalgia, degenerative joint disease, Mnire's disease, hypertension, previous CVA, patient was seen in the ER yesterday with 4 days history of not feeling well. Shortness of breath on exertion, generalized weakness, lightheadedness, however she denied any chest pain, no nausea no vomiting, no recent travel,recent exposure to sick contacts. Patient was tested for influenza type A and type B, both were negative. Patient was also tested negative for gomez virus. CT angiogram of the chest showed no evidence of pulmonary embolism. And no significant abnormal findings. Patient was admitted and I was asked to see her on consultation. During my evaluation, patient did not seem to be in any distress. I discontinued her oxygen, and ordered an ABG. ABG was basically unremarkable. PO2 of 88 pCO2 of 30 pH of 7.50, indicative of slight hyperventilation, and clearly and clinically on my physical examination the patient was noted to be a bit anxious. She does have history of generalized anxiety disorder. After reviewing the ABG on room air, after reviewing all her labs, and I also reviewed the CT angiogram of the chest, I felt the patient could benefit from Xanax and possibly discharge home today. Review of Systems Constitutional: Generalized weakness no weight loss. No fever no chills. HEENT: Dizziness and lightheadedness. Patient is known to have history of Mnire's disease left ear. Pulmonary: As noted in HPI. Cardiac: Negative. GI: Negative. Genitourinary: Negative. Musculoskeletal: Negative except for history of arthritis. Skin: Negative. Psychiatric: Generalized anxiety disorder. Neurologic: Negative. Hematologic: Negative. Past Medical History Past Medical History: CVA/TIA, Fibromyalgia, GERD/Reflux, Hyperlipidemia, Memory Impairment, Osteoarthritis (OA), Skin Disorder, Syncope Additional Past Medical History / Comment(s): MENIERE'S LEFT EAR, PEPTIC ULCERS, tia x 14- last 05/2019. History of Any Multi-Drug Resistant Organisms: None Reported Past Surgical History: Back Surgery, Cholecystectomy, Joint Replacement, Orthopedic Surgery Additional Past Surgical History / Comment(s): LOOP RECORDER 2010, ORIF LEFT FOOT, rt foot surgery, JT REPL WINNIE KNEES & WINNIE SHOULDERS, WINNIE CATARACT, gianni and screws in back Past Anesthesia/Blood Transfusion Reactions: No Reported Reaction Past Psychological History: Anxiety, Depression Smoking Status: Never smoker Past Alcohol Use History: None Reported Past Drug Use History: None Reported - Past Family History Father Family Medical History: Cancer Mother Family Medical History: Cancer Medications and Allergies Home Medications Medication Instructions Recorded Confirmed Type Gabapentin [Neurontin] 100 mg PO TID 12/12/13 06/24/20 History QUEtiapine [SEROquel] 50 mg PO HS 12/12/13 06/24/20 History Tamsulosin HCl [Flomax] 0.4 mg PO DAILY 12/12/13 06/24/20 History PARoxetine HCL [Paxil Cr] 25 mg PO DAILY 09/25/17 06/24/20 History Latanoprost [Xalatan 0.005%] 1 drop BOTH EYES HS 03/11/19 06/24/20 History Meclizine [Antivert] 12.5 mg PO TID 03/11/19 06/24/20 History Turmeric Root Extract [Turmeric] 500 mg PO DAILY 03/11/19 06/24/20 History busPIRone HCL 15 mg PO BID 03/13/19 06/24/20 History Multivitamins, Thera [Multivitamin 1 tab PO DAILY 06/27/19 06/24/20 History (formulary)] Albuterol Sulfate [Proair Hfa] 1 - 2 puff INHALATION RT-QID PRN 10/11/19 06/24/20 History Atorvastatin Calcium [Lipitor] 40 mg PO HS #30 tablet 10/11/19 06/24/20 Rx Alendronate Sodium [Fosamax] 35 mg PO Q7D 06/24/20 06/24/20 History Lisinopril-Hctz 20-12.5 mg 1 tab PO DAILY 06/24/20 06/24/20 History [Zestoretic 20-12.5] Rivaroxaban [Xarelto] 10 mg PO DAILY 06/24/20 06/24/20 History rOPINIRole HCL [rOPINIRole HCL ER] 2 mg PO BID 06/24/20 06/24/20 History Allergies Allergy/AdvReac Type Severity Reaction Status Date / Time nickel [Nickel] Allergy Rash/Hives Verified 06/24/20 08:48 codeine AdvReac headache Verified 06/24/20 08:48 Physical Exam Vitals: Vital Signs Temp Pulse Pulse Resp BP BP Pulse Ox 06/24/20 08:54 97.5 F L 77 16 189/90 99 06/24/20 06:00 56 L 19 180/93 100 06/24/20 04:22 98 F 50 L 17 186/75 100 06/24/20 03:50 98.4 F 51 L 16 164/87 100 06/24/20 03:32 51 L 16 164/91 100 06/24/20 02:40 178/79 06/24/20 02:25 77 30 H 198/97 100 06/24/20 01:34 53 L 163/99 06/24/20 00:16 58 L 16 174/87 100 06/23/20 23:45 98.5 F 58 L 16 205/101 100 06/23/20 23:10 58 L 16 223/104 06/23/20 22:50 98.3 F 63 16 232/110 96 Intake and Output 06/23/20 06/24/20 06/24/20 22:59 06:59 14:59 Other: Voiding Method Toilet Toilet # Voids 1 1 Weight 90.718 kg 90.718 kg General appearance: Revealed an 79-year-old female, slightly anxious, in no form of respiratory distress. Head exam: Atraumatic, normocephalic. Eye exam: PERRLA, EOMI, no icterus, ENT exam: No neck masses, moist mucous membranes, no thyromegaly, Respiratory exam: Symmetrical chest expansion, clear throughout no crackles or rhonchi or wheezes. Cardiovascular Exam: Normal sinus, no S3 gallop. No murmur. GI/Abdominal exam: Obese, soft, nontender, no megaly, no rebound, no guarding Extremities exam: No clubbing, no edema, no cyanosis. Neurological exam: Alert and oriented 3. No gross focal deficits. Psychiatric exam: Slightly anxious, normal affect, normal mental status examination. Skin exam: No rashes. No cyanosis. Results - Laboratory Findings CBC and BMP: 06/23/20 23:53 06/23/20 23:53 ABG ABG pH 7.50 (7.35-7.45) H 06/24/20 12:02 ABG pCO2 30 mmHg (35-45) L 06/24/20 12:02 ABG pO2 88 mmHg (83-108) 06/24/20 12:02 ABG O2 Saturation 97.1 % (94-97) H 06/24/20 12:02 PT/INR, D-dimer PT 10.5 sec (9.0-12.0) 06/23/20 23:53 INR 1.0 (<1.2) 06/23/20 23:53 D-Dimer 0.67 mg/L FEU (<0.60) H 06/23/20 23:53 Abnormal lab findings: Abnormal Labs 06/23/20 06/23/20 06/24/20 23:53 23:53 12:02 D-Dimer 0.67 H ABG pH 7.50 H ABG pCO2 30 L ABG O2 Saturation 97.1 H Sodium 136 L BUN 25 H AST 38 H Lactate Dehydrogenase 635 H - Diagnostic Findings CT scan - chest: image reviewed (As noted in HPI.) Assessment and Plan Assessment: Impression: Dyspnea, most likely secondary to generalized anxiety disorder. CT angiogram of the chest was reviewed. Chest x-ray was also reviewed. ABG was also reviewed. All are basically unremarkable. Hence I have recommended discharging the patient home and follow up on outpatient basis, patient may benefit from a mild anxiolytic. Cleared for discharge from our perspective. Time with Patient: Greater than 30
[2020-06-24] MEDS: MECLIZINE 12.5 MG TAB PO SCH ×2 (15:08→21:17)
[2020-06-24] MEDS: GABAPENTIN 100 MG CAP PO SCH ×2 (15:08→21:17)
[2020-06-24] MEDS: MELATONIN 3 MG TABLET PO SCH (21:17)
[2020-06-24] MEDS: busPIRone HCl 5 MG TAB PO SCH (21:17)
[2020-06-24] MEDS: QUEtiapine 50 MG TAB PO SCH (21:17)
[2020-06-24] MEDS: ATORVASTATIN 40 MG TAB PO SCH (21:18)
[2020-06-24] MEDS: LATANOPROST 0.005% OPHTH DROPS 2.5 ML BTL BOTH EYES SCH (21:18)
[2020-06-24] MEDS ORDERED: hydrALAZINE HCL 50 MG TAB PO STA (21:29)
[2020-06-25] MEDS ORDERED: hydrALAZINE HCL 25 MG TAB PO STA (04:25)
[2020-06-25] MEDS: SODIUM CHLORIDE 0.9% 1,000 ML IV SCH ×2 (05:17→21:31)
[2020-06-25] MEDS: ALBUTEROL HFA INHALER INHALATION SCH ×4 (08:03→19:58)
[2020-06-25] MEDS: ZINC SULFATE 220 MG CAP PO SCH (08:43)
[2020-06-25] MEDS: GABAPENTIN 100 MG CAP PO SCH ×3 (08:43→22:18)
[2020-06-25] MEDS: TAMSULOSIN 0.4 MG CAP.ER.24H PO SCH (08:43)
[2020-06-25] MEDS: busPIRone HCl 5 MG TAB PO SCH ×2 (08:43→22:17)
[2020-06-25] MEDS: dexAMETHasone 2 MG TAB PO SCH (08:43)
[2020-06-25] MEDS: RIVAROXABAN 10 MG TAB PO SCH (08:43)
[2020-06-25] MEDS: ASCORBIC ACID 500 MG TAB PO SCH (08:43)
[2020-06-25] MEDS: CHOLECALCIFEROL 1,000 UNIT TAB PO SCH (08:44)
[2020-06-25] MEDS: LISINOPRIL-HCTZ 20-12.5 MG 1 EACH TAB PO SCH (08:44)
[2020-06-25] MEDS: MECLIZINE 12.5 MG TAB PO SCH ×3 (08:44→22:18)
[2020-06-25] MEDS: PARoxetine 20 MG TAB PO SCH (08:44)
[2020-06-25] MEDS: MULTIVITAMINS, THERA 1 EACH TAB PO SCH (08:44)
[2020-06-25] MEDS ORDERED: NON FORMULARY DRUG (Turmeric Root Extract [Turmeric] 500 MG Capsule) PO SCH (09:00)
--- NOTE | 2020-06-25 11:09 | P.PN ---
Subjective Progress Note Date: 06/25/20 Patient is doing better today, but still requiring 3L NC which is new for her. Still c/o dizziness as well. Objective - Vital Signs Vital signs: Vital Signs Temp 97.8 F 06/25/20 09:00 Pulse 78 06/25/20 09:00 Resp 18 06/25/20 09:00 BP 157/83 06/25/20 09:00 Pulse Ox 97 06/25/20 09:00 Intake & Output 06/24/20 06/25/20 06/25/20 18:59 06:59 18:59 Intake Total 250 Balance 250 Intake: Oral 250 Other: Voiding Method Toilet Toilet # Voids 2 2 - Exam Gen: awake, alert HEENT: normocephalic, atraumatic, good hearing acuity, moist mucous membranes Resp: good air exchange, no accessory muscle use CVS: good distal perfusion x 4, GI: soft, NTTP, ND : no SPT, no CVAT, lopez catheter not present MSK: no pitting edema, no clubbing Neuro: non-focal, no sensory deficits, appropriate tone Psych: cooperative, euthymic mood - Labs CBC & Chem 7: 06/23/20 23:53 06/23/20 23:53 Labs: Abnormal Lab Results - Last 24 Hours (Table) 06/24/20 Range/Units 12:02 ABG pH 7.50 H (7.35-7.45) ABG pCO2 30 L (35-45) mmHg ABG O2 Saturation 97.1 H (94-97) % Microbiology - Last 24 Hours (Table) 06/23/20 23:53 Blood Culture - Preliminary Blood No Growth after 24 hours Assessment and Plan Assessment: Shortness of breath, possibly anxiety related -Start Vitamin C, Zinc, Vit D, and melatonin -Pulmonary consult -Monitor labs daily -Isolation precautions, pending repeat COVID -Check procalcitonin levels -Supplemental oxygen, wean as tolerated Chronic conditions: HLD -C/w home meds DVT prophylaxis -Lovenox The patient is admitted with an anticipated less than 2 midnight stay for ev aluation of suspected Covid CODE STATUS: Full Code Discussed with: Patient Anticipated discharge date: 2-[address]: Home
[2020-06-25] MEDS: ACETAMINOPHEN TAB 325 MG TAB PO PRN (16:28)
[2020-06-25] MEDS: LATANOPROST 0.005% OPHTH DROPS 2.5 ML BTL BOTH EYES SCH (22:17)
[2020-06-25] MEDS: QUEtiapine 50 MG TAB PO SCH (22:18)
[2020-06-25] MEDS: MELATONIN 3 MG TABLET PO SCH (22:18)
[2020-06-25] MEDS: ATORVASTATIN 40 MG TAB PO SCH (22:18)
[2020-06-26] MEDS ORDERED: LABETALOL 200 MG TAB PO STA (06:18)
[2020-06-26] MEDS: busPIRone HCl 5 MG TAB PO SCH (09:22)
[2020-06-26] MEDS: MULTIVITAMINS, THERA 1 EACH TAB PO SCH (09:22)
[2020-06-26] MEDS: SODIUM CHLORIDE 0.9% 1,000 ML IV SCH (09:22)
[2020-06-26] MEDS: LISINOPRIL-HCTZ 20-12.5 MG 1 EACH TAB PO SCH (09:22)
[2020-06-26] MEDS: GABAPENTIN 100 MG CAP PO SCH ×2 (09:23→15:08)
[2020-06-26] MEDS: TAMSULOSIN 0.4 MG CAP.ER.24H PO SCH (09:23)
[2020-06-26] MEDS: CHOLECALCIFEROL 1,000 UNIT TAB PO SCH (09:23)
[2020-06-26] MEDS: ASCORBIC ACID 500 MG TAB PO SCH (09:23)
[2020-06-26] MEDS: MECLIZINE 12.5 MG TAB PO SCH (09:23)
[2020-06-26] MEDS: dexAMETHasone 2 MG TAB PO SCH (09:23)
[2020-06-26] MEDS: PARoxetine 20 MG TAB PO SCH (09:23)
[2020-06-26] MEDS: RIVAROXABAN 10 MG TAB PO SCH (09:23)
[2020-06-26] MEDS: ZINC SULFATE 220 MG CAP PO SCH (09:24)
[2020-06-26] MEDS: ALBUTEROL HFA INHALER INHALATION SCH ×3 (10:53→15:41)
[2020-06-26] MEDS ORDERED: LACTATED RINGERS 1,000 ML IV SCH (14:15)
[2020-06-26 15:11] VITALS: BP 149/66; PULSE 73; RESP 18; TEMP 98.1
== END 2020-06-26 18:14 | disposition home health service (06) | DRG 880 ==
LOC: EC 22:42 → 1SOBS 06-24 02:53 → OBSVTOIN 06-24 12:53
PROVIDERS: ADMIT Internal Medicine; ATTEND Internal Medicine
DX: F41.1 Generalized anxiety disorder (principal); E78.5 Hyperlipidemia, unspecified; F32.9 Major depressive disorder, single episode, unspecified; I10 Essential (primary) hypertension; J44.9 Chronic obstructive pulmonary disease, unspecified; M79.7 Fibromyalgia; R09.02 Hypoxemia; Z79.01 Long term (current) use of anticoagulants; Z79.82 Long term (current) use of aspirin; Z79.83 Long term (current) use of bisphosphonates; Z79.899 Other long term (current) drug therapy; Z86.73 Personal history of transient ischemic attack (TIA), and cerebral infarction without residual deficits; Z87.11 Personal history of peptic ulcer disease; Z20.828 Contact with and (suspected) exposure to other viral communicable diseases; H81.02 Meniere's disease, left ear; R41.3 Other amnesia; Z88.5 Allergy status to narcotic agent; Z90.49 Acquired absence of other specified parts of digestive tract; Z96.653 Presence of artificial knee joint, bilateral; Z96.612 Presence of left artificial shoulder joint; Z96.611 Presence of right artificial shoulder joint; Z98.42 Cataract extraction status, left eye; Z98.41 Cataract extraction status, right eye; Z80.9 Family history of malignant neoplasm, unspecified; I45.10 Unspecified right bundle-branch block
CPT/HCPCS: 36415; 36600; 71045; 71275; 80053; 82728; 82805; 83605; 83615; 83735; 83880; 84145; 84484; 85025; 85379; 85610; 85730; 86140; 87040; 87502; 87635; 93005; 94640; 99285

== ENCOUNTER 2020-10-17 12:46 | Observation (INO) | payer MEDICARE ==
[2020-10-17] MEDS ORDERED: SODIUM CHLORIDE 0.9% 500 ML 500 ML IV STA (12:50)
--- NOTE | 2020-10-17 13:07 | ED ---
General Adult HPI - General Chief complaint: Weakness Stated complaint: Stroke Time Seen by Provider: 10/17/20 12:50 Source: patient, EMS, RN notes reviewed, old records reviewed Mode of arrival: EMS Limitations: physical limitation - History of Present Illness Initial comments: 80-year-old female history of TIA presenting for evaluation of slurred speech. This was noted by physical therapist who was obtained of the patient at her home. She was transported by EMS. She's had history of dysarthria and previous CVA as well as TIA in the past. She is on Xarelto. She denies pain complaints. She is able to answer simple questions but does have some dysarthria and expressive aphasia. There is no reported limb weakness. No facial asymmetry. No abdominal pain nausea vomiting. No chest pain. No fever. According to EMS her symptoms are resolving compared to the onset. - Related Data Home Medications Medication Instructions Recorded Confirmed Gabapentin [Neurontin] 100 mg PO TID 12/12/13 06/24/20 QUEtiapine [SEROquel] 50 mg PO HS 12/12/13 06/24/20 Tamsulosin HCl [Flomax] 0.4 mg PO DAILY 12/12/13 06/24/20 PARoxetine HCL [Paxil Cr] 25 mg PO DAILY 09/25/17 06/24/20 Latanoprost [Xalatan 0.005%] 1 drop BOTH EYES HS 03/11/19 06/24/20 Meclizine [Antivert] 12.5 mg PO TID 03/11/19 06/24/20 Turmeric Root Extract [Turmeric] 500 mg PO DAILY 03/11/19 06/24/20 busPIRone HCL 15 mg PO BID 03/13/19 06/24/20 Multivitamins, Thera [Multivitamin 1 tab PO DAILY 06/27/19 06/24/20 (formulary)] Albuterol Sulfate [Proair Hfa] 1 - 2 puff INHALATION RT-QID PRN 10/11/19 06/24/20 Alendronate Sodium [Fosamax] 35 mg PO Q7D 06/24/20 06/24/20 Lisinopril-Hctz 20-12.5 mg 1 tab PO DAILY 06/24/20 06/24/20 [Zestoretic 20-12.5] Rivaroxaban [Xarelto] 10 mg PO DAILY 06/24/20 06/24/20 rOPINIRole HCL [rOPINIRole HCL ER] 2 mg PO BID 06/24/20 06/24/20 Previous Rx's Medication Instructions Recorded Atorvastatin Calcium [Lipitor] 40 mg PO HS #30 tablet 10/11/19 Acetaminophen Tab [Tylenol] 650 mg PO Q6HR PRN tab 06/26/20 Allergies Allergy/AdvReac Type Severity Reaction Status Date / Time nickel [Nickel] Allergy Rash/Hives Verified 10/17/20 12:54 codeine AdvReac headache Verified 10/17/20 12:54 Review of Systems ROS Statement: Those systems with pertinent positive or pertinent negative responses have been documented in the HPI. ROS Other: All systems not noted in ROS Statement are negative. Past Medical History Past Medical History: CVA/TIA, Fibromyalgia, GERD/Reflux, Hyperlipidemia, Memory Impairment, Osteoarthritis (OA), Skin Disorder, Syncope Additional Past Medical History / Comment(s): MENIERE'S LEFT EAR, PEPTIC ULCERS, tia x 14- last 05/2019. History of Any Multi-Drug Resistant Organisms: None Reported Past Surgical History: Back Surgery, Cholecystectomy, Joint Replacement, Orthopedic Surgery Additional Past Surgical History / Comment(s): LOOP RECORDER 2010, ORIF LEFT FOOT, rt foot surgery, JT REPL WINNIE KNEES & WINNIE SHOULDERS, WINNIE CATARACT, gianni and screws in back Past Anesthesia/Blood Transfusion Reactions: No Reported Reaction Past Psychological History: Anxiety, Depression Smoking Status: Never smoker Past Alcohol Use History: None Reported Past Drug Use History: None Reported - Past Family History Father Family Medical History: Cancer Mother Family Medical History: Cancer General Exam Limitations: physical limitation General appearance: alert, in no apparent distress Head exam: Present: atraumatic, normocephalic Eye exam: Present: normal appearance, PERRL ENT exam: Present: normal exam Neck exam: Present: normal inspection. Absent: tenderness, meningismus Respiratory exam: Present: normal lung sounds bilaterally. Absent: respiratory distress, wheezes Cardiovascular Exam: Present: regular rate, normal rhythm GI/Abdominal exam: Present: soft. Absent: distended, tenderness, guarding Extremities exam: Present: normal inspection, normal capillary refill. Absent: pedal edema Neurological exam: Present: alert, oriented X3, motor sensory deficit (Expressive aphasia and dysarthria, NIH of 2) Psychiatric exam: Present: normal affect, normal mood Skin exam: Present: warm, dry, intact. Absent: cyanosis, diaphoretic Course Vital Signs 10/17/20 10/17/20 10/17/20 12:51 13:05 13:20 Temperature 98.1 F 98.1 F Pulse Rate 86 82 59 L Respiratory 18 20 20 Rate Blood Pressure 167/77 167/77 169/112 O2 Sat by Pulse 97 96 98 Oximetry 10/17/20 13:35 Temperature 98.1 F Pulse Rate 59 L Respiratory 20 Rate Blood Pressure 169/112 O2 Sat by Pulse 98 Oximetry - Reevaluation(s) Reevaluation #1: 10/17/20 13:[address] Briggs who recommends medical management. No TPA. No intervention. Reevaluation #2: 10/17/20 14:14 Patient reevaluated, speech is clear, symptoms nearly completely resolved. EKG Findings - EKG Comments: EKG Findings:: EKG: Sinus bradycardia, left axis deviation, right ventricular hypertrophy, no ST segment elevation, rate of 58, TN interval 160, QRS duration 102, QTC 418. Medical Decision Making - Medical Decision Making 80-year-old female presenting with dysarthria and expressive aphasia, history of CVA and TIA. Patient taken immediately to CT, CT negative for intracranial hemorrhage or mass effect. I did discuss case with the stroke neurologist Dr. Briggs, who recommends only medical management, no TPA, no intervention. Her symptoms do improve while in the emergency department. Head CT is negative for intracranial hemorrhage or mass effect. She has normal CBC, normal CMP. EKG is sinus rhythm. She is continued on her Xarelto. She will be admitted with neurology on consult. - Lab Data Result diagrams: 10/17/20 13:02 10/17/20 13:02 Lab Results 10/17/20 10/17/20 10/17/20 Range/Units 13:02 13:02 13:02 WBC 6.0 (3.8-10.6) k/uL RBC 4.74 (3.80-5.40) m/uL Hgb 14.0 (11.4-16.0) gm/dL Hct 42.3 (34.0-46.0) % MCV 89.2 (80.0-100.0) fL MCH 29.4 (25.0-35.0) pg MCHC 32.9 (31.0-37.0) g/dL RDW 13.3 (11.5-15.5) % Plt Count 200 (150-450) k/uL MPV 6.9 Neutrophils % 57 % Lymphocytes % 32 % Monocytes % 6 % Eosinophils % 3 % Basophils % 1 % Neutrophils # 3.4 (1.3-7.7) k/uL Lymphocytes # 1.9 (1.0-4.8) k/uL Monocytes # 0.3 (0-1.0) k/uL Eosinophils # 0.2 (0-0.7) k/uL Basophils # 0.0 (0-0.2) k/uL PT 10.7 (9.0-12.0) sec INR 1.0 (<1.2) APTT 22.1 (22.0-30.0) sec Sodium 139 (137-145) mmol/L Potassium 4.1 (3.5-5.1) mmol/L Chloride 105 (98-107) mmol/L Carbon Dioxide 29 (22-30) mmol/L Anion Gap 5 mmol/L BUN 20 H (7-17) mg/dL Creatinine 0.81 (0.52-1.04) mg/dL Est GFR (CKD-EPI)AfAm 79 (>60 ml/min/1.73 sqM) Est GFR (CKD-EPI)NonAf 69 (>60 ml/min/1.73 sqM) Glucose 104 H (74-99) mg/dL Calcium 9.2 (8.4-10.2) mg/dL Total Bilirubin 0.6 (0.2-1.3) mg/dL AST 42 H (14-36) U/L ALT 24 (4-34) U/L Alkaline Phosphatase 95 (38-126) U/L Troponin I (0.000-0.034) ng/mL Total Protein 6.5 (6.3-8.2) g/dL Albumin 3.9 (3.5-5.0) g/dL 10/17/20 Range/Units 13:02 WBC (3.8-10.6) k/uL RBC (3.80-5.40) m/uL Hgb (11.4-16.0) gm/dL Hct (34.0-46.0) % MCV (80.0-100.0) fL MCH (25.0-35.0) pg MCHC (31.0-37.0) g/dL RDW (11.5-15.5) % Plt Count (150-450) k/uL MPV Neutrophils % % Lymphocytes % % Monocytes % % Eosinophils % % Basophils % % Neutrophils # (1.3-7.7) k/uL Lymphocytes # (1.0-4.8) k/uL Monocytes # (0-1.0) k/uL Eosinophils # (0-0.7) k/uL Basophils # (0-0.2) k/uL PT (9.0-12.0) sec INR (<1.2) APTT (22.0-30.0) sec Sodium (137-145) mmol/L Potassium (3.5-5.1) mmol/L Chloride (98-107) mmol/L Carbon Dioxide (22-30) mmol/L Anion Gap mmol/L BUN (7-17) mg/dL Creatinine (0.52-1.04) mg/dL Est GFR (CKD-EPI)AfAm (>60 ml/min/1.73 sqM) Est GFR (CKD-EPI)NonAf (>60 ml/min/1.73 sqM) Glucose (74-99) mg/dL Calcium (8.4-10.2) mg/dL Total Bilirubin (0.2-1.3) mg/dL AST (14-36) U/L ALT (4-34) U/L Alkaline Phosphatase (38-126) U/L Troponin I <0.012 (0.000-0.034) ng/mL Total Protein (6.3-8.2) g/dL Albumin (3.5-5.0) g/dL Critical Care Time Critical Care Time: Yes Total Critical Care Time: 35 Disposition Clinical Impression: Transient cerebral ischemia Disposition: ADMITTED IP TO THIS HOSP Condition: Stable Is patient prescribed a controlled substance at d/c from ED?: No Referrals: Elfego Roberts MD [Primary Care Provider] - 1-2 days Decision to Admit Reason: Admit from EC Decision Date: 10/17/20 Decision Time: 14:15
[2020-10-17 13:12] LABS: Basophils % (A) 1 %; Eosinophils # (A) 0.2 k/uL (0-0.7); Eosinophils % (A) 3 %; HCT 42.3 % (34.0-46.0); Lymphocytes # (A) 1.9 k/uL (1.0-4.8); Lymphocytes % (A) 32 %; MCH 29.4 pg (25.0-35.0); MCHC 32.9 g/dL (31.0-37.0); MCV 89.2 fL (80.0-100.0); Mean Platelet Volume 6.9; Monocytes # (A) 0.3 k/uL (0-1.0); Monocytes % (A) 6 %; Neutrophils # (A) 3.4 k/uL (1.3-7.7); Neutrophils % (A) 57 %; Platelet Count 200 k/uL (150-450); RBC 4.74 m/uL (3.80-5.40); RDW 13.3 % (11.5-15.5)
[2020-10-17 13:21] LABS: Albumin 3.9 g/dL (3.5-5.0); Calcium 9.2 mg/dL (8.4-10.2); Potassium 4.1 mmol/L (3.5-5.1); Total Bilirubin 0.6 mg/dL (0.2-1.3); Total Protein 6.5 g/dL (6.3-8.2)
[2020-10-17 13:23] LABS: Partial Thromboplastin Time 22.1 sec (22.0-30.0); Prothrombin Time 10.7 sec (9.0-12.0)
[2020-10-17] MEDS ORDERED: ONDANSETRON 4 MG/2 ML VIAL IVP STA (13:24)
--- NOTE | 2020-10-17 13:24 | CT ---
EXAMINATION TYPE: CT brain wo con DATE OF EXAM: 10/17/2020 COMPARISON: 10/20/2019 INDICATION: slurred speech DLP: 1052.4 mGycm, Automated exposure control for dose reduction was used. CONTRAST: None CT of the brain is performed utilizing 3 mm thick sections through the posterior fossa and 3 mm thick sections through the remaining calvarium. Study is performed within 24 hours of arrival to the hosp [facility]. No abnormal hyperdensity is present to suggest an acute intracranial hemorrhage. No mass lesion is evident. No acute infarcts are evident. Ventricles and sulci are appropriate for the patient age. Paranasal sinuses and mastoid air cells within the [id number] are clear. There is some hyperostosi s frontalis internus, normal variant. IMPRESSIONS: 1. No acute intracranial process.
--- NOTE | 2020-10-17 13:53 | XR ---
EXAMINATION TYPE: XR chest 1V portable DATE OF EXAM: 10/17/2020 COMPARISON: 06/23/2020 INDICATION: Altered mental status TECHNIQUE: Single frontal view of the chest is obtained. FINDINGS: The heart size is normal. The pulmonary vasculature is normal. The lungs are clear. Bilateral shoulder prostheses are present. IMPRESSION: 1. No acute pulmonary process.
[2020-10-17] MEDS ORDERED: ASPIRIN 325 MG TAB PO STA (14:12)
[2020-10-17] MEDS: SODIUM CHLORIDE 0.9% 1,000 ML IV SCH (15:50)
[2020-10-17] MEDS: RIVAROXABAN 10 MG TAB PO SCH (16:00)
[2020-10-17] MEDS: MECLIZINE 12.5 MG TAB PO SCH (21:25)
[2020-10-17] MEDS: ATORVASTATIN 40 MG TAB PO SCH (21:25)
[2020-10-17] MEDS: LATANOPROST 0.005% OPHTH DROPS 2.5 ML BTL BOTH EYES SCH (21:25)
[2020-10-17] MEDS: GABAPENTIN 100 MG CAP PO SCH (21:25)
[2020-10-17] MEDS: QUEtiapine 50 MG TAB PO SCH (21:25)
[2020-10-17] MEDS: busPIRone HCl 5 MG TAB PO SCH (21:25)
[2020-10-18 08:08] LABS: Cholesterol 149 mg/dL (<200); HDL Cholesterol 64 mg/dL (40-60); LDL Cholesterol,Calculated 73 mg/dL (0-99); Triglycerides 59 mg/dL (<150)
[2020-10-18] MEDS: PARoxetine 20 MG TAB PO SCH (08:21)
[2020-10-18] MEDS: GABAPENTIN 100 MG CAP PO SCH ×3 (08:21→21:26)
[2020-10-18] MEDS: TAMSULOSIN 0.4 MG CAP.ER.24H PO SCH (08:21)
[2020-10-18] MEDS: busPIRone HCl 5 MG TAB PO SCH ×2 (08:22→20:12)
[2020-10-18] MEDS: MULTIVITAMINS, THERA 1 EACH TAB PO SCH (08:22)
[2020-10-18] MEDS: LISINOPRIL-HCTZ 20-12.5 MG 1 EACH TAB PO SCH (08:22)
[2020-10-18] MEDS: RIVAROXABAN 10 MG TAB PO SCH (08:22)
[2020-10-18] MEDS: MECLIZINE 12.5 MG TAB PO SCH ×3 (08:22→21:26)
--- NOTE | 2020-10-18 10:02 | P.CNNES ---
History of Present Illness Consult date: 10/18/20 Requesting physician: Mg Murdock Reason for Consult: Slurred speech History of Present Illness: This is a 80-year-ld woman with history of multiple transient ischemic attack, hyperlipidemia, Mnire's disease, deafness out of the left ear presents emergency department on 10/17/2020 for slurred speech. Patient was seen in our facility by different neuro-hospitalist for multiple TIAs symptoms and the last time she was seen was on 10/11/[address] White for a transient dysarthria. On this current event she stated that around 11:30 while working on physical therapy for her neck she stated that that she's having slurring the speech, feeling dizzy, and felt like she had left facial droop. The episode lasted for about 15 minutes resolved. She denies of any focal weakness. She denies of any further episodes since after that. She said that she is on Xarelto 10 mg daily and she said that she missed her last 2 days because she ran out since she didn't get refill. As a result she is been taking aspirin 81 mg daily for the last 2 days since she was undertaken Xarelto. She said that she's been on Xa relto for 6-8 months at least. Upon asking her why she is on Xarelto she stated that the areas to prevent these the TIAs as well as that she has the atrial fibrillation to her knowledge upon asking the patient's nurse she stated that there is no documentation of atrial fibrillation that she has. Patient follows up with Dr. Hernandez for her multiple TIAs Patient home medication is Xarelto 10 mg daily, Lipitor 40 mg daily, meclizine 12.5 mg 1 tablet 3 times a day, ropinirole 2 mg 1 tablet twice a day, previous roll and 50 mg 1 tablet twice a day, Seroquel 50 mg daily at bedtime, Paxil 25 mg daily, gabapentin 100 mg 1 tablet 3 times a day when necessary. Initial vital: Blood pressure of 167/77, heart rate of 86, respiratory of 18, temperature of 98.1 Fahrenheit oral and pulse ox of 97% at room air. CT of the head is reported as no acute intracranial process. EKG is reported as sinus bradycardia. Left axis deviation. Possible right ventricular hypertrophy. Patient initial sodium was 139 which is normal, serum glucose was 104, AST of 40 to just minimally elevated and ALT is 24 which is normal. The patient was seen by different neuro-hospitalist in our facility and was last seen by Dr. White for acute dysarthria on 10/11/2019. Per Dr. Espana he stated that was uncertain if her symptoms were are truly transient ischemic attack. At that time she had CT of the head and neck which did not reveal any acute process. There is no significant stenosis or dissection. At that time she was on Eliquis that was placed by her neurologist (Dr. Hernandez) and Dr. White recommended to continue to Eliquis 5mg 1 tab bid. Please defer to Dr. Espana's note for further details of the patient's neurological history and work-up As stated earlier this CTA of the head and neck on 2019 is reported as the anterior and posterior arterial circulation are negative for hemodynamically significant stenosis or filling defect or aneurysm. Her last MRI in our facility was on 03/12/2019 and she reported as no acute/subacute process. Review of Systems Review of system: The 12 point system was reviewed and apparent positive and negative per HPI. Past Medical History Past Medical History: CVA/TIA, Fibromyalgia, GERD/Reflux, Hyperlipidemia, Memory Impairment, Osteoarthritis (OA), Skin Disorder, Syncope Additional Past Medical History / Comment(s): MENIERE'S LEFT EAR, PEPTIC ULCERS, tia x 14- last 05/2019. History of Any Multi-Drug Resistant Organisms: None Reported Past Surgical History: Back Surgery, Cholecystectomy, Joint Replacement, Orthopedic Surgery Additional Past Surgical History / Comment(s): LOOP RECORDER 2010, ORIF LEFT FOOT, rt foot surgery, JT REPL WINNIE KNEES & WINNIE SHOULDERS, WINNIE CATARACT, gianni and screws in back Past Anesthesia/Blood Transfusion Reactions: No Reported Reaction Past Psychological History: Anxiety, Depression Smoking Status: Never smoker Past Alcohol Use History: None Reported Past Drug Use History: None Reported - Past Family History Father Family Medical History: Cancer Mother Family Medical History: Cancer Medications and Allergies Home Medications Medication Instructions Recorded Confirmed Type Gabapentin [Neurontin] 100 mg PO TID PRN 12/12/13 10/17/20 History QUEtiapine [SEROquel] 50 mg PO HS 12/12/13 10/17/20 History Tamsulosin HCl [Flomax] 0.4 mg PO DAILY 12/12/13 10/17/20 History PARoxetine HCL [Paxil Cr] 25 mg PO DAILY 09/25/17 10/17/20 History Latanoprost [Xalatan 0.005%] 1 drop BOTH EYES HS 03/11/19 10/17/20 History Meclizine [Antivert] 12.5 mg PO TID 03/11/19 10/17/20 History busPIRone HCL 15 mg PO BID 03/13/19 10/17/20 History Multivitamins, Thera [Multivitamin 1 tab PO DAILY 06/27/19 10/17/20 History (formulary)] Albuterol Sulfate [Proair Hfa] 1 - 2 puff INHALATION RT-QID PRN 10/11/19 10/17/20 History Atorvastatin Calcium [Lipitor] 40 mg PO HS #30 tablet 10/11/19 10/17/20 Rx Alendronate Sodium [Fosamax] 35 mg PO Q7D 06/24/20 10/17/20 History Lisinopril-Hctz 20-12.5 mg 1 tab PO DAILY 06/24/20 10/17/20 History [Zestoretic 20-12.5] Rivaroxaban [Xarelto] 10 mg PO DAILY 06/24/20 10/17/20 History rOPINIRole HCL [rOPINIRole HCL ER] 2 mg PO BID 06/24/20 10/17/20 History Turmeric Root Extract [Turmeric] 500 mg PO DAILY 10/17/20 10/17/20 History Allergies Allergy/AdvReac Type Severity Reaction Status Date / Time nickel [Nickel] Allergy Rash/Hives Verified 10/17/20 18:54 codeine AdvReac headache Verified 10/17/20 18:54 Physical Examination - Vital Signs Vital Signs: Vital Signs Temp Pulse Resp BP Pulse Ox 10/17/20 13:20 98.1 F 59 L 20 169/112 98 10/17/20 13:05 82 20 167/77 96 10/17/20 12:51 98.1 F 86 18 167/77 97 Intake and Output 10/16/20 10/17/20 10/17/20 22:59 06:59 14:59 Other: Weight 95.254 kg GENERAL: The patient is lying in bed and is not in acute distress. CHEST: The heart rate is regular rate rhythm. No murmurs to auscultation. No carotid bruit bilaterally. LUNG: Clear to auscultation bilaterally no wheezing noted throughout. Not labored breathing. ABDOMEN/GI: Bowel sounds present in all 4 quadrants. No tenderness to palpation throughout. MUSCULOSKELETAL:She has significant hammertoes of bilateral lower extremites (chronic) and has athritis of extremities (hands). NEUROLOGICAL: Higher mental function: The patient is awake, alert, oriented to self, place and time. Patient is following commands. No aphasia and no neglect. Cranial nerves: The pupils are round, equal and reactive to light and accommodation. Visual becerra are full to confrontation throughout. Extraocular movement is intact no nystagmus is noted. Facial sensation is normal to touch throughout. The facial strength is left nasolabial flattening (chronic). Hearing is normal bilaterally to hand rub. Tongue is midline and moved side -to-side without any difficulty. No dysarthria is noted. Shoulder shrug is normal bilaterally. Motor: Gait is deferred. The strength is 5 over 5 throughout. Normal tone and bulk. Cerebellum: Normal finger to nose heel to valentin bilaterally. Sensation: Sensation is normal to touch throughout. Reflexes (right/left): 2+ throughout upper and 1+ ankles. Plantars are downgoing bilaterally. She has significant hammertoes of bilateral lower extremites (chronic) Results Coagulation study: PT of 10.7, INR 1.0, PTT of 22.1. - Laboratory Findings CBC and BMP: 10/17/20 13:02 10/17/20 13:02 Abnormal Lab Findings: Abnormal Labs 10/17/20 13:02 BUN 20 H Glucose 104 H AST 42 H Assessment and Plan Assessment: This is a 80-year-ld woman with history of multiple transient ischemic attack who presented to the emergency department on 10/17/2020 for slurred speech. She had similar presentation on 10/11/2019 and it's uncertain of the slurred speech or actually truly transient ischemic attack. Transient dysarthria, dizzy and left facial drook (with history of dysarthria in past). Possibly TIA. In the past she presented with similar presentation on 09/2019 and it was uncertain if these are truly transient ischemic attack or n ot. She missed her Xarelto for last two days. Multiple reported transient ischemic attack. Hyperlipidemia Mnire's disease Deafness out of the left ear. ?she stated she was told she has Atrial fibrillation but not documented in our records Plan: , CT of the head is reported as no acute intracranial process. I ordered CTA of the head and neck: And it is reported as no flow-limiting stenosis bilateral carotid bifurcation. Normal otoe-[place] of [place]. Currently she continues to be on Xarelto. As well as continue Lipitor 40 mg for secondary stroke prophylaxis 2-D echo is ordered by the ED and is spending Lipid panel: Triglyceride 59, cholesterol is 1.9, LDL is 73 and it she L 64. In TIAs LDL goal is less than 70. PT, OT and JUDO TEACHER are consulted Every 4 hours neuro checks. Continue cardiac monitoring She needs to follow-up with Dr. Hernandez as an outpatient in 2 weeks. We'll defer the rest of the medical management to the primary team. Plan discussed with the patient's nurse. Thank you for the consultation. Dr. White will provide neurology coverage starting tomorrow AM. Marquis Ayers M.D. Neuro-hospitalist Time with Patient: Greater than 30
--- NOTE | 2020-10-18 11:10 | CT ---
EXAMINATION TYPE: CT angio head neck DATE OF EXAM: 10/18/2020 HISTORY: slurred speech, dizzy COMPARISON: 10/10/2019 CT DLP: 688.7 mGycm. Automated Exposure Control for Dose Reduction was Utilized. TECHNIQUE: CTA scan of the neck is performed with IV Contrast, patient injected with 65 mL of Isovue 370, axial images are obtained, coronal and sagittal reformatted images are reviewed. Three-D recons tructed images are created on an independent workstation and reviewed. Source images are reviewed. FINDINGS: Carotid/Vascular Structures: There is a three-vessel arch. Left vertebral artery may be dominant. Ath eromatous plaquing is at the left carotid bifurcation. Significant flow-limiting stenosis is not evid ent Cervical of [place]: Vertebral basilar system appears normal. Posterior cerebral vasculature is unrema rkable. Internal carotid arteries bifurcate normally into A1 and M1 segments. A2 segments are normal. The anterior communicating artery is patent. Left Posterior communicating artery is patent. Right po sterior communicating artery is patent. Other: Lung becerra within the field of view are clear. IMPRESSION: 1. No flow-limiting stenosis bilateral carotid bifurcations. 2. Normal bois forte of [place]
[2020-10-18] MEDS: SODIUM CHLORIDE 0.9% 1,000 ML IV SCH (13:46)
--- NOTE | 2020-10-18 18:09 | P.HPIM ---
History of Present Illness H&P Date: 10/18/20 Chief Complaint: Neuro deficits Chief Complaint: Left-sided weakness History of presenting complaint: This is a pleasant 80-year-old patient of Dr. macias. 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 Patient had multiple TIAs . Patient was admitted to the hospital in February 2019 with left-sided weakness. That occasion MRI of the brain was unremarkable, 2-D echo showed EF of 55-60% no other abnormality, CT angiogram neck was again unremarkable, carotid Doppler showed a 50-69% left internal carotid stenosis, questionable PE, with negative Doppler of lower extremity, and a decision was made to treat with anticoagulation for 6 months. Patient was seen by neurology. Patient again was here in May 2019. Neuro symptoms.-Computed tomography scan of the brain, CT angiogram brain was negative. Also the cervical spine MRI that came back to be negative. Patient does follow with neurologist Dr. Hernandez. Patient yet again presented with speech becoming slurred weakness of the left side left facial numbness and drooling. Symptoms lasted for a good 15-20 minutes. Speech was abnormal for several hours. Neurology was consulted. Review of systems: GEN.: None EYES: None HEENT: Decreased hearing the left ear NECK: None RESPIRATORY: None CARDIOVASCULAR: None GASTROINTESTINAL: None GENITOURINARY: None MUSCULOSKELETAL: Chronic joint pains LYMPHATICS: None HEMATOLOGICAL: None PSYCHIATRY: None NEUROLOGICAL: As above, Past medical history: Fibromyalgia, hyperlipidemia, osteoarthritis, Mnire's disease primarily left ear, peptic ulcer disease, multiple TIAs., Possible PE, GERD, left internal carotid artery 50-69% stenosis, restless leg syndrome Social history: Lives alone. In an apartment. Does use a walker. Family history: Reviewed, noncontributory presentation VITAL SIGNS: 97.7, 60, 16, 186/79, 96% room air GENERAL: BMI 42.4, reclining in bed, comfortable EYES: Pupils equal. Conjunctiva normal. HEENT: External appearance of nose and ears normal, oral cavity grossly normal decreased hearing in the left ear. NECK: JVD not raised; masses not palpable. HEART: First and second heart sounds are normal; no edema. LUNGS: Respiratory rate normal; clear to auscultation. ABDOMEN: Soft, nontender, liver spleen not palpable, no masses palpable. LYMPHATICS: No lymph nodes palpable in the axilla and neck. PSYCH: Alert and oriented x3; mood and affect normal. NEUROLOGICAL: Cranial nerves grossly intact. Very slight slurring of the speech. Very subtle decrease bowel or in the left side. INVESTIGATIONS, reviewed in the clinical context: WBC 6 hemoglobin 14 platelets 200 potassium 4.1 creatinine 0.81 LDL 73 Troponin I less than 0.012 Coronavirus [PCR]-not detected EKG tracing personally reviewed by me-normal sinus rhythm Chest x-ray film personally reviewed by me-no infiltrates. Slight elevation of the right diaphragm Computed tomography scan of the brain-without contrast: Unremarkable CT angiogram of the head and neck: No flow limiting stenosis. Assessment and plan: -Possible TIA. Patient presents with slurring of speech left-sided weakness. Computed tomography scan of brain is close/ CT angiography. Neurology consult. On xarelto. -History of multiple TIAs -Morbid obesity BMI 42.4. Weight loss measures. And follow-up with PCP -Hyperlipidemia. Continue Lipitor -Primary osteoarthritis. 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 Use Pepcid when necessary -Essential hypertension. Zestoretic -Chronic urinary incontinence on Flomax -Restless leg syndrome on ropinirole Discussed with patient. Add baby aspirin. Pepcid. Watch overnight. Past Medical History Past Medical History: CVA/TIA, Fibromyalgia, GERD/Reflux, Hyperlipidemia, Memory Impairment, Osteoarthritis (OA), Skin Disorder, Syncope Additional Past Medical History / Comment(s): MENIERE'S LEFT EAR, PEPTIC ULCERS, tia x 14- last 05/2019. History of Any Multi-Drug Resistant Organisms: None Reported Past Surgical History: Back Surgery, Cholecystectomy, Joint Replacement, Orthopedic Surgery Additional Past Surgical History / Comment(s): LOOP RECORDER 2011, ORIF LEFT FOOT, rt foot surgery, JT REPL WINNIE KNEES & WINNIE SHOULDERS, WINNIE CATARACT, gianni and screws in back Past Anesthesia/Blood Transfusion Reactions: No Reported Reaction Past Psychological History: Anxiety, Depression Smoking Status: Never smoker Past Alcohol Use History: None Reported Past Drug Use History: None Reported - Past Family History Father Family Medical History: Cancer Additional Family Medical History / Comment(s): LUNG CANCER Mother Family Medical History: Cancer Additional Family Medical History / Comment(s): LEUKEMIA Medications and Allergies Home Medications Medication Instructions Recorded Confirmed Type Gabapentin [Neurontin] 100 mg PO TID PRN 12/12/13 10/17/20 History QUEtiapine [SEROquel] 50 mg PO HS 12/12/13 10/17/20 History Tamsulosin HCl [Flomax] 0.4 mg PO DAILY 12/12/13 10/17/20 History PARoxetine HCL [Paxil Cr] 25 mg PO DAILY 09/25/17 10/17/20 History Latanoprost [Xalatan 0.005%] 1 drop BOTH EYES HS 03/11/19 10/17/20 History Meclizine [Antivert] 12.5 mg PO TID 03/11/19 10/17/20 History busPIRone HCL 15 mg PO BID 03/13/19 10/17/20 History Multivitamins, Thera [Multivitamin 1 tab PO DAILY 06/27/19 10/17/20 History (formulary)] Albuterol Sulfate [Proair Hfa] 1 - 2 puff INHALATION RT-QID PRN 10/11/19 10/17/20 History Atorvastatin Calcium [Lipitor] 40 mg PO HS #30 tablet 10/11/19 10/17/20 Rx Alendronate Sodium [Fosamax] 35 mg PO Q7D 06/24/20 10/17/20 History Lisinopril-Hctz 20-12.5 mg 1 tab PO DAILY 06/24/20 10/17/20 History [Zestoretic 20-12.5] Rivaroxaban [Xarelto] 10 mg PO DAILY 06/24/20 10/17/20 History rOPINIRole HCL [rOPINIRole HCL ER] 2 mg PO BID 06/24/20 10/17/20 History Turmeric Root Extract [Turmeric] 500 mg PO DAILY 10/17/20 10/17/20 History Allergies Allergy/AdvReac Type Severity Reaction Status Date / Time nickel [Nickel] Allergy Rash/Hives Verified 10/17/20 18:54 codeine AdvReac headache Verified 10/17/20 18:54 Physical Exam Vitals: Vital Signs Temp Pulse Pulse Resp BP BP Pulse Ox 10/18/20 03:20 98.1 F 53 L 16 152/63 97 10/18/20 01:54 16 10/17/20 23:16 98.4 F 65 16 163/78 99 10/17/20 20:00 98.2 F 55 L 18 173/96 97 10/17/20 16:49 98.4 F 65 18 173/77 98 10/17/20 16:00 98 F 80 16 173/80 100 10/17/20 15:53 98 F 80 16 173/80 100 10/17/20 14:20 98.1 F 59 L 20 163/90 98 10/17/20 13:35 98.1 F 59 L 20 169/112 98 10/17/20 13:20 98.1 F 59 L 20 169/112 98 10/17/20 13:05 82 20 167/77 96 10/17/20 12:51 98.1 F 86 18 167/77 97 Intake and Output 10/17/20 10/18/20 10/18/20 22:59 06:59 14:59 Intake Total 980 10 Output Total 900 Balance 980 -900 10 Intake: IV 10 Invasive Line 1 10 Intake, IV Titration 800 Amount Sodium Chloride 0.9% 1, 300 000 ml @ 50 mls/hr IV . Q20H JOCELIN Rx#:[id number] Sodium Chloride 0.9% 500 500 ml 500 ml @ 999 mls/hr IV .Q31M STA Rx#:[id number] Oral 180 Output: Urine 900 Other: Voiding Method Toilet Toilet # Voids 1 2 # Bowel Movements 0 Weight 98.4 kg Results CBC & Chem 7: 10/17/20 13:02 10/17/20 13:02 Labs: Abnormal Lab Results - Last 24 Hours (Table) 10/17/20 10/18/20 Range/Units 13:02 07:11 BUN 20 H (7-17) mg/dL Glucose 104 H (74-99) mg/dL AST 42 H (14-36) U/L HDL Cholesterol 64 H (40-60) mg/dL Thrombosis Risk Factor Assmnt - Choose All That Apply Any of the Below Risk Factors Present?: Yes Each Factor Represents 1 point: Obesity (BMI >25) Other Risk Factors: Yes Each Risk Factor Represents 3 Points: Age 75 years or older Other congenital or acquired thrombophilia - If yes, enter type in comment: No Thrombosis Risk Factor Assessment Total Risk Factor Score: 4 Thrombosis Risk Factor Assessment Level: Moderate Risk
[2020-10-18] MEDS: ASPIRIN 81 MG PO SCH (18:47)
[2020-10-18] MEDS: ATORVASTATIN 40 MG TAB PO SCH (20:12)
[2020-10-18] MEDS: QUEtiapine 50 MG TAB PO SCH (20:12)
[2020-10-18] MEDS: LATANOPROST 0.005% OPHTH DROPS 2.5 ML BTL BOTH EYES SCH (20:12)
[2020-10-18] MEDS ORDERED: FAMOTIDINE 20 MG TAB PO SCH (21:00)
[2020-10-19] MEDS: ASPIRIN 81 MG PO SCH (08:41)
[2020-10-19] MEDS: GABAPENTIN 100 MG CAP PO SCH (08:41)
[2020-10-19] MEDS: MECLIZINE 12.5 MG TAB PO SCH (08:42)
[2020-10-19] MEDS: busPIRone HCl 5 MG TAB PO SCH (08:42)
[2020-10-19] MEDS: TAMSULOSIN 0.4 MG CAP.ER.24H PO SCH (08:42)
[2020-10-19] MEDS: RIVAROXABAN 10 MG TAB PO SCH (08:42)
[2020-10-19] MEDS: LISINOPRIL-HCTZ 20-12.5 MG 1 EACH TAB PO SCH (08:42)
[2020-10-19] MEDS: MULTIVITAMINS, THERA 1 EACH TAB PO SCH (08:42)
[2020-10-19] MEDS: PARoxetine 20 MG TAB PO SCH (08:42)
[2020-10-19] MEDS ORDERED: LISINOPRIL-HCTZ 20-12.5 MG 1 EACH TAB PO SCH (09:00)
--- NOTE | 2020-10-19 10:00 | ECHOF ---
Referral Reason:tia MEASUREMENTS -------- HEIGHT: 152.4 cm WEIGHT: 98.9 kg BP: RVIDd: 3.0 cm (< 3.3) IVSd: 1.0 cm (0.6 - 1.1) LVIDd: 4.5 cm (3.9 - 5.3) LVPWd: 1.2 cm (0.6 - 1.1) IVSs: 1.4 cm LVIDs: 3.3 cm LVPWs: 1.3 cm LA Diam: 4.1 cm (2.7 - 3.8) LAESV Index (A-L): 29.81 ml/m Ao Diam: 3.4 cm (2.0 - 3.7) AV Cusp: 1.1 cm (1.5 - 2.6) MV EXCURSION: 14.924 mm (> 18.000) MV EF SLOPE: 85 mm/s (70 - 150) EPSS: 0.6 cm MV E Martin: 0.63 m/s MV DecT: 200 ms MV A Martin: 0.98 m/s MV E/A Ratio: 0.64 RAP: 5.00 mmHg RVSP: 31.97 mmHg FINDINGS -------- Sinus rhythm. This was a technically good study. LV size, wall thickness and systolic function are normal, with an EF greater than 55%. The left hortencia tricular size is normal. The right ventricle is normal in size. LA is midly dilated 29-33ml/m2. The right atrial size is normal. There is mild aortic regurgitation. [id number] mitral regurgitation is present. Mild tricuspid regurgitation present. Right ventricular systolic pressure is normal at < 35 mmHg. Trace/mild (physiologic) pulmonic regurgitation. The aortic root size is normal. There is no pericardial effusion. CONCLUSIONS -------- 1. LV size, wall thickness and systolic function are normal, with an EF greater than 55%. 2. The left ventricular size is normal. 3. The right ventricle is normal in size. 4. LA is midly dilated 29-33ml/m2. 5. The right atrial size is normal. 6. There is mild aortic regurgitation. 7. [id number]-mppwlrsn mitral regurgitation is present. 8. Mild tricuspid regurgitation present. 9. Trace/mild (physiologic) pulmonic regurgitation. 10. The aortic root size is normal. 11. There is no pericardial effusion. AIRCRAFT SYSTEMS TECHNICIAN: Araceli Lux RDCS
--- NOTE | 2020-10-19 10:04 | P.CRDCN ---
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 In 2010 she underwent a loop recorder implantation secondary to TIA was monitored for approximately 3 years and had no evidence of arrhythmia so therefore it was removed. We have been asked to see in consultation for arrhythmia. She presented to the hospital with slurred speech, left-sided weakness and left IJ rales. She has been seen by neurology. Diagnostic testing has been unremarkable and she is presumed to have had another TIA. Telemetry tracings reviewed, there is one episode that was indicated as ventricular tachycardia however on closer review appears to be significant artifact. There is no evidence of an acute arrhythmia. She has maintained sinus mechanism throughout this admission. DIAGNOSTICS EKG reveals sinus bradycardia heart rate of 58 with left axis deviation. Telemetry tracings indicate sinus mechanism. Chest xray negative for an acute cardiopulmonary process. Laboratory reviewed, CBC unremarkable, sodium 139, potassium 4.1, creatinine 0.81, magnesium 1.9, troponin negative x1, LDL 73. Current cardiac medications include Xarelto 10 mg daily, lisinopril/hydrochlorothiazide 20/2.5 mg daily and atorvastatin 40 mg daily. REVIEW OF SYSTEMS At the time of my exam: CONSTITUTIONAL: Denies fever or chills. CARDIOVASCULAR: Denies chest pain, shortness of breath, orthopnea, PND or palpitations. RESPIRATORY: Denies cough. GASTROINTESTINAL: Denies abdominal pain, diarrhea, constipation, nausea or vomiting. MUSCULOSKELETAL: Denies myalgias. NEUROLOGIC: Denies numbness, tingling, headacbe or weakness. ENDOCRINE: Denies fatigue, weight change, polydipsia or polyurina. GENITOURINARY: Denies burning, hematuria or urgency with micturation. HEMATOLOGIC: Denies history of anemia or bleeding. PHYSICAL EXAMINATION Blood pressure 138/72 heart rate 47 afebrile and maintaining oxygen saturation on room air. CONSTITUTIONAL: No apparent distress. HEENT: Head is normocephalic. Pupils are equal, round. Sclerae anicteric. Mucous membranes of the mouth are moist. No JVD. No carotid bruit. CHEST EXAMINATION: Lungs are clear to auscultation. No chest wall tenderness is noted on palpation or with deep breathing. HEART EXAMINATION: Regular rate and rhythm. S1, S2 heard. No murmurs, gallops or rub. ABDOMEN: Soft, nontender. Positive bowel sounds. EXTREMITIES: 2+ peripheral pulses, no lower extremity edema and no calf tenderness. NEUROLOGIC EXAMINATION: Patient is awake, alert and oriented x3. ASSESSMENT TIA Hypertension, uncontrolled Dyslipidemia History of multiple TIAs in the past PLAN She has had a previous JUVE revealed no shunting. Previous loop recorder implantation was unremarkable over the course of 3 years and has since been removed. Current telemetry tracings reveal persistent sinus mechanism with no acute arrhythmia. Likely symptoms of TIA are related to uncontrolled hypertension. We recommend increasing the dose of lisinopril hydrochlorothiazide to 40/25 mg daily. If this doesn't control her blood pressure we will consider changing to valsartan in the outpatient setting. Follow-up in the office with Dr. Mckeon in 2 weeks. Thank you kindly for this consultation. Nurse Practitioner note has been reviewed, I agree with a documented findings and plan of care. Patient was seen and examined. Past Medical History Past Medical History: CVA/TIA, Fibromyalgia, GERD/Reflux, Hyperlipidemia, Memory Impairment, Osteoarthritis (OA), Skin Disorder, Syncope Additional Past Medical History / Comment(s): MENIERE'S LEFT EAR, PEPTIC ULCERS, tia x 14- last 05/2019. History of Any Multi-Drug Resistant Organisms: None Reported Past Surgical History: Back Surgery, Cholecystectomy, Joint Replacement, Orthopedic Surgery Additional Past Surgical History / Comment(s): LOOP RECORDER 2011, ORIF LEFT FOOT, rt foot surgery, JT REPL WINNIE KNEES & WINNIE SHOULDERS, WINNIE CATARACT, gianni and screws in back Past Anesthesia/Blood Transfusion Reactions: No Reported Reaction Past Psychological History: Anxiety, Depression Smoking Status: Never smoker Past Alcohol Use History: None Reported Past Drug Use History: None Reported - Past Family History Father Family Medical History: Cancer Additional Family Medical History / Comment(s): LUNG CANCER Mother Family Medical History: Cancer Additional Family Medical History / Comment(s): LEUKEMIA Medications and Allergies Home Medications Medication Instructions Recorded Confirmed Type Gabapentin [Neurontin] 100 mg PO TID PRN 12/12/13 10/17/20 History QUEtiapine [SEROquel] 50 mg PO HS 12/12/13 10/17/20 History Tamsulosin HCl [Flomax] 0.4 mg PO DAILY 12/12/13 10/17/20 History PARoxetine HCL [Paxil Cr] 25 mg PO DAILY 09/25/17 10/17/20 History Latanoprost [Xalatan 0.005%] 1 drop BOTH EYES HS 03/11/19 10/17/20 History Meclizine [Antivert] 12.5 mg PO TID 03/11/19 10/17/20 History busPIRone HCL 15 mg PO BID 03/13/19 10/17/20 History Multivitamins, Thera [Multivitamin 1 tab PO DAILY 06/27/19 10/17/20 History (formulary)] Albuterol Sulfate [Proair Hfa] 1 - 2 puff INHALATION RT-QID PRN 10/11/19 10/17/20 History Atorvastatin Calcium [Lipitor] 40 mg PO HS #30 tablet 10/11/19 10/17/20 Rx Alendronate Sodium [Fosamax] 35 mg PO Q7D 06/24/20 10/17/20 History Lisinopril-Hctz 20-12.5 mg 1 tab PO DAILY 06/24/20 10/17/20 History [Zestoretic 20-12.5] Rivaroxaban [Xarelto] 10 mg PO DAILY 06/24/20 10/17/20 History rOPINIRole HCL [rOPINIRole HCL ER] 2 mg PO BID 06/24/20 10/17/20 History Turmeric Root Extract [Turmeric] 500 mg PO DAILY 10/17/20 10/17/20 History Allergies Allergy/AdvReac Type Severity Reaction Status Date / Time nickel [Nickel] Allergy Rash/Hives Verified 10/17/20 18:54 codeine AdvReac headache Verified 10/17/20 18:54 Physical Exam Vitals: Vital Signs Temp Pulse Resp BP Pulse Ox 10/19/20 04:00 47 L 18 138/72 96 10/19/20 00:00 97.6 F 56 L 18 163/88 96 10/18/20 20:00 97.7 F 62 18 125/58 100 10/18/20 16:00 98.2 F 65 16 193/82 95 10/18/20 12:20 97.6 F 62 16 176/78 96 Intake and Output 10/18/20 10/19/20 10/19/20 22:59 06:59 14:59 Intake Total 850 10 240 Output Total 1000 500 Balance -150 10 -260 Intake: IV 10 10 Invasive Line 1 10 10 Oral 840 240 Output: Urine 1000 500 Other: Voiding Method Toilet Toilet # Voids 2 2 Weight 98 kg Results 10/17/20 13:02 10/17/20 13:02 Current Medications Generic Name Dose Route Start Last Admin Trade Name Aydinq PRN Reason Stop Dose Admin Aspirin 81 mg 10/18/20 18:15 10/19/20 08:41 Aspirin 81 Mg PO 81 mg DAILY JOCELIN Administration Atorvastatin Calcium 40 mg 10/17/20 21:00 10/18/20 20:12 Atorvastatin 40 Mg Tab PO 40 mg HS JOCELIN Administration Buspirone HCl 15 mg 10/17/20 21:00 10/19/20 08:42 Buspirone Hcl 5 Mg Tab PO 15 mg BID JOCELIN Administration Famotidine 20 mg 10/18/20 21:00 10/18/20 20:12 Famotidine 20 Mg Tab PO 20 mg HS JOCELIN Administration Gabapentin 100 mg 10/17/20 22:00 10/19/20 08:41 Gabapentin 100 Mg Cap PO 100 mg TID JOCELIN Administration Lisinopril/HCTZ 2 each 10/19/20 09:00 Lisinopril-Hctz 20-12.5 Mg 1 Each Tab PO DAILY JOCELIN Sodium Chloride 1,000 mls @ 50 mls/hr 10/17/20 14:30 10/18/20 13:46 Saline 0.9% IV 50 mls/hr .Q20H JOCELIN Administration Latanoprost 1 drops 10/17/20 21:00 10/18/20 20:12 Latanoprost 0.005% Ophth Drops 2.5 Ml Btl BOTH EYES 1 drops HS JOCELIN Administration Meclizine HCl 12.5 mg 10/17/20 22:00 10/19/20 08:42 Meclizine 12.5 Mg Tab PO 12.5 mg TID JOCELIN Administration Multivitamins 1 each 10/18/20 09:00 10/19/20 08:42 Multivitamins, Thera 1 Each Tab PO 1 each DAILY JOCELIN Administration Paroxetine HCl 20 mg 10/18/20 09:00 10/19/20 08:42 Paroxetine 20 Mg Tab PO 20 mg DAILY JOCELIN Administration Quetiapine Fumarate 50 mg 10/17/20 21:00 10/18/20 20:12 Quetiapine 50 Mg Tab PO 50 mg HS JOCELIN Administration Rivaroxaban 10 mg 10/17/20 14:15 10/19/20 08:42 Rivaroxaban 10 Mg Tab PO 10 mg DAILY JOCELIN Administration Ropinirole HCl 1 mg 10/17/20 22:00 10/19/20 08:43 Ropinirole Hcl 1 Mg Tab PO 1 mg TID JOCELIN Administration Ropinirole HCl 0.25 mg 10/17/20 22:00 10/19/20 08:42 Ropinirole Hcl 0.25 Mg Tab PO 0.25 mg TID JOCELIN Administration Tamsulosin HCl 0.4 mg 10/18/20 09:00 10/19/20 08:42 Tamsulosin 0.4 Mg Cap.Er.24h PO 0.4 mg DAILY JOCELIN Administration Intake and Output 10/18/20 10/19/20 10/19/20 22:59 06:59 14:59 Intake Total 850 10 240 Output Total 1000 500 Balance -150 10 -260 Intake: IV 10 10 Invasive Line 1 10 10 Oral 840 240 Output: Urine 1000 500 Other: Voiding Method Toilet Toilet # Voids 2 2 Weight 98 kg 10/17/20 13:02 10/17/20 13:02
[2020-10-19] MEDS: SODIUM CHLORIDE 0.9% 1,000 ML IV SCH (10:05)
[2020-10-19 11:46] VITALS: BP 152/73; PULSE 72; RESP 16; TEMP 99.5
--- NOTE | 2020-10-19 22:13 | P.DS ---
Providers Date of admission: 10/17/20 14:16 Expected date of discharge: 10/19/20 Attending physician: Real Rangel Consults: 10/17/20 14:16 Consult Physician Routine Consulting Provider: Marquis Ayers Consult Reason/Comments: TIA Do you want consulting provider notified?: Yes 10/18/20 23:17 Consult Physician Routine Consulting Provider: Curt Mazariegos Consult Reason/Comments: torsades Do you want consulting provider notified?: Yes Primary care physician: Elfego Roberts MD Hospital Course: Chief Complaint: Neuro deficits Chief Complaint: Left-sided weakness History of presenting complaint: This is a pleasant 80-year-old patient of Dr. roberts. 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 Patient had multiple TIAs . Patient was admitted to the hospital in February 2019 with left-sided weakness. That occasion MRI of the brain was unremarkable, 2-D echo showed EF of 55-60% no other abnormality, CT angiogram neck was again unremarkable, carotid Doppler showed a 50-69% left internal carotid stenosis, questionable PE, with negative Doppler of lower extremity, and a decision was made to treat with anticoagulation for 6 months. Patient was seen by neurology. Patient again was here in May 2019. Neuro symptoms.-Computed tomography scan of the brain, CT angiogram brain was negative. Also the cervical spine MRI that came back to be negative. Patient does follow with neurologist Dr. Hernandez. Patient yet again presented with speech becoming slurred weakness of the left side left facial numbness and drooling. Symptoms lasted for a good 15-20 minutes. Speech was abnormal for several hours. Neurology was consulted. Patient felt a yet again to have TIA. 2-D echocardiogram, CT angiogram of the brain, computed tomography scan of the brain unremarkable. Today-patient is reverted back to her baseline. No neuro deficits. Cleared by neurology. Patient is to follow with the neurologist Dr. Hernandez Consultation: Neurology Past medical history: Fibromyalgia, hyperlipidemia, osteoarthritis, Mnire's disease primarily left ear, peptic ulcer disease, multiple TIAs., Possible PE, GERD, left internal carotid artery 50-69% stenosis, restless leg syndrome Social history: Lives alone. In an apartment. Does use a walker. Family history: Reviewed, noncontributory presentation VITAL SIGNS: 99.5, 72, 16, 152/73, 95% room air GENERAL: BMI 42.4, reclining in bed, comfortable EYES: Pupils equal. Conjunctiva normal. HEENT: External appearance of nose and ears normal, oral cavity grossly normal decreased hearing in the left ear. NECK: JVD not raised; masses not palpable. HEART: First and second heart sounds are normal; no edema. LUNGS: Respiratory rate normal; clear to auscultation. ABDOMEN: Soft, nontender, liver spleen not palpable, no masses palpable. LYMPHATICS: No lymph nodes palpable in the axilla and neck. PSYCH: Alert and oriented x3; mood and affect normal. NEUROLOGICAL: Cranial nerves grossly intact. Speech normal. Very subtle decrease power or in the left side. INVESTIGATIONS, reviewed in the clinical context: WBC 6 hemoglobin 14 platelets 200 potassium 4.1 creatinine 0.81 LDL 73 Troponin I less than 0.012 Coronavirus [PCR]-not detected EKG tracing personally reviewed by me-normal sinus rhythm Chest x-ray film personally reviewed by me-no infiltrates. Slight elevation of the right diaphragm Computed tomography scan of the brain-without contrast: Unremarkable CT angiogram of the head and neck: No flow limiting stenosis. Assessment and plan: -Possible TIA. Patient presents with slurring of speech left-sided weakness. Computed tomography scan of brain / CT angiography.-Both negative. Neurology consult. On xarelto. -History of multiple TIAs -Morbid obesity BMI 42.4. Weight loss measures. And follow-up with PCP -Hyperlipidemia. Continue Lipitor -Primary osteoarthritis. 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 Use Pepcid when necessary -Essential hypertension. Zestoretic -Chronic urinary incontinence on Flomax -Restless leg syndrome on ropinirole Disposition: Home Patient Condition at Discharge: Stable Plan - Discharge Summary Discharge Rx Participant: No New Discharge Prescriptions: New Famotidine [Pepcid] 20 mg PO HS #30 tab Continue QUEtiapine [SEROquel] 50 mg PO HS Gabapentin [Neurontin] 100 mg PO TID PRN PRN Reason: NERVE PAIN Tamsulosin HCl [Flomax] 0.4 mg PO DAILY PARoxetine HCL [Paxil Cr] 25 mg PO DAILY Meclizine [Antivert] 12.5 mg PO TID Latanoprost [Xalatan 0.005%] 1 drop BOTH EYES HS busPIRone HCL 15 mg PO BID Multivitamins, Thera [Multivitamin (formulary)] 1 tab PO DAILY Albuterol Sulfate [Proair Hfa] 1 - 2 puff INHALATION RT-QID PRN PRN Reason: Shortness Of Breath Atorvastatin Calcium [Lipitor] 40 mg PO HS #30 tablet Alendronate Sodium [Fosamax] 35 mg PO Q7D Rivaroxaban [Xarelto] 10 mg PO DAILY rOPINIRole HCL [rOPINIRole HCL ER] 2 mg PO BID Changed Lisinopril-Hctz 20-12.5 mg [Zestoretic 20-12.5] 1 tab PO BID #60 tab No Action Turmeric Root Extract [Turmeric] 500 mg PO DAILY Discharge Medication List Gabapentin [Neurontin] 100 mg PO TID PRN 12/12/13 [History] QUEtiapine [SEROquel] 50 mg PO HS 12/12/13 [History] Tamsulosin HCl [Flomax] 0.4 mg PO DAILY 12/12/13 [History] PARoxetine HCL [Paxil Cr] 25 mg PO DAILY 09/25/17 [History] Latanoprost [Xalatan 0.005%] 1 drop BOTH EYES HS 03/11/19 [History] Meclizine [Antivert] 12.5 mg PO TID 03/11/19 [History] busPIRone HCL 15 mg PO BID 03/13/19 [History] Multivitamins, Thera [Multivitamin (formulary)] 1 tab PO DAILY 06/27/19 [History] Albuterol Sulfate [Proair Hfa] 1 - 2 puff INHALATION RT-QID PRN 10/11/19 [History] Atorvastatin Calcium [Lipitor] 40 mg PO HS #30 tablet 10/11/19 [Rx] Alendronate Sodium [Fosamax] 35 mg PO Q7D 06/24/20 [History] Rivaroxaban [Xarelto] 10 mg PO DAILY 06/24/20 [History] rOPINIRole HCL [rOPINIRole HCL ER] 2 mg PO BID 06/24/20 [History] Turmeric Root Extract [Turmeric] 500 mg PO DAILY 10/17/20 [History] Famotidine [Pepcid] 20 mg PO HS #30 tab 10/19/20 [Rx] Lisinopril-Hctz 20-12.5 mg [Zestoretic 20-12.5] 1 tab PO BID #60 tab 10/19/20 [Rx] Follow up Appointment(s)/Referral(s): Virgilio Mckeon MD [STAFF PHYSICIAN] - 2 Weeks (office will call you with appointment date and time) Elfego Roberts MD [Primary Care Provider] - 10/23/20 1:30 pm (please call to verify appointment) [facility], [REFERRING] - Romie Hernandez DO [STAFF PHYSICIAN] - 2 Weeks (office is closed, please call to make appointment) Discharge Disposition: HOME SELF-CARE
== END 2020-10-19 13:44 | disposition home or self-care (01) ==
LOC: EC 12:46 → 3SCARD 14:16
PROVIDERS: ADMIT Hospitalist; ATTEND Hospitalist
DX: R47.1 Dysarthria and anarthria (principal); R53.1 Weakness; R20.0 Anesthesia of skin; R47.81 Slurred speech; R29.810 Facial weakness; I65.22 Occlusion and stenosis of left carotid artery; H81.02 Meniere's disease, left ear; I10 Essential (primary) hypertension; M79.7 Fibromyalgia; R32 Unspecified urinary incontinence; K27.9 Peptic ulcer, site unspecified, unspecified as acute or chronic, without hemorrhage or perforation; E78.5 Hyperlipidemia, unspecified; K21.9 Gastro-esophageal reflux disease without esophagitis; L98.9 Disorder of the skin and subcutaneous tissue, unspecified; R41.3 Other amnesia; F32.9 Major depressive disorder, single episode, unspecified; F41.9 Anxiety disorder, unspecified; Z20.822 Contact with and (suspected) exposure to COVID-19; H91.92 Unspecified hearing loss, left ear; G25.81 Restless legs syndrome; R00.1 Bradycardia, unspecified; M19.042 Primary osteoarthritis, left hand; M19.041 Primary osteoarthritis, right hand; M20.42 Other hammer toe(s) (acquired), left foot; M20.41 Other hammer toe(s) (acquired), right foot; E66.01 Morbid (severe) obesity due to excess calories; Z68.41 Body mass index [BMI] 40.0-44.9, adult; Z79.01 Long term (current) use of anticoagulants; Z79.83 Long term (current) use of bisphosphonates; Z79.899 Other long term (current) drug therapy; Z88.5 Allergy status to narcotic agent; Z91.048 Other nonmedicinal substance allergy status; Z86.73 Personal history of transient ischemic attack (TIA), and cerebral infarction without residual deficits; Z90.49 Acquired absence of other specified parts of digestive tract; Z96.653 Presence of artificial knee joint, bilateral; Z96.612 Presence of left artificial shoulder joint; Z96.611 Presence of right artificial shoulder joint; Z98.42 Cataract extraction status, left eye; Z98.41 Cataract extraction status, right eye; Z80.6 Family history of leukemia; Z80.1 Family history of malignant neoplasm of trachea, bronchus and lung; Z79.82 Long term (current) use of aspirin
CPT/HCPCS: 93005 ×2; 96374; 99291; 36415; 93306; 97161; 97166; 92523; 80061; 80053; 83735; 84484; 85025; 85610; 85730; 87635; 71045; 70496; 70450; 70498; G0378 ×3; J2405; Q9967

== ENCOUNTER 2021-04-29 10:16 | Inpatient (IN) | payer MEDICARE ==
[2021-04-29 10:22] LABS: Glucose,Whole Blood 112 mg/dL (75-99)
--- NOTE | 2021-04-29 10:31 | ED ---
General Adult HPI - General Stated complaint: Stroke Time Seen by Provider: 04/29/21 10:18 Source: patient, EMS, RN notes reviewed, old records reviewed Mode of arrival: EMS Limitations: no limitations - History of Present Illness Initial comments: 80-year-old female with history of multiple TIAs presenting with expressive aphasia and dysarthria. Symptoms began at approximately 0945. Patient is able to give a history although it is limited secondary to speech abnormalities. She was transported by EMS. She is anticoagulated currently on Xarelto. There was no reported trauma. No pain complaints. No chest pain or abdominal pain. No nausea or vomiting. No headache. No limb weakness or numbness. - Related Data Home Medications Medication Instructions Recorded Confirmed Gabapentin [Neurontin] 100 mg PO TID PRN 12/12/13 10/17/20 QUEtiapine [SEROquel] 50 mg PO HS 12/12/13 10/17/20 Tamsulosin HCl [Flomax] 0.4 mg PO DAILY 12/12/13 10/17/20 PARoxetine HCL [Paxil Cr] 25 mg PO DAILY 09/25/17 10/17/20 Latanoprost [Xalatan 0.005%] 1 drop BOTH EYES HS 03/11/19 10/17/20 Meclizine [Antivert] 12.5 mg PO TID 03/11/19 10/17/20 busPIRone HCL 15 mg PO BID 03/13/19 10/17/20 Multivitamins, Thera [Multivitamin 1 tab PO DAILY 06/27/19 10/17/20 (formulary)] Albuterol Sulfate [Proair Hfa] 1 - 2 puff INHALATION RT-QID PRN 10/11/19 10/17/20 Alendronate Sodium [Fosamax] 35 mg PO Q7D 06/24/20 10/17/20 Rivaroxaban [Xarelto] 10 mg PO DAILY 06/24/20 10/17/20 rOPINIRole HCL [rOPINIRole HCL ER] 2 mg PO BID 06/24/20 10/17/20 Turmeric Root Extract [Turmeric] 500 mg PO DAILY 10/17/20 10/17/20 Previous Rx's Medication Instructions Recorded Atorvastatin Calcium [Lipitor] 40 mg PO HS #30 tablet 10/11/19 Famotidine [Pepcid] 20 mg PO HS #30 tab 10/19/20 Lisinopril-Hctz 20-12.5 mg 1 tab PO BID #60 tab 10/19/20 [Zestoretic 20-12.5] Allergies Allergy/AdvReac Type Severity Reaction Status Date / Time nickel [Nickel] Allergy Rash/Hives Verified 04/29/21 10:25 codeine AdvReac headache Verified 04/29/21 10:25 Review of Systems ROS Statement: Those systems with pertinent positive or pertinent negative responses have been documented in the HPI. ROS Other: All systems not noted in ROS Statement are negative. Past Medical History Past Medical History: CVA/TIA, Fibromyalgia, GERD/Reflux, Hyperlipidemia, Memory Impairment, Osteoarthritis (OA), Skin Disorder, Syncope Additional Past Medical History / Comment(s): MENIERE'S LEFT EAR, PEPTIC ULCERS, tia x 14- last 05/2019. History of Any Multi-Drug Resistant Organisms: None Reported Past Surgical History: Back Surgery, Cholecystectomy, Joint Replacement, Orthopedic Surgery Additional Past Surgical History / Comment(s): LOOP RECORDER 2010, ORIF LEFT FOOT, rt foot surgery, JT REPL WINNIE KNEES & WINNIE SHOULDERS, WINNIE CATARACT, gianni and screws in back Past Anesthesia/Blood Transfusion Reactions: No Reported Reaction Past Psychological History: Anxiety, Depression Smoking Status: Never smoker Past Alcohol Use History: None Reported Past Drug Use History: None Reported - Past Family History Father Family Medical History: Cancer Additional Family Medical History / Comment(s): LUNG CANCER Mother Family Medical History: Cancer Additional Family Medical History / Comment(s): LEUKEMIA General Exam Limitations: no limitations General appearance: alert, in no apparent distress Head exam: Present: atraumatic, normocephalic Eye exam: Present: normal appearance, PERRL Neck exam: Present: normal inspection. Absent: tenderness, meningismus Respiratory exam: Present: normal lung sounds bilaterally. Absent: respiratory distress Cardiovascular Exam: Present: regular rate, normal rhythm GI/Abdominal exam: Present: soft. Absent: distended, tenderness, guarding Extremities exam: Present: normal inspection, normal capillary refill. Absent: pedal edema Neurological exam: Present: alert, motor sensory deficit (Expressive aphasia, dysarthria, NIH of 3) Psychiatric exam: Present: normal affect, normal mood Skin exam: Present: warm, dry, intact. Absent: cyanosis, diaphoretic Course Vital Signs 04/29/21 04/29/21 10:18 11:19 Temperature 99.2 F Pulse Rate 75 66 Respiratory 18 18 Rate Blood Pressure 167/84 175/66 O2 Sat by Pulse 95 96 Oximetry EKG Findings - EKG Comments: EKG Findings:: EKG: Normal sinus rhythm, rate of 72, MD interval 158, QRS duration 92, QTC 444, no ST segment elevation. Medical Decision Making - Medical Decision Making 80-year-old female presenting with expressive aphasia and dysarthria initial NIH of 3. Code stroke is activated. I did discuss case with Dr. Briggs, covering for stroke intervention. He indicates that the patient is not a TPA candidate secondary to anticoagulation status. He recommends MRI, neurology consultation and outpatient traditional angiogram at the time of discharge. CT CT angiography are unremarkable. Patient's symptoms do improve while in the emergency department. Chest x-ray is clear. Her laboratory testing included a CBC CMP is unremarkable. She is in sinus rhythm. She will be admitted to [facility]. I did discuss case with Edu who is covering. - Lab Data Result diagrams: 04/29/21 10:45 04/29/21 10:45 Lab Results 04/29/21 04/29/21 04/29/21 Range/Units 10:20 10:45 10:45 WBC 6.4 (3.8-10.6) k/uL RBC 4.73 (3.80-5.40) m/uL Hgb 14.3 (11.4-16.0) gm/dL Hct 42.7 (34.0-46.0) % MCV 90.2 (80.0-100.0) fL MCH 30.1 (25.0-35.0) pg MCHC 33.4 (31.0-37.0) g/dL RDW 13.2 (11.5-15.5) % Plt Count 227 (150-450) k/uL MPV 7.2 Neutrophils % 59 % Lymphocytes % 30 % Monocytes % 5 % Eosinophils % 3 % Basophils % 1 % Neutrophils # 3.8 (1.3-7.7) k/uL Lymphocytes # 1.9 (1.0-4.8) k/uL Monocytes # 0.4 (0-1.0) k/uL Eosinophils # 0.2 (0-0.7) k/uL Basophils # 0.1 (0-0.2) k/uL PT 10.6 (9.0-12.0) sec INR 1.0 (<1.2) APTT 25.9 (22.0-30.0) sec Sodium (137-145) mmol/L Potassium (3.5-5.1) mmol/L Chloride (98-107) mmol/L Carbon Dioxide (22-30) mmol/L Anion Gap mmol/L BUN (7-17) mg/dL Creatinine (0.52-1.04) mg/dL Est GFR (CKD-EPI)AfAm (>60 ml/min/1.73 sqM) Est GFR (CKD-EPI)NonAf (>60 ml/min/1.73 sqM) Glucose (74-99) mg/dL POC Glucose (mg/dL) 112 H (75-99) mg/dL POC Glu Slate Trimmer ID Brent Rutherford Calcium (8.4-10.2) mg/dL Total Bilirubin (0.2-1.3) mg/dL AST (14-36) U/L ALT (4-34) U/L Alkaline Phosphatase (38-126) U/L Troponin I (0.000-0.034) ng/mL Total Protein (6.3-8.2) g/dL Albumin (3.5-5.0) g/dL 04/29/21 04/29/21 Range/Units 10:45 10:45 WBC (3.8-10.6) k/uL RBC (3.80-5.40) m/uL Hgb (11.4-16.0) gm/dL Hct (34.0-46.0) % MCV (80.0-100.0) fL MCH (25.0-35.0) pg MCHC (31.0-37.0) g/dL RDW (11.5-15.5) % Plt Count (150-450) k/uL MPV Neutrophils % % Lymphocytes % % Monocytes % % Eosinophils % % Basophils % % Neutrophils # (1.3-7.7) k/uL Lymphocytes # (1.0-4.8) k/uL Monocytes # (0-1.0) k/uL Eosinophils # (0-0.7) k/uL Basophils # (0-0.2) k/uL PT (9.0-12.0) sec INR (<1.2) APTT (22.0-30.0) sec Sodium 136 L (137-145) mmol/L Potassium 4.8 (3.5-5.1) mmol/L Chloride 106 (98-107) mmol/L Carbon Dioxide 21 L (22-30) mmol/L Anion Gap 9 mmol/L BUN 25 H (7-17) mg/dL Creatinine 0.88 (0.52-1.04) mg/dL Est GFR (CKD-EPI)AfAm 72 (>60 ml/min/1.73 sqM) Est GFR (CKD-EPI)NonAf 62 (>60 ml/min/1.73 sqM) Glucose 99 (74-99) mg/dL POC Glucose (mg/dL) (75-99) mg/dL POC Glu Slate Trimmer ID Calcium 9.2 (8.4-10.2) mg/dL Total Bilirubin 1.2 (0.2-1.3) mg/dL AST 50 H (14-36) U/L ALT 21 (4-34) U/L Alkaline Phosphatase 102 (38-126) U/L Troponin I <0.012 (0.000-0.034) ng/mL Total Protein 6.7 (6.3-8.2) g/dL Albumin 3.9 (3.5-5.0) g/dL Critical Care Time Critical Care Time: Yes Total Critical Care Time: 35 Disposition Clinical Impression: Cerebrovascular accident (CVA), Expressive aphasia Disposition: [facility] Condition: Stable Is patient prescribed a controlled substance at d/c from ED?: No Referrals: Elfego Roberts MD [Primary Care Provider] - 1-2 days Decision to Admit Reason: Admit from EC Decision Date: 04/29/21 Decision Time: 11:43
[2021-04-29] MEDS ORDERED: SODIUM CHLORIDE 0.9% 1,000 ML IV ONE (10:33)
--- NOTE | 2021-04-29 10:51 | CT ---
EXAMINATION TYPE: CT brain wo con for TPA DATE OF EXAM: 04/29/2021 COMPARISON: 10/17/2020 HISTORY: Neuro deficit, acute, stroke suspected CT DLP: [address] of the brain was performed. The ventricles, basal cisterns and sulci overlying the cerebral convexities demonstrate mild enlargem ent. There is no evidence for intracranial hemorrhage or sulcal effacement. There is decreased attenuation about the periventricular white matter and deep white matter of both c erebral hemispheres, compatible with chronic small vessel ischemia. Differential diagnosis does inclu de demyelination. No mass effects are seen.No midline shift. Osseous calvarium is intact. If symptoms persist consider MRI. IMPRESSION: 1. Age related atrophic and chronic small vessel ischemic change without acute intracranial process s een at this time.
[2021-04-29 11:02] LABS: Basophils # (A) 0.1 k/uL (0-0.2); Basophils % (A) 1 %; Eosinophils # (A) 0.2 k/uL (0-0.7); Eosinophils % (A) 3 %; HCT 42.7 % (34.0-46.0); HGB 14.3 gm/dL (11.4-16.0); Lymphocytes # (A) 1.9 k/uL (1.0-4.8); Lymphocytes % (A) 30 %; MCH 30.1 pg (25.0-35.0); MCHC 33.4 g/dL (31.0-37.0); MCV 90.2 fL (80.0-100.0); Mean Platelet Volume 7.2; Monocytes # (A) 0.4 k/uL (0-1.0); Monocytes % (A) 5 %; Neutrophils # (A) 3.8 k/uL (1.3-7.7); Neutrophils % (A) 59 %; Platelet Count 227 k/uL (150-450); RBC 4.73 m/uL (3.80-5.40); RDW 13.2 % (11.5-15.5); WBC 6.4 k/uL (3.8-10.6)
--- NOTE | 2021-04-29 11:06 | CT ---
EXAMINATION TYPE: CT angio head neck DATE OF EXAM: 04/29/2021 COMPARISON: 10/18/2020 HISTORY: neuro deficit CT DLP: 487.9 mGycm CONTRAST: Performed with IV Contrast, patient injected with 65 mL of Isovue 370. Combination Contrast CTA cervical carotids and [place] of Ortiz CTA cervical carotids with 3-D recons truction Contrast CTA of the cervical carotids was performed 3-D reconstruction imaging obtained at a separate workstation. Right carotid system: Mild plaque is seen of the right common carotid artery. There is mild plaque a lso noted at the carotid bulb and proximal ICA. No significant diameter reduction. ECA is patent. Right vertebral artery appears unremarkable. Left carotid system: Mild plaque is seen of the left common carotid artery. There is mild plaque als o noted at the carotid bulb and proximal ICA. No significant diameter reduction. ECA is patent. Lef t vertebral artery appears unremarkable. IMPRESSION: 1. No significant diameter reduction to account for the patient's symptoms. CTA ute of Ortiz with 3-D reconstruction Contrast CTA of the ute of Ortiz was performed 3-D reconstruction imaging obtained at a separate workstation. Vertebrobasilar system as well as intracranial portions of the internal carotid arteries and their ma azucena tributaries are patent. I do not see evidence for sizable aneurysm or vascular malformation. Pl ease note MRI provides greater sensitivity and specificity. Visualized brain appears grossly unremar kable. IMPRESSION: 1. No significant abnormality. NASCET criteria was used in interpretation of this exam?
--- NOTE | 2021-04-29 11:14 | XR ---
EXAMINATION TYPE: XR chest 2V DATE OF EXAM: 04/29/2021 COMPARISON: 10/17/2020 HISTORY: 80-year-old female confusion, altered mental status TECHNIQUE: AP and lateral views FINDINGS: Bilateral total shoulder arthroplasties are demonstrated. Heart upper limits of normal in size. Mild interstitial prominence of the chronic appearance. Some strandy atelectasis is noted. Upper lumbar po sterior fusion hardware. Advanced dissection but degenerative change in the lower thoracic spine note d. No consolidation or pleural effusion. IMPRESSION: Chronic changes. No acute process seen.
[2021-04-29 11:16] LABS: Albumin 3.9 g/dL (3.5-5.0); Calcium 9.2 mg/dL (8.4-10.2); Total Bilirubin 1.2 mg/dL (0.2-1.3); Total Protein 6.7 g/dL (6.3-8.2)
[2021-04-29 11:18] LABS: Potassium 4.8 mmol/L (3.5-5.1)
[2021-04-29 11:41] LABS: Partial Thromboplastin Time 25.9 sec (22.0-30.0); Prothrombin Time 10.6 sec (9.0-12.0)
--- NOTE | 2021-04-29 12:42 | P.HPIM ---
<Jefry Tellez - Last Filed: 04/29/21 13:00> History of Present Illness H&P Date: 04/29/21 History of Presenting Illness: Patient is an 80-year-old female with a past medical history of hypertension, hyperlipidemia, atrial fibrillation on Xarelto, TIAs, GERD, anxiety, and multipl e orthopedic surgeries secondary to osteoarthritis. She presented to the emergency department with a chief complaint of expressive aphasia and left lower extremity weakness beginning around 9:45 AM. Initial NIH 3. Code stroke was activated upon her arrival to the emergency department. CT brain showing age- related atrophic and chronic small vessel ischemic changes without acute intercranial process. CTA head and neck negative for acute process. EKG showing normal sinus rhythm at 72 bpm with no noted T-wave or ST abnormalities. Labs obtained with CBC and coags unremarkable. Troponin normal findings at less than 0.012. BMP revealing prerenal azotemia with BUN of 25 otherwise normal findings and liver profile showing slightly elevated AST of 50. Emergency physician stated he spoke with stroke interventionalist Dr. Briggs whom stated that patient was not a candidate for TPA secondary to her current anticoagulant use and reportedly recommended MRI with neurology consultation and outpatient follow-up with her neurologist for angiogram after discharge. Upon physical examination at bedside, patient reports that she knew something was happening yesterday when she began to have significant dizziness and difficulties with her balance. Patient reports after her shower this morning she became even more dizzy and was not able to move her legs, states that she tried to call for help but had difficulties getting her words out and once she was able to mainly maneuver herself over to sit on the toilet she was then able to pull the emergency assistance cord and got some help. Patient continues to have expressive aphasia and reports of dizziness but states that her lower extremity weakness has resolved completely although she continues to have a decreased sensation to left lower extremity, stating "it just feels different almost like it fell asleep." Patient denies having any recent infections or exposure to known ill contacts, headache, changes in her vision or hearing, tinnitus, chest pain or palpitations, shortness of breath or dyspnea with exertion, abdominal pain, nausea, vomiting, or any other complaints at this time. Review of systems: Pertinent positives and negatives as discussed in HPI, a complete review of syst ems was performed and all other systems are negative. Physical exam: Vital signs reviewed and stable. General: Nontoxic, no distress and appears stated age. Derm: Skin warm and dry, normal coloration for ethnicity. Head: Atraumatic, normocephalic and symmetric. Eyes: EOMs intact, no lid lag, and anicteric sclera Mouth: no lip lesions, mucus membranes moist Cardiovascular: regular rate and rhythm with normal S1S2, no murmur, positive posterior tibial pulses bilaterally, and cap refill < 2 seconds. Lungs: Respirations even, regular, and unlabored on room air. Lungs CTA bilaterally, no rhonchi, no rales, no wheezing, and no accessory muscle usage. Abdominal: soft, nontender to palpation, no guarding, no appreciable organomegaly Ext: ROM intact. No gross muscle atrophy, no edema, no contractures Neuro: Moderate expressive aphasia, face symmetrical and CN II-XII grossly intact. GCS 15. Patient reports decreased sensation to light touch on left lower extremity. Normal finger to nose, normal [id number], no arm drop. Psych: Alert and oriented to person, place, time, and situation. Appropriate and pleasant affect. Assessment and Plan of Care: Expressive aphasia and left lower extremity changes in sensation, TIA vs CVA -Neurology consulted -MRI to be completed as recommended by interventional neurologist -NIH Neuro checks -Swallow screen -Telemetry monitoring -Consult PT/OT -Aspirin 324 mg by mouth 1 dose followed by daily aspirin 81 mg. -Atorvastatin 40 mg nightly -Lipid profile and hemoglobin A1c with a.m. labs Paroxysmal Atrial fibrillation -Continue anticoagulation with Xarelto at this time. -Patient currently in sinus rhythm. Hypertension -Allow for permissive hypertension, resume antihypertensives tomorrow a.m. Hyperlipidemia -Continue atorvastatin 40 mg nightly -Lipid profile with a.m. labs. The patient is admitted with an anticipated less than 2 midnight stay for evaluation of TIA versus CVA Surrogate decision-maker: Patient states that should be decided between her 3 children, patient has an advanced directive documents at bedside requesting DO NOT RESUSCITATE CODE STATUS: DO NOT RESUSCITATE DVT prophylaxis: Xarelto Discussed with: Patient Anticipated discharge date: 1-[address]: Home A total of 45 minutes was spent on the care of this complex patient more than 50% of the time was spent in counseling and care coordination.. Past Medical History Past Medical History: CVA/TIA, Fibromyalgia, GERD/Reflux, Hyperlipidemia, Memory Impairment, Osteoarthritis (OA), Skin Disorder, Syncope Additional Past Medical History / Comment(s): MENIERE'S LEFT EAR, PEPTIC ULCERS, tia x 14- last 05/2019. History of Any Multi-Drug Resistant Organisms: None Reported Past Surgical History: Back Surgery, Cholecystectomy, Joint Replacement, Orthopedic Surgery Additional Past Surgical History / Comment(s): LOOP RECORDER 2010, ORIF LEFT FOOT, rt foot surgery, JT REPL WINNIE KNEES & WINNIE SHOULDERS, WINNIE CATARACT, gianni and screws in back Past Anesthesia/Blood Transfusion Reactions: No Reported Reaction Past Psychological History: Anxiety, Depression Smoking Status: Never smoker Past Alcohol Use History: None Reported Past Drug Use History: None Reported - Past Family History Father Family Medical History: Cancer Additional Family Medical History / Comment(s): LUNG CANCER Mother Family Medical History: Cancer Additional Family Medical History / Comment(s): LEUKEMIA Medications and Allergies Home Medications Medication Instructions Recorded Confirmed Type Gabapentin [Neurontin] 100 mg PO TID 12/12/13 04/29/21 History QUEtiapine [SEROquel] 50 mg PO HS 12/12/13 04/29/21 History Tamsulosin HCl [Flomax] 0.4 mg PO DAILY 12/12/13 04/29/21 History PARoxetine HCL [Paxil Cr] 25 mg PO DAILY 09/25/17 04/29/21 History Meclizine [Antivert] 12.5 mg PO TID 03/11/19 04/29/21 History busPIRone HCL 15 mg PO BID 03/13/19 04/29/21 History Multivitamins, Thera [Multivitamin 1 tab PO DAILY 06/27/19 04/29/21 History (formulary)] Albuterol Sulfate [Proair Hfa] 1 - 2 puff INHALATION RT-QID 10/11/19 04/29/21 History Alendronate Sodium [Fosamax] 35 mg PO MO 06/24/20 04/29/21 History Rivaroxaban [Xarelto] 10 mg PO DAILY 06/24/20 04/29/21 History Turmeric Root Extract [Turmeric] 500 mg PO DAILY 10/17/20 04/29/21 History Atorvastatin Calcium [Lipitor] 40 mg PO DAILY 04/29/21 04/29/21 History Ibuprofen [Motrin] 800 mg PO TID PRN 04/29/21 04/29/21 History Lisinopril-Hctz 20-12.5 mg 1 tab PO DAILY 04/29/21 04/29/21 History [Zestoretic 20-12.5] rOPINIRole HCL [Requip] 1 mg PO TID 04/29/21 04/29/21 History Allergies Allergy/AdvReac Type Severity Reaction Status Date / Time nickel [Nickel] Allergy Rash/Hives Verified 04/29/21 12:13 codeine AdvReac headache Verified 04/29/21 12:13 Physical Exam Vitals: Vital Signs Temp Pulse Resp BP Pulse Ox 04/29/21 11:19 66 18 175/66 96 04/29/21 10:18 99.2 F 75 18 167/84 95 Intake and Output 04/28/21 04/29/21 04/29/21 22:59 06:59 14:59 Other: Weight 90.718 kg Results CBC & Chem 7: 04/29/21 10:45 04/29/21 10:45 Labs: Abnormal Lab Results - Last 24 Hours (Table) 04/29/21 04/29/21 Range/Units 10:20 10:45 Sodium 136 L (137-145) mmol/L Carbon Dioxide 21 L (22-30) mmol/L BUN 25 H (7-17) mg/dL POC Glucose (mg/dL) 112 H (75-99) mg/dL AST 50 H (14-36) U/L <Gabriela Drake - Last Filed: 04/29/21 18:14> Physical Exam Osteopathic Statement: *. No significant issues noted on an osteopathic structural exam other than those noted in the History and Physical/Consult. Vitals: Vital Signs Temp Pulse Resp BP Pulse Ox 04/29/21 11:19 66 18 175/66 96 04/29/21 10:18 99.2 F 75 18 167/84 95 Intake and Output 04/29/21 04/29/21 04/29/21 06:59 14:59 22:59 Other: Weight 90.718 kg Results CBC & Chem 7: 04/29/21 10:45 04/29/21 10:45 Labs: Abnormal Lab Results - Last 24 Hours (Table) 04/29/21 04/29/21 04/29/21 Range/Units 10:20 10:45 18:11 Sodium 136 L (137-145) mmol/L Carbon Dioxide 21 L (22-30) mmol/L BUN 25 H (7-17) mg/dL POC Glucose (mg/dL) 112 H 129 H (75-99) mg/dL AST 50 H (14-36) U/L Assessment and Plan Assessment: Patient seen and evaluated by me independently. Patient was also seen by QUE, the original author of this note. I am in agreement with the subjective, physical exam, and assessment and plan as documented with the addition/changes of my exam and assessment below. Gen: awake, alert HEENT: normocephalic, atraumatic, good hearing acuity, moist mucous membranes Resp: good air exchange, breathing comfortably with no accessory muscle use CVS: good distal perfusion x 4, GI: soft, NTTP, ND : no SPT, no CVAT, lopez catheter not present MSK: + pitting edema, no clubbing Neuro: moving all extremities, + expressive aphasia Psych: cooperative, euthymic mood Plan: MRI Neurology consult Echocardiogram
[2021-04-29] MEDS ORDERED: ASPIRIN 81 MG PO STA (13:11)
[2021-04-29] MEDS: MECLIZINE 12.5 MG TAB PO SCH ×2 (13:20→21:28)
--- NOTE | 2021-04-29 15:32 | P.CNNES ---
History of Present Illness Consult date: 04/29/21 Requesting physician: Mg Murdock Reason for Consult: stroke/TIA History of Present Illness: This is an 80-year-old woman with medical history of TIA, atrial fibrillation on Xarelto, hypertention, hyperlipidemia and significant osteoarthritis with multiple surgeries who presented emergency department on the 04/29/2021 with the complaint of difficulty getting her words out and left lower extremity weakness. Patient stated that her symptom also was 9:45 AM. Patient stated that she noticed her symptoms after she finished taking a bath and she noticed both her legs were weak then she had difficulty getting her words out then she felt her arms are weak. She did not fall, did not lose consciousness, her episode lasted for for 10 minutes. She denies any visual disturbance associated with it, any numbness any tingling, any difficulty swallowing. She lives home alone. He is on the Xarelto 10 mg daily and intermittently takes aspirin 81 mg but not on a daily basis. She said that she had that similar TIA just like this in the past. She feels that she is back to her baseline or very close to. She follows up with Dr. Hernandez her neurological management. She also had a routine EEG at Dr. Hernandez's office about 2 weeks ago but she does not know the salt. She denies any history of seizures. Some of the other patient on medication is Lipitor 40 mg daily, gabapentin 100 mg 3 times a day, Lexapro, Requip, pupils prone, Paxil, Seroquel. She stated that she had surgeries of bilateral shoulder bilateral knees she had extensive surgery on her lower back. Also she has surgeries over the ankles. She has hammertoes. Initial vital signs as a blood pressure of 167/84, heart rate of 75, respiratory of 18, temperature of 99.2 Fahrenheit oral and pulse ox of 95% room air. CBC with differential is unremarkable. Initial POC glucose is 112. In the hospital stroke code was activated. CT of the head is reported as age-related atrophic and chronic small vessel ischemic change without acute cranial process. CT angiography of the head and neck is negative for acute process. Initial NIH per the ED team is 3. ED spoke with the stroke attending and no TPA since the patient is on anticoagulation. Oneill virus PCR was not detected Review of Systems Review of system: The 12 point system was reviewed and apparent positive and negative per HPI. Past Medical History Past Medical History: CVA/TIA, Fibromyalgia, GERD/Reflux, Hyperlipidemia, Memory Impairment, Osteoarthritis (OA), Skin Disorder, Syncope Additional Past Medical History / Comment(s): MENIERE'S LEFT EAR, PEPTIC ULCERS, tia x 14- last 05/2019. History of Any Multi-Drug Resistant Organisms: None Reported Past Surgical History: Back Surgery, Cholecystectomy, Joint Replacement, O rthopedic Surgery Additional Past Surgical History / Comment(s): LOOP RECORDER 2010, ORIF LEFT FOOT, rt foot surgery, JT REPL WINNIE KNEES & WINNIE SHOULDERS, WINNIE CATARACT, gianni and screws in back Past Anesthesia/Blood Transfusion Reactions: No Reported Reaction Past Psychological History: Anxiety, Depression Smoking Status: Never smoker Past Alcohol Use History: None Reported Past Drug Use History: None Reported - Past Family History Father Family Medical History: Cancer Additional Family Medical History / Comment(s): LUNG CANCER Mother Family Medical History: Cancer Additional Family Medical History / Comment(s): LEUKEMIA Medications and Allergies Home Medications Medication Instructions Recorded Confirmed Type Gabapentin [Neurontin] 100 mg PO TID 12/12/13 04/29/21 History QUEtiapine [SEROquel] 50 mg PO HS 12/12/13 04/29/21 History Tamsulosin HCl [Flomax] 0.4 mg PO DAILY 12/12/13 04/29/21 History PARoxetine HCL [Paxil Cr] 25 mg PO DAILY 09/25/17 04/29/21 History Meclizine [Antivert] 12.5 mg PO TID 03/11/19 04/29/21 History busPIRone HCL 15 mg PO BID 03/13/19 04/29/21 History Multivitamins, Thera [Multivitamin 1 tab PO DAILY 06/27/19 04/29/21 History (formulary)] Albuterol Sulfate [Proair Hfa] 1 - 2 puff INHALATION RT-QID 10/11/19 04/29/21 History Alendronate Sodium [Fosamax] 35 mg PO MO 06/24/20 04/29/21 History Rivaroxaban [Xarelto] 10 mg PO DAILY 06/24/20 04/29/21 History Turmeric Root Extract [Turmeric] 500 mg PO DAILY 10/17/20 04/29/21 History Atorvastatin Calcium [Lipitor] 40 mg PO DAILY 04/29/21 04/29/21 History Ibuprofen [Motrin] 800 mg PO TID PRN 04/29/21 04/29/21 History Lisinopril-Hctz 20-12.5 mg 1 tab PO DAILY 04/29/21 04/29/21 History [Zestoretic 20-12.5] rOPINIRole HCL [Requip] 1 mg PO TID 04/29/21 04/29/21 History Allergies Allergy/AdvReac Type Severity Reaction Status Date / Time nickel [Nickel] Allergy Rash/Hives Verified 04/29/21 12:13 codeine AdvReac headache Verified 04/29/21 12:13 Physical Examination - Vital Signs Vital Signs: Vital Signs Temp Pulse Resp BP Pulse Ox 04/29/21 11:19 66 18 175/66 96 04/29/21 10:18 99.2 F 75 18 167/84 95 Intake and Output 04/28/21 04/29/21 04/29/21 22:59 06:59 14:59 Other: Weight 90.718 kg GENERAL: The patient is lying in bed and is not in acute distress. CHEST: The heart rate is regular rate rhythm. No murmurs to auscultation. No carotid bruit bilaterally. LUNG: Clear to auscultation bilaterally no wheezing noted throughout. Not labored breathing. ABDOMEN/GI: Bowel sounds present in all 4 quadrants. No tenderness to palpation throughout. Integumenary/Muscular skeletal she has a large scar over her lower back from previous surgery. She has bilateral scars over the knees from prior surgery. Guards over the right shoulder from a prior surgery NEUROLOGICAL: Higher mental function: The patient is awake, alert, oriented to self, place and time. Patient is following commands. No aphasia and no neglect. Cranial nerves: The pupils are round, equal and reactive to light and accommodation. Visual becerra are full to confrontation throughout. Extraocular movement is intact no nystagmus is noted. Facial sensation is normal to touch throughout. The facial strength is normal throughout. Hearing is mildly decreased bilaterally to hand rub. Tongue is midline and moved [id number] without any difficulty. No dysarthria is noted. Shoulder shrug is normal bilaterally. Motor: The strength is 5 over 5 throughout. Normal tone and bulk. She has hammertoes of the bilaterally. Cerebellum: Normal finger to nose heel to valentin bilaterally. Sensation: Sensation is normal to touch throughout. Reflexes (right/left): 2+ throughout. Plantars are mute bilaterally. Results - Laboratory Findings CBC and BMP: 04/29/21 10:45 04/29/21 10:45 Abnormal Lab Findings: Abnormal Labs 04/29/21 04/29/21 10:20 10:45 Sodium 136 L Carbon Dioxide 21 L BUN 25 H POC Glucose (mg/dL) 112 H AST 50 H Assessment and Plan Assessment: Likely TIA (Transient Episode of bilateral lower extremity, then expressive aphasia and then upper extremity weakness) NIH of 3 and currently seems 0. No TPA since on anticoagulation History of TIA Atrial fibrillation on Xarelto History of lower back pain surgery due to significant osteoarthritis Hypertension Hyperlipidemia History of OSTEOARTHRITIS with multiple surgeries Plan: In the ED the patient was given aspirin 324 mg once then was started on aspirin 81 mg daily and was restarted on her home dose of Xarelto. Continue Lipitor 40 mg daily. MRI of the brain as well as the neck is ordered by the primary team. I ordered a 2-D echo Neuro checks On cardiac monitoring Lipid panel, hemoglobin A1c are ordered are pending PT, OT and TEST DEVELOPER are consulted. We'll defer the rest of the medical management to the primary team Upon discharge the patient needs to follow-up with a neurologist in outpatient within 1-2 weeks (she follows-up with Dr. Hernandez). Thank you for the consultation. Marquis Ayers M.D. Neuro-hospital is Time with Patient: Greater than 30
[2021-04-29] MEDS: SODIUM CHLORIDE 0.9% 1,000 ML IV SCH ×5 (18:04→23:57)
[2021-04-29 18:13] LABS: Glucose,Whole Blood 129 mg/dL (75-99)
[2021-04-29] MEDS ORDERED: TICAGRELOR 90 MG TAB PO STA (18:58)
--- NOTE | 2021-04-29 19:16 | CT ---
EXAMINATION: CT brain wo con DATE AND TIME: 04/29/2021 6:33 PM CLINICAL INDICATION: PHH; code stroke TECHNIQUE: Standard departmental protocol DLP: 1143.4 mGy-cm COMPARISON: 04/29/2021 at 10:41 AM FINDINGS: The calvarium is intact. There is no intracranial hemorrhage. There is no intracranial mass or mass effect. No definite new intra-axial or extra-axial attenuation defect. The paranasal sinuses, middle ear cavities, and mastoid sinus air cells are clear. The orbits are unremarkable. IMPRESSION: NO ACUTE PROCESS.
[2021-04-29] MEDS: busPIRone HCl 5 MG TAB PO SCH (21:24)
[2021-04-29] MEDS: GABAPENTIN 100 MG CAP PO SCH ×2 (21:24→23:32)
[2021-04-29] MEDS: QUEtiapine 50 MG TAB PO SCH (21:24)
[2021-04-29] MEDS ORDERED: ACETAMINOPHEN TAB 325 MG TAB PO PRN (23:56)
[2021-04-30] MEDS ORDERED: ALBUTEROL NEBULIZED 2.5 MG/3 ML INHALATION PRN (04:02)
[2021-04-30] MEDS: SODIUM CHLORIDE 0.9% 1,000 ML IV SCH ×5 (04:04→20:54)
[2021-04-30 04:56] LABS: Appearance,Urine Clear (Clear); Bacteria,Urine Rare /hpf; Bilirubin,Urine Negative (Negative); Blood,Urine Negative (Negative); Color,Urine Colorless; Glucose,Urine (UA) Negative (Negative); Ketones,Urine Negative (Negative); Leukocyte Esterase,Urine Large (Negative); Nitrite,Urine Negative (Negative); Protein,Urine Negative (Negative); RBC,Urine 1 /hpf (0-5); Specific Gravity,Urine 1.006 (1.001-1.035); Urobilinogen,Urine <2.0 mg/dL (<2.0); WBC,Urine 82 /hpf (0-5)
[2021-04-30] MEDS ORDERED: LORazepam 2 MG/ML INJ IV STA (07:49)
[2021-04-30 07:54] LABS: HCT 44.8 % (34.0-46.0); MCH 30.3 pg (25.0-35.0); MCHC 33.5 g/dL (31.0-37.0); MCV 90.4 fL (80.0-100.0); Mean Platelet Volume 6.9; Platelet Count 215 k/uL (150-450); RBC 4.95 m/uL (3.80-5.40); RDW 13.2 % (11.5-15.5)
[2021-04-30 08:18] LABS: Calcium 9.5 mg/dL (8.4-10.2); Potassium 3.6 mmol/L (3.5-5.1)
[2021-04-30] MEDS ORDERED: TICAGRELOR 90 MG TAB PO SCH (09:00)
--- NOTE | 2021-04-30 09:02 | MR ---
EXAMINATION TYPE: MR brain wo con DATE OF EXAM: 04/30/2021 COMPARISON: 03/12/2019 HISTORY: Stroke CONTRAST: Performed utilizing 0 mL intravenous Gadavist gadolinium contrast. TECHNIQUE: Multiplanar, multiecho imaging on a 3.0 Joi magnet is performed through the brain. Stud y is performed within 24 hours of arrival to the hospital. There is some motion artifact present duri ng the exam. The craniovertebral junction is normal. The pituitary is normal. Diffusion-weighted imaging is performed. No abnormal hyperintensity is present to suggest an acute i ntracranial infarct or acute ischemic change. There is moderately scattered small areas of hyperintensity on T2 and Inversion Recovery weighted seq uences which are non-specific but can be related to microvascular ischemic changes. This includes amita trum semiovale, periventricular, subcortical white matter. Small amount of signal changes also presen t within the brainstem. Ventricles and sulci are prominent for the patient age. IMPRESSIONS: 1. No acute intracranial process. 2. Chronic appearing periventricular and deep white matter changes with atrophy.
[2021-04-30] MEDS: TAMSULOSIN 0.4 MG CAP.ER.24H PO SCH (09:36)
[2021-04-30] MEDS: ASPIRIN 81 MG PO SCH (09:36)
[2021-04-30] MEDS: RIVAROXABAN 10 MG TAB PO SCH (09:36)
[2021-04-30] MEDS: ATORVASTATIN 40 MG TAB PO SCH (09:36)
[2021-04-30] MEDS: PARoxetine 20 MG TAB PO SCH (09:36)
[2021-04-30] MEDS: busPIRone HCl 5 MG TAB PO SCH ×2 (09:36→20:47)
[2021-04-30] MEDS: MULTIVITAMINS, THERA 1 EACH TAB PO SCH (09:36)
[2021-04-30] MEDS: GABAPENTIN 100 MG CAP PO SCH ×3 (09:37→20:48)
[2021-04-30] MEDS: MECLIZINE 12.5 MG TAB PO SCH ×3 (09:37→20:48)
[2021-04-30] MEDS: LISINOPRIL-HCTZ 20-12.5 MG 1 EACH TAB PO SCH (09:37)
--- NOTE | 2021-04-30 10:49 | ECHOF ---
Referral Reason:stroke MEASUREMENTS -------- HEIGHT: 152.4 cm WEIGHT: 91.6 kg BP: 138/89 RVIDd: 3.1 cm (< 3.3) IVSd: 1.3 cm (0.6 - 1.1) LVIDd: 3.8 cm (3.9 - 5.3) LVPWd: 1.3 cm (0.6 - 1.1) IVSs: 2.0 cm LVIDs: 2.7 cm LVPWs: 1.9 cm LA Diam: 3.5 cm (2.7 - 3.8) Ao Diam: 3.8 cm (2.0 - 3.7) AV Cusp: 2.2 cm (1.5 - 2.6) MV EXCURSION: 8.677 mm (> 18.000) MV EF SLOPE: 27 mm/s (70 - 150) EPSS: 1.0 cm MV E Martin: 0.42 m/s MV DecT: 338 ms MV A Martin: 0.84 m/s MV E/A Ratio: 0.50 FINDINGS -------- Sinus rhythm. This was a technically adequate study. The left ventricular size is normal. There is mild concentric left ventricular hypertrophy. Overa ll left ventricular systolic function is normal with, an EF between 60 - 65 %. The right ventricle is normal in size. The left atrium is normal in size. The right atrium is normal in size. There is mild aortic regurgitation. The mitral valve is normal. The tricuspid valve appears structurally normal. Unable to estimate RVSP due to inadequate TR jet s pectral doppler profile. The pulmonic valve was not well visualized. The aortic root size is normal. IVC Not well visulized. There is no pericardial effusion. CONCLUSIONS -------- 1. The left ventricular size is normal. 2. There is mild concentric left ventricular hypertrophy. 3. Overall left ventricular systolic function is normal with, an EF between 60 - 65 %. 4. There is mild aortic regurgitation. 5. There is no pericardial effusion. LITIGATION DOCKET MANAGER: Natasha Pratt, [facility]
--- NOTE | 2021-04-30 11:09 | P.PN ---
<Jefry Tellez - Last Filed: 04/30/21 10:54> Subjective Progress Note Date: 04/30/21 History of Presenting Illness: Patient is an 80-year-old female with a past medical history of hypertension, hyperlipidemia, atrial fibrillation on Xarelto, TIAs, GERD, anxiety, and multiple orthopedic surgeries secondary to osteoarthritis. She presented to the emergency department with a chief complaint of expressive aphasia and left lower extremity weakness beginning around 9:45 AM. Initial NIH 3. Code stroke was activated upon her arrival to the emergency department. CT brain showing age- related atrophic and chronic small vessel ischemic changes without acute intercranial process. CTA head and neck negative for acute process. EKG showing normal sinus rhythm at 72 bpm with no noted T-wave or ST abnormalities. Labs obtained with CBC and coags unremarkable. Troponin normal findings at less than 0.012. BMP revealing prerenal azotemia with BUN of 25 otherwise normal findings and liver profile showing slightly elevated AST of 50. Emergency physician stated he spoke with stroke interventionalist Dr. Briggs whom stated that patient was not a candidate for TPA secondary to her current anticoagulant use and reportedly recommended MRI with neurology consultation and outpatient follow-up with her neurologist for angiogram after discharge. Patient was admitted under our services with consultation to neurology. Physical exam: Patient's symptoms have been waxing and waning throughout the night, a repeat CT was completed overnight which was also negative for acute intercranial process. Patient was started on dual platelet therapy with Brilinta in addition to daily aspirin by neurology. Echocardiogram completed revealing a normal EF between 60 and 65% with no significant valvular abnormalities. MRI of brain without cont rast negative for acute intercranial process revealing chronic appearing periventricular and deep white matter changes with atrophy. Neurology following. Morning labs reviewed and showing no significant abnormalities. Urinalysis positive for leukocytes and 82 WBCs, started on rocephin 1 g daily. Awaiting further recommendations from neurology. Vital signs reviewed and stable. General: Nontoxic, no distress and appears stated age. Derm: Skin warm and dry, normal coloration for ethnicity. Head: Atraumatic, normocephalic and symmetric. Eyes: EOMs intact, no lid lag, and anicteric sclera Mouth: no lip lesions, mucus membranes moist Cardiovascular: regular rate and rhythm with normal S1S2, no murmur, positive posterior tibial pulses bilaterally, and cap refill < 2 seconds. Lungs: Respirations even, regular, and unlabored on room air. Lungs CTA bilaterally, no rhonchi, no rales, no wheezing, and no accessory muscle usage. Abdominal: soft, nontender to palpation, no guarding, no appreciable organomegaly Ext: ROM intact. No gross muscle atrophy, no edema, no contractures Neuro: Speech clear at time of assessment this morning, face symmetrical and CN II-XII grossly intact. GCS 15. Movement and sensation intact. Normal finger to nose, normal [id number], no arm drop. Psych: Alert and oriented to person, place, time, and situation. Appropriate and pleasant affect. Assessment and Plan of Care: Expressive aphasia and left lower extremity changes in sensation, TIA vs CVA -Neurology consulted -MRI negative for acute intercranial process revealing chronic appearing periventricular and deep white matter changes with atrophy. -CT brain showing age-related atrophic and chronic small vessel ischemic changes without acute intercranial process. -CTA head and neck negative for acute process. -Echocardiogram completed revealing a normal EF between 60 and 65% with no significant valvular abnormalities -NIH Neuro checks -Swallow screen -Telemetry monitoring -Consult PT/OT -Dual platelet therapy with aspirin and Brilinta -Atorvastatin 40 mg nightly -Lipid profile and hemoglobin A1c pending. Paroxysmal Atrial fibrillation -Continue anticoagulation with Xarelto at this time. -Patient currently in sinus rhythm. Hypertension -Allow for permissive hypertension, resumed antihypertensive medications this morning. Hyperlipidemia -Continue atorvastatin 40 mg nightly -Lipid profile with a.m. labs. CODE STATUS: DO NOT RESUSCITATE DVT prophylaxis: Xarelto Discussed with: Patient Anticipated discharge date: Later this afternoon versus tomorrow pending neurology recommendations Anticipated discharge place: Home A total of 45 minutes was spent on the care of this complex patient more than 50% of the time was spent in counseling and care coordination.. Objective - Vital Signs Vital signs: Vital Signs Temp 98 F 04/30/21 07:13 Pulse 69 04/30/21 07:13 Resp 16 04/30/21 07:13 BP 197/100 04/30/21 07:13 Pulse Ox 99 04/30/21 07:13 Intake & Output 04/29/21 04/30/21 04/30/21 18:59 06:59 18:59 Intake Total 1100 Output Total 1000 Balance 100 Weight 90.718 kg 92 kg Intake: IV 1100 Invasive Line 1 1100 Output: Urine 1000 Other: Voiding Method Toilet # Voids 1 1 - Labs CBC & Chem 7: 04/30/21 07:11 04/30/21 07:11 Labs: Abnormal Lab Results - Last 24 Hours (Table) 04/29/21 04/29/21 04/29/21 Range/Units 10:20 10:45 18:11 Sodium 136 L (137-145) mmol/L Carbon Dioxide 21 L (22-30) mmol/L BUN 25 H (7-17) mg/dL POC Glucose (mg/dL) 112 H 129 H (75-99) mg/dL AST 50 H (14-36) U/L Ur Leukocyte Esterase (Negative) Urine WBC (0-5) /hpf Urine Bacteria (None) /hpf 04/30/21 Range/Units 04:17 Sodium (137-145) mmol/L Carbon Dioxide (22-30) mmol/L BUN (7-17) mg/dL POC Glucose (mg/dL) (75-99) mg/dL AST (14-36) U/L Ur Leukocyte Esterase Large H (Negative) Urine WBC 82 H (0-5) /hpf Urine Bacteria Rare H (None) /hpf <Nadia Rome - Last Filed: 04/30/21 15:06> Subjective Patient seen and examined independently. Patient was also seen by Jefry Tellez NP and case was discussed. I am in agreement with subjective, physical exam, assessment and plan as written above and amended below. Patient reports that she has had 15 TIAs related to an abnormal vasculature in her neck. She has been on Plavix in the past but has not been on it quite some time. We discussed that recommendations currently would be her dual antiplatelet therapy for the next 30 days due to her high-risk TIA. Patient is in agreement. We'll check cost coverage for Brilinta as it has been prescribed by neuro and if this is cost prohibitive we'll proceed with Xarelto. Patient likely would not benefit from triple therapy with hold aspirin, Brilinta, and Xarelto. Recommendations would be for Brilinta and Xarelto on discharge. She reports that her speech is now clear and fluids without difficulty this morning. General: non toxic, no distress, appears at stated age Derm: warm, dry Head: atraumatic, normocephalic, symmetric Eyes: EOMI, no lid lag, anicteric sclera Mouth: no lip lesion, mucus membranes moist Cardiovascular: S1S2 reg, no murmur, positive posterior tibial pulse bilateral, Lungs: CTA bilateral, no rhonchi, no rales , no accessory muscle use Abdominal: soft, nontender to palpation, no guarding, no appreciable organomegaly Ext: no gross muscle atrophy, no edema, no contractures Neuro: CN II-XI grossly intact, no focal neuro deficits Psych: Alert, oriented, appropriate affect Objective - Vital Signs Vital signs: Vital Signs Temp 98 F 04/30/21 07:13 Pulse 69 04/30/21 07:13 Resp 16 04/30/21 07:13 BP 197/100 04/30/21 07:13 Pulse Ox 99 04/30/21 07:13 Intake & Output 04/29/21 04/30/21 04/30/21 18:59 06:59 18:59 Intake Total 1100 760 Output Total 1000 1145 Balance 100 -385 Weight 90.718 kg 92 kg Intake: IV 1100 Invasive Line 1 1100 Oral 760 Output: Urine 1000 525 Post Void Residual 620 Other: Voiding Method Toilet # Voids 1 1 - Labs CBC & Chem 7: 04/30/21 07:11 04/30/21 07:11 Labs: Abnormal Lab Results - Last 24 Hours (Table) 04/29/21 04/30/21 04/30/21 Range/Units 18:11 04:17 07:11 BUN 18 H (7-17) mg/dL Glucose 118 H (74-99) mg/dL POC Glucose (mg/dL) 129 H (75-99) mg/dL HDL Cholesterol 70.50 H (40.00-60.00) mg/dL Ur Leukocyte Esterase Large H (Negative) Urine WBC 82 H (0-5) /hpf Urine Bacteria Rare H (None) /hpf
[2021-04-30 14:34] LABS: Chol/HDL Ratio 2.82 Ratio; HDL Cholesterol 70.5 mg/dL (40.00-60.00); LDL Cholesterol,Calculated 114.6 mg/dL (0.0-131.0); Triglycerides 69.5 mg/dL (0.00-149.00); VLDL Calculation 13.9 mg/dL (5.00-40.00)
--- NOTE | 2021-04-30 16:08 | EEG ---
ELECTROENCEPHALOGRAM REPORT DATE OF SERVICE: 04/30/2021. CLINICAL HISTORY: This is an 80-year-old woman with repeated episode of aphasia and weakness. This video EEG is obtained to evaluate for seizure epileptiform activity. MEDICATION: The patient is not on any antiepileptic drugs. EEG TYPE: A routine 21 channel EEG is performed with video using the 10/20 electrode placement system. DESCRIPTION: Wakefulness is only obtained. During wakefulness, there is a posterior dominant rhythm of low to moderate voltage that is well modulated, well sustained of 9-9.5 hertz activity. There is no sleep architecture seen. There is no focal slowing. Interictal and ictal is none. ACTIVATION PROCEDURES: Photic stimulation did not evoke a posterior driving response. There is no abnormality during the photic stimulation. Hyperventilation is not performed. CLINICAL INTERPRETATION: This is a normal routine EEG. There are no focal slowing, epileptiform discharges or seizure on the EEG. Clinical correlation is recommended. MAYCO / EMILE: [id number] / MTDD
--- NOTE | 2021-04-30 17:16 | P.PN ---
Subjective Progress Note Date: 04/30/21 The patient is seen at bedside and she states that she a repeated episode yesterday of unable to speak and slurred speech and the episode of whole-body week and seems that the patient had repeated episodes she had an episode yesterday in the stroke would have to be activated At around [address] of the head was done and it was reported as no acute process. Currently she is back to baseline and no further episodes. She has resltess leg syndrome. Objective - Vital Signs Vital signs: Vital Signs Temp 98.4 F 04/30/21 12:00 Pulse 68 04/30/21 12:00 Resp 20 04/30/21 12:00 BP 187/81 04/30/21 12:00 Pulse Ox 97 04/30/21 12:00 Intake & Output 04/29/21 04/30/21 04/30/21 18:59 06:59 18:59 Intake Total 1100 760 Output Total 1000 1145 Balance 100 -385 Weight 90.718 kg 92 kg Intake: IV 1100 Invasive Line 1 1100 Oral 760 Output: Urine 1000 525 Post Void Residual 620 Other: Voiding Method Toilet # Voids 1 1 - Exam WORK-UP: CT of the head is reported as age-related atrophic and chronic small vessel ischemic change without acute cranial process. CT angiography of the head and neck is negative for acute process. Initial NIH per the ED team is 3. Repeat CT of the head was done and it was reported as no acute process. MRI the brain is reported as no acute intracranial process. Chronic appearing periventricular and deep white matter changes with atrophy. 2-D echo was reported as left ventricle size is normal. Mild concentric limit hypertrophy. Ejection fraction of 60-65%. Left atrium is normal in size. Lipid panel is triglyceride of 69, cholesterol of 199, LDLs 114 and HDL of the 70. Hemoglobin A1c is 5.7 - Labs CBC & Chem 7: 04/30/21 07:11 04/30/21 07:11 Labs: Abnormal Lab Results - Last 24 Hours (Table) 04/29/21 04/30/21 04/30/21 Range/Units 18:11 04:17 07:11 BUN 18 H (7-17) mg/dL Glucose 118 H (74-99) mg/dL POC Glucose (mg/dL) 129 H (75-99) mg/dL HDL Cholesterol 70.50 H (40.00-60.00) mg/dL Ur Leukocyte Esterase Large H (Negative) Urine WBC 82 H (0-5) /hpf Urine Bacteria Rare H (None) /hpf Assessment and Plan Assessment: Likely TIA (Had repeated Transient Episode of bilateral lower extremity, then expressive aphasia and then upper extremity weakness) NIH of 3 and currently seems 0. No TPA since on anticoagulation Acute urinary tract infection History of TIA Atrial fibrillation on Xarelto History of lower back pain surgery due to significant osteoarthritis Restless leg syndrome. Hypertension Hyperlipidemia History of OSTEOARTHRITIS with multiple surgeries Plan: On her home dose of Xarelto 10mg daily and I started the patient on Brilinta 90mg 1 tab bid (with loading dose of 180mg once yesterday). The primary team restart the patient on aspirin 81 mg daily. The patient stated she would like to try ASA 81mg daily (since was not taking it on regular basis at [facility]) and if that does not help would go with Brilinta down the line. Continue Lipitor 40 mg daily. Because of these repeated episodes I ordered a routine EEG to rule out any seizure-like activity. The preliminary report is normal. There are no focal slowing, epileptiform discharges or seizure on the EEG. Neuro checks On cardiac monitoring PT, OT and EXCEPTIONAL CHILDREN TEACHER ASSISTANT are consulted. We'll defer the rest of the medical management to the primary team Upon discharge the patient needs to follow-up with a neurologist in outpatient within 1-2 weeks (she follows-up with Dr. Hernandez). The plan is discussed with the patient's nurse. There is no further neurological work-up. If she continues to do well, she is clear from neurological perspective. Marquis Ayers M.D. [facility] is Time with Patient: Less than 30
[2021-04-30] MEDS: QUEtiapine 50 MG TAB PO SCH (20:48)
[2021-05-01 04:06] VITALS: RESP 16
[2021-05-01] MEDS: GABAPENTIN 100 MG CAP PO SCH (09:14)
[2021-05-01] MEDS: busPIRone HCl 5 MG TAB PO SCH (09:14)
[2021-05-01] MEDS: ATORVASTATIN 40 MG TAB PO SCH (09:14)
[2021-05-01] MEDS: TAMSULOSIN 0.4 MG CAP.ER.24H PO SCH (09:14)
[2021-05-01] MEDS: ASPIRIN 81 MG PO SCH (09:14)
[2021-05-01] MEDS: MULTIVITAMINS, THERA 1 EACH TAB PO SCH (09:14)
[2021-05-01] MEDS: RIVAROXABAN 10 MG TAB PO SCH (09:15)
[2021-05-01] MEDS: PARoxetine 20 MG TAB PO SCH (09:15)
[2021-05-01] MEDS: MECLIZINE 12.5 MG TAB PO SCH (09:15)
[2021-05-01] MEDS: LISINOPRIL-HCTZ 20-12.5 MG 1 EACH TAB PO SCH (09:15)
[2021-05-01 12:22] VITALS: TEMP 98
[2021-05-01 12:25] VITALS: BP 164/91; PULSE 72
--- NOTE | 2021-05-01 12:51 | P.DS ---
Providers Date of admission: 04/29/21 11:40 Expected date of discharge: 05/01/21 Attending physician: Nadia Rome DO Consults: 04/29/21 11:40 Consult Physician Routine Consulting Provider: Marquis Ayers Consult Reason/Comments: CVA Do you want consulting provider notified?: Yes Primary care physician: Elfego Roberts MD Hospital Course: Discharge Diagnosis: Expressive aphasia and left lower extremity changes in sensation, TIA Paroxysmal Atrial fibrillation Hypertension Hyperlipidemia Hospital Course: Patient is an 80-year-old female with a past medical history of hypertension, hyperlipidemia, atrial fibrillation on Xarelto, TIAs, GERD, anxiety, and multiple orthopedic surgeries secondary to osteoarthritis. She presented to the emergency department with a chief complaint of expressive aphasia and left lower extremity weakness beginning around 9:45 AM. Initial NIH 3. Code stroke was activated upon her arrival to the emergency department. CT brain showing age- related atrophic and chronic small vessel ischemic changes without acute intercranial process. CTA head and neck negative for acute process. EKG showing normal sinus rhythm at 72 bpm with no noted T-wave or ST abnormalities. Labs obtained with CBC and coags unremarkable. Troponin normal findings at less than 0.012. BMP revealing prerenal azotemia with BUN of 25 otherwise normal findings and liver profile showing slightly elevated AST of 50. Emergency physician stated he spoke with stroke interventionalist Dr. Briggs whom stated that patient was not a candidate for TPA secondary to her current anticoagulant use and reportedly recommended MRI with neurology consultation and outpatient follow-up with her neurologist for angiogram after discharge. Patient was admitted under our services with consultation to neurology. Urinalysis was positive for infection. Since started on Rocephin. Ech ocardiogram completed revealing a normal EF between 60 and 65% with no significant valvular abnormalities MRI negative for acute intercranial process revealing chronic appearing periventricular and deep white matter changes with atrophy. Expressive aphasia likely secondary to TIA as these symptoms waxed and waned then completely resolved within 24 hours. Patient being started on daily aspirin in addition to Xarelto and atorvastatin currently taking. In addition patient being discharged home on 3 day course of Keflex for treatment of UTI. Patient is free from any neurological deficits at this time. She is stable for discharge home. Patient instructed to continue heart healthy diet and follow-up with neurologist and PCP. Physical exam: Patient seen and fully evaluated at bedside this morning. She denies having any further episodes of expressive aphasia and remains free from any neurological deficits at this time. Patient is stable for discharge home. Patient being discharged home on 3 day course of Keflex to complete a 5 day course of antibiotic therapy . Patient started on aspirin in addition to Xarelto and atorvastatin. Patient stable for discharge home. Vital signs reviewed and stable. General: Nontoxic, no distress and appears stated age. Derm: Skin warm and dry, normal coloration for ethnicity. Head: Atraumatic, normocephalic and symmetric. Eyes: EOMs intact, no lid lag, and anicteric sclera Mouth: no lip lesions, mucus membranes moist Cardiovascular: regular rate and rhythm with normal S1S2, no murmur, positive posterior tibial pulses bilaterally, and cap refill < 2 seconds. Lungs: Respirations even, regular, and unlabored on room air. Lungs CTA bilaterally, no rhonchi, no rales, no wheezing, and no accessory muscle usage. Abdominal: soft, nontender to palpation, no guarding, no appreciable organomegaly Ext: ROM intact. No gross muscle atrophy, no edema, no contractures Neuro: Speech clear at time of assessment this morning, face symmetrical and CN II-XII grossly intact. GCS 15. Movement and sensation intact. Normal finger to nose, normal [id number], no arm drop. Psych: Alert and oriented to person, place, time, and situation. Appropriate and pleasant affect. A total of 45 minutes of time were spent preparing this complex discharge summary. Patient Condition at Discharge: Stable Plan - Discharge Summary Discharge Rx Participant: No New Discharge Prescriptions: New Aspirin 81 mg PO DAILY 30 Days #30 tab Continue QUEtiapine [SEROquel] 50 mg PO HS Gabapentin [Neurontin] 100 mg PO TID Tamsulosin HCl [Flomax] 0.4 mg PO DAILY PARoxetine HCL [Paxil Cr] 25 mg PO DAILY Meclizine [Antivert] 12.5 mg PO TID busPIRone HCL 15 mg PO BID Multivitamins, Thera [Multivitamin (formulary)] 1 tab PO DAILY Albuterol Sulfate [Proair Hfa] 1 - 2 puff INHALATION RT-QID Alendronate Sodium [Fosamax] 35 mg PO MO Rivaroxaban [Xarelto] 10 mg PO DAILY Turmeric Root Extract [Turmeric] 500 mg PO DAILY rOPINIRole HCL [Requip] 1 mg PO TID Atorvastatin Calcium [Lipitor] 40 mg PO DAILY Lisinopril-Hctz 20-12.5 mg [Zestoretic 20-12.5] 1 tab PO DAILY Discontinued Ibuprofen [Motrin] 800 mg PO TID PRN PRN Reason: Pain Discharge Medication List Gabapentin [Neurontin] 100 mg PO TID 12/12/13 [History] QUEtiapine [SEROquel] 50 mg PO HS 12/12/13 [History] Tamsulosin HCl [Flomax] 0.4 mg PO DAILY 12/12/13 [History] PARoxetine HCL [Paxil Cr] 25 mg PO DAILY 09/25/17 [History] Meclizine [Antivert] 12.5 mg PO TID 03/11/19 [History] busPIRone HCL 15 mg PO BID 03/13/19 [History] Multivitamins, Thera [Multivitamin (formulary)] 1 tab PO DAILY 06/27/19 [History] Albuterol Sulfate [Proair Hfa] 1 - 2 puff INHALATION RT-QID 10/11/19 [History] Alendronate Sodium [Fosamax] 35 mg PO MO 06/24/20 [History] Rivaroxaban [Xarelto] 10 mg PO DAILY 06/24/20 [History] Turmeric Root Extract [Turmeric] 500 mg PO DAILY 10/17/20 [History] Atorvastatin Calcium [Lipitor] 40 mg PO DAILY 04/29/21 [History] Lisinopril-Hctz 20-12.5 mg [Zestoretic 20-12.5] 1 tab PO DAILY 04/29/21 [History] rOPINIRole HCL [Requip] 1 mg PO TID 04/29/21 [History] Aspirin 81 mg PO DAILY 30 Days #30 tab 05/01/21 [Rx] Follow up Appointment(s)/Referral(s): Claudine Guerrero MD [REFERRING] - 1 Week Elfego Roberts MD [Primary Care Provider] - 1-2 days Activity/Diet/Wound Care/Special Instructions: Activity: As tolerated Diet: Continue heart healthy diet Special Instructions: As discussed with you, we have started you on a daily aspirin 81 mg/day in addition to your Xarelto and atorvastatin. You will need to follow up outpatient with your Neurologist for follow up evaluation and may they may discuss further with you the dual platelet therapy with Brillinta. Thank you for allowing us to participate in your care, it was truly a pleasure having you for our patient. Discharge Disposition: HOME SELF-CARE
[2021-05-03] MEDS ORDERED: NON FORMULARY DRUG (Alendronate Sodium [Fosamax] 35 MG Tablet) PO SCH (09:00)
== END 2021-05-01 15:24 | disposition home or self-care (01) | DRG 69 ==
LOC: EC 10:16 → 3SCARD 11:40
PROVIDERS: ADMIT Internal Medicine; ATTEND Internal Medicine
DX: G45.9 Transient cerebral ischemic attack, unspecified (principal); R47.01 Aphasia; N39.0 Urinary tract infection, site not specified; I48.0 Paroxysmal atrial fibrillation; R47.1 Dysarthria and anarthria; Z66 Do not resuscitate; R29.703 NIHSS score 3; G25.81 Restless legs syndrome; I10 Essential (primary) hypertension; E78.5 Hyperlipidemia, unspecified; H81.02 Meniere's disease, left ear; R41.3 Other amnesia; M79.7 Fibromyalgia; K21.9 Gastro-esophageal reflux disease without esophagitis; M20.40 Other hammer toe(s) (acquired), unspecified foot; Z20.822 Contact with and (suspected) exposure to COVID-19; L98.9 Disorder of the skin and subcutaneous tissue, unspecified; G31.89 Other specified degenerative diseases of nervous system; M19.90 Unspecified osteoarthritis, unspecified site; M54.5 Low back pain; F32.9 Major depressive disorder, single episode, unspecified; F41.9 Anxiety disorder, unspecified; Z90.49 Acquired absence of other specified parts of digestive tract; Z95.818 Presence of other cardiac implants and grafts; Z96.653 Presence of artificial knee joint, bilateral; Z96.612 Presence of left artificial shoulder joint; Z96.611 Presence of right artificial shoulder joint; Z98.42 Cataract extraction status, left eye; Z98.41 Cataract extraction status, right eye; Z88.5 Allergy status to narcotic agent; Z88.8 Allergy status to other drugs, medicaments and biological substances; Z79.899 Other long term (current) drug therapy; Z79.83 Long term (current) use of bisphosphonates; Z79.01 Long term (current) use of anticoagulants; Z79.82 Long term (current) use of aspirin; Z86.73 Personal history of transient ischemic attack (TIA), and cerebral infarction without residual deficits; Z87.11 Personal history of peptic ulcer disease
CPT/HCPCS: 36415; 70450; 70496; 70498; 70551; 71046; 80048; 80053; 80061; 81001; 83036; 84484; 85025; 85027; 85610; 85730; 87635; 93005; 93306; 94760; 95816; 96360; 96361; 99291

== ENCOUNTER 2022-01-21 11:04 | Observation (INO) | payer MEDICARE ==
[2022-01-21] MEDS ORDERED: SODIUM CHLORIDE 0.9% 500 ML 500 ML IV STA (11:07)
--- NOTE | 2022-01-21 11:13 | ED ---
General Adult HPI - General Stated complaint: Possible Stroke Time Seen by Provider: 01/21/22 11:06 Source: patient, EMS Mode of arrival: EMS - History of Present Illness Initial comments: Dictation was produced using [employer] dictation software. please excuse any grammatical, word or spelling errors. Chief Complaint: 81-year-old female presents emergency department for strokelike symptoms History of Present Illness: 81-year-old female she has multiple comorbidities. Patient was brought to the emergency department by EMS from supervisor alteration workroom's office. Patient is undergoing cardiac stress tests when all of a sudden she began having symptoms of dysarthria and reported left-sided sensory deficit and weakness. I did speak with supervisor alteration workroom, Dr. Mckeon who is familiar with the patient states that she tends to do these often. District Plant Superintendent believes that patient is having a psychogenic episode EMS reports that patient is having garbled speech. Last normal was 20 minutes prior to arrival. Patient allegedly has a history of stroke. He was undergoing a nuclear stress test when her symptoms began. The ROS documented in this emergency department record has been reviewed and confirmed by me. Those systems with pertinent positive or negative responses have been documented in the HPI. All other systems are other negative and/or noncontributory. PHYSICAL EXAM: General Impression: Alert and oriented x3, not in acute distress HEENT: Normocephalic atraumatic, extra-ocular movements intact, pupils equal and reactive to light bilaterally, mucous membranes moist. Cardiovascular: Heart regular rate and rhythm Chest: Able to complete full sentences, no retractions, no tachypnea Abdomen: abdomen soft, non-tender, non-distended, no organomegaly Musculoskeletal: Pulses present and equal in all extremities, no peripheral edema Motor: no focal deficits noted Neurological: CN II-XII grossly intact, garbled speech, patient showing very little effort with left lower extremity strength however when given a noxious stimuli to the calf or leg moves up briskly. She does not have any upper extremity deficit. Patient is not aphasic. Skin: Intact with no visualized rashes Psych: Normal affect and mood ED course: 81-year-old female with past medical history of stroke presents to the emergency department for strokelike symptoms that began at the supervisor alteration workroom this office during nuclear stress test. Last normal was 20 minutes prior to arrival. Patient given an NIH score of 1 for dysarthria. Patient is a candidate for alteplase at this time due to risk outweighed the benefits. Code stroke page nonetheless Lavatory evaluation obtained. CBC, coag, metabolic panel is unremarkable. Computed tomography scan of brain shows no acute processes. CT angiogram of the head and neck shows 50% bilaterally reduction proximal ICAs. Peripheral branch vessels of the bilateral arms C appointment to visualize eared patient reevaluated at bedside at 1:00 PM. She is a symptomatic watching TV with no acute issues. Patient has an NIH score of 0 now. Patient is agreeable with admission. Patient given aspirin and neurology will be consulted. [facility] EKG interpretation: Ventricular rate 60, sinus rhythm with lots of artifact, oil heat technician says patient was tremulous. Curasol 6, QTC 391. No [place] prolongation, no QTC prolongation, no ST or T-wave changes noted. EKG compared to 04/29/2021 showing no changes. Overall, this EKG is unremarkable - Related Data Home Medications Medication Instructions Recorded Confirmed Gabapentin [Neurontin] 100 mg PO TID 12/12/13 04/29/21 QUEtiapine [SEROquel] 50 mg PO HS 12/12/13 04/29/21 Tamsulosin HCl [Flomax] 0.4 mg PO DAILY 12/12/13 04/29/21 PARoxetine HCL [Paxil Cr] 25 mg PO DAILY 09/25/17 04/29/21 Meclizine [Antivert] 12.5 mg PO TID 03/11/19 04/29/21 busPIRone HCL 15 mg PO BID 03/13/19 04/29/21 Albuterol Sulfate [Proair Hfa] 1 - 2 puff INHALATION RT-QID 10/11/19 04/29/21 Rivaroxaban [Xarelto] 10 mg PO DAILY 06/24/20 04/29/21 Turmeric Root Extract [Turmeric] 500 mg PO DAILY 10/17/20 04/29/21 Atorvastatin Calcium [Lipitor] 40 mg PO DAILY 04/29/21 04/29/21 Lisinopril-Hctz 20-12.5 mg 1 tab PO DAILY 04/29/21 04/29/21 [Zestoretic 20-12.5] rOPINIRole HCL [Requip] 1 mg PO TID 04/29/21 04/29/21 Famotidine [Pepcid] 20 mg PO HS 01/21/22 01/21/22 Ibuprofen [Motrin] 800 mg PO Q8H PRN 01/21/22 01/21/22 amLODIPine [Norvasc] 5 mg PO DAILY 01/21/22 01/21/22 Allergies Allergy/AdvReac Type Severity Reaction Status Date / Time nickel [Nickel] Allergy Rash/Hives Verified 01/21/22 11:06 codeine AdvReac headache Verified 01/21/22 11:06 Review of Systems ROS Statement: Those systems with pertinent positive or pertinent negative responses have been documented in the HPI. ROS Other: All systems not noted in ROS Statement are negative. Past Medical History Past Medical History: CVA/TIA, Fibromyalgia, GERD/Reflux, Hyperlipidemia, Memory Impairment, Osteoarthritis (OA), Skin Disorder, Syncope Additional Past Medical History / Comment(s): MENIERE'S LEFT EAR, PEPTIC ULCERS, tia x 14- last 05/2019. History of Any Multi-Drug Resistant Organisms: None Reported Past Surgical History: Back Surgery, Cholecystectomy, Joint Replacement, Orthopedic Surgery Additional Past Surgical History / Comment(s): LOOP RECORDER 2010, ORIF LEFT FOOT, rt foot surgery, JT REPL WINNIE KNEES & WINNIE SHOULDERS, WINNIE CATARACT, gianni and screws in back Past Anesthesia/Blood Transfusion Reactions: No Reported Reaction Past Psychological History: Anxiety, Depression Smoking Status: Never smoker Past Alcohol Use History: None Reported Past Drug Use History: None Reported - Past Family History Father Family Medical History: Cancer Additional Family Medical History / Comment(s): LUNG CANCER Mother Family Medical History: Cancer Additional Family Medical History / Comment(s): LEUKEMIA Course Vital Signs 01/21/22 01/21/22 01/21/22 11:06 11:27 12:00 Pulse Rate 71 70 71 Respiratory 16 22 16 Rate Blood Pressure 132/76 134/75 153/70 O2 Sat by Pulse 100 95 100 Oximetry 01/21/22 01/21/22 12:30 12:43 Pulse Rate 70 74 Respiratory 16 16 Rate Blood Pressure 145/64 137/84 O2 Sat by Pulse 100 100 Oximetry Medical Decision Making - Lab Data Result diagrams: 01/21/22 11:17 01/21/22 11:17 Lab Results 01/21/22 01/21/2201/21/22 Range/Units 11:17 11:17 11:17 WBC 7.5 (3.8-10.6) k/uL RBC 4.44 (3.80-5.40) m/uL Hgb 13.7 (11.4-16.0) gm/dL Hct 40.4 (34.0-46.0) % MCV 91.0 (80.0-100.0) fL MCH 30.8 (25.0-35.0) pg MCHC 33.9 (31.0-37.0) g/dL RDW 12.9 (11.5-15.5) % Plt Count 247 (150-450) k/uL MPV 7.4 Neutrophils % 55 % Lymphocytes % 36 % Monocytes % 5 % Eosinophils % 1 % Basophils % 1 % Neutrophils # 4.1 (1.3-7.7) k/uL Lymphocytes # 2.7 (1.0-4.8) k/uL Monocytes # 0.4 (0-1.0) k/uL Eosinophils # 0.1 (0-0.7) k/uL Basophils # 0.0 (0-0.2) k/uL PT 12.9 H (9.0-12.0) sec INR 1.2 H (<1.2) APTT 30.3 H (22.0-30.0) sec Sodium 139 (137-145) mmol/L Potassium 3.8 (3.5-5.1) mmol/L Chloride 108 H (98-107) mmol/L Carbon Dioxide 20 L (22-30) mmol/L Anion Gap 11 mmol/L BUN 26 H (7-17) mg/dL Creatinine 0.81 (0.52-1.04) mg/dL Est GFR (CKD-EPI)AfAm 79 (>60 ml/min/1.73 sqM) Est GFR (CKD-EPI)NonAf 68 (>60 ml/min/1.73 sqM) Glucose 98 (74-99) mg/dL POC Glucose (mg/dL) (70-110) mg/dL POC Glu Log Roper ID Calcium 9.2 (8.4-10.2) mg/dL Total Bilirubin 0.7 (0.2-1.3) mg/dL AST 32 (14-36) U/L ALT 16 (4-34) U/L Alkaline Phosphatase 101 (38-126) U/L Troponin I (0.000-0.034) ng/mL Total Protein 6.5 (6.3-8.2) g/dL Albumin 4.0 (3.5-5.0) g/dL 01/21/22 01/21/22 Range/Units 11:17 11:21 WBC (3.8-10.6) k/uL RBC (3.80-5.40) m/uL Hgb (11.4-16.0) gm/dL Hct (34.0-46.0) % MCV (80.0-100.0) fL MCH (25.0-35.0) pg MCHC (31.0-37.0) g/dL RDW (11.5-15.5) % Plt Count (150-450) k/uL MPV Neutrophils % % Lymphocytes % % Monocytes % % Eosinophils % % Basophils % % Neutrophils # (1.3-7.7) k/uL Lymphocytes # (1.0-4.8) k/uL Monocytes # (0-1.0) k/uL Eosinophils # (0-0.7) k/uL Basophils # (0-0.2) k/uL PT (9.0-12.0) sec INR (<1.2) APTT (22.0-30.0) sec Sodium (137-145) mmol/L Potassium (3.5-5.1) mmol/L Chloride (98-107) mmol/L Carbon Dioxide (22-30) mmol/L Anion Gap mmol/L BUN (7-17) mg/dL Creatinine (0.52-1.04) mg/dL Est GFR (CKD-EPI)AfAm (>60 ml/min/1.73 sqM) Est GFR (CKD-EPI)NonAf (>60 ml/min/1.73 sqM) Glucose (74-99) mg/dL POC Glucose (mg/dL) 97 (70-110) mg/dL POC Glu Log Roper ID Carmen Caraballo Calcium (8.4-10.2) mg/dL Total Bilirubin (0.2-1.3) mg/dL AST (14-36) U/L ALT (4-34) U/L Alkaline Phosphatase (38-126) U/L Troponin I <0.012 (0.000-0.034) ng/mL Total Protein (6.3-8.2) g/dL Albumin (3.5-5.0) g/dL Critical Care Time Critical Care Time: Yes Total Critical Care Time: 33 Disposition Clinical Impression: Dysarthria Disposition: ADMITTED IP TO THIS HOSP Condition: Fair Referrals: Elfego Roberts MD [Primary Care Provider] - 1-2 days Decision Time: 13:02
[2022-01-21 11:23] LABS: Glucose,Whole Blood 97 mg/dL (70-110)
--- NOTE | 2022-01-21 11:30 | CT ---
EXAMINATION TYPE: CT brain wo con for TPA DATE OF EXAM: 01/21/2022 COMPARISON: 04/29/2021 HISTORY: CODE STROKE CT DLP: Not available at time of this submission mGycm Unenhanced CT of the brain was performed. The ventricles, basal cisterns and sulci overlying the cerebral convexities demonstrate mild enlargem ent. There is no evidence for intracranial hemorrhage or sulcal effacement. There is decreased attenuation about the periventricular white matter and deep white matter of both c erebral hemispheres, compatible with chronic small vessel ischemia. Differential diagnosis does inclu de demyelination. No mass effects are seen.No midline shift. Osseous calvarium is intact. If symptoms persist consider MRI. IMPRESSION: 1. Age related atrophic and chronic small vessel ischemic change without acute intracranial process s een at this time.
[2022-01-21 11:56] LABS: Basophils % (A) 1 %; Eosinophils # (A) 0.1 k/uL (0-0.7); Eosinophils % (A) 1 %; HCT 40.4 % (34.0-46.0); HGB 13.7 gm/dL (11.4-16.0); Lymphocytes # (A) 2.7 k/uL (1.0-4.8); Lymphocytes % (A) 36 %; MCH 30.8 pg (25.0-35.0); MCHC 33.9 g/dL (31.0-37.0); Mean Platelet Volume 7.4; Monocytes # (A) 0.4 k/uL (0-1.0); Monocytes % (A) 5 %; Neutrophils # (A) 4.1 k/uL (1.3-7.7); Neutrophils % (A) 55 %; Platelet Count 247 k/uL (150-450); RBC 4.44 m/uL (3.80-5.40); RDW 12.9 % (11.5-15.5); WBC 7.5 k/uL (3.8-10.6)
[2022-01-21 12:08] LABS: Calcium 9.2 mg/dL (8.4-10.2); Potassium 3.8 mmol/L (3.5-5.1); Total Bilirubin 0.7 mg/dL (0.2-1.3); Total Protein 6.5 g/dL (6.3-8.2)
[2022-01-21 12:10] LABS: INR 1.2 (<1.2); Partial Thromboplastin Time 30.3 sec (22.0-30.0); Prothrombin Time 12.9 sec (9.0-12.0)
--- NOTE | 2022-01-21 12:26 | XR ---
EXAMINATION TYPE: XR chest 2V DATE OF EXAM: 01/21/2022 COMPARISON: 04/29/2021 HISTORY: Shortness of breath TECHNIQUE: Frontal and lateral views of the chest are obtained. FINDINGS: Scattered senescent parenchymal changes noted. Hyperinflation compatible with COPD. No evidence for infiltrate. No evidence for atelectasis. Heart size is stable. Mediastinal structures are stable and grossly unremarkable. No evidence for hilar prominence. Degenerative changes dorsal spine. IMPRESSION: 1. No evidence for acute pulmonary disease.
--- NOTE | 2022-01-21 12:46 | CT ---
EXAMINATION TYPE: CT angio head neck DATE OF EXAM: 01/21/2022 COMPARISON: HISTORY: CODE STROKE CT DLP: 638.4 mGycm CONTRAST: Performed without and with IV Contrast, patient injected with 65 ml mL of Isovue 370. Combination Contrast CTA cervical carotids and [place] CTA cervical carotids with 3-D recons truction Contrast CTA of the cervical carotids was performed 3-D reconstruction imaging obtained at a separate workstation. Right carotid system: Mild plaque is seen of the right common carotid artery. There is mild to moder ate plaque also noted at the carotid bulb and proximal ICA. Estimated diameter reduction of approxim ately 50%. ECA is patent. Right vertebral artery appears unremarkable. Left carotid system: Mild plaque is seen of the left common carotid artery. There is mild to moderat e plaque also noted at the carotid bulb and proximal ICA. Estimated diameter reduction of approximat memo 50%. ECA is patent. Left vertebral artery appears unremarkable. IMPRESSION: 1. Estimated diameter reduction of approximately 50% bilaterally proximal ICAs. CTA kaw of [place] with 3-D reconstruction Contrast CTA of the kaw of [place] was performed 3-D reconstruction imaging obtained at a separate workstation. Peripheral branch vessels of the bilateral MCA are poorly visualized. There is diminutive left A1 seg ment JÚNIOR. Remaining intracranial vasculature appears to be patent at this time. I do not see evidence for sizable aneurysm or vascular malformation. Please note MRI provides greater sensitivity and spe cificity. Visualized brain appears grossly unremarkable. IMPRESSION: 1. Peripheral branch vessels of the bilateral MCA are poorly visualized. There is diminutive left A1 segment JÚNIOR. Remaining intracranial vasculature appears to be patent at this time. NASCET criteria was used in interpretation of this exam?
[2022-01-21] MEDS ORDERED: ASPIRIN 81 MG PO STA (12:49)
[2022-01-21] MEDS ORDERED: ONDANSETRON 4 MG/2 ML VIAL IVP PRN (12:58)
[2022-01-21] MEDS ORDERED: NALOXONE 0.4 MG/ML 1 ML VIAL IV PRN ×2 (12:58→16:52)
[2022-01-21] MEDS ORDERED: SODIUM CHLORIDE 0.9% 1,000 ML IV SCH (13:00)
--- NOTE | 2022-01-21 16:06 | P.CNNES ---
History of Present Illness Consult date: 01/21/22 Requesting physician: García Awad Reason for Consult: code stroke History of Present Illness: This is an 81-year-old woman with medical history of TIA's, atrial fibrillation on Xarelto, restless leg syndrome, hypertension, hyperlipidemia, osteoarthritis who presented to our emergency department via EMS on 01/21/2022 from her cardiology office because of dysarthria and left-sided the numbness and weakness. She was undergoing a nuclear stress test her symptoms began. Patient stated she was getting nuclear stress test because of repeated TIA's. Her last normal was about 20 minutes prior to arrival. Patient noticed she was slurring her speech and left face and arm was numb. She denies any loss of consciousne ss, urinary or bowel incontinence, tongue bite or soreness. It seems the ED spoke with her professor of theatre (Dr. Hansen) who feels there episodes are psychogenic. Patient feels back to baseline. Seems the patient had 2 episodes of TIA one of the episodes was April 2021 in which the patient had a transient episode bilateral lower extremity weakness expressive aphasia than upper extremity weakness. She had MRI of the brain which was negative for stroke. She had routine EEG on 04/30/2021 and was normal. Please refer to our notes for further details. Some of the workup in our facility during this hospital visit consisted of: CT of the head is reported as age-related atrophic and chronic small vessel ischemic change without acute intracranial process seen at this time. CT angiography of the head and neck was reported as per flow branch of the vessels of bilateral MCA are poorly visualized. There is dimminutive left A1 segment JÚNIOR. Remaining intracranial vasculature appears to be patent this time. In the ED NIH was a 1 for dysarthria then resolved to 0. Stroke code was activated and no IV TPA because the risk outweigh benefits Review of Systems Review of system: The 12 point system was reviewed and apparent positive and negative per HPI. Past Medical History Past Medical History: CVA/TIA, Fibromyalgia, GERD/Reflux, Hyperlipidemia, Memory Impairment, Osteoarthritis (OA), Skin Disorder, Syncope Additional Past Medical History / Comment(s): MENIERE'S LEFT EAR, PEPTIC ULCERS, tia x 14- last 05/2019. History of Any Multi-Drug Resistant Organisms: None Reported Past Surgical History: Back Surgery, Cholecystectomy, Joint Replacement, Orthopedic Surgery Additional Past Surgical History / Comment(s): LOOP RECORDER 2010, ORIF LEFT FOOT, rt foot surgery, JT REPL WINNIE KNEES & WINNIE SHOULDERS, WINNIE CATARACT, gianni and screws in back Past Anesthesia/Blood Transfusion Reactions: No Reported Reaction Past Psychological History: Anxiety, Depression Smoking Status: Never smoker Past Alcohol Use History: None Reported Past Drug Use History: None Reported - Past Family History Father Family Medical History: Cancer Additional Family Medical History / Comment(s): LUNG CANCER Mother Family Medical History: Cancer Additional Family Medical History / Comment(s): LEUKEMIA Medications and Allergies Home Medications Medication Instructions Recorded Confirmed Type Gabapentin [Neurontin] 100 mg PO TID PRN 12/12/13 01/21/22 History QUEtiapine [SEROquel] 50 mg PO HS 12/12/13 01/21/22 History Tamsulosin HCl [Flomax] 0.4 mg PO DAILY 12/12/13 01/21/22 History PARoxetine HCL [Paxil Cr] 25 mg PO DAILY 09/25/17 01/21/22 History Meclizine [Antivert] 12.5 mg PO TID PRN 03/11/19 01/21/22 History busPIRone HCL 15 mg PO BID 03/13/19 01/21/22 History Albuterol Sulfate [Proair Hfa] 1 - 2 puff INHALATION RT-Q6H PRN 10/11/19 01/21/22 History Rivaroxaban [Xarelto] 10 mg PO DAILY 06/24/20 01/21/22 History Turmeric Root Extract [Turmeric] 500 mg PO DAILY 10/17/20 01/21/22 History Atorvastatin Calcium [Lipitor] 40 mg PO DAILY 04/29/21 01/21/22 History Lisinopril-Hctz 20-12.5 mg 1 tab PO BID 04/29/21 01/21/22 History [Zestoretic 20-12.5] rOPINIRole HCL [Requip] 1 mg PO TID 04/29/21 01/21/22 History Famotidine [Pepcid] 20 mg PO HS 01/21/22 01/21/22 History Ibuprofen [Motrin] 800 mg PO Q8H PRN 01/21/22 01/21/22 History amLODIPine [Norvasc] 5 mg PO DAILY 01/21/22 01/21/22 History Allergies Allergy/AdvReac Type Severity Reaction Status Date / Time nickel [Nickel] Allergy Rash/Hives Verified 01/21/22 11:06 codeine AdvReac headache Verified 01/21/22 11:06 Physical Examination - Vital Signs Vital Signs: Vital Signs Pulse Resp BP Pulse Ox 01/21/22 12:43 74 16 137/84 100 01/21/22 12:30 70 16 145/64 100 01/21/22 12:00 71 16 153/70 100 01/21/22 11:27 70 22 134/75 95 01/21/22 11:06 71 16 132/76 100 Intake and Output 01/20/22 01/21/22 01/21/22 22:59 06:59 14:59 Other: Weight 95.254 kg GENERAL: The patient is lying in bed and is not in acute distress. CHEST: The heart rate is regular rate rhythm. No murmurs to auscultation. No carotid bruit bilaterally. LUNG: Clear to auscultation bilaterally no wheezing noted throughout. Not labored breathing. ABDOMEN/GI: Bowel sounds present in all 4 quadrants. No tenderness to palpation throughout. NEUROLOGICAL: Higher mental function: The patient is awake, alert, oriented to self, place and time. Patient is following commands. No aphasia and no neglect. Cranial nerves: The pupils are round, equal and reactive to light and accommodation. Visual becerra are full to confrontation throughout. Extraocular movement is intact no nystagmus is noted. Facial sensation is normal to touch throughout. The facial strength is normal throughout. Hearing is mildly decrease bilaterally to hand rub. Tongue is midline and moved [id number] without any difficulty. No dysarthria is noted. Shoulder shrug is normal bilaterally. Motor: The strength is left forearm is 5- (old according to patient). Otherwise 5 over 5 throughout. Normal tone and bulk. Cerebellum: Normal finger to nose heel to chin bilaterally. Sensation: Sensation is normal to touch throughout. Reflexes (right/left): 1+ throughout. Plantars are downgoing bilaterally. Results - Laboratory Findings CBC and BMP: 01/21/22 11:17 01/21/22 11:17 Abnormal Lab Findings: Abnormal Labs 01/21/22 01/21/22 11:17 11:17 PT 12.9 H INR 1.2 H APTT 30.3 H Chloride 108 H Carbon Dioxide 20 L BUN 26 H Assessment and Plan Assessment: Acute transient dysarthria and left-sided numbness and possible weakness (who presented from her professor of theatre office): Unsure exact cause. Possible TIA. History multiple TIA's Atrial fibrillation on Xarelto Restless leg syndrome History of hypertension Hyperlipidemia Osteoarthritis Plan: I ordered a STAT MRI of the brain with and without In the ED aspirin 325mg once. Recommend continue ASA 325mg daily and will hold Eliquis until MRI Brain finding. If MRI Brain is negative restart home medication of Xarelto. Recommend to continue Lipitor 40mg qhs (home dose) Will continue Lipitor 40mg qhs. Recommend prolonged EEG as outpatient to rule other causes such as seizure or epileptiform activity. In past she had routine EEG and was normal. Neuro checks Q4 hours. Continue cardiac monitoring. Consulted PT, OT and INSTRUCTIONAL INTERVENTIONIST. Will defer rest of management to primary team. For DVT prophylaxis: Started on Subq heparin 5000U every 12 hours. Once Xarelto is restated stop subq heparin. Thank you for the consultation. If MRI Brain is negative then patient is clear for discharge from neurological perspective. Marquis Ayers M.D. Neuro-Hospitalist Time with Patient: Greater than 30
[2022-01-21] MEDS ORDERED: IBUPROFEN 800 MG TAB PO PRN (16:51)
[2022-01-21] MEDS ORDERED: MECLIZINE 12.5 MG TAB PO PRN (16:51)
[2022-01-21] MEDS ORDERED: GABAPENTIN 100 MG CAP PO PRN (16:51)
--- NOTE | 2022-01-21 16:53 | P.HPIM ---
History of Present Illness H&P Date: 01/21/22 Chief Complaint: aphasia 81-year-old woman with medical history of recurrent TIA's, atrial fibrillation on Xarelto, restless leg syndrome, hypertension, hyperlipidemia, osteoarthritis who presented to our emergency department from her cardiology office because of transient aphasia and left-sided the numbness and weakness. Her symptoms began after recieving the chemical injection for cardiolite stress test which she was getting because of repeated TIA's according to her. Symptoms lasted about 1 hour according to patient. She denies any loss of consciousness, urinary or bowel incontinence, tongue bite or soreness. It seems the ED spoke with her color consultant (Dr. Hansen) who feels there episodes are psychogenic. In the ER she had CT of the head is reported as age-related atrophic and chronic small vessel ischemic change without acute intracranial process seen at this time. CT angiography of the head and neck showed 50% diameter reduction or proximal ICAs, poorly visualized peripheral branches of bilateral MCAs, diminutive left A1 segment of the JÚNIOR. Remaining intracranial vasculature appears to be patent this time. No IV TPA was given in the ER. Review of Systems Complete review of system was performed, pertinent positives per HPI otherwise negative Past Medical History Past Medical History: CVA/TIA, Fibromyalgia, GERD/Reflux, Hyperlipidemia, Memory Impairment, Osteoarthritis (OA), Skin Disorder, Syncope Additional Past Medical History / Comment(s): MENIERE'S LEFT EAR, PEPTIC ULCERS, tia x 14- last 05/2019. History of Any Multi-Drug Resistant Organisms: None Reported Past Surgical History: Back Surgery, Cholecystectomy, Joint Replacement, Orthopedic Surgery Additional Past Surgical History / Comment(s): LOOP RECORDER 2010, ORIF LEFT FOOT, rt foot surgery, JT REPL WINNIE KNEES & WINNIE SHOULDERS, WINNIE CATARACT, gianni and screws in back Past Anesthesia/Blood Transfusion Reactions: No Reported Reaction Past Psychological History: Anxiety, Depression Smoking Status: Never smoker Past Alcohol Use History: None Reported Past Drug Use History: None Reported - Past Family History Father Family Medical History: Cancer Additional Family Medical History / Comment(s): LUNG CANCER Mother Family Medical History: Cancer Additional Family Medical History / Comment(s): LEUKEMIA Medications and Allergies Home Medications Medication Instructions Recorded Confirmed Type Gabapentin [Neurontin] 100 mg PO TID PRN 12/12/13 01/21/22 History QUEtiapine [SEROquel] 50 mg PO HS 12/12/13 01/21/22 History Tamsulosin HCl [Flomax] 0.4 mg PO DAILY 12/12/13 01/21/22 History PARoxetine HCL [Paxil Cr] 25 mg PO DAILY 09/25/17 01/21/22 History Meclizine [Antivert] 12.5 mg PO TID PRN 03/11/19 01/21/22 History busPIRone HCL 15 mg PO BID 03/13/19 01/21/22 History Albuterol Sulfate [Proair Hfa] 1 - 2 puff INHALATION RT-Q6H PRN 10/11/19 01/21/22 History Rivaroxaban [Xarelto] 10 mg PO DAILY 06/24/20 01/21/22 History Turmeric Root Extract [Turmeric] 500 mg PO DAILY 10/17/20 01/21/22 History Atorvastatin Calcium [Lipitor] 40 mg PO DAILY 04/29/21 01/21/22 History Lisinopril-Hctz 20-12.5 mg 1 tab PO BID 04/29/21 01/21/22 History [Zestoretic 20-12.5] rOPINIRole HCL [Requip] 1 mg PO TID 04/29/21 01/21/22 History Famotidine [Pepcid] 20 mg PO HS 01/21/22 01/21/22 History Ibuprofen [Motrin] 800 mg PO Q8H PRN 01/21/22 01/21/22 History amLODIPine [Norvasc] 5 mg PO DAILY 01/21/22 01/21/22 History Allergies Allergy/AdvReac Type Severity Reaction Status Date / Time nickel [Nickel] Allergy Rash/Hives Verified 01/21/22 11:06 codeine AdvReac headache Verified 01/21/22 11:06 Physical Exam Vitals: Vital Signs Pulse Resp BP Pulse Ox 01/21/22 12:43 74 16 137/84 100 01/21/22 12:30 70 16 145/64 100 01/21/22 12:00 71 16 153/70 100 01/21/22 11:27 70 22 134/75 95 01/21/22 11:06 71 16 132/76 100 Intake and Output 06/23/22 06/24/22 06/24/22 22:59 06:59 14:59 Other: Weight 95.254 kg Constitutional: No acute distress, conversant, pleasant Eyes:Anicteric sclerae, moist conjunctiva, no lid-lag, PERRLA, ENMT: Oropharynx clear, no erythema, exudates Neck: Supple, FROM, no masses, or JVD, No carotid bruits, No thyromegaly Lungs: Clear to auscultation, Clear to percussion, Normal respiratory effort, no accessory muscle use Cardiovascular: Heart regular in rate and rhythm, No murmurs, gallops, or rubs, No peripheral edema Abdominal: Soft, Nontender, no guarding, rebound or rigidity, Normoactive bowel sounds, No hepatomegaly, No splenomegaly, No palpable mass Skin: Normal temperature, tone, texture, turgor, no induration, No subcutaneous nodules, No rash, lesions, No ulcers Extremities: No digital cyanosis, No clubbing, Pedal pulses intact and symmetrical, Radial pulses intact and symmetrical, No calf tenderness Psychiatric: Alert and oriented to person, place and time, appropriate affect, intact judgement Neuro: Muscles Strength 5/5 in all 4 extremities, Sensation to light touch grossly present throughout, Cranial nerves II-XII grossly intact, no focal sensory deficits Results CBC & Chem 7: 01/21/22 11:17 01/21/22 11:17 Labs: Abnormal Lab Results - Last 24 Hours (Table) 01/21/22 01/21/22 Range/Units 11:17 11:17 PT 12.9 H (9.0-12.0) sec INR 1.2 H (<1.2) APTT 30.3 H (22.0-30.0) sec Chloride 108 H (98-107) mmol/L Carbon Dioxide 20 L (22-30) mmol/L BUN 26 H (7-17) mg/dL Assessment and Plan Plan: Acute transient dysarthria and left-sided numbness and possible weakness Possible TIA vs psychogenic. History multiple TIA's Seen by neuro, MRI brain ordered Continue ASA 325mg daily Continue Lipitor 40mg qhs Neuro checks Q4 hours. Continue cardiac monitoring. Consulted PT, OT and HOSPICE RN. Atrial fibrillation on AC Hold AC for now according to neuro Restless leg syndrome History of hypertension Hyperlipidemia Osteoarthritis All stable resum meds DVT prophylaxis: Started on Subq heparin 5000U every 12 hours. Admit to observation
[2022-01-21] MEDS ORDERED: ALPRAZolam 0.25 MG TAB PO STA (18:10)
[2022-01-21] MEDS ORDERED: ATORVASTATIN 40 MG TAB PO SCH (21:00)
[2022-01-21] MEDS ORDERED: QUEtiapine 50 MG TAB PO SCH (21:00)
[2022-01-21] MEDS ORDERED: FAMOTIDINE 20 MG TAB PO SCH (21:00)
--- NOTE | 2022-01-21 21:13 | MR ---
EXAMINATION TYPE: MR brain wo/w con DATE OF EXAM: 01/21/2022 COMPARISON: 04/30/2021 HISTORY: stroke. dysarthria and weakness CONTRAST: Standard multiplanar, multisequence MRI departmental protocol images were obtained without contrast a nd with 9 mL intravenous Gadavist gadolinium contrast. The diffusion images show no evidence of an acute infarct. There is no mass effect nor midline shift. No evidence of intracranial hemorrhage. There is cerebral cortical atrophy appropriate for age. There are numerous white matter high signal foci throughout the cerebral hemispheres measuring up to 1 cm. There is coalescent signal in the anterior left and right internal capsule. There is a 5 mm foc us of increased signal in the left side of the jacobo without change. Cerebellum is intact. Total numbe r of white matter lesions is more than 50. Sella turcica is intact. Corpus callosum is intact. No evidence of orbital mass. IMPRESSION: Extensive white matter signal changes consistent with microvascular ischemia. Demyelinating disease n ot excluded. No evidence of acute cortical infarct. Brain appears not significantly different than ol d exam.
[2022-01-21] MEDS: LISINOPRIL-HCTZ 20-12.5 MG 1 EACH TAB PO SCH (21:54)
[2022-01-21] MEDS: HEPARIN SODIUM,PORCINE/PF 5,000 UNIT/0.5 ML SYRINGE SQ SCH (21:54)
[2022-01-21] MEDS: busPIRone HCl 5 MG TAB PO SCH (21:54)
[2022-01-21 22:32] LABS: Chol/HDL Ratio 2.81 Ratio; LDL Cholesterol,Calculated 101.9 mg/dL (0.0-131.0); VLDL Calculation 13.42 mg/dL (5.00-40.00)
[2022-01-22 08:06] LABS: Basophils # (A) 0.1 k/uL (0-0.2); Basophils % (A) 1 %; Eosinophils # (A) 0.2 k/uL (0-0.7); Eosinophils % (A) 3 %; HCT 43.6 % (34.0-46.0); HGB 14.4 gm/dL (11.4-16.0); Lymphocytes % (A) 33 %; MCH 30.5 pg (25.0-35.0); MCHC 33.1 g/dL (31.0-37.0); MCV 92.1 fL (80.0-100.0); Mean Platelet Volume 7.4; Monocytes # (A) 0.4 k/uL (0-1.0); Monocytes % (A) 7 %; Neutrophils # (A) 3.2 k/uL (1.3-7.7); Neutrophils % (A) 55 %; Platelet Count 245 k/uL (150-450); RBC 4.74 m/uL (3.80-5.40); RDW 12.7 % (11.5-15.5); WBC 5.9 k/uL (3.8-10.6)
[2022-01-22 08:21] LABS: ALT 18 U/L (4-34); AST 40 U/L (14-36); African American GFR (CKD) >90 (>60 ml/min/1.73 sqM); Albumin 4.3 g/dL (3.5-5.0); Alkaline Phosphatase 111 U/L (38-126); Anion Gap 7 mmol/L; Blood Urea Nitrogen 18 mg/dL (7-17); Calcium 9.5 mg/dL (8.4-10.2); Carbon Dioxide 26 mmol/L (22-30); Chloride 106 mmol/L (98-107); Glucose 108 mg/dL (74-99); Non-African American GFR(CKD) 79 (>60 ml/min/1.73 sqM); Potassium 4.5 mmol/L (3.5-5.1); Sodium 139 mmol/L (137-145); Total Bilirubin 0.7 mg/dL (0.2-1.3); Total Protein 6.9 g/dL (6.3-8.2)
[2022-01-22] MEDS: busPIRone HCl 5 MG TAB PO SCH (08:48)
[2022-01-22] MEDS: HEPARIN SODIUM,PORCINE/PF 5,000 UNIT/0.5 ML SYRINGE SQ SCH (08:48)
[2022-01-22] MEDS: LISINOPRIL-HCTZ 20-12.5 MG 1 EACH TAB PO SCH (08:48)
[2022-01-22 09:00] VITALS: RESP 18
[2022-01-22] MEDS ORDERED: TAMSULOSIN 0.4 MG CAP.ER.24H PO SCH (09:00)
[2022-01-22] MEDS ORDERED: ATORVASTATIN 40 MG TAB PO SCH (09:00)
[2022-01-22] MEDS ORDERED: PARoxetine 20 MG TAB PO SCH (09:00)
[2022-01-22] MEDS ORDERED: ASPIRIN 325 MG TAB PO SCH (09:00)
[2022-01-22] MEDS ORDERED: amLODIPine 5 MG TAB PO SCH (09:00)
--- NOTE | 2022-01-22 10:14 | P.PN ---
Subjective Progress Note Date: 01/22/22 The patient continues to be feeling well. Denies any further neurological issues. Objective - Vital Signs Vital signs: Vital Signs Temp 98.2 F 01/22/22 08:41 Pulse 78 01/22/22 08:41 Resp 18 01/22/22 08:41 BP 143/82 01/22/22 08:41 Pulse Ox 96 01/22/22 08:41 FiO2 Intake & Output 01/21/22 01/22/22 01/22/22 18:59 06:59 18:59 Intake Total 600 240 Balance 600 240 Weight 94 kg 93.7 kg Intake: Oral 600 240 Other: Voiding Method Toilet Toilet Toilet # Voids 2 - Exam GENERAL: The patient is lying in bed and is not in acute distress. NEUROLOGICAL: Higher mental function: The patient is awake, alert, oriented to self, place and time. Patient is following commands. No aphasia and no neglect. Cranial nerves: The pupils are round, equal and reactive to light and accommodation. Visual becerra are full to confrontation throughout. Extraocular movement is intact no nystagmus is noted. Facial sensation is normal to touch throughout. The facial strength is normal throughout. Hearing is mildly decrease bilaterally to hand rub. Tongue is midline and moved [id number] without any difficulty. No dysarthria is noted. Shoulder shrug is normal bilaterally. Motor: The strength is left forearm is 5- (old according to patient). Otherwise 5 over 5 throughout. Normal tone and bulk. Cerebellum: Normal finger to nose heel to chin bilaterally. Sensation: Sensation is normal to touch throughout. Reflexes (right/left): 1+ throughout. Plantars are downgoing bilaterally. Some of the workup in our facility during this hospital visit consisted of: Lipid panel: Triglyceride 67, cholesterol 179, LDLs [address] of the head is reported as age-related atrophic and chronic small vessel ischemic change without acute intracranial process seen at this time. CT angiography of the head and neck was reported as per flow branch of the vessels of bilateral MCA are poorly visualized. There is dimminutive left A1 segment JÚNIOR. Remaining intracranial vasculature appears to be patent this time. - Labs CBC & Chem 7: 01/22/22 07:17 01/22/22 07:17 Labs: Abnormal Lab Results - Last 24 Hours (Table) 01/21/22 01/21/22 01/21/22 Range/Units 11:17 11:17 11:17 PT 12.9 H (9.0-12.0) sec INR 1.2 H (<1.2) APTT 30.3 H (22.0-30.0) sec Chloride 108 H (98-107) mmol/L Carbon Dioxide 20 L (22-30) mmol/L BUN 26 H (7-17) mg/dL Glucose (74-99) mg/dL AST (14-36) U/L HDL Cholesterol 63.70 H (40.00-60.00) mg/dL 01/22/22 Range/Units 07:17 PT (9.0-12.0) sec INR (<1.2) APTT (22.0-30.0) sec Chloride (98-107) mmol/L Carbon Dioxide (22-30) mmol/L BUN 18 H (7-17) mg/dL Glucose 108 H (74-99) mg/dL AST 40 H (14-36) U/L HDL Cholesterol (40.00-60.00) mg/dL Assessment and Plan Assessment: Acute transient dysarthria and left-sided numbness and possible weakness (who presented from her crumb packer office): Unsure exact cause but possibly reaction to radioactive substance). MRI Brain is negative for acute or subacute stroke. Cannot rule out TIA. History multiple TIA's Atrial fibrillation on Xarelto Restless leg syndrome History of hypertension Hyperlipidemia Osteoarthritis Plan: Since MRI Brain is active can discontinue ASA and resume home Xarelto. Continue Lipitor 40mg qhs (home dose) Recommend prolonged EEG as outpatient to rule other causes such as seizure or epileptiform activity since having recurrent ?TIA episodes. In past she had routine EEG and was normal. Neuro checks Q4 hours. Continue cardiac monitoring. Consulted PT, OT and [employer]. Will defer rest of management to primary team. For DVT prophylaxis: On Subq heparin 5000U every 12 hours. Once Xarelto is restated stop subq heparin. Patient is clear for discharge from neurological perspective. Please notify neurology team if any further concerns. Marquis Ayers M.D. Neuro-Hospitalist Time with Patient: Less than 30
[2022-01-22 11:18] VITALS: BP 135/59; PULSE 68; TEMP 98.3
--- NOTE | 2022-01-22 12:23 | P.DS ---
Providers Date of admission: 01/21/22 12:59 Expected date of discharge: 01/22/22 Attending physician: Nadia Rome DO Consults: 01/21/22 12:49 Consult Physician Urgent Consulting Provider: Marquis Ayers Consult Reason/Comments: code stroke Do you want consulting provider notified?: Yes Primary care physician: [place] [facility] Course: 81-year-old woman with medical history of recurrent TIA's, atrial fibrillation on Xarelto, restless leg syndrome, hypertension, hyperlipidemia, osteoarthritis who presented to our emergency department from her cardiology office because of transient aphasia and left-sided the numbness and weakness. Her symptoms began after recieving the chemical injection for cardiolite stress test which she was getting because of repeated TIA's according to her. Symptoms lasted about 1 hour according to patient. She denies any loss of consciousness, urinary or bowel incontinence, tongue bite or soreness. It seems the ED spoke with her cardi ologist (Dr. Hansen) who feels there episodes are psychogenic. In the ER she had CT of the head is reported as age-related atrophic and chronic small vessel ischemic change without acute intracranial process seen at this time. CT angiography of the head and neck showed 50% diameter reduction or proximal ICAs, poorly visualized peripheral branches of bilateral MCAs, diminutive left A1 segment of the JÚNIOR. Remaining intracranial vasculature appears to be patent this time. No IV TPA was given in the ER. Patient was admitted, she was seen by neurology who ordered brain MRI which did not reveal any stroke. According to neurology for symptoms are most likely related to the chemical injection during the stress test. She did not have any recurrent symptoms during the hospitalization. Her telemetry did not reveal any acute changes. Initially she was started on aspirin but that was discontinued later upon discharge. She was cleared by neurology for discharge. Patient Condition at Discharge: Fair Plan - Discharge Summary Discharge Rx Participant: No New Discharge Prescriptions: Continue QUEtiapine [SEROquel] 50 mg PO HS Gabapentin [Neurontin] 100 mg PO TID PRN PRN Reason: Pain Tamsulosin HCl [Flomax] 0.4 mg PO DAILY PARoxetine HCL [Paxil Cr] 25 mg PO DAILY Meclizine [Antivert] 12.5 mg PO TID PRN PRN Reason: DIZZINESS busPIRone HCL 15 mg PO BID Albuterol Sulfate [Proair Hfa] 1 - 2 puff INHALATION RT-Q6H PRN PRN Reason: Shortness Of Breath Rivaroxaban [Xarelto] 10 mg PO DAILY Turmeric Root Extract [Turmeric] 500 mg PO DAILY rOPINIRole HCL [Requip] 1 mg PO TID Atorvastatin Calcium [Lipitor] 40 mg PO DAILY Ibuprofen [Motrin] 800 mg PO Q8H PRN PRN Reason: Pain Lisinopril-Hctz 20-12.5 mg [Zestoretic 20-12.5] 1 tab PO BID amLODIPine [Norvasc] 5 mg PO DAILY Famotidine [Pepcid] 20 mg PO HS Discharge Medication List Gabapentin [Neurontin] 100 mg PO TID PRN 12/12/13 [History] QUEtiapine [SEROquel] 50 mg PO HS 12/12/13 [History] Tamsulosin HCl [Flomax] 0.4 mg PO DAILY 12/12/13 [History] PARoxetine HCL [Paxil Cr] 25 mg PO DAILY 09/25/17 [History] Meclizine [Antivert] 12.5 mg PO TID PRN 03/11/19 [History] busPIRone HCL 15 mg PO BID 03/13/19 [History] Albuterol Sulfate [Proair Hfa] 1 - 2 puff INHALATION RT-Q6H PRN 10/11/19 [History] Rivaroxaban [Xarelto] 10 mg PO DAILY 06/24/20 [History] Turmeric Root Extract [Turmeric] 500 mg PO DAILY 10/17/20 [History] Atorvastatin Calcium [Lipitor] 40 mg PO DAILY 04/29/21 [History] Lisinopril-Hctz 20-12.5 mg [Zestoretic 20-12.5] 1 tab PO BID 04/29/21 [History] rOPINIRole HCL [Requip] 1 mg PO TID 04/29/21 [History] Famotidine [Pepcid] 20 mg PO HS 01/21/22 [History] Ibuprofen [Motrin] 800 mg PO Q8H PRN 01/21/22 [History] amLODIPine [Norvasc] 5 mg PO DAILY 01/21/22 [History] Follow up Appointment(s)/Referral(s): Elfego Roberts MD [Primary Care Provider] - 1-2 days
== END 2022-01-22 13:51 | disposition home health service (06) ==
LOC: EC 11:04 → 3SCARD 12:59 → INTOOBSV 12:59 → 3SCARD 15:41 → UNDODISIN 01-22 13:51
PROVIDERS: ADMIT Internal Medicine; ATTEND Internal Medicine
DX: R47.1 Dysarthria and anarthria (principal); R20.0 Anesthesia of skin; R53.1 Weakness; R47.01 Aphasia; R47.81 Slurred speech; I48.91 Unspecified atrial fibrillation; G25.81 Restless legs syndrome; I10 Essential (primary) hypertension; E78.5 Hyperlipidemia, unspecified; M19.90 Unspecified osteoarthritis, unspecified site; K21.9 Gastro-esophageal reflux disease without esophagitis; Z90.49 Acquired absence of other specified parts of digestive tract; R41.3 Other amnesia; H81.02 Meniere's disease, left ear; F41.9 Anxiety disorder, unspecified; M79.7 Fibromyalgia; F32.A Depression, unspecified; Z79.899 Other long term (current) drug therapy; Z79.01 Long term (current) use of anticoagulants; Z88.5 Allergy status to narcotic agent; Z91.048 Other nonmedicinal substance allergy status; Z96.653 Presence of artificial knee joint, bilateral; Z96.612 Presence of left artificial shoulder joint; Z96.611 Presence of right artificial shoulder joint; Z86.73 Personal history of transient ischemic attack (TIA), and cerebral infarction without residual deficits; Z87.11 Personal history of peptic ulcer disease; Z80.1 Family history of malignant neoplasm of trachea, bronchus and lung; Z80.6 Family history of leukemia
CPT/HCPCS: 96372 ×2; 99291; 36415; 93005; 80061; 80053 ×2; 84484; 85025 ×2; 85610; 85730; 71046; 70496; 70450; 70498; 70553; G0378 ×2; Q9967; J1644 ×2; A9585